=== PATIENT | female | born 1945 | race Caucasian/White ===

== ENCOUNTER 2021-10-23 13:08 | Outpatient (CLI) | payer MEDICARE, BC, SELFPAY ==
--- NOTE | 2021-10-23 13:45 | MR_ITS ---
[address] [address] Phone:?[phone] Fax:?[phone] Referring Physician Information: Sukhdev Tomas [address] [facility] [address] Phone:?[phone] Fax:?[phone] Patient:?Queta Raymond D.O.B:?1945 Sex:?Female Phone:?[phone] [facility] MRN:?[id number] Exam Date:?10/23/2021 ? EXAM: MR LUMBAR SPINE WITHOUT CONTRAST CLINICAL INFORMATION: 76-year-old female with radicular left leg pain. COMPARISON: None. TECHNICAL INFORMATION: Sagittal T2, sagittal T1, sagittal STIR, axial T2, and axial T1-weighted MR images of the lumbar spine on a 1.5 Sera magnet. CONTRAST: None. SEDATION: None. INTERPRETATION: Lordotic alignment of 5 nonrib-bearing lumbar vertebral bodies with a generalized lumbar levocurvature and no spondylolysis, vertebral collapse, acute fracture, or destructive osseous lesion. Normal pre and paravertebral soft tissues. Nonspecific right perinephric stranding, and bilateral renal cysts of varying size and complexity, the largest on the left measuring up to 6.2 cm. Scattered T2 hyperintense right hepatic lesions, one of which is incompletely imaged, the other measuring at least 2.0 cm, and both having a benign appearance in the imaged portions (series 7, image 1). Multiple T2 hypointense gallstones in the gallbladder. Mild right greater than left sacroiliac joint degenerative changes, partially imaged. Conus medullaris positioned at L1-2, with normal configuration of the terminal nerve roots. L5-S1: Mild disc degeneration on the left, ventral annular fissure, left eccentric dorsal to left far lateral annular bulge/endplate ridging, moderate left facet degeneration, mild left subarticular stenosis, and moderate distal left foraminal stenosis with exiting left L5 root impingement. L4-5: Mild disc degeneration, right posterolateral to proximal foraminal annular fissure/2-3 mm AP protrusion, mild bilateral facet degeneration, moderate right/mild left subarticular stenosis with descending right L5 root impingement, and mild right greater than left foraminal stenosis. L3-4: Degenerative disc desiccation with preserved disc height, normal dorsal disc contours, mild bilateral facet degeneration, and no stenosis or impingement. L2-3: Degenerative disc desiccation with preserved disc height, normal dorsal disc contours, normal facets, and no stenosis or impingement. L1-2: Degenerative disc desiccation with preserved disc height, 1 mm retrolisthesis, normal facets, and no stenosis or impingement. T12-L1: Normal disc and facets. CONCLUSION: Multilevel lumbar degenerative changes with levocurvature and specifics as follows: 1. L5-S1 moderate distal left foraminal stenosis with exiting left L5 root impingement. Mild right greater than left foraminal stenosis at L4-5. 2. L4-5 moderate right and mild left subarticular stenosis, noting contribution from a disc protrusion impinging the descending right L5 root. 3. Facet degeneration, moderate on the left at L5-S1. Mild bilaterally at L4-5 and L3-4. 4. No spondylolysis, vertebral collapse, acute fracture, or destructive osseous lesion. 5. Multiple renal cysts with varying degrees of complexity, and nonspecific right perinephric stranding may be correlated with renal function testing and may be further evaluated with retroperitoneal ultrasound if warranted clinically. 6. Cholelithiasis. PDB Electronically signed on 10/24/2021 6:59:00 PM by Kirt Grajeda M.D.
--- OUTSIDE RECORDS SUMMARY | 2021-10-30 01:58 | XMS_ITS | Encounter Summary ---
:1945 Author Organization [facility] Address [address] [place] [address] Care Team Providers Name Role Phone Giovanna Schreiber APRN, C.N.P. Primary Care Provider [phone] Reason for Visit Reason Comments Urinary Tract Infection Encounter Details Date Type Department Care Team Description 09/06/2021 Nurse Triage Department of [facility], Jose Garza inary Tract Medicine, [facility], in [place] [id number] [place], [place] [address] [place] [address] [place] [address] [phone] Social History Tobacco Use Types Packs/Day Years Used Date Smoking Tobacco: Never Smokeless Tobacco: Never Alcohol Use Standard Drinks/Week Comments No 0 (1 standard drink = 0.6 oz pure alcoho l) Alcohol Habits Answer Date Recorded How often do you have a drink containing alcohol? Never 02/07/2019 How many drinks containing alcohol do you have on a typical Not asked day when you are drinking? How often do you have six or more drinks on one occasion? Ne gloria 02/07/2019 Comment: Not asked Social Isolation Answer Date Recorded In a typical week, how many times do you Twice a week 05/27/2020 talk on the phone with family, friends, or neighbors? How often do you get together with friends Twice a week 05/27/2020 or relatives? How often do you attend mandaen or latter day More than 4 time s per year 02/07/2019 services? Do you belong to any clubs or organizations Yes 02/07/2019 such as mandaen groups, unions, fraternal or athletic groups, or school groups? How often do you attend meetings of the More than 4 times pe r year 02/07/2019 clubs or organizations you belong to? Are you now , , , 02/07/2019 , never or living with a partner? Physical Activity Answer Date Recorded On average, how many days per week do you engage in moderate to 2 days 05/27/2020 strenuous exercise (like walking fast, running, jogging, dancing, swimming, biking, or other activities that cause a light or heavy sweat)? On average, how many minutes do you engage in exercise at th is 50 min 05/27/2020 level? Stress Answer Date Recorded Do you feel stress - tense, restless, nervous, or Only a lit tle 02/07/2019 anxious, or unable to sleep at night because your mind is troubled all the time - these days? Financial Resource Strain Answer Date Recorded How hard is it for you to pay for the very basics like Not v norberto hard 02/07/2019 food, housing, medical care, and heating? Intimate Partner Violence Answer Date Recorded Within the last year, have you been afraid of your partner o r No 02/07/2019 ex-partner? Within the last year, have you been humiliated or emotionall y No 02/07/2019 abused in other ways by your partner or ex-partner? Within the last year, have you been kicked, hit, slapped, or No 02/07/2019 otherwise physically hurt by your partner or ex-partner? Within the last year, have you been raped or forced to have any No 02/07/2019 kind of sexual activity by your partner or ex-partner? Food Insecurity Answer Date Recorded Within the past 12 months, you worried that your food would Never true 02/07/2019 run out before you got money to buy more. Within the past 12 months, the food you bought just didn't N ever true 02/07/2019 last and you didn't have money to get more. Transportation Needs Answer Date Recorded In the past 12 months, has lack of transportation kept you f rom No 02/07/2019 medical appointments or from getting medications? In the past 12 months, has lack of transportation kept you f rom No 02/07/2019 meetings, work, or getting things needed for daily living? Education Answer Date Recorded What is the highest level of school you have Some college, n o degree 02/07/2019 completed or the highest degree you have received? 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 - 09/06/2021 1:24 PM CDT Chief Complaint / Reason for Call Patient is a 76 y.o. female calling regarding Urinary Tract Infection. Assessment Concern: Patient feels she has a UTI. She has urinary frequency and pain with urination. She rates the pain 5-6/10. Denies fever, blood in urine, flank or lower back pain. States she took an AZO test which was positive for leukocytes. Present for: Less than 24 hours Home cares tried: AZO pain medication, 100% cranberry juice, increased water intake. Calling to request: appointment The recommended disposition is See a health care provider within 24 hours. Patient was warm transferred to [place] at the clinic for further assistance. Chief Complaint / Reason for Call Reason for Disposition ? ? Age > 50 years Protocols used: URINATION PAIN - [id number] Care Advice Patient/Caregiver understands and will follow care advice?: Yes, able to teach back DRINK EXTRA FLUIDS: * Drink extra fluids. * Drink 8 to 10 cups (1,800 to 2,400 ml) of liquids a day. * Reason: This will water-down your urine and make it less painful to pass. If there is an infection, this will help wash out the germs from your bladder. DRINK EXTRA FLUIDS - EXTRA NOTES AND WARNINGS: * Increased fluid intake may be contraindicated in adults with renal failure or heart failure. * Discuss with your doctor (or HAIR WEAVER/PA). CRANBERRY JUICE: * Some people think that drinking cranberry juice may help in fighting urinary tract infections. While there is some research that shows cranberry juice might help prevent a urine infection, there is not much evidence that it helps treat the infection. However, if you wish to drink cranberry juice, here are some instructions. * Dosage Cranberry Juice Cocktail: 8 oz (240 ml) twice a day. * Dosage 100% Cranberry Juice: 1 oz (30 ml) twice a day. CRANBERRY JUICE - EXTRA NOTES AND WARNINGS: * Do not drink more than 16 oz (480 ml) of cranberry juice cocktail per day. Too much cranberry juice can be irritating to the bladder. * There have been a couple cases reported of interactions between cranberry juice and Coumadin (warfarin). In these cases the INR level increased for a period of days while the person was drinking cranberry juice. The INR is a test that is used to determine if a person is taking the right amount of Coumadin. At higher INR levels there is an increased risk of bleeding. * Remember, antibiotics are needed to treat a urine infection! WARM SALINE SITZ BATHS - TWICE DAILY FOR URINATION PAIN: * Sit in a warm sitz bath for 20 minutes twice a day. This will decrease pain and irritation, keep the area clean, and help with healing. * Afterwards, pat area dry with unscented toilet paper. WARM SALINE SITZ BATH - HOW TO MAKE A SITZ BATH: * Here is how you can make a saline sitz bath. * Fill the tub with warm water until it is 3 to 4 inches (7 to 10 cm) deep. * Add 1/4 cup (80 g) of table salt or baking soda to a tub of warm water. Stir the water until it dissolves. CALL BACK IF: * Fever or back pain occurs * You become worse CARE ADVICE given per Urination Pain - Female (Adult) guideline. documented in this encounter Plan of Treatment Upcoming Encounters Date Type Specialty Care Team Description 11/20/2021 Nurse Only Family Medicine Giovanna Schreiber APRN, C.N.P. [address] [facility] [place] [address] 11/20/2021 Appointment Laboratory Medicine Giovanna Schreiber APRN, C.N.P. [address] [facility] [place] [address] 12/18/2021 Comprehensive Visit Physical Medicine and Isidoro Morales M.D. [address] [address] 12/19/2021 Comprehensive Visit Community Internal Giovanna Schreiber, Medicine ZAINA, C.N.P. [address] [place] [address] documented as of this encounter Visit Diagnoses Not on filedocumented in this encounter Additional Health Concerns Assessment Noted Time PHQ-9 Depression Total Score: 3 11/08/2018 4:46 PM CDT documented as of this encounter Care Teams High School Teacher Relationship Specialty Start Date End Date Giovanna Schreiber V., ZAINA, C.N.P. PCP - General 02/21/19 [address] [place] [address] documented as of this encounter
--- OUTSIDE RECORDS SUMMARY | 2021-10-30 01:58 | XMS_ITS | Encounter Summary ---
:1945 Author Organization [facility] Address [address] [place] [address] Care Team Providers Name Role Phone Giovanna Schreiber APRN, C.N.P. Primary Care Provider [phone] Reason for Referral Outpatient (Routine) - Closed Specialty Diagnoses / Procedures Referred By Contact Refer red To Contact Diagnoses Elevated Thyroid Stimulating Hormone Giovanna Schreiber APRN, [facility] Region Procedures US Thyroid C.N.P. [address] [place] [address] Referral ID Status Reason Start Date Expiration Date Visits Requ ested Visits Authorized [id number] Closed 08/14/2021 08/14/2022 1 1 Reason for Visit Outpatient (Routine) - Closed Specialty Diagnoses / Procedures Referred By Contact Refer red To Contact Diagnoses Elevated Thyroid Stimulating Hormone Giovanna Schreiber APRN, [facility] Region Procedures US Thyroid C.N.P. [address] [place] [address] Referral ID Status Reason Start Date Expiration Date Visits Requ ested Visits Authorized [id number] Closed 08/14/2021 08/14/2022 1 1 Encounter Details Date Type Department Care Team Description 09/05/2021 Hospital Encounter Department of Giovanna Schreiber Thyroid Radiology in [place] Torrez [place], [place] C.N.P. [address] [place] [address] [phone] Social History Tobacco Use Types Packs/Day Years [...] or relatives? How often do you attend jehovah's witness or methodist More than 4 time s per year 02/07/2019 services? 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 CALCIUM CARB/VIT Misc Prescription See 0 02/24/20 12 D3/MINERALS Instructions, Calcium (CALCIUM-VITAMIN D ORAL) & Vit D3 0- takes one ounce daily FAMOTIDINE ORAL Pepcid See 0 06/12/2011 Instructions, 10 mg 1 in am 2 in pm as needed LORATADINE ORAL Take 10 mg by mouth 0 06/12/2011 as needed. lutein 20 mg capsule Take 20 mg by mouth 0 daily. metoprolol succinate TAKE 1 TABLET (50 MG 90 tablet 3 03/26 (TOPROL-XL) 50 mg 24 hr TOTAL) BY MOUTH tabletIndications: DAILY. DO NOT CRUSH Hypertension Essential OR CHEW. Primary vitamins Take 1 capsule by 0 A,C,Z-hoka-ouksbf (ICAPS mouth daily. AREDS) 14,320 Units-226 mg-200 Units per capsule zinc gluconate 50 mg Take 50 mg by mouth 0 tablet daily with breakfast. DOCOSAHEXANOIC ACID/EPA Take by mouth daily. 0 10/03/2021 (FISH OIL ORAL) levothyroxine Take 1 tablet (25 mcg 30 tablet 11 08/14/2021 10/04/2021 (SYNTHROID, LEVOTHROID) total) by mouth 25 mcg tablet daily. documented as of this encounter Plan of Treatment Upcoming Encounters Date Type Specialty Care Team Description 11/20/2021 Nurse Only Family Medicine Giovanna Schreiber APRN, C.N.P. [address] [place] [phone] 11/20/2021 Appointment Laboratory Medicine Giovanna Schreiber APRN, C.N.P. [address] [place] [address] 12/18/2021 Comprehensive Visit Physical Medicine and Isidoro Morales M.D. [address] [phone] 12/19/2021 Comprehensive Visit Community Internal Giovanna Schreiber, Medicine ZAINA, C.N.P. [address] [place] [address] documented as of this encounter Procedures Procedure Name Priority Date/Time Associated Comments Diagnosis US THYROID RAD - Routine 09/05/2021 10:17 Elevated Thyroid Result s for this (most inpatients AM CDT Stimulating Hormone proc edure are in and all the results outpatients) section. documented in this encounter Results US Thyroid (09/05/2021 10:17 AM CDT) Anatomical Region Laterality Modality Head and Neck, Ultrasound RST LOS, Ultrasound ARZ LOS, N/A Ultrasound Ultrasound FLA LOS Specimen (Source) Anatomical Collection Method Collection Time Re ceived Time Location / / Volume Laterality 09/06/2021 1:24 PM CDT Impressions 09/06/2021 1:28 PM CDT 1. 0.6 cm intermediate suspicion nodule in the mid right thyroid laterally. No specific imaging follow-up is recommended. 2. No sonographic abnormality is identif ied in the right level 2 area of pain. Narrative 09/06/2021 1:28 PM CDT EXAM: US THYROID COMPARISON: None. FINDINGS: The right thyroid lobe measures: 1.2 cm x 1.7 cm x 3.9 cm The left thyroid lobe measures: 1.2 cmx1 .5 cmx3.7 cm The isthmus measures: 5 mm in AP diamete r. The thyroid parenchyma appears: normal. A nodule in the mid right thyroid latera lly measures 0.6 x 0.6 x 0.4 cm and has the following features: * ??composition: solid (1) * ??echogenicity: hypoechoic (1) * ??shape: not taller than wide (0) * ??margins: smooth margins (0) * ??echogenic foci: no echogenic foci (0 ). The Butternut ultrasound score is 2. Based on the AskMayoExpert Thyroid Nodule Care Process Model, the nodule has intermediate suspicion for ma lignancy (5-20%). No sonographic abnormality is identified in the right level 2 area of pain. The submandibular gland appears to be within normal limits. Lymph nodes: No pathologically enlarged lymph nodes are seen in the neck, with evaluation of levels II-V. The thyroid nodule descriptions and skyler gories are based on the Thyroid Nodule Care Process Model established by the [facility] [place]. [email or web address]/clinical-[email or web address] The AskMayoExpert Thyroid Nodule CPM sta jairo the following recommendations: ? No suspicion or Extremely low-lona picion nodule: No FNA, no imaging f/u ? Low-suspicion nodule: FNA if grea ter than or equal to 25 mm; US f/u in 2- 5 yrs if greater than or equal to 15 mm ? Intermediate-suspicion nodule: FN A if greater than or equal to 15 mm; US f/u in 1-3 yrs if greater than or equal to 10 mm ? High-suspicion nodule: FNA if gre ater than or equal to 10 mm (or smaller if desired); US f/u in 1 yr if not FNA Procedure Note Pascual Meadows M.D. - 09/06/2021Format ting of this note might be different from the original. EXAM: US THYROID COMPARISON: None. FINDINGS: The right thyroid lobe measures: 1.2 cm x 1.7 cm x 3.9 cm The left thyroid lobe measures: 1.2 cmx1 .5 cmx3.7 cm The isthmus measures: 5 mm in AP diamete r. The thyroid parenchyma appears: normal. A nodule in the mid right thyroid latera lly measures 0.6 x 0.6 x 0.4 cm and has the following features: * composition: solid (1) * echogenicity: hypoechoic (1) * shape: not taller than wide (0) * margins: smooth margins (0) * echogenic foci: no echogenic foci (0). The Butternut ultrasound score is 2. Based on the [employer]May[employer]pert Thyroid Nodule Care Process Model, the nodule has intermediate suspicion for ma lignancy (5-20%). No sonographic abnormality is identified in the right level 2 area of pain. The submandibular gland appears to be within normal limits. Lymph nodes: No pathologically enlarged lymph nodes are seen in the neck, with evaluation of levels II-V. The thyroid nodule descriptions and skyler gories are based on the Thyroid Nodule Care Process Model established by the [facility] [place]. [email or web address]/clinical-answers/[email or web address] [email or web address] The [employer]MayoExpert Thyroid Nodule CPM sta jairo the following recommendations: No suspicion or Extremely low-suspicion nodule: No FNA, no imaging f/u Low-suspicion nodule: FNA if greater th an or equal to 25 mm; US f/u in 2-5 yrs if greater than or equal to 15 mm Intermediate-suspicion nodule: FNA if g reater than or equal to 15 mm; US f/u in 1-3 yrs if greater than or equal to 10 mm High-suspicion nodule: FNA if greater t sr or equal to 10 mm (or smaller if desired); US f/u in 1 yr if not FNA IMPRESSION: 1. 0.6 cm intermediate suspicion nodule in the mid right thyroid laterally. No specific imaging follow-up is recommended. 2. No sonographic abnormality is identif ied in the right level 2 area of pain. Giovanna Schreiber APRN C.N.P. IMG US PROCEDURES documented in this encounter Visit Diagnoses Diagnosis Elevated Thyroid Stimulating Hormone documented in this encounter Additional Health Concerns Assessment Noted Time PHQ-9 Depression Total Score: 3 11/08/2018 4:46 PM CDT documented as of this encounter Care Teams Client Support Administrator Relationship Specialty Start Date End Date Giovanna Schreiber APRN, C.N.P. PCP - General 02/21/[address] [place] [address] [place] [phone] documented as of this encounter
--- OUTSIDE RECORDS SUMMARY | 2021-10-30 01:58 | XMS_ITS | Encounter Summary ---
:1945 Author Organization [facility] Address [address] [place] [address] Care Team Providers Name Role Phone Giovanna Schreiber APRN, C.N.P. Primary Care Provider [phone] Reason for Visit Reason Comments Urinary Tract Infection Noticed pain while urinating on 09/05/21. Has frequency to urinate. Took some equate Ur inary Pain Relief - phenazopyridine hydrochlorid e which did relieve some pain. Has an uncomfortable pressur e type feeling.Took a home test using ASO test strips - luek ocytes were pink. Appointment Request (Routine) - Closed Specialty Diagnoses / Procedures Referred By Contact Refer red To Contact Family Medicine Referral ID Status Reason Start Date Expiration Date Visits Requ ested Visits Authorized [id number] Closed 09/06/2021 09/06/2022 1 1 Encounter Details Date Type Department Care Team Description 09/06/2021 Office Visit Department of Family Everardo Cardoza Sym ptom Urinary (Primary Dx); MedicineRaffaele M.D. Infection Urinary Tract Acute; Clinic, in [address] Hypertension Essential Primary; [place], [place] Hyperlipidemia 300 [facility] [address] [place], [place] [phone] [address] (Work) [phone] Social History Tobacco Use Types Packs/Day Years [...] or relatives? How often do you attend yarsanism or synagogue More than 4 time s per year 02/07/2019 services? 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 - 09/06/2021 2:30 PM CDT Progress Note Patient is 76 years old female with past medical history significant for hypertension, hyperlipidemia, GERD who presented today to the clinic for evaluation of UTI. Urinary Tract Infection This is a new problem. The current episode started yesterday. The problem occurs every urination. The pain is moderate. There has been no fever. Associated symptoms include frequency and urgency. Pertinent negatives include no chills, discharge, flank pain, hematuria, hesitancy, nausea, sweats or vomiting. Associated symptoms comments: Lower abdominal pressure . She has tried increased fluids (azo) for the symptoms. The treatment provided moderate relief. Allergies Allergen Reactions ??? No Known Allergies Other (see comments) Current Outpatient Medications: ??? atorvastatin (LIPITOR) 10 mg tablet, TAKE 1 TABLET (10 MG TOTAL) BY MOUTH DAILY., Disp: 90 tablet, Rfl: 3 ??? CALCIUM CARB/VIT D3/MINERALS (CALCIUM-VITAMIN D ORAL), [facility] Prescription See Instructions, Calcium & Vit D3 0- takes one ounce daily, Disp: , Rfl: ??? FAMOTIDINE ORAL, Pepcid See Instructions, 10 mg 1 in am 2 in pm as needed, Disp: , Rfl: ??? levothyroxine (SYNTHROID, LEVOTHROID) 25 mcg tablet, Take 1 tablet (25 mcg total) by mouth daily., Disp: 30 tablet, Rfl: 11 ??? LORATADINE ORAL, Take 10 mg by mouth as needed. , Disp: , Rfl: ??? lutein 20 mg capsule, Take 20 mg by mouth daily., Disp: , Rfl: ??? metoprolol succinate (TOPROL-XL) 50 mg 24 hr tablet, TAKE 1 TABLET (50 MG TOTAL) BY MOUTH DAILY.DO NOT CRUSH OR CHEW., Disp: 90 tablet, Rfl: 3 ??? vitamins A,C,W-hbzi-jfbvzc (ICAPS AREDS) 14,320 Units-226 mg-200 Units per capsule, Take 1 capsule by mouth daily., Disp: , Rfl: ??? zinc gluconate 50 mg tablet, Take 50 mg by mouth daily with breakfast., Disp: , Rfl: ??? DOCOSAHEXANOIC ACID/EPA (FISH OIL ORAL), Take by mouth daily., Disp: , Rfl: ??? nitrofurantoin monohydrate (MACROBID) 100 mg capsule, Take 1 capsule (100 mg total) by mouth 2 (two) times a day., Disp: 10 capsule, Rfl: 0 Past Medical History: Diagnosis Date ??? Hypertension Essential Primary ??? Hypertensive Chronic Kidney Disease (CKD) Stage 3a Glomerular Filtration Rate (GFR) 45 To 59 08/04/2011 Hypertension ??? Open Reduction And Internal Fixation Leg Status Post 08/11/2018 ??? Osteoporosis 03/31/2017 DEXA scan ??? Primary Osteoarthritis Multiple Sites Social History Tobacco Use ??? Smoking status: Never Smoker ??? Smokeless tobacco: Never Used Vaping Use ??? Vaping Use: never used Substance Use Topics ??? Alcohol use: No ??? Drug use: No Constitutional: - Negative for chills. Gastrointestinal: - Negative for nausea and vomiting. Genitourinary: Positive for frequency and urgency. - Negative for discharge, flank pain, blood in urine and hesitancy. Vitals: 09/06/21 1444 09/06/21 1450 BP: 145/80 141/77 BP Location: Left arm Left arm Patient Position: Sitting Sitting Cuff Size: Large Large Pulse: (!) 54 (!) 52 Resp: 16 Temp: 36.2 ??C TempSrc: Temporal Weight: 98 kg Height: 163.5 cm Constitutional Appearance: She is well-developed. HENT Head: Normocephalic and atraumatic. Right Ear: External ear normal. Left Ear: External ear normal. Nose: Nose normal. Eyes Conjunctiva/sclera: Conjunctivae normal. Pupils: Pupils are equal, round, and reactive to light. Cardiovascular Rate and Rhythm: Normal rate and regular rhythm. Heart sounds: Normal heart sounds. Pulmonary Effort: Pulmonary effort is normal. No respiratory distress. Breath sounds: Normal breath sounds. Abdominal General: Bowel sounds are normal. There is no distension. Palpations: Abdomen is soft. There is no mass. Tenderness: There is no abdominal tenderness. There is no guarding. Musculoskeletal General: Normal range of motion. Cervical back: Normal range of motion and neck supple. Skin General: Skin is warm and dry. Neurological Mental Status: She is alert and oriented to person, place, and time. Deep Tendon Reflexes: Reflexes are normal and symmetric. Psychiatric Behavior: Behavior normal. Queta was seen today for urinary tract infection. Diagnoses and all orders for this visit: Symptom Urinary Infection Urinary Tract Acute - Urinalysis with Microscopic: Urine, Midstream; Future - Bacterial Culture, Aerobic + Susc, Urine; Future Lab Results Component Value Date URINESOURCE Urine, Urine, Midstream 09/06/2021 CLARITYU Clear 09/06/2021 COLORU Yellow 09/06/2021 RBCU None Seen 09/06/2021 RBCU Large (A) 09/06/2021 NITRITEU Positive (A) 09/06/2021 LEUKOCYTESU Small (A) 09/06/2021 PROTEINQUALU Negative 09/06/2021 GLUCOSEU Negative 09/06/2021 KETONESU Negative 09/06/2021 BILIRUBINU Negative 09/06/2021 PHURINE 6.0 09/06/2021 SPECGRAV <=1.005 09/06/2021 UROBILINOGEN 0.2 09/06/2021 Prescription of Macrobid sent to the pharmacy. Urine culture sent. Will call the patient once we getthe results back. Increase fluids and sfcu-eyp-ghvzcpi medication to help with the pain. Hypertension Essential Primary Blood pressure is well controlled. She will continue on Toprol XL 50 mg daily. Hyperlipidemia He will continue on atorvastatin 10 mg daily. Other orders - nitrofurantoin monohydrate (MACROBID) 100 mg capsule; Take 1 capsule (100 mg total) by mouth 2 (two) times a day. documented in this encounter Plan of Treatment Upcoming Encounters Date Type Specialty Care Team Description 11/20/2021 Nurse Only Family Medicine Giovanna Schreiber APRN, C.N.P. [address] [phone] 11/20/2021 Appointment Laboratory Medicine Giovanna Schreiber APRN, C.N.P. [address] [address] 12/18/2021 Comprehensive Visit Physical Medicine and Isidoro Morales M.D. [address] [place] [address], [place] [phone] 12/19/2021 Comprehensive Visit Community Internal Giovanna Schreiber, Medicine ZAINA, C.N.P. [address] [phone] documented as of this encounter Results (ABNORMAL) Bacterial Culture, Aerobic + Susc, Urine (09/06/2021 2:46 PM CDT) [facility] Method Time Signature Urine Culture with mixed 09/08/2021 MKTO microbiota (A) 7:37 AM CDT Urine Culture ESCHERICHIA COLI 09/08/2021 MKTO 10,000-100,000 cfu/mL 7:37 AM CDT (A) Specimen Anatomical Collection Method Collection Time Receive d Time (Source) Location / / Volume Laterality Urine (Urine, 09/06/2021 2:46 PM 09/07/19 7:26 Midstream) CDT PM CDT Comment: Specimen Source Site: Urine Organism Antibiotic Method Susceptibility Escherichia coli Ampicillin SUSCEPTIBILITY, ERICKA <=2 mcg/mL: Susceptible (MCG/ML) Escherichia coli Ampicillin + Sulbactam SUSCEPTIBILITY, ERICKA <=2 mcg/mL: Susceptible (MCG/ML) Escherichia coli Piperacillin + Tazobactam SUSCEPTIBILITY, ERICKA < =4 mcg/mL: Susceptible (MCG/ML) Escherichia coli Cefazolin SUSCEPTIBILITY, ERICKA <=4 mcg/mL: Susceptible (MCG/ML) Comment: The interpretation applies t o uncomplicated urinary tract infections only. It al so applies to these oral cephalosporins: cefuroxime, cephalexin, and cefprozil. Escherichia coli Ceftazidime SUSCEPTIBILITY, ERICKA <=1 mcg/mL: (MCG/ML) Susceptible Escherichia coli Ceftriaxone SUSCEPTIBILITY, ERICKA <=1 mcg/mL: (MCG/ML) Susceptible Escherichia coli Cefepime SUSCEPTIBILITY, ERICKA <=1 mcg/mL: (MCG/ML) Susceptible Escherichia coli Aztreonam SUSCEPTIBILITY, ERICKA <=1 mcg/mL: (MCG/ML) Susceptible Escherichia coli Ertapenem SUSCEPTIBILITY, ERICKA <=0.5 mcg/m L: (MCG/ML) Susceptible Escherichia coli Meropenem SUSCEPTIBILITY, ERICKA <=0.25 mcg/ mL: (MCG/ML) Susceptible Escherichia coli Gentamicin SUSCEPTIBILITY, ERICKA <=1 mcg/mL: (MCG/ML) Susceptible Escherichia coli Tobramycin SUSCEPTIBILITY, ERICKA <=1 mcg/mL: (MCG/ML) Susceptible Escherichia coli Levofloxacin SUSCEPTIBILITY, ERICKA <=0.12 mcg/ mL: (MCG/ML) Susceptible Escherichia coli Nitrofurantoin SUSCEPTIBILITY, ERICKA <=16 mcg/mL : (MCG/ML) Susceptible Escherichia coli Trimethoprim + SUSCEPTIBILITY, ERICKA <=20 mcg/mL : Sulfamethoxazole (MCG/ML) Susceptible Everardo Cardoza M.D. LAB MICROBIOLOGY - GENERAL O RDERABLES Performing Organization Address City/State/ZIP Code Phon e Number [facility]- [address] [place] [address] [place] [address] System in [place] 10[address] [facility] (ABNORMAL) Urinalysis with Microscopic: Urine, Midstream (09/06/2021 2:46 PM CDT) Analysis Performed At [facility] Time Signature Source Urine, Urine, 09/06/2021 FB60 Midstream 2:46 PM CDT Clarity Clear Clear 09/06/2021 FB60 2:55 PM CDT Color Yellow 09/06/2021 FB60 2:55 PM CDT Comment: ----REFERENCE VALUE---- Colorless Yellow [facility] Blood Large (A) Negative 09/06/2021 2:55 PM CDT FB60 Nitrite Positive (A) Negative 09/06/2021 2:55 PM CDT FB60 Leukocyte Esterase Small (A) Negative 09/06/2021 2:55 PM CD T FB60 Protein Negative mg/dL 09/06/2021 2:55 PM CDT FB60 Comment: ----REFERENCE VALUE---- Negative Trace Glucose Negative Negative mg/dL 09/06/2021 2:55 PM CDT FB 60 Ketones, QI(U) Negative Negative mg/dL 09/06/2021 2:55 PM C DT FB60 Bilirubin Negative Negative 09/06/2021 2:55 PM CDT FB60 pH 6.0 5.0 - 8.0 09/06/2021 2:55 PM CDT FB60 Specific Jackson <=1.005 1.001 - 1.035 09/06/2021 2:55 PM CDT FB60 Urobilinogen 0.2 0.2 - 1.0 mg/dL 09/06/2021 2:55 PM CD T FB60 White Blood Cells 4-10 /hpf 09/06/2021 2:58 PM CDT FB60 Comment: ----REFERENCE VALUE---- Males: 0-3 Females: 0-10 Unknown: 0-10 Red Blood Cells None Seen 0 - 2 /hpf 09/06/2021 2:58 PM CDT FB60 Squamous Cells 4-10 /hpf 09/06/2021 2:58 PM CDT FB 60 Specimen Anatomical Collection Method Collection Time Receive d Time (Source) Location / / Volume Laterality Urine (Urine, 09/06/2021 2:46 PM 09/07/19 2:46 Midstream) CDT PM CDT Everardo Cardoza M.D. LAB URINE ORDERABLES Performing Organization Address City/State/ZIP Code Phon e Number [place] [address] [place] [address] [facility] [address] [place] [address] System in [address] documented in this encounter Visit Diagnoses Diagnosis Symptom Urinary - Primary Infection Urinary Tract Acute Hypertension Essential Primary Hyperlipidemia documented in this encounter Additional Health Concerns Assessment Noted Time PHQ-9 Depression Total Score: 3 11/08/2018 4:46 PM CDT documented as of this encounter Care Teams Sanitary Chemist Relationship Specialty Start Date End Date Giovanna Schreiber V., ZAINA, C.N.P. PCP - General 02/21/19 [address] [place] [address] documented as of this encounter
--- OUTSIDE RECORDS SUMMARY | 2021-10-30 01:58 | XMS_ITS | Encounter Summary ---
:1945 Author Organization [facility] Address [address] [place] [address] Care Team Providers Name Role Phone Giovanna Schreiber APRN, C.N.P. Primary Care Provider [phone] Reason for Referral Outpatient (Routine) - Authorized Specialty Diagnoses / Procedures Referred By Contact Refer red To Contact Physical Medicine and Diagnoses Pain Low Back Unspecified Giovanna Schreiber V., [facility] ZIANA, C.N.P. [address] [place] [address] Referral ID Status Reason Start Date Expiration Date Visits V isits Requested Authorized [id number] Authorized 10/04/2021 10/04/2022 1 1 Encounter Details Date Type Department Care Team Description 10/04/2021 Orders Only Department of Giovanna Schreiber V., Pain Low Back Community Internal ZAINA, C.N.P. Unspecified Medicine in [address] [address] [place], [place] [phone] [address] (Work) [phone] Social History Tobacco Use Types Packs/Day Years [...] or relatives? How often do you attend taoism or taoist More than 4 time s per year 02/07/2019 services? 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 [address] [place] [address] 11/20/2021 Appointment Laboratory Medicine Giovanna Schreiber APRN, C.N.P. [address] [place] [address] 12/18/2021 Comprehensive Visit Physical Medicine and Isidoro Morales M.D. [address] [phone] 12/19/2021 Comprehensive Visit Community Internal Giovanna Schreiber, Medicine ZAINA, C.N.P. [address] [place] [address] Scheduled Referrals Name Type Priority Associated Order Schedule Diagnoses Physical Medicine and Outpatient Routine Pain Low Back Expec aleah: Rehabilitation - Referral Unspecified 10/04/2021 General consult (Approximate ), (clinic) Expires: 01/04/2023 documented as of this encounter Visit Diagnoses Diagnosis Pain Low Back Unspecified documented in this encounter Additional Health Concerns Assessment Noted Time PHQ-9 Depression Total Score: 3 11/08/2018 4:46 PM CDT documented as of this encounter Care Teams Embryology Teacher Relationship Specialty Start Date End Date Giovanna Schreiber APRN, C.N.P. PCP - General 02/21/[address] [place] [address] [place] [address] documented as of this encounter
--- OUTSIDE RECORDS SUMMARY | 2021-10-30 01:58 | XMS_ITS | Encounter Summary ---
:1945 Author Organization [facility] Address [address] [place] [address] Care Team Providers Name Role Phone Giovanna Schreiber APRN, C.N.PPavan Primary Care Provider [phone] Reason for Referral Outpatient (Routine) - Closed Specialty Diagnoses / Procedures Referred By Contact Refer red To Contact Diagnoses Lumbar Disc Disorder Giovanna Schreiber APRN, [facility] [place] [facility] Procedures DX Lumbar Spine 2-3 Views C.N.P. 300 [facility] [place] [address] Referral ID Status Reason Start Date Expiration Date Visits Requ ested Visits Authorized [id number] Closed 10/03/2021 10/03/2022 1 1 Reason for Visit Outpatient (Routine) - Closed Specialty Diagnoses / Procedures Referred By Contact Refer red To Contact Diagnoses Lumbar Disc Disorder Giovanna Schreiber APRN, [facility] [place] [facility] Procedures DX Lumbar Spine 2-3 Views C.N.P. [address] [place] [address] Referral ID Status Reason Start Date Expiration Date Visits Requ ested Visits Authorized [id number] Closed 10/03/2021 10/03/2022 1 1 Encounter Details Date Type Department Care Team Description 10/03/2021 Hospital Encounter Department of Giovanna Schreiber Lumbar Disc Disorder Radiology in ZAINA Torrez [place] C.N.P. 300 [facility] 300 [facility] [place] [phone] [phone] Social History Tobacco Use Types Packs/Day Years [...] or relatives? How often do you attend christianity or zoroastrianism More than 4 time s per year 02/07/2019 services? 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 AREDS) 14,320 Units-226 mg-200 Units per capsule zinc gluconate 50 mg Take 50 mg by mouth 0 tablet daily with breakfast. levothyroxine Take 1 tablet (25 mcg 30 tablet 11 08/14/2021 10/04/2021 (SYNTHROID, LEVOTHROID) total) by mouth 25 mcg tablet daily. documented as of this encounter Plan of Treatment Upcoming Encounters Date Type Specialty Care Team Description 11/20/2021 Nurse Only Family Medicine Giovanna Schreiber APRN, C.N.P. 300 [facility] [place] [address] 11/20/2021 Appointment Laboratory Medicine Giovanna Schreiber APRN, C.N.P. 300 [facility] [place] [address] 12/18/2021 Comprehensive Visit Physical Medicine and Isidoro Morales M.D. [address] [place] [address] 12/19/2021 Comprehensive Visit Community Internal Giovanna Schreiber, Medicine ZAINA, C.N.P. 300 [facility] [place] [address] documented as of this encounter Procedures Procedure Name Priority Date/Time Associated Comments Diagnosis DX LUMBAR SPINE RAD - Routine 10/03/2021 4:49 Lumbar Disc Results for this 2-3 VIEWS (most inpatients PM CDT Disorder procedure a re in and all the results outpatients) section. documented in this encounter Results DX Lumbar Spine 2-3 Views (10/03/2021 4:49 PM CDT) Anatomical Region Laterality Modality Lumbar Spine, Musculoskeletal RST LOS, Neuroradiology N/A Digital Radiography ARZ LOS, Muskuloskeletal FLA LOS Specimen (Source) Anatomical Collection Method Collection Time Re ceived Time Location / / Volume Laterality 10/04/2021 1:11 PM CDT Impressions 10/04/2021 1:11 PM CDT No comparison. Severe osteopenia. Lumbar rotoscoliosis convex to the left. Disc space narrowing at the L3-L5 interspaces with hypertrophic changes and advanced lumbosacral facet arthritis. Changes both hips. Narrative 10/04/2021 1:11 PM CDT EXAM: ??DX LUMBAR SPINE 2-3 VIEWS Procedure Note Analisa Rasmussen M.D. - 10/04/2021For matting of this note might be different from the original. EXAM: DX LUMBAR SPINE 2-3 VIEWS IMPRESSION: No comparison. Severe osteopenia. Lumbar rotoscoliosis convex to the left. Disc space narrowing at the L3-L5 interspaces with hypertrophic changes and advanced lumbosacral facet arthritis. Changes both hips. Giovanna Schreiber APRN, C.N.P. [facility] [place] OCEDURES documented in this encounter Visit Diagnoses Diagnosis Lumbar Disc Disorder documented in this encounter Additional Health Concerns Assessment Noted Time PHQ-9 Depression Total Score: 3 11/08/2018 4:46 PM CDT documented as of this encounter Care Teams Wound Care Coordinator Relationship Specialty Start Date End Date Giovanna Schreiber APRN, C.N.P. PCP - General 02/21/[address] [place] [address] [place] [address] documented as of this encounter
--- OUTSIDE RECORDS SUMMARY | 2021-10-30 01:58 | XMS_ITS | Encounter Summary ---
:1945 Author Organization [facility] Address [address] [place] [address] Care Team Providers Name Role Phone Giovanna Schreiber APRN, C.N.P. Primary Care Provider [phone] Encounter Details Date Type Department Care Team Description 10/04/2021 Orders Only Department of Giovanna Schreiber Hypothyroidtalib m (Primary Community Internal V., ZAINA, C.N .P. Dx) Medicine in [address] [place] [address] [place], [place] [phone] [address] (Work) [phone] Social History Tobacco Use Types Packs/Day Years [...] or relatives? How often do you attend denominational or druze More than 4 time s per year 02/07/2019 services? 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 300 [facility] [place] [address] 11/20/2021 Appointment Laboratory Medicine Giovanna Schreiber APRN, C.N.P. 300 [facility] [address] 12/18/2021 Comprehensive Visit Physical Medicine and Isidoro Morales M.D. [address] [phone] 12/19/2021 Comprehensive Visit Community Internal Giovanna Schreiber, Medicine ZAINA, C.N.P. 300 [facility] [place] [address] Scheduled Orders Name Type Priority Associated Diagnoses Order S chedule S-TSH Lab Routine Hypothyroidism Expected: (Thyroid-Stimulating (Approx imate), Expires: Hormone - Sensitive) 023 T3 (Triiodothyronine), Lab Routine Hypothyroidism Exp ected: 11/20/2021 Total (Approximate), Expires: 01/04/2023 T4 (Thyroxine), Free Lab Routine Hypothyroidism Expec aleah: 11/20/2021 (Approximate), Expires: 01/04/2023 documented as of this encounter Visit Diagnoses Diagnosis Hypothyroidism - Primary documented in this encounter Additional Health Concerns Assessment Noted Time PHQ-9 Depression Total Score: 3 11/08/2018 4:46 PM CDT documented as of this encounter Care Teams Extrusion Press Adjuster Relationship Specialty Start Date End Date Giovanna Schreiber APRN, C.N.P. PCP - General 02/21/[address] [place] [address] Annalise Raffaele, [place] [phone] documented as of this encounter
--- OUTSIDE RECORDS SUMMARY | 2021-10-30 01:58 | XMS_ITS | Encounter Summary ---
:1945 Author Organization [facility] Address [address] [place] [address] Care Team Providers Name Role Phone Giovanna Schreiber APRN, C.N.P. Primary Care Provider [phone] Reason for Visit Reason Comments Results Encounter Details Date Type Department Care Team Description 08/15/2021 Clinical Communication Department of Giovanna Schreiber V., Results Community Internal ZAINA, C.N.P. Medicine in [address] [address] [place], [place] [phone] (Work) [phone] Social History Tobacco Use Types Packs/Day Years [...] or relatives? How often do you attend tenriism or caodaism More than 4 time s per year 02/07/2019 services? 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 - 08/23/2021 9:13 AM CDT SUBJECTIVE CHIEF COMPLAINT / REASON FOR CALL Results PLAN The following information was provided: Notified and explained to Queta to take her thyroid medicine and not the supplements Information/Education: patient/caller able to teach back The following references were used: provider Giovanna Schreiber Telephone Encounter - Giovanna Schreiber APRN C.N.PPavan - 08/22/2021 5:52 PM CDT Please contact Queta to let her know I do not advise that she takes thyroid supplements she mention. Please see Blessing's note to help explain to her. Telephone Encounter - Analisa Rodríguez, PharmPavanD. - 08/22/2021 3:55 PM CDT Please see following review for supplements regarding hypothyroidism: Thyrogard contains L-tyrosine, kelp, bladderwrack, turmeric and Bioperine. Cannot find any clinical studies indicating that the supplements will assist with clinically diagnosed hypothyroidism. Actalin contains vitamin D, vitamin D, vitamin E, riboflavin, niacin, idodine, magnesium, zinc, selenium, copper, manganese, L-tyrosine, methylsulfonylmethane and a proprietary herbal blend. Cannot find any clinical studies indicating that the supplements will assist with clinically diagnosed hypothyroidism. Magnesium does not have any clinical evidence reviewing impact on hypothyroidism or thyroid functionin general. Selenium has insufficient evidence to indicate any potential benefit for treating hypothyroidism. Selenium may be affective for autoimmune thyroiditis, however seems to be more effective in patients that have severe thyroiditis disease activity and less effective in patients with moderate disease activity. Ultimately there is no reliable evidence about the effect of selenium on thyroid function in general. Analisa Tapia, Fidel. Clinical Pharmacist 08/22/2021 Telephone Encounter - Selam Mills - 2021 11:01 AM CDT SUBJECTIVE CHIEF COMPLAINT / REASON FOR CALL Results Information Discussed Called to gather more information on supplements patient would like to try. They are Thyrogard and Actalin. She is also asking if these are not something she should be taking if Magnesium or Selenium would thakkar option? Patient is scheduled for the ultrasound on 09/05/21. PLAN Disposition/Recommendation: notified provider and awaiting recommendations Information/Education: not applicable Caller agreeable to plan of care: yes The following references were used: provider Giovanna Schreiber APRN, C.N.P. Telephone Encounter - Giovanna Schreiber APRN, C.N.P. - 08/15/2021 5:01 PM CDT Please contact Queta to find out what natural product she is planning on taking for her thyroid. She should have the thyroid ultrasound done due to the lump in her throat . Telephone Encounter - Hien Crespo L.P.N. - 08/15/2021 10:58 AM CDT SUBJECTIVE CHIEF COMPLAINT / REASON FOR CALL Results Information Discussed Discussed results with patient. She would like to speak to you or have nursing give her a call with your recommendations about the medication. She would like to try supplement or a natural way of taking care of her high TSH before she starts any medication because she would like to avoid being on anymore prescription meds. PLAN Disposition/Recommendation: notified provider and awaiting recommendations Information/Education: patient/caller able to teach back Caller agreeable to plan of care: yes The following references were used: provider Giovanna documented in this encounter Plan of Treatment Upcoming Encounters Date Type Specialty Care Team Description 11/20/2021 Nurse Only Family Medicine Giovanna Schreiber APRN, C.N.P. [address] [place] [phone] 11/20/2021 Appointment Laboratory Medicine Giovanna Schreiber APRN C.N.P. [address] [facility] [place] [phone] 12/18/2021 Comprehensive Visit Physical Medicine and Isidoro Morales M.D. [address] [phone] 12/19/2021 Comprehensive Visit Community Internal Giovanna Schreiber, Medicine ZAINA C.N.P. [address] [facility] [place] [phone] documented as of this encounter Visit Diagnoses Not on filedocumented in this encounter Additional Health Concerns Assessment Noted Time PHQ-9 Depression Total Score: 3 11/08/2018 4:46 PM CDT documented as of this encounter Care Teams Hydropulper Operator Relationship Specialty Start Date End Date Giovanna Schreiber APRN, C.N.P. PCP - General 02/21/19 [address] [place] [phone] documented as of this encounter
--- OUTSIDE RECORDS SUMMARY | 2021-10-30 01:58 | XMS_ITS | Encounter Summary ---
:1945 Author Organization [facility] Address [address] [place] [address] Care Team Providers Name Role Phone Giovanna Schreiber APRN, C.N.P. Primary Care Provider [phone] Reason for Referral Outpatient (Routine) - Closed Specialty Diagnoses / Procedures Referred By Contact Refer red To Contact Diagnoses Lumbar Disc Disorder Giovanna Schreiber APRN, [facility] Region Procedures DX Lumbar Spine 2-3 Views C.N.P. [address] [place] [address] Referral ID Status Reason Start Date Expiration Date Visits Requ ested Visits Authorized [id number] Closed 10/03/2021 10/03/2022 1 1 Reason for Visit Reason Comments Follow-up [facility] ER Appointment Request (Routine) - Closed Specialty Diagnoses / Procedures Referred By Contact Refer red To Contact Community Internal Medicine Referral ID Status Reason Start Date Expiration Date Visits Requ ested Visits Authorized [id number] Closed 10/02/2021 10/02/2022 1 1 Encounter Details Date Type Department Care Team Description 10/03/2021 Office Visit Department of Giovanna Schreiber Lumbar Disc D isorder (Primary Dx); Community Internal ZAINA Torrez, C.N .P. 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 - 10/03/2021 6:01 PM CDT You will be notified of lab and x-ray results when available documented in this encounter Progress Notes Giovanna Schreiber APRN, C.N.Zunilda. - 10/03/2021 3:30 PM CDT SUBJECTIVE CHIEF COMPLAINT / REASON FOR VISIT Queta Raymond is a 76 y.o. female who presents for evaluation of Follow-up ([facility] ER). HISTORY OF PRESENT ILLNESS Queta is here for follow-up from ER visit. She states she had gone swimming and was really kickingher legs. After swimming she spent time in a hot tub with strong jets that she had pointed to her low back. She stated she slept well that night and around 5:00 a.m. the next morning she had excruciating pain in her groin left hip and lumbar spine area. She had no numbness down her legs. She was treated and released from [facility] ER. No x-rays or blood work was done at the time of her visit. The following portions of the patient's history were reviewed and updated as appropriate: allergies,medication, past medical history, past surgical history, social history and family history. OBJECTIVE BP 153/78 (BP Location: Right arm, Patient Position: Sitting, Cuff Size: Large) Pulse 64 Temp 36??C Ht 162 cm Wt 97 kg BMI 36.96 kg/m?? REVIEW OF SYSTEMS REVIEW OF SYSTEMS PHYSICAL EXAM General: She is well groomed and in no acute distress Skin: No lesions noted or reported HEENT: Grossly normal. No JVD lymphadenopathy thyroid megaly or bruits Cardiac: S1-S2 regular rate and rhythm no murmurs gallops or rubs Respiratory: Lungs clear bilaterally with no adventitious breath sounds good respiratory effort Abdomen: Soft nontender positive bowel sounds in 4 quadrants Musculoskeletal: No clubbing or cyanosis noted no tenderness effusion knees and shoulders Negative edema bilateral lower extremities. Neurological: Cranial nerves II-XII grossly intact ASSESSMENT / PLAN #1 Lumbar Disc Disorder Assessment & Plan: She was seen at [facility] emergency department 10/01/2021 for excruciating groin pain that traveled across her left thigh to her lateral leg in into her back. She took Tylenol 0 add ibuprofen used ice and heat. She states nothing helped her. She had no comfortable position and no rest. The pain spontaneously went away and she is doing much better. Groin areais sore when she moves her legs but not to the extent of pain she had before. A CBC BMP lumbar spine x-ray and UA UC will be obtained today. Orders: - DX Lumbar Spine 2-3 Views; Future; Expected date: 10/03/2021 #2 Pain Foot Left - Uric Acid; Future; Expected date: 10/03/2021 #3 Hypertensive Chronic Kidney Disease (CKD) Stage 3a Glomerular Filtration Rate (GFR) 45 To 59 - CBC with Differential, Blood; Future; Expected date: 10/03/2021 - Comprehensive Metabolic Panel; Future; Expected date: 10/03/2021 #4 Dysuria - Bacterial Culture, Aerobic + Susc, Urine #5 Elevated Thyroid Stimulating Hormone - S-TSH (Thyroid-Stimulating Hormone - Sensitive); Future; Expected date: 10/03/2021 She will be notified of her lab and x-ray results when available. documented in this encounter Miscellaneous Notes Assessment & Plan Note - Giovanna Schreiber APRN, C.N.P. - 10/03/2021 5:57 PM CDT Associated Problem(s): Hypothyroidism Her TSH will be drawn today. Assessment & Plan Note - Giovanna Schreiber APRN, C.N.P. - 10/03/2021 5:56 PM CDT Associated Problem(s): Pain Foot Left Uric acid level will be drawn to see if she has gout. Continue taking Tylenol and ibuprofen Assessment & Plan Note - Giovanna Schreiber APRN, C.N.P. - 10/03/2021 5:56 PM CDT Associated Problem(s): Hypertensive Chronic Kidney Disease (CKD) Stage 3a Glomerular Filtration Rate(GFR) 45 To 59 (HCC) Hypertension. She is on metoprolol succinate 50 mg daily Assessment & Plan Note - Giovanna Schreiber APRN, C.N.P. - 10/03/2021 5:53 PM CDT Associated Problem(s): Lumbar Disc Disorder She was seen at [facility] emergency department 10/01/2021 for excruciating groin pain that traveled across her left thigh to her lateral leg in into her back. She took Tylenol 0 add ibuprofen used ice and heat. She states nothing helped her. She had no comfortable position and no rest. The pain spontaneously went away and she is doing much better. Groin areais sore when she moves her legs but not to the extent of pain she had before. A CBC BMP lumbar spine x-ray and UA UC will be obtained today. documented in this encounter Plan of Treatment Upcoming Encounters Date Type Specialty Care Team Description 11/20/2021 Nurse Only Family Medicine Giovanna Schreiber APRN, C.N.P. [facility] [place] [address] 11/20/2021 Appointment Laboratory Medicine Giovanna Schreiber APRN, C.N.P. [address] [facility] [place] [phone] 12/18/2021 Comprehensive Visit Physical Medicine and Isidoro Morales M.D. [address] [phone] 12/19/2021 Comprehensive Visit Community Internal Giovanna Schreiber, Medicine ZAINA, C.N.P. 300 [facility] [place] [phone] documented as of this encounter Procedures Procedure Name Priority Date/Time Associated Diagnosis Comme nts BACTERIAL CULTURE, Routine 10/03/2021 4:22 PM Dysuria Res ults for this AEROBIC + SUSC, CDT procedure ar e in URINE the results section. documented in this encounter Results DX [...] Giovanna Schreiber APRN, C.N.P. IMG DIAGNOSTIC IMAGING TN OCEDURES (ABNORMAL) S-TSH (Thyroid-Stimulating Hormone - Sensitive) (10/03/2021 4:27 PM CDT) P athologist Signature TSH, Sensitive 5.1 (H) 0.3 - 4.2 10/03/2021 [place] mIU/L 6:28 PM CDT Specimen Anatomical Collection Method Collection Time Receive d Time (Source) Location / / Volume Laterality Blood (Blood, 10/03/2021 4:27 PM 10/04/19 6:05 Venous) CDT PM CDT Giovanna Schreiber APRN, C.N.P. LAB BLOOD ADD-ON Performing Organization Address City/State/ZIP Code Phon e Number [facility]- [address] [place] [address] [facility] [place] [address] System in [place] [address] (ABNORMAL) Comprehensive Metabolic Panel (10/03/2021 4:27 PM CDT) P athologist Signature Potassium, P 4.2 3.6 - 5.2 10/03/2021 [place] mmol/L 6:22 PM CDT Sodium, P 141 135 - 145 10/03/2021 [place] mmol/L 6:22 PM CDT Chloride, P 101 98 - 107 10/03/2021 [place] mmol/L 6:22 PM CDT Bicarbonate, P 28 22 - 29 10/03/2021 [place] mmol/L 6:22 PM CDT Anion Gap, P 12 7 - 15 10/03/2021 [place] 6:22 PM CDT BUN (Blood 23 (H) 6 - 21 10/03/2021 [place] Urea mg/dL 6:22 PM CDT Nitrogen), P Creatinine, P 1.54 (H) 0.59 - 10/03/2021 [place] 1.04 mg/dL 6:22 PM CDT eGFR-Black/Afr 37 (L) >=60 10/03/2021 [place] ican Serbian mL/min/BSA 6:22 PM CDT Comment: ----ADDITIONAL INFORMATION---- Estimated GFR calculated using the 2009 CKD_EPI creatinine equation. eGFR Non-Black/ 32 (L) >=60 mL/min/BSA 10/03/2021 6:22 PM CDT [place] Serbian Comment: ----ADDITIONAL INFORMATION---- Estimated GFR calculated using the 2009 CKD_EPI creatinine equation. Calcium, Total, P 10.0 8.8 - 10.2 mg/dL 10/03/2021 6:22 PM CDT [place] Glucose, P 98 70 - 140 mg/dL 10/03/2021 6:22 PM CDT O ANDRES Protein, Total, P 7.4 6.3 - 7.9 g/dL 10/03/2021 6:22 P M CDT [place] Albumin, P 4.5 3.5 - 5.0 g/dL 10/03/2021 6:22 PM CDT O ANDRES Aspartate Aminotransferase 33 8 - 43 U/L 10/03/2021 6 :22 PM CDT [place] (AST), P Alkaline Phosphatase, P 70 35 - 104 U/L 10/03/2021 6: 22 PM CDT [place] Alanine Aminotransferase (ALT), 19 7 - 45 U/L 022 6:22 PM CDT OW[place] P Bilirubin, Total, P 0.3 <=1.2 mg/dL 10/03/2021 6:22 PM CDT OW[place] Specimen Anatomical Collection Method Collection Time Receive d Time (Source) Location / / Volume Laterality Blood (Blood, 10/03/2021 4:27 PM 10/04/19 6:04 Venous) CDT PM CDT Ean Ford APRNNHair LAB BLOOD ADD-ON Performing Organization Address City/State/ZIP Code Phon e Number [facility]- [address] [place] [id number] [facility] [address] System in [place] [address] [place] [address] (ABNORMAL) CBC with Differential, Blood (10/03/2021 4:27 PM CDT) [facility] Method Time Signature Hemoglobin 14.5 11.6 - 10/03/2021 FB60 15.0 g/dL 4:35 PM CDT Hematocrit 44.3 35.5 - 10/03/2021 FB60 44.9 % 4:35 PM CDT Erythrocytes 4.73 3.92 - 10/03/2021 FB60 5.13 4:35 PM CDT x10(12)/L MCV 93.7 78.2 - 10/03/2021 FB60 97.9 fL 4:35 PM CDT RBC Distrib Width 14.2 12.2 - 10/03/2021 FB60 16.1 % 4:35 PM CDT Platelet Count 247 157 - 371 10/03/2021 FB60 x10(9)/L 4:35 PM CDT Leukocytes 10.0 (H) 3.4 - 9.6 10/03/2021 FB60 x10(9)/L 4:35 PM CDT Neutrophils 4.44 1.56 - 10/03/2021 FB60 6.45 4:35 PM CDT x10(9)/L Lymphocytes 4.17 (H) 0.95 - 10/03/2021 FB60 3.07 4:35 PM CDT x10(9)/L Monocytes 1.16 (H) 0.26 - 10/03/2021 FB60 0.81 4:35 PM CDT x10(9)/L Eosinophils 0.20 0.03 - 10/03/2021 FB60 0.48 4:35 PM CDT x10(9)/L Basophils 0.06 0.01 - 10/03/2021 FB60 0.08 4:35 PM CDT x10(9)/L Specimen Anatomical Collection Method Collection Time Receive d Time (Source) Location / / Volume Laterality Blood (Blood, 10/03/2021 4:27 PM 10/04/19 22 4:27 Venous) CDT PM CDT Giovanna Schreiber APRN, C.N.P. LAB BLOOD ADD-ON Performing Organization Address City/State/ZIP Code Phon e Number [address] [place] [address] [facility] [address] [place] [address] System [address] Uric Acid (10/03/2021 4:27 PM CDT) P athologist Signature Uric Acid, P 5.7 2.7 - 6.1 10/03/2021 [facility]UST mg/dL 10:57 PM CDT Specimen Anatomical Collection Method Collection Time Receive d Time (Source) Location / / Volume Laterality Blood (Blood, 10/03/2021 4:27 PM 10/04/19 22 Venous) CDT 10:40 PM CDT Giovanna Schreiber APRN, C.N.P. LAB BLOOD ADD-ON Performing Organization Address City/State/ZIP Code Phon e Number [facility]- [address] [place] [address] [facility] [place] [address] [facility] [address] (ABNORMAL) Bacterial Culture, Aerobic + Susc, Urine (10/03/2021 4:22 PM CDT) [facility] gist Method Time Signature Urine Culture Mixed 10/04/2021 [facility] microbiota (A) 4:15 PM CDT Specimen Anatomical Collection Method Collection Time Receive d Time (Source) Location / / Volume Laterality Urine (Urine, 10/03/2021 4:22 PM 10/04/19 7:19 Midstream) CDT PM CDT Comment: Specimen Source Site: Urine Giovanna Schreiber APRN, C.N.P. LAB MICROBIOLOGY - GENERA L ORDERABLES Performing Organization Address City/State/ZIP Code Phon e Number [facility]- [address] [place] [address] [place] [address] System in [address] documented in this encounter Visit Diagnoses Diagnosis Lumbar Disc Disorder - Primary Pain Foot Left Hypertensive Chronic Kidney Disease (CKD ) Stage 3a Glomerular Filtration Rate (GFR) 45 To 59 (HCC) Dysuria Elevated Thyroid Stimulating Hormone Hypothyroidism Lumbar Disc Disorder documented in this encounter Additional Health Concerns Assessment Noted Time PHQ-9 Depression Total Score: 3 11/08/2018 4:46 PM CDT documented as of this encounter Care Teams Char Filter Operator Helper Relationship Specialty Start Date End Date Giovanna Schreiber APRN, C.N.P. PCP - General 02/21/[address] [place] [address] [place] [phone] documented as of this encounter
--- OUTSIDE RECORDS SUMMARY | 2021-10-30 01:58 | XMS_ITS | Encounter Summary ---
:1945 Author Organization [facility] Address [address] [place] [address] Care Team Providers Name Role Phone Giovanna Schreiber APRN, C.N.P. Primary Care Provider [phone] Encounter Details Date Type Department Care Team Description 09/06/2021 Hospital Encounter Department of Everardo Cardoza Symp tom Urinary Laboratory Medicine in [place], [place] 300 [facility] 300 [place] [phone] Social History Tobacco Use Types Packs/Day Years [...] or relatives? How often do you attend yazidi or buddhism More than 4 time s per year 02/07/2019 services? 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 Hyperlipidemia Mixed CALCIUM CARB/VIT Misc Prescription See 0 02/24/20 12 D3/MINERALS Instructions, Calcium (CALCIUM-VITAMIN D & Vit D3 0- takes one ORAL) ounce daily FAMOTIDINE ORAL Pepcid See 0 [...] Primary vitamins Take 1 capsule by 0 A,C,Q-oahy-rwvkyf mouth daily. (ICAPS AREDS) 14,320 Units-226 mg-200 Units per capsule zinc gluconate 50 mg Take 50 mg by mouth 0 tablet daily with breakfast. DOCOSAHEXANOIC ACID/EPA Take by mouth daily. 0 10/03/2021 (FISH OIL ORAL) levothyroxine Take 1 tablet (25 mcg 30 tablet 11 08/14/2021 10/04/2021 (SYNTHROID, LEVOTHROID) total) by mouth 25 mcg tablet daily. nitrofurantoin Take 1 capsule (100 10 capsule 0 09/06/2021 0 10/03/2021 monohydrate (MACROBID) mg total) by mouth 2 100 mg capsule (two) times a day. documented as of this encounter Miscellaneous Notes Result Encounter Note - Everardo Cardoza M.D. - 09/09/2021 7:45 AM CDT Urine culture is positive for E coli sensitive to Macrobid. Please advise the patient to continue antibiotics. documented in this encounter Plan of Treatment Upcoming Encounters Date Type Specialty Care Team Description 11/20/2021 Nurse Only Family Medicine Giovanna Schreiber APRN, C.N.P. [address] [place] [phone] 11/20/2021 Appointment Laboratory Medicine Giovanna Schreiber APRN, C.N.P. [address] [place] [phone] 12/18/2021 Comprehensive Visit Physical Medicine and Isidoro Morales M.D. 0 [place] [phone] 12/19/2021 Comprehensive Visit Community Internal Giovanna Schreiber, Medicine ZAINA, C.N.P. [address] [place] [phone] documented as of this encounter Procedures Procedure Name Priority Date/Time Associated Comments Diagnosis BACTERIAL CULTURE, Routine 09/06/2021 2:46 PM Symptom Urinary Results for this AEROBIC + SUSC, URINE CDT proced ure are in the results section. URINALYSIS WITH Routine 09/06/2021 2:46 PM Symptom Urinary Res ults for this MICROSCOPIC CDT procedure are i n the results section. documented in this encounter Results (ABNORMAL) Bacterial Culture, Aerobic + Susc, Urine (09/06/2021 2:46 PM CDT) [facility] Method Time Signature Urine Culture with mixed [...] Organization Address City/State/ZIP Code Phon e Number [facility]- [address] [place] [address] [place] [address] System in [address] (ABNORMAL) Urinalysis with Microscopic: Urine, Midstream (09/06/2021 2:46 PM CDT) [facility] Urine, Urine, 09/06/2021 FB60 [...] 8.0 09/06/2021 2:55 PM CDT FB60 Specific [place] <=1.005 1.001 - 1.035 09/06/2021 2:55 PM [...] Organization Address City/State/ZIP Code Phon e Number [facility]- [address] [place] [address] [facility] [place] [address] System in [place] [address] documented in this encounter Visit Diagnoses Diagnosis Symptom Urinary documented in this encounter Additional Health Concerns Assessment Noted Time PHQ-9 Depression Total Score: 3 11/08/2018 4:46 PM CDT documented as of this encounter Care Teams Medical Sales Associate Relationship Specialty Start Date End Date Giovanna Schreiber V., ZAINA, C.N.P. PCP - General 02/21/[address] [place] [address] documented as of this encounter
--- OUTSIDE RECORDS SUMMARY | 2021-10-30 01:58 | XMS_ITS | Encounter Summary ---
:1945 Author Organization [facility] Address [address] [place] [address] Care Team Providers Name Role Phone Giovanna Schreiber APRN C.N.P. Primary Care Provider Encounter Details Date Type Department Care Team Description 10/03/2021 Clinical Communication Department of Giovanna Schreiber V., Community Internal ZAINA C.N.PPavan Medicine in [address] [address] [place], [place] [phone] [address] (Work) [phone] Social History Tobacco Use Types Packs/Day Years [...] or relatives? How often do you attend mu-ism or protestant More than 4 time s per year 02/07/2019 services? 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 - 10/03/2021 5:24 PM CDT Name of person contacted: Patient Relationship to patient: Not applicable Call back number: see emr Cardiovascular Tech: Not applicable Information provided: Patient informed of Giovanna Schreiber's results and recommendations. Patient informed that urine culture most likely will not come back until tomorrow. banquet set up person/patient received and understood education/information provided: Yes banquet set up person/patient agreed to the Plan of Care: Yes Telephone Encounter - Kelsie Vang C.M.A. - 10/03/2021 5:10 PM CDT Left message for patient to return call to clinic. Does the patient need to speak to nursing? yes Action needed: Inform patient of the results as listed below by Giovanna Schreiber. Telephone Encounter - Kelsie Vang C.M.A. - 10/03/2021 5:10 PM CDT ----- Message from Giovanna Schreiber APRN, C.N.PPavan sent at 10/03/2021 5:06 PM CDT ----- Please call the patient regarding her abnormal result. Her white count is elevated which could be a sign od infection. We will wait for the urine result. documented in this encounter Plan of Treatment Upcoming Encounters Date Type Specialty Care Team Description 11/20/2021 Nurse Only Family Medicine Giovanna Schreiber APRN, C.N.P. [address] [phone] 11/20/2021 Appointment Laboratory Medicine Giovanna Schreiber APRN, C.N.P. [address] [phone] 12/18/2021 Comprehensive Visit Physical Medicine and Isidoro Morales M.D. 0 [place] [address] 12/19/2021 Comprehensive Visit Community Internal Giovanna Schreiber, Medicine Lala MAHAJAN.N.P. [address] [phone] documented as of this encounter Visit Diagnoses Not on filedocumented in this encounter Additional Health Concerns Assessment Noted Time PHQ-9 Depression Total Score: 3 11/08/2018 4:46 PM CDT documented as of this encounter Care Teams Tape Cutter Relationship Specialty Start Date End Date Giovanna Schreiber APRN, C.N.P. PCP - General 02/21/19 [address] [phone] documented as of this encounter
--- OUTSIDE RECORDS SUMMARY | 2021-10-30 01:58 | XMS_ITS | Encounter Summary ---
:1945 Author Organization [facility] Address [address] [place] [address] Care Team Providers Name Role Phone Giovanna Schreiber APRN, C.N.P. Primary Care Provider [phone] Reason for Referral Outpatient (Routine) - Authorized Specialty Diagnoses / Procedures Referred By Contact Refer red To Contact Internal Medicine / Diagnoses Hypertensive Chronic Kidney Disease (CKD) Stage 3a Glomerular Filtration Rate (GFR) 45 To 59 ([facility]) Giovanna Schreiber [facility] Internal ZAINA, C.N.P. [address] [address] Referral ID Status Reason Start Date Expiration Date Visits V isits Requested Authorized [id number] Authorized 10/01/2021 10/01/2022 1 1 Outpatient (Routine) - Authorized Specialty Diagnoses / Procedures Referred By Contact Refer red To Contact Giovanna Schreiber AP RN, C.N.P. [address] [address] Referral ID Status Reason Start Date Expiration Date Visits V isits Requested Authorized [id number] Authorized 10/01/2021 10/01/2022 1 1 Scheduling Instructions BP elevated at last office visit. Reasse ssment recommended. Reason for Visit Reason Comments Hypertension Management Encounter Details Date Type Department Care Team Description 09/30/2021 Clinical Communication Department of Giovanna Schreiber ertnaseem [facility] Internal V., PAN OPERATOR, [facility] in C.N.P. Raffaele, 300 [facility] [address] Rodriguez 300 [facility] [address] [address] [place] [phone] [address] (Work) [phone] Social History Tobacco Use Types Packs/Day Years [...] or relatives? How often do you attend anabaptism or yazdanism More than 4 time s per year 02/07/2019 services? 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 - 10/01/2021 7:41 AM CDT : 1945 Orders signed ORDERS and INSTRUCTIONS: There are no discontinued medications. Orders Placed This Encounter ??? Primary Care nurse visit (clinic) - [facility] Region; BP check; BP check only (LEAF TINNER) Standing Status: Future Standing Expiration Date: 12/31/2022 Referral Priority: Routine Referral Type: Outpatient Referral Location: [facility] Number of Visits Requested: 1 ??? Community Internal Medicine - General (clinic) Standing Status: Future Standing Expiration Date: 12/31/2022 Referral Priority: Routine Referral Type: Outpatient Referral Location: [facility] Region Requested Specialty: Internal Medicine Number of Visits Requested: 1 Electronically signed by: Giovanna Schreiber APRN C.N.Lima 10/01/21 7:41 AM CDT Telephone Encounter - Ayaka Blanca R.N. - 09/30/2021 2:53 PM CDT Primary Care Chart Review Completed patient chart review on 09/30/2021, for Queta Raymond, a 76 y.o. female, currently paneled to Giovanna Schreiber APRN, C.NPavanPPavan. Summary of Chart Review Lab Results Component Value Date LDLCALC 79 08/12/2021 BP Readings from Last 2 Encounters: 09/06/21 141/77 08/13/21 (!) 165/83 Social History Tobacco Use Smoking Status Never Smoker Smokeless Tobacco Never Used Upon today's chart review, patient is not meeting the following criteria: Blood pressure Patient does not have a visit scheduled within the next 3 months.. Recent Updates to Hypertension Management Plan The following recommendations regarding patient's hypertension management plan have been made withinthe last 12 months: None Recommended follow-up: RN will: Contact PCP to: approve order for nurse visit and order provider follow up for date recommended (not noted, please complete) Additional Notes: Last PCP appt 08/13/21. documented in this encounter Plan of Treatment Upcoming Encounters Date Type Specialty Care Team Description 11/20/2021 Nurse Only Family Medicine Giovanna Schreiber APRN C.N.P. [address] [place] [address] [place] [address] 11/20/2021 Appointment Laboratory Medicine Giovanna Schreiber APRN, C.N.P. [address] [phone] 12/18/2021 Comprehensive Visit Physical Medicine and Isidoro Morales M.D. [address] [phone] 12/19/2021 Comprehensive Visit Community Internal Giovanna Schreiber, Medicine ZAINA, C.N.P. 300 [facility] [address] [place] [phone] Scheduled Referrals Name Type Priority Associated Diagnoses Order S brenda Primary Care nurse Outpatient Referral Routine Ex pected: visit (clinic) - 10[facility]01/20[facility] Region; (Approxim ate), BP check; BP check Expires: only (LEAF TINNER) 12/31/2022 Community Internal Outpatient Referral Routine Hypertensive Ch ronic Expected: Medicine - General Kidney Disease (CKD) 0 10/01/2021 (clinic) Stage 3a Glomerular (Approxi mate), Filtration Rate (GFR) s: 45 To 59 (HCC) 12/31/2022 documented as of this encounter Visit Diagnoses Diagnosis Hypertensive Chronic Kidney Disease (CKD ) Stage 3a Glomerular Filtration Rate (GFR) 45 To 59 (HCC) - Primary documented in this encounter Additional Health Concerns Assessment Noted Time PHQ-9 Depression Total Score: 3 11/08/2018 4:46 PM CDT documented as of this encounter Care Teams Drain Layer Relationship Specialty Start Date End Date Giovanna Schreiber APRN, C.N.P. PCP - General 02/21/19 [address] [phone] documented as of this encounter
--- OUTSIDE RECORDS SUMMARY | 2021-10-30 01:58 | XMS_ITS | Encounter Summary ---
:1945 Author Organization [facility] Address [address] [place] [address] Care Team Providers Name Role Phone Giovanna Schreiber APRN, C.N.P. Primary Care Provider [phone] Reason for Visit Reason Comments Leg Pain Hip Pain Encounter Details Date Type Department Care Team Description 10/01/2021 Nurse Triage Department of [facility] Katie Irby, Leg Pain; Hip Pain Internal Medicine in [place], [place] [address] [place] [phone] Social History Tobacco Use Types Packs/Day Years [...] or relatives? How often do you attend samaritan or buddhist More than 4 time s per year 02/07/2019 services? 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 - 10/01/2021 2:29 PM CDT Chief Complaint / Reason for Call Patient is a 76 y.o. female calling regarding Leg Pain and Hip Pain. Assessment Concern: The patient was seen in the ED at an outside facility this morning. Reports constant left hip/lower back/leg pain. The pain started in her groin this morning and then moved to deep inside the top of the leg and lower back area. It feels like a pinched nerve. Rates pain close to 10/10. It hurts when sitting, standing, walking, or laying down. The patient is able to bear weight. The patient is starting to feel a little shaky from the pain. Afebrile. Denies dizziness, recent injury, rash, redness, swelling, visible deformities. Of note, the patient reports a severe broken left leg in 2000. Present since: 5 am Home cares tried: Tylenol, ibuprofen, lidocaine patch, ice - no relief Calling to request: Advice - return to ED? The recommended disposition is See a health care provider within 4 hours. The call was warm transferred high priority from scheduling. At that time, the rehabilitation aide/scheduler stated there were no available appointments in [place] today. Discussed with the patient the options of being seen in [place] or returning to the ED in [place]. The patient verbalized understanding and plans to return to the ED in [place]. Reason for Disposition ??? [1] SEVERE pain (e.g., excruciating, unable to do any normal activities) AND [2] not improved after 2 hours of pain medicine Protocols used: HIP [id number] Care Advice Patient/Caregiver understands and will follow care advice?: Yes, able to teach back SEE HCP (OR PCP TRIAGE) WITHIN 4 HOURS. CARE ADVICE given per Hip Pain (Adult) guideline. CALL BACK IF: * You become worse documented in this encounter Plan of Treatment Upcoming Encounters Date Type Specialty Care Team Description 11/20/2021 [facility] [address] [phone] 11/20/2021 Appointment Laboratory Medicine Giovanna Schreiber APRN, C.N.P. [address] [phone] 12/18/2021 Comprehensive Visit Physical Medicine and Isidoro Morales M.D. [address] [address] 12/19/2021 Comprehensive Visit Community Internal Giovanna Schreiber, Medicine ZAINA, C.N.P. [address] [phone] documented as of this encounter Visit Diagnoses Not on filedocumented in this encounter Additional Health Concerns Assessment Noted Time PHQ-9 Depression Total Score: 3 11/08/2018 4:46 PM CDT documented as of this encounter Care Teams Transformer Shop Supervisor Relationship Specialty Start Date End Date Giovanna Schreiber APRN, C.N.P. PCP - General 02/21/19 [address] [phone] documented as of this encounter
--- OUTSIDE RECORDS SUMMARY | 2021-10-30 01:58 | XMS_ITS | Encounter Summary ---
:1945 Author Organization [facility] Address [address] [place] [address] Care Team Providers Name Role Phone Giovanna Schreiber APRN C.N.P. Primary Care Provider [phone] Encounter Details Date Type Department Care Team Description 10/03/2021 Hospital Encounter Department of Giovanna Schreiber Fo ot Left; Laboratory Medicine ZAINA Torrez Hyperten sive Chronic Kidney Disease (CKD) Stage 3a Glomerular Filtration Rate (GFR) 45 To 59 (HCC); in [place]le, C.N.P. Elevated Thyroid Stimulating Hormone [place] [address] [facility] [address] [facility] [phone] Social History Tobacco Use Types Packs/Day Years [...] or relatives? How often do you attend hindu or gnosticist More than 4 time s per year 02/07/2019 services? 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 AREDS) 14,320 Units-226 mg-200 [...] Giovanna Schreiber APRN, C.N.P. [address] [phone] 12/18/2021 Comprehensive Visit Physical Medicine and Isidoro Morales M.D. [address] [address] 12/19/2021 Comprehensive Visit [facility] Internal Abdoul, Giovanna Browne, Medicine ROAD DESIGN ENGINEER, C.N.P. [address] [phone] documented as of this encounter Procedures Procedure Name Priority Date/Time Associated Diagnosis Comme nts CBC WITH DIFFERENTIAL, Routine 10/03/2021 4:27 Hypertensive Ch ronic Results for this B PM CDT Kidney Disease (CKD) procedu re are in Stage 3a Glomerular the resu lts Filtration Rate section. (GFR) 45 To 59 (HCC) URIC ACID, S/P Routine 10/03/2021 4:27 Pain Foot Left Results for this PM CDT procedure are i n the results section. THYROID-STIMULATING Routine 10/03/2021 4:27 Elevated Thyroid R esults for this HORMONE-SENSITIVE PM CDT Stimulating Hormone pro cedure are in (S-TSH) the results section. COMPREHENSIVE Routine 10/03/2021 4:27 Hypertensive Chronic Res ults for this METABOLIC PANEL, S/P PM CDT Kidney Disease (CKD) procedure are in Stage 3a Glomerular the resu lts Filtration Rate section. (GFR) 45 To 59 (HCC) documented in this encounter Results (ABNORMAL) S-TSH (Thyroid-Stimulating Hormone - Sensitive) (10/03/2021 [...] Organization Address City/State/ZIP Code Phon e Number [facility]- [address] [place] [address] [facility] [facility] [place] [address] System in [place] [address] (ABNORMAL) Comprehensive Metabolic Panel (10/03/2021 4:27 PM [...] eGFR-Black/Afr 37 (L) >=60 10/03/2021 [place] Citizen mL/min/BSA 6:22 PM CDT Comment: ----ADDITIONAL INFORMATION---- Estimated GFR calculated using the 2009 CKD_EPI creatinine equation. eGFR Non-Black/ 32 (L) >=60 mL/min/BSA 10/03/2021 6:22 PM CDT [facility] [place] Comment: ----ADDITIONAL INFORMATION---- Estimated GFR calculated using [...] PM 10/04/19 6:04 Venous) CDT PM CDT Giovanna Schreiber APRN, C.N.P. LAB BLOOD ADD-ON Performing Organization Address City/State/ZIP Code Phon e Number [facility]- [address] [place] [address] [facility] [place] [address] System in [place] [address] [facility] (ABNORMAL) CBC with Differential, Blood (10/03/2021 4:27 PM CDT) [facility] Method Time Signature Hemoglobin 14.5 11.6 [...] Laterality Blood (Blood, 10/03/2021 4:27 PM 10/04/19 4:27 Venous) CDT PM CDT Giovanna Schreiber APRN, C.N.P. LAB BLOOD ADD-ON Performing Organization Address City/State/ZIP Code Phon e Number [address] [place] [address] [facility] [address] [place] [address] [address] Uric Acid (10/03/2021 4:27 PM CDT) athologist Signature Uric Acid, P 5.7 2.7 - 6.1 10/03/2021 [facility] mg/dL 10:57 PM CDT Specimen Anatomical Collection Method Collection Time Receive d Time (Source) Location / / Volume Laterality Blood (Blood, 10/03/2021 4:27 PM 10/04/19 Venous) CDT 10:40 PM CDT Giovanna Schreiber APRN, C.N.P. LAB BLOOD ADD-ON Performing Organization Address City/State/ZIP Code Phon e Number [facility]- [address] [place] [address] [facility] [place], [place] [address] [place] [address] documented in this encounter Visit Diagnoses Diagnosis Pain Foot Left Hypertensive Chronic Kidney Disease (CKD ) Stage 3a Glomerular Filtration Rate (GFR) 45 To 59 (HCC) Elevated Thyroid Stimulating Hormone documented in this encounter Additional Health Concerns Assessment Noted Time PHQ-9 Depression Total Score: 3 11/08/2018 4:46 PM CDT documented as of this encounter Care Teams Child Development Specialist Relationship Specialty Start Date End Date Giovanna Schreiber V., ZAINA, C.N.P. PCP - General 02/21/[address] [place] [address] [address] [place] [phone] documented as of this encounter
--- OUTSIDE RECORDS SUMMARY | 2021-10-30 01:59 | XMS_ITS | Encounter Summary ---
:1945 Author Organization [facility] Address [address] [place] [address] Care Team Providers Name Role Phone Giovanna Schreiber APRN, C.N.P. Primary Care Provider [phone] Reason for Visit Reason Comments Med Refill Encounter Details Date Type Department Care Team Description 06/10/2021 Refill Department of Family Medicine, Hilda Presley APRN, Med Refill [facility], [place] [address] [address] [place] [address] [phone] Social History Tobacco Use Types Packs/Day Years [...] or relatives? How often do you attend moravian or confucianist More than 4 time s per year 02/07/2019 services? 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 [address] [facility] [place] [phone] 11/20/2021 Appointment Laboratory Medicine Giovanna Schreiber APRN C.N.P. [address] [facility] [place] [phone] 12/18/2021 Comprehensive Visit Physical Medicine and Isidoro Morales M.D. [address] [address] 12/19/2021 Comprehensive Visit Community Internal Giovanna Schreiber, Medicine ZAINA C.N.P. 300 [facility] [place] [phone] documented as of this encounter Visit Diagnoses Diagnosis Hyperlipidemia Mixed documented in this encounter Additional Health Concerns Assessment Noted Time PHQ-9 Depression Total Score: 3 11/08/2018 4:46 PM CDT documented as of this encounter Care Teams Grease Buffer Relationship Specialty Start Date End Date Giovanna Schreiber APRN, C.N.P. PCP - General 02/21/19 [address] [facility] [address] [place] [phone] documented as of this encounter
--- OUTSIDE RECORDS SUMMARY | 2021-10-30 01:59 | XMS_ITS | Encounter Summary ---
:1945 Author Organization [facility] Address [address] [place] [address] Care Team Providers Name Role Phone AbdoulMadison snyderEan Isaac APRNNPavanPPavan Primary Care Provider [phone] Encounter Details Date Type Department Care Team Description 05/07/2020 Orders Only [facility] PCP [facility] Sa marin Stokes M.D. [address] [place], [place] [phone] (Wo rk) Social History Tobacco Use Types Packs/Day Years [...] or relatives? How often do you attend muslim or sabianism More than 4 time s per year 02/07/2019 services? 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 [address] [address] 11/20/2021 Appointment Laboratory Medicine Giovanna Schreiber APRN, C.N.P. [address] [place] [phone] 12/18/2021 Comprehensive Visit Physical Medicine and Isidoro Morales M.D. [address] [address] 12/19/2021 Comprehensive Visit Community Internal Giovanna Schreiber, Medicine ZAINA, C.N.P. [address] [place] [phone] documented as of this encounter Visit Diagnoses Not on filedocumented in this encounter Additional Health Concerns Assessment Noted Time PHQ-9 Depression Total Score: 3 11/08/2018 4:46 PM CDT documented as of this encounter Care Teams Research Physicist Relationship Specialty Start Date End Date Giovanna Schreiber APRN, C.N.P. PCP - General 02/21/19 [address] [place] [phone] documented as of this encounter
--- OUTSIDE RECORDS SUMMARY | 2021-10-30 01:59 | XMS_ITS | Encounter Summary ---
:1945 Author Organization [facility] Address [address] [place] [address] Care Team Providers Name Role Phone Masha Rosenberg M.D. Primary Care Provider Encounter Details Date Type Department Care Team Description 02/11/2019 Hospital Encounter Department of Masha Rosenberg Primary Osteoarthritis Multiple Sites; Radiology in [place] Pain Knee Right; [place], [address] Osteoporosis [place], [place] [address] [address] [place], [place] [phone] [address] (Work) [phone] Social History Tobacco Use Types Packs/Day Years [...] or relatives? How often do you attend confucianist or latter-day More than 4 time s per year 02/07/2019 services? 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 lutein 20 mg capsule Take 20 mg by mouth 0 daily. ASPIRIN ORAL Take 1 tablet by 0 03/24/20142020 mouth daily. DOCOSAHEXANOIC ACID/EPA Take by mouth daily. 0 10/03/2021 (FISH OIL ORAL) metoprolol succinate Take 1 tablet (50 mg 90 tablet 3 11/1601/25/2020 (TOPROL-XL) 50 mg 24 hr total) by mouth tabletIndications: daily. Do not crush Hypertension Essential or chew. Primary documented as of this encounter Plan of Treatment Upcoming Encounters Date Type Specialty Care Team Description 11/20/2021 Nurse Only Family Medicine Giovanna Schreiber APRN, C.N.P. [address] [place] [address] 11/20/2021 Appointment Laboratory Medicine Giovanna Schreiber APRN, C.N.P. [address] [place] [address] 12/18/2021 Comprehensive Visit Physical Medicine and Isidoro Morales M.D. [address] [place] [address] 12/19/2021 Comprehensive Visit Community Internal Giovanna Schreiber, Medicine ZAINA, C.N.P. [address] [place] [address] documented as of this encounter Procedures Procedure Name Priority Date/Time Associated Diagnosis Comme nts DX KNEE RIGHT 4+ RAD - Routine 02/11/2019 3:26 Primary Results for VIEWS (most inpatients PM TELEPHONE STATION REPAIRER Osteoarthritis this proc edure and all Multiple Sites are in the outpatients) Pain Knee Right results Osteoporosis section. documented in this encounter Results DX Knee Right 4+ Views (02/11/2019 3:26 PM TELEPHONE STATION REPAIRER) Anatomical Region Laterality Modality Lower Extremity, Knee, Musculoskeletal RST LOS, Right Digital Radiography Musculoskeletal ARZ LOS, Muskuloskeletal FLA LOS Specimen (Source) Anatomical Collection Method Collection Time Re ceived Time Location / / Volume Laterality 02/11/2019 3:28 PM TELEPHONE STATION REPAIRER Impressions 02/11/2019 3:29 PM TELEPHONE STATION REPAIRER Tiny right knee joint effusion. No appreciable acute osseous injury of t he right knee. Mild/moderately prominent scattered dege nerative changes of the right knee. Postop changes proximal left tibia. Mode rate/severe scattered degenerative changes of the left knee. IMPRESSION: No appreciable acute osseous injury of the right knee. Tiny right knee joint effusion. Narrative 02/11/2019 3:29 PM TELEPHONE STATION REPAIRER EXAM: DX KNEE RIGHT 4+ VIEWS COMPARISON: September 07, 2014 Procedure Note Hai Knott M.D. - 02/11/2019Forma tting of this note might be different from the original. EXAM: DX KNEE RIGHT 4+ VIEWS COMPARISON: September 07, 2014 IMPRESSION: Tiny right knee joint effusion. No appreciable acute osseous injury of t he right knee. Mild/moderately prominent scattered dege nerative changes of the right knee. Postop changes proximal left tibia. Mode rate/severe scattered degenerative changes of the left knee. IMPRESSION: No appreciable acute osseous injury of the right knee. Tiny right knee joint effusion. Masha Rosenberg M.D. IMG DIAGNOSTIC IMAGING PROCE SHABANA documented in this encounter Visit Diagnoses Diagnosis Primary Osteoarthritis Multiple Sites Pain Knee Right Osteoporosis documented in this encounter Additional Health Concerns Assessment Noted Time PHQ-9 Depression Total Score: 3 11/08/2018 4:46 PM CDT documented as of this encounter Care Teams Diver'S Tender Relationship Specialty Start Date End Date Masha Rosenberg M.D. PCP - General 09/04/16 02/20/19 documented as of this encounter
--- OUTSIDE RECORDS SUMMARY | 2021-10-30 01:59 | XMS_ITS | Encounter Summary ---
:1945 Author Organization [facility] Address [address] [place] [address] Care Team Providers Name Role Phone Giovanna Schreiber APRN, C.N.P. Primary Care Provider [phone] Encounter Details Date Type Department Care Team Description 02/16/2019 Orders Only Department of Family Masha Rosenberg Pai n Knee [facility], [facility] (Primary Dx) [facility], in [address] [phone] [address] (Work) [phone] Social History Tobacco Use Types Packs/Day Years [...] or relatives? How often do you attend congregational or mormonism More than 4 time s per year 02/07/2019 services? 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 [address] [place] [address] 11/20/2021 Appointment Laboratory Medicine Giovanna Schreiber APRN, C.N.P. [address] [place] [address] 12/18/2021 Comprehensive Visit Physical Medicine and Isidoro Morales M.D. [address] [phone] 12/19/2021 Comprehensive Visit Community Internal Giovanna Schreiber, Medicine ZAINA, C.N.P. [address] [place] [address] documented as of this encounter Visit Diagnoses Diagnosis Pain Knee Right - Primary documented in this encounter Additional Health Concerns Assessment Noted Time PHQ-9 Depression Total Score: 3 11/08/2018 4:46 PM CDT documented as of this encounter Care Teams Fund Accounting Manager Relationship Specialty Start Date End Date Giovanna Schreiber APRN, C.N.P. PCP - General 02/21/19 [address] [facility] [place] [address] documented as of this encounter
--- OUTSIDE RECORDS SUMMARY | 2021-10-30 01:59 | XMS_ITS | Encounter Summary ---
:1945 Author Organization [facility] Address [address] [place] [address] Care Team Providers Name Role Phone Giovanna Schreiber APRN C.N.P. Primary Care Provider [phone] Reason for Visit Reason Comments Med Refill Encounter Details Date Type Department Care Team Description 01/25/2020 Refill Department of [facility] Giovanna Schreiber APRN, Med Refill Internal Medicine [place] 300 [facility] 300 [place] [address] [place] [address] [phone] Social History Tobacco Use Types Packs/Day Years [...] or relatives? How often do you attend baptist or religion More than 4 time s per year 02/07/2019 services? 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 300 [facility] [place] [address] 11/20/2021 Appointment Laboratory Medicine Giovanna Schreiber APRN, C.N.P. 300 [facility] [place] [address] 12/18/2021 Comprehensive Visit Physical Medicine and Isidoro Morales M.D. [address] [phone] 12/19/2021 Comprehensive Visit Community Internal Giovanna Schreiber, Medicine ZAINA, C.N.P. 300 [facility] [place] [address] documented as of this encounter Visit Diagnoses Diagnosis Hypertension Essential Primary documented in this encounter Additional Health Concerns Assessment Noted Time PHQ-9 Depression Total Score: 3 11/08/2018 4:46 PM CDT documented as of this encounter Care Teams Wood Carver Relationship Specialty Start Date End Date Giovanna Schreiber APRN, C.N.P. PCP - General 02/21/19 300 [facility] [place] [address] documented as of this encounter
--- OUTSIDE RECORDS SUMMARY | 2021-10-30 01:59 | XMS_ITS | Encounter Summary ---
:1945 Author Organization [facility] Address [address] [place] [address] Care Team Providers Name Role Phone Giovanna Schreiber APRN, C.N.P. Primary Care Provider Reason for Visit Reason Comments Mass Lump on the right side of th e upper neck near jaw, seems to come and go Outpatient (Routine) - Closed Specialty Diagnoses / Procedures Referred By Contact Refer red To Contact Internal Medicine / Diagnoses Hypertension Essential Primary Giovanna Schreiber V. [facility] Internal ZAINA, C.N.P. Medicine [address] [place] [address] Referral ID Status Reason Start Date Expiration Date Visits Requ ested Visits Authorized [id number] Closed 08/07/2021 08/07/2022 1 1 Encounter Details Date Type Department Care Team Description 08/13/2021 Comprehensive Visit Department of Giovanna Schreiber ension Essential Primary (Primary Dx); [facility] Internal ZAINA Torrez, Hypertens jessica Chronic Kidney Disease (CKD) Stage 3a Glomerular Filtration Rate (GFR) 45 To 59; Medicine in C.N.P. Elevated Thyroid Stimulating Hormone; [place], [facility] [address] Dysphagia; [place], [place] Hyperlipidemia Mixed; [address] [facility] [phone] Beat Premature Ventricular; [place], [place] [phone] Incontinence U rinary Stress Female [address] (Work) [phone] Social History Tobacco Use Types Packs/Day Years [...] or relatives? How often do you attend rastafari or scientology More than 4 time s per year 02/07/2019 services? 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 - 08/13/2021 11:58 AM CDT Make a lab appointment for TSH . Do not take any vitamin supplement like the Areds or Lutein 24 hours before the test documented in this encounter Progress Notes Giovanna Schreiber V., ZAINA, EanNPavanP. - 08/13/2021 11:30 AM CDT SUBJECTIVE CHIEF COMPLAINT / REASON FOR VISIT Queta Raymond is a 75 y.o. female who presents for evaluation of Mass (Lump on the right side ofthe upper neck near jaw, seems to come and go). HISTORY OF PRESENT ILLNESS Queta is here for an annual exam. We spoke about her medications went over her labs. She also has a small lump under her jaw on the right side of her neck. She states that comes and goes. It only hurts when she pushes on it at times. The following portions of the patient's history were reviewed and updated as appropriate: allergies,medication, past medical history, past surgical history, social history and family history. OBJECTIVE BP (!) 165/83 (BP Location: Left arm, Patient Position: Sitting, Cuff Size: Regular) Pulse (!) 49 Temp 36.1 ??C (Temporal) Resp 16 Ht 162 cm Wt 97.6 kg BMI 37.19 kg/m?? REVIEW OF SYSTEMS Genitourinary: Positive for incontinence. All other systems reviewed and are negative. She is refusing any further mammograms. She did a Cologuard last year which was negative. She has yearly eye exams with Dr. King. She is in need of a dental appointment. She wears her seatbelt. PHYSICAL EXAM General: She is well groomed and in no acute distress Skin: No lesions noted or reported HEENT: Grossly normal. No JVD lymphadenopathy thyroid megaly or bruits. No lump noted under drawn Cardiac: S1-S2 regular rate and rhythm no murmurs gallops or rubs Respiratory: Lungs clear bilaterally with no adventitious breath sounds good respiratory effort Abdomen: Soft nontender positive bowel sounds in 4 quadrants Musculoskeletal: No clubbing or cyanosis noted no tenderness effusion knees and shoulders negativeedema bilateral lower extremities. Neurological: Cranial nerves II-XII grossly intact ASSESSMENT / PLAN #1 Hypertension Essential Primary - Community Internal Medicine - General (clinic) #2 Hypertensive Chronic Kidney Disease (CKD) Stage 3a Glomerular Filtration Rate (GFR) 45 To 59 Assessment & Plan: She is normotensive and hemodynamically stable on her current medication of metoprolol succinate 50 mg daily. #3 Elevated Thyroid Stimulating Hormone Assessment & Plan: She is movable small lump deep in her jawline on the right side. She states that time she is having a little difficulty swallowing. Denies any history of thyroid problems. A TSH will be drawn. The planwill be she will return when she is off of her vitamins and supplements for 24 hours for the blood draw Orders: - Thyroid Function Milmay; Future; Expected date: 08/13/2021 #4 Dysphagia #5 Hyperlipidemia Mixed Assessment & Plan: She has a normal lipid panel on atorvastatin 10 mg daily. She is tolerating the medication well no change in plan #6 Beat Premature Ventricular Assessment & Plan: She is currently stable with a normal heart rate on metoprolol #7 Incontinence Urinary Stress Female Assessment & Plan: She does drink cranberry juice to prevent any urinary tract infections. She denies any dysuria or hematuria. She does not want any further workup She will be contacted with results of the TSH when they are ready. documented in this encounter Miscellaneous Notes Assessment & Plan Note - Giovanna Schreiber APRN, C.N.P. - 08/13/2021 2:24 PM CDT Associated Problem(s): Incontinence Urinary Stress Female She does drink cranberry juice to prevent any urinary tract infections. She denies any dysuria or hematuria. She does not want any further workup Assessment & Plan Note - Giovanna Schreiber APRN, C.N.P. - 08/13/2021 2:24 PM CDT Associated Problem(s): Beat Premature Ventricular She is currently stable with a normal heart rate on metoprolol Assessment & Plan Note - Giovanna Schreiber APRN, C.N.P. - 08/13/2021 2:22 PM CDT Associated Problem(s): Elevated Thyroid Stimulating Hormone She is movable small lump deep in her jawline on the right side. She states that time she is having a little difficulty swallowing. Denies any history of thyroid problems. A TSH will be drawn. The planwill be she will return when she is off of her vitamins and supplements for 24 hours for the blood draw Assessment & Plan Note - Giovanna Schreiber APRN, C.N.P. - 08/13/2021 2:22 PM CDT Associated Problem(s): Hyperlipidemia Mixed She has a normal lipid panel on atorvastatin 10 mg daily. She is tolerating the medication well no change in plan Assessment & Plan Note - Giovanna Schreiber APRN, C.N.P. - 08/13/2021 2:21 PM CDT Associated Problem(s): Hypertensive Chronic Kidney Disease (CKD) Stage 3a Glomerular Filtration Rate(GFR) 45 To 59 (HCC) She is normotensive and hemodynamically stable on her current medication of metoprolol succinate 50 mg daily. Her blood pressure is elevated today in the office. She was given a blood pressure book to write down her daily blood pressures taken at alternating times for week. She states at home she has normal blood pressures. She does admit to not taking her blood pressure that often. She will be vigilant in taking blood pressures to monitor where she is at with hypertension. No medication adjustmentswill be made on blood pressures done in the office today. documented in this encounter Plan of Treatment Upcoming Encounters Date Type Specialty Care Team Description 11/20/2021 Nurse Only Family Medicine Giovanna Schreiber APRN, C.N.P. [address] [facility] [place] [phone] 11/20/2021 Appointment Laboratory Medicine Giovanna Schreiber APRN, C.N.P. 300 [facility] [place] [phone] 12/18/2021 Comprehensive Visit Physical Medicine and Isidoro Morales M.D. [address] [place] [phone] 12/19/2021 Comprehensive Visit Community Internal Giovanna Schreiber, Medicine ZAINA C.N.P. 300 [facility] [place] [phone] documented as of this encounter Results (ABNORMAL) Thyroid Function Milmay (08/14/2021 10:09 AM CDT) P athologist Signature TSH, Sensitive 6.4 (H) 0.3 - 4.2 08/14/2021 OWAT mIU/L 2:28 PM CDT Specimen Anatomical Collection Method Collection Time Receive d Time (Source) Location / / Volume Laterality Blood (Blood, 08/14/2021 10:09 08/14/2021 1:22 Venous) AM CDT PM CDT Giovanna Schreiber APRN [facility] BLOOD ADD-ON Performing Organization Address City/State/ZIP Code Phon e Number [facility]- [address] [place] [address] [facility] [facility] [address] System in [place] [address] documented in this encounter Visit Diagnoses Diagnosis Hypertension Essential Primary - Primary Hypertensive Chronic Kidney Disease (CKD ) Stage 3a Glomerular Filtration Rate (GFR) 45 To 59 (HCC) Elevated Thyroid Stimulating Hormone Dysphagia Hyperlipidemia Mixed Beat Premature Ventricular Incontinence Urinary Stress Female documented in this encounter Additional Health Concerns Assessment Noted Time PHQ-9 Depression Total Score: 3 11/08/2018 4:46 PM CDT documented as of this encounter Care Teams Rn Ante Partum Relationship Specialty Start Date End Date Giovanna Schreiber V., ZAINA, C.N.P. PCP - General 02/21/[address] [place] [address] [place] [address] documented as of this encounter
--- OUTSIDE RECORDS SUMMARY | 2021-10-30 01:59 | XMS_ITS | Encounter Summary ---
:1945 Author Organization [facility] Address [address] [place] [address] Care Team Providers Name Role Phone Giovanna Schreiber APRN, C.N.P. Primary Care Provider [phone] Reason for Visit Reason Onset Date Comments Medical Information 02/15/2019 Encounter Details Date Type Department Care Team Description 02/15/2019 Clinical Communication Department of [facility] Family MedicineYunior M.D. [facility], 200 [facility] in [facility] [address] 300 [facility] [phone] [place], [place] (Work) [phone] Social History Tobacco Use Types Packs/Day [...] or relatives? How often do you attend gnosticism or orthodoxy More than 4 time s per year 02/07/2019 services? 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 - 02/16/2019 12:00 PM ROCK STAR SUBJECTIVE CHIEF COMPLAINT / REASON FOR CALL Medical Information Information Discussed Patient notified that order was placed again, and that she should get a call to schedule an appointment. PLAN Disposition/Recommendation: patient will wait for call to schedule Information/Education: patient/caller able to teach back Caller agreeable to plan of care: yes The following references were used: provider Dr. Rosenberg STAR Telephone Encounter - Masha Rosenberg M.D. - 02/16/2019 7:35 AM CST Will resend consult order. STAR Telephone Encounter - Vinh Ramírez - 02/15/2019 3:10 PM CST Reason for Communication: patient called because she was told at her appt with tierra that someone from [facility] would be calling her to set up an appt. She has not gotten a call for this , and there are no orders, please advise. Current Can Nursing/Provider leave a detailed message: yes Did the patient refuse triage through Nurse line? (for symptom based concerns): Action Needed: Name of Medication (if relevant): STAR documented in this encounter Plan of Treatment Upcoming Encounters Date Type Specialty Care Team Description 11/20/2021 Nurse Only Family Medicine Giovanna Schreiber V., DRILL PRESS SET UP OPERATOR, C.N.P. [address] [facility] [place] [phone] 11/20/2021 Appointment Laboratory Medicine Giovanna Schreiber APRN, C.N.P. [address] [place] [phone] 12/18/2021 Comprehensive Visit Physical Medicine and Isidoro Morales M.D. [address], [place] [address] 12/19/2021 Comprehensive Visit Community Internal Giovanna Schreiber, Medicine ZAINA, C.N.P. [address] [place] [phone] documented as of this encounter Visit Diagnoses Not on filedocumented in this encounter Additional Health Concerns Assessment Noted Time PHQ-9 Depression Total Score: 3 11/08/2018 4:46 PM CDT documented as of this encounter Care Teams Bar Welder Relationship Specialty Start Date End Date Giovanna Schreiber APRN, C.N.P. PCP - General 02/21/19 [address] [place] [place] [phone] documented as of this encounter
--- OUTSIDE RECORDS SUMMARY | 2021-10-30 01:59 | XMS_ITS | Encounter Summary ---
:1945 Author Organization [facility] Address [address] [place] [address] Care Team Providers Name Role Phone Masha Rosenberg M.D. Primary Care Provider Encounter Details Date Type Department Care Team Description 11/16/2018 Orders Only Department of Family Masha Rosenberg, Hyp ertension Essential Medicine, [facility], in [address] [phone] [address] (Work) [phone] Social History Tobacco Use Types Packs/Day Years [...] or relatives? How often do you attend alevism or restoration More than 4 time s per year 02/07/2019 services? Do you belong to any clubs or organizations Yes 02/07/2019 such as alevism groups, unions, fraternal or athletic groups, or [...] or getting things needed for daily living? 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 300 [facility] [place] [address] 11/20/2021 Appointment Laboratory Medicine Giovanna Schreiber APRN C.N.P. 300 [facility] [place] [address] 12/18/2021 Comprehensive Visit Physical Medicine and Isidoro Morales M.D. [address] [phone] 12/19/2021 Comprehensive Visit Community Internal Giovanna Schreiber, Medicine ZAINA, C.N.P. 300 [facility] [place] [address] documented as of this encounter Visit Diagnoses Diagnosis Hypertension Essential Primary documented in this encounter Additional Health Concerns Assessment Noted Time PHQ-9 Depression Total Score: 3 11/08/2018 4:46 PM CDT documented as of this encounter Care Teams Grades 1 Thru 6 Home Teacher Relationship Specialty Start Date End Date Masha Rosenberg M.D. PCP - General 09/04/16 02/20/19 documented as of this encounter
--- OUTSIDE RECORDS SUMMARY | 2021-10-30 01:59 | XMS_ITS | Encounter Summary ---
:1945 [address] Organization [facility] Address [address] [place] [address] Care Team Providers Name Role Phone Giovanna Schreiber APRN, C.N.P. Primary Care Provider [phone] Reason for Visit Reason Comments Med Refill Encounter Details Date Type Department Care Team Description 03/23/2021 Refill Department of Family Medicine, Hilda Presley APRN, Med Refill [facility], [place], [place] [address] [address] [place], [place] [address] [phone] Social History Tobacco Use Types Packs/Day Years [...] or relatives? How often do you attend adventism or scientologist More than 4 time s per year 02/07/2019 services? 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 300 [facility] [place] [address] 11/20/2021 Appointment Laboratory Medicine Giovanna Schreiber APRN, C.N.P. 300 [facility] [place] [address] 12/18/2021 Comprehensive Visit Physical Medicine and Isidoro Morales M.D. [address] [phone] 12/19/2021 Comprehensive Visit Community Internal Giovanna Schreiber, Medicine ZAINA, C.N.P. 300 [facility] [place] [address] documented as of this encounter Visit Diagnoses Diagnosis Hypertension Essential Primary documented in this encounter Additional Health Concerns Assessment Noted Time PHQ-9 Depression Total Score: 3 11/08/2018 4:46 PM CDT documented as of this encounter Care Teams Mine Manager Relationship Specialty Start Date End Date Giovanna Schreiber APRN, C.N.P. PCP - General 02/21/19 300 [facility] [place] [address] documented as of this encounter
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
--- OUTSIDE RECORDS SUMMARY | 2021-10-30 01:59 | XMS_ITS | Encounter Summary ---
:1945 Author Organization [facility] Address [address] [place] [address] Care Team Providers Name Role Phone Giovanna Schreiber APRN, C.N.P. Primary Care Provider [phone] Reason for Referral Outpatient (Routine) - Closed Specialty Diagnoses / Procedures Referred By Contact Refer red To Contact Diagnoses Elevated Thyroid Stimulating Hormone Giovanna Schreiber APRN, [facility] Procedures Thyroid C.N.P. [address] [place] [address] Referral ID Status Reason Start Date Expiration Date Visits Requ ested Visits Authorized [id number] Closed 08/14/2021 08/14/2022 1 1 Encounter Details Date Type Department Care Team Description 08/14/2021 Orders Only Department of Giovanna Schreiber V. Elevated Thyroid Community Internal ZAINA, C.N.P. Stimulating Hormone Medicine in [place] [address] [address] [facility] (Primary Dx) [place], [place] [address] [address] [place], [place] [phone] [address] (Work) [phone] Social History Tobacco Use Types Packs/Day Years [...] or relatives? How often do you attend mosque or buddhist More than 4 time s per year 02/07/2019 services? 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 300 [place] [address] 11/20/2021 Appointment Laboratory Medicine Giovanna Schreiber APRN, C.N.P. 300 [facility] [address] 12/18/2021 Comprehensive Visit Physical Medicine and Isidoro Morales M.D. [address] [phone] 12/19/2021 Comprehensive Visit Community Internal Giovanna Schreiber, Medicine ZAINA, C.N.P. 300 [facility] [address] documented as of this encounter Results US Thyroid (09/05/2021 10:17 [...] foci: no echogenic foci (0 ). The Kirkwood ultrasound score is 2. Based on the [...] Nodule Care Process Model established by the [facility] [place]. https://askmayoexpert.[facility].org/topic/clinical-answers/cnt-47428662/sec-203 37989 The AskMayoExpert Thyroid Nodule CPM sta jairo [...] echogenic foci: no echogenic foci (0). The Kirkwood ultrasound score is 2. Based on the [...] Nodule Care Process Model established by the [facility] [place]. https://askmayoexpert.[facility].org/topic/clinical-answers/cnt-72752164/sec-203 92871 The AskMayoExpert Thyroid Nodule CPM sta jairo [...] the right level 2 area of pain. Ean Ford APRNN.P. IMG US PROCEDURES documented in this encounter Visit Diagnoses Diagnosis Elevated Thyroid Stimulating Hormone - P rimary Elevated Thyroid Stimulating Hormone documented in this encounter Additional Health Concerns Assessment Noted Time PHQ-9 Depression Total Score: 3 11/08/2018 4:46 PM CDT documented as of this encounter Care Teams Grinder Set Up Operator Jig Relationship Specialty Start Date End Date Giovanna Schreiber APRN, C.N.P. PCP - General 02/21/[address] [place] [address] [place] [address] documented as of this encounter
--- OUTSIDE RECORDS SUMMARY | 2021-10-30 01:59 | XMS_ITS | Encounter Summary ---
:1945 Author Organization [facility] Address [address] [place] [address] Care Team Providers Name Role Phone Giovanna Schreiber APRN, C.N.P. Primary Care Provider [phone] Encounter Details Date Type Department Care Team Description 08/13/2021 Hospital Encounter Department of Laboratory Cachorro Schreiber V., Polyphagia Medicine in [place], APRN, C.N .P. 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 AREDS) 14,320 Units-226 mg-200 Units per capsule zinc gluconate 50 mg Take 50 mg by mouth 0 tablet daily with breakfast. DOCOSAHEXANOIC ACID/EPA Take by mouth daily. 0 10/03/2021 (FISH OIL ORAL) documented as of this encounter Plan of Treatment Upcoming Encounters Date Type Specialty Care Team Description 11/20/2021 Nurse Only Family Medicine Giovanna Schreiber APRN, C.N.P. 300 [place] [address] 11/20/2021 Appointment Laboratory Medicine Giovanna Schreiber APRN, C.N.P. 300 [facility] [address] 12/18/2021 Comprehensive Visit Physical Medicine and Isidoro Morales M.D. [address], [place] [address] 12/19/2021 Comprehensive Visit Community Internal Giovanna Schreiber, Medicine ZAINA, C.N.P. 300 [facility] [place] [phone] documented as of this encounter Visit Diagnoses Diagnosis Polyphagia documented in this encounter Additional Health Concerns Assessment Noted Time PHQ-9 Depression Total Score: 3 11/08/2018 4:46 PM CDT documented as of this encounter Care Teams Igniter Assembler Relationship Specialty Start Date End Date Giovanna Schreiber V., ZAINA, C.N.P. PCP - General 02/21/19 300 [place] Khan [phone] documented as of this encounter
--- OUTSIDE RECORDS SUMMARY | 2021-10-30 01:59 | XMS_ITS | Encounter Summary ---
:1945 Author Organization [facility] Address [address] [place] [address] Care Team Providers Name Role Phone Giovanna Schreiber APRN, C.N.P. Primary Care Provider [phone] Encounter Details Date Type Department Care Team Description 08/14/2021 Hospital Encounter Department of Giovanna Schreiber Thyroid Laboratory Medicine ZAINA Torrez, Stimulat ing Hormone in [place], C.N.P. [place] 300 [facility] 300 [place] [phone] Social History Tobacco Use Types Packs/Day Years [...] or relatives? How often do you attend zoroastrian or sabianism More than 4 time s per year 02/07/2019 services? 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 AREDS) 14,320 Units-226 mg-200 Units per capsule zinc gluconate 50 mg Take 50 mg by mouth 0 tablet daily with breakfast. DOCOSAHEXANOIC ACID/EPA Take by mouth daily. 0 10/03/2021 (FISH OIL ORAL) levothyroxine Take 1 tablet (25 mcg 30 tablet 11 08/14/2021 10/04/2021 (SYNTHROID, LEVOTHROID) total) by mouth 25 mcg tablet daily. documented as of this encounter Miscellaneous Notes Result Encounter Note - Giovanna Schreiber V., ZAINA, C.N.P. - 08/14/2021 3:23 PM CDT Please notify the patient that the T 4 is normal. The TSH is elevated.She will need to start levothyroxine 25 mcg daily. She will need to take the medicine first thing in the morning 30 mins before eating. Repeat TSH in 6 weeks 09/25/21. I will also order aa ultrasound of the thyroid. Please assist with making appointments. I sent the script to [facility] documented in this encounter Plan of Treatment Upcoming Encounters Date Type Specialty Care Team Description 11/20/2021 Nurse Only Family Medicine Giovanna Schreiber APRN, C.N.P. 300 [facility] [place] [address] 11/20/2021 Appointment Laboratory Medicine Giovanna Schreiber APRN, C.N.P. 300 [facility] [place] [address] 12/18/2021 Comprehensive Visit Physical Medicine and Isidoro Morales M.D. [address], [place] [phone] 12/19/2021 Comprehensive Visit Community Internal Giovanna Schreiber, Medicine ZAINA, C.N.P. 300 [facility] [place] [address] documented as of this encounter Procedures Procedure Name Priority Date/Time Associated Diagnosis Comme nts UT MICROSOMAL AB Routine 08/14/2021 2:28 PM Resul ts for this EA/TPO CDT procedure are i n the results section. UT T4 FREE Routine 08/14/2021 10:09 Results for this AM CDT procedure are i n the results section. THYROID FUNCTION Routine 08/14/2021 10:09 Elevated Thyroid Res ults for this CASCADE, S AM CDT Stimulating Hormone procedur e are in the results section. documented in this encounter Results Thyroperoxidase (TPO) Antibodies, Serum (08/14/2021 2:28 PM CDT) [facility] Method Time Signature Thyroperoxidase Ab, 0.3 <9.0 08/15/2021 DTL S IU/mL 8:44 AM CDT Specimen Anatomical Collection Method Collection Time Receive d Time (Source) Location / / Volume Laterality Blood 08/14/2021 2:28 PM 8:02 CDT AM CDT Giovanna Schreiber APRN, C.N.P. LAB BLOOD NON ADD-ON Performing Organization Address City/State/ZIP Code Phon e Number [facility] - [address] [place], [place] [address] [facility] [address] Laboratories-[facility] [address] [facility] T4 (Thyroxine), Free, Serum (08/14/2021 10:09 AM CDT) athologist Signature T4 (Thyroxine), 1.1 0.9 - 1.7 08/14/2021 [place] Free, S ng/dL 2:50 PM CDT Comment: Biotin has been identified by the deborah strauss as a potential interfering substance. Higher concentrations of biotin may be found in multivitamins, orellana ir/nail supplements, and workout supplements. If the result d oes not match clinical observations, repeat testing af ter patient refrains from the use of supplements for at least 12 hours. Specimen Anatomical Collection Method Collection Time Receive d Time (Source) Location / / Volume Laterality Blood 08/14/2021 10:09 08/14/2021 1:22 AM CDT PM CDT Giovanna Schreiber APRN, C.N.P. LAB BLOOD ADD-ON Performing Organization Address City/State/ZIP Code Phon e Number [facility]- [address] [place] [address] [place] [address] System in [place] [address] (ABNORMAL) Thyroid Function Andrew (08/14/2021 10:09 AM CDT) athologist Signature TSH, Sensitive 6.4 (H) 0.3 - 4.2 08/14/2021 [place] mIU/L 2:28 PM CDT Specimen Anatomical Collection Method Collection Time Receive d Time (Source) Location / / Volume Laterality Blood (Blood, 08/14/2021 10:09 08/14/2021 1:22 Venous) AM CDT PM CDT Giovanna V. Abdoul EXERCISE SPECIALIST, C.N.P. LAB BLOOD ADD-ON Performing Organization Address City/State/ZIP Code Phon e Number [facility] [address] [place] [address] [facility] [place] [address] System in [place] [address] documented in this encounter Visit Diagnoses Diagnosis Elevated Thyroid Stimulating Hormone documented in this encounter Additional Health Concerns Assessment Noted Time PHQ-9 Depression Total Score: 3 11/08/2018 4:46 PM CDT documented as of this encounter Care Teams Payroll Technician Relationship Specialty Start Date End Date Giovanna Schreiber APRN, C.N.P. PCP - General 02/21/[address] [place] [address] [place] [phone] documented as of this encounter
--- OUTSIDE RECORDS SUMMARY | 2021-10-30 01:59 | XMS_ITS | Encounter Summary ---
:1945 Author Organization [facility] Address [address] [place] [address] Care Team Providers Name Role Phone Giovanna Schreiber APRN, C.N.P. Primary Care Provider [phone] Encounter Details Date Type Department Care Team Description 07/31/2020 Orders Only Department of Family Catina Presley APR N, Medicine, [facility], C.N. P. in [facility] [address] [place] [address] [place] [address] [phone] Social History Tobacco Use Types Packs/Day Years [...] or relatives? How often do you attend scientologist or tenriism More than 4 time s per year 02/07/2019 services? 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 300 [facility] [place] [address] 11/20/2021 Appointment Laboratory Medicine Giovanna Schreiber APRN, C.N.P. 300 [facility] [place] [address] 12/18/2021 Comprehensive Visit Physical Medicine and Isidoro Morales M.D. [address] [phone] 12/19/2021 Comprehensive Visit Community Internal Giovanna Schreiber, Medicine ZAINA, C.N.P. 300 [facility] [place] [address] documented as of this encounter Visit Diagnoses Not on filedocumented in this encounter Additional Health Concerns Assessment Noted Time PHQ-9 Depression Total Score: 3 11/08/2018 4:46 PM CDT documented as of this encounter Care Teams Human Services Program Specialist Relationship Specialty Start Date End Date Giovanna Schreiber APRN, C.N.P. PCP - General 02/21/19 300 [facility] [place] [address] documented as of this encounter
--- OUTSIDE RECORDS SUMMARY | 2021-10-30 01:59 | XMS_ITS | Encounter Summary ---
:1945 Author Organization [facility] Address [address] [place] [address] Care Team Providers Name Role Phone Giovanna Schreiber APRN, C.NPavanPPavan Primary Care Provider [phone] Reason for Referral Specialty Diagnoses / Procedures Referred By Contact Refer red To Contact [facility] [address] [address] Referral ID Status Reason Start Date Expiration Date Visits Requ ested Visits Authorized Reason for Visit Appointment Request (Routine) - Closed Specialty Diagnoses / Procedures Referred By Contact Refer red To Contact Family Medicine Referral ID Status Reason Start Date Expiration Date Visits Requ ested Visits Authorized [id number] Closed 07/04/2020 07/04/2021 1 1 Encounter Details Date Type Department Care Team Description 07/05/2020 Immunization Department of [facility] er For COVID-19 Medicine, [facility] Vaccine Immunization [facility], (Prim cherelle Dx) [address] [address] [facility] [phone] Social History Tobacco Use Types Packs/Day Years [...] or relatives? How often do you attend advent or sabianist More than 4 time s per year 02/07/2019 services? Do you belong to any clubs or organizations Yes 02/07/2019 such as advent groups, unions, fraternal or athletic groups, or [...] minutes do you engage in exercise at is 50 min 05/27/2020 level? 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 300 [place] [phone] 11/20/2021 Appointment Laboratory Medicine Giovanna Schreiber APRN, C.N.P. 300 [place] [address] 12/18/2021 Comprehensive Visit Physical Medicine and Isidoro Morales M.D. [address] [place] [phone] 12/19/2021 Comprehensive Visit Community Internal Giovanna Schreiber, Medicine ZAINA, C.N.P. 300 [place] [phone] Scheduled Referrals Name Type Priority Associated Diagnoses Order S chedule Covid immunization Outpatient Referral Routine Encounter For E xpected: office visit COVID-19 Vaccine 07/26/2020, Subsequent; 21 days Immunization Expires: 07/06/2023 documented as of this encounter Visit Diagnoses Diagnosis Encounter For COVID-19 Vaccine Immunizat ion - Primary documented in this encounter Additional Health Concerns Assessment Noted Time PHQ-9 Depression Total Score: 3 11/08/2018 4:46 PM CDT documented as of this encounter Care Teams Data Integration Architect Relationship Specialty Start Date End Date Giovanna Schreiber V., ZAINA, C.N.P. PCP - General 02/21/[address] [place] [address] [place] [address] documented as of this encounter
--- OUTSIDE RECORDS SUMMARY | 2021-10-30 01:59 | XMS_ITS | Encounter Summary ---
:1945 Author Organization [facility] Address [address] [place] [address] Care Team Providers Name Role Phone Giovanna Schreiber APRN, C.N.P. Primary Care Provider [phone] Encounter Details Date Type Department Care Team Description 07/26/2019 Orders Only RST PCP HLTH MNT Giovanna Schreiber V., Screen ing Mammogram ZAINA C.N.P. Breast Cancer 300 [facility] [place] [address] (Wo rk) Social History Tobacco Use Types [...] or relatives? How often do you attend pentecostalism or restoration More than 4 time s per year 02/07/2019 services? 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 300 [facility] [place] [phone] 11/20/2021 Appointment Laboratory Medicine Giovanna Schreiber APRN, C.N.P. 300 [facility] [place] [phone] 12/18/2021 Comprehensive Visit Physical Medicine and Isidoro Morales M.D. [address] [phone] 12/19/2021 Comprehensive Visit Community Internal Giovanna Schreiber, Medicine ZAINA, C.N.P. 300 [facility] [place] [phone] documented as of this encounter Visit Diagnoses Diagnosis Screening Mammogram Breast Cancer documented in this encounter Additional Health Concerns Assessment Noted Time PHQ-9 Depression Total Score: 3 11/08/2018 4:46 PM CDT documented as of this encounter Care Teams Archery Equipment Repairer Relationship Specialty Start Date End Date Giovanna Schreiber APRN, C.N.P. PCP - General 02/21/19 300 [facility] [place] [phone] documented as of this encounter
--- OUTSIDE RECORDS SUMMARY | 2021-10-30 01:59 | XMS_ITS | Encounter Summary ---
:1945 Author Organization [facility] Address [address] [place] [address] Care Team Providers Name Role Phone Giovanna Schreiber APRN, C.N.P. Primary Care Provider [phone] Reason for Referral Specialty Diagnoses / Procedures Referred By Contact Refer red To Contact Giovanna Schreiber AP RN, C.N.P. [facility] Region [address] [place] [address] Referral ID Status Reason Start Date Expiration Date Visits Requ ested Visits Authorized R HAND Encounter Details Date Type Department Care Team Description 02/13/2021 Orders Only [facility] SEMN PCP [facility] MNT Giovanna Schreiber APRN, C.N.P. 300 [place], [place] [phone] (Wo rk) Social History Tobacco Use Types [...] or relatives? How often do you attend pentecostal or bahai More than 4 time s per year 02/07/2019 services? 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 300 [place] [phone] 11/20/2021 Appointment Laboratory Medicine Giovanna Schreiber APRN, C.N.P. 300 [place] [phone] 12/18/2021 Comprehensive Visit Physical Medicine and Isidoro Morales M.D. [address] [phone] 12/19/2021 Comprehensive Visit Community Internal Giovanna Schreiber, Medicine ZAINA, C.N.P. 300 [place] [phone] Scheduled Referrals Name Type Priority Associated Order Schedule Diagnoses Covid immunization Outpatient Referral Routine Ex pected: office visit Booster 021 (Approximate), Expires: 02/13/2022 documented as of this encounter Visit Diagnoses Not on filedocumented in this encounter Additional Health Concerns Assessment Noted Time PHQ-9 Depression Total Score: 3 11/08/2018 4:46 PM CDT documented as of this encounter Care Teams Patient Care Provider Relationship Specialty Start Date End Date Giovanna Schreiber APRN CPavanN.P. PCP - General 02/21/[address] [place] [address] [place] [address] documented as of this encounter
--- OUTSIDE RECORDS SUMMARY | 2021-10-30 01:59 | XMS_ITS | Encounter Summary ---
:1945 Author Organization [facility] Address [address] [place] [address] Care Team Providers Name Role Phone Giovanna Schreiber APRN, C.N.P. Primary Care Provider [phone] Encounter Details Date Type Department Care Team Description 08/12/2021 Hospital Encounter Department of Giovanna Schreiber nsion Essential Primary; Laboratory Medicine ZAINA Torrez, Hyperlip idemia Mixed in Jennifer, C.N.P. [place] [address] [facility] [place], [place] [phone] Social History Tobacco Use Types Packs/Day Years [...] or relatives? How often do you attend episcopalian or mosque More than 4 time s per year 02/07/2019 services? 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 Primary DOCOSAHEXANOIC ACID/EPA Take by mouth daily. 0 10/03/2021 (FISH OIL ORAL) documented as of this encounter Plan of Treatment Upcoming Encounters Date Type Specialty Care Team Description 11/20/2021 Nurse Only Family Medicine Giovanna Schreiber APRN, C.N.P. 300 [place] [address] 11/20/2021 Appointment Laboratory Medicine Giovanna Schreiber APRN, C.N.P. 300 [facility] [place] [address] 12/18/2021 Comprehensive Visit Physical Medicine and Isidoro Morales M.D. [address] [place] [phone] 12/19/2021 Comprehensive Visit Community Internal Giovanna Schreiber, Medicine ENGINEERING TECHNOLOGY INSTRUCTOR, C.N.P. 300 [facility] [place] [phone] documented as of this encounter Procedures Procedure Name Priority Date/Time Associated Diagnosis Comme nts LIPID PANEL, S Routine 08/12/2021 9:54 AM Hyperlipidemia Mixed Results for this CDT procedure are i n the results section. CBC WITH Routine 08/12/2021 9:54 AM Hypertension Essential Results for this DIFFERENTIAL, B CDT Primary procedure ar e in the results section. BASIC METABOLIC Routine 08/12/2021 9:54 AM Hypertension Essent ial Results for this PANEL, S/P CDT Primary procedure are i n the results section. documented in this encounter Results Lipid Panel (08/12/2021 9:54 AM CDT) athologist Signature Cholesterol, 172 mg/dL 08/12/2021 OWAT Total 1:06 PM CDT Comment: ----REFERENCE VALUE---- Desirable: < 200 Borderline high: 200 - 239 High: > or = 240 Triglycerides 115 mg/dL 08/12/2021 1:06 PM CDT OWA T Comment: ----REFERENCE VALUE---- Normal: <150 Borderline high: 150-199 High: 200-499 Very high: > or =500 Cholesterol, HDL 70 >=50 mg/dL 08/12/2021 1:06 PM CDT OWAT Calculated LDL 79 mg/dL 08/12/2021 1:06 PM CDT OW AT Comment: ----REFERENCE VALUE---- Desirable: <100 mg/dL Above Desirable: 100-129 mg/dL Borderline High: 130-159 mg/dL High: 160-189 mg/dL Very High: >=190 mg/dL Cholesterol, Non-HDL, Calculated 102 mg/dL 022 1:06 PM CDT OWAT Comment: ----REFERENCE VALUE---- Desirable: <130 Above Desirable: 130-159 Borderline high: 160-189 High: 190-219 Very high: > or =220 Specimen Anatomical Collection Method Collection Time Receive d Time (Source) Location / / Volume Laterality Blood (Blood, 08/12/2021 9:54 AM 08/13/19 22 Venous) CDT 11:03 AM CDT Giovanna Schreiber APRN, C.N.P. LAB BLOOD ADD-ON Performing Organization Address City/State/ZIP Code Phon e Number [facility]- [address] [place] [address] [facility] [place] [address] System in [place] [address] CBC with Differential, Blood (08/12/2021 9:54 AM CDT) P athologist Signature Hemoglobin 13.9 11.6 - 08/12/2021 FB60 15.0 g/dL 10:06 AM CDT Hematocrit 42.7 35.5 - 08/12/2021 FB60 44.9 % 10:06 AM CDT Erythrocytes 4.52 3.92 - 08/12/2021 FB60 5.13 10:06 AM CDT x10(12)/L MCV 94.5 78.2 - 08/12/2021 FB60 97.9 fL 10:06 AM CDT RBC Distrib Width 13.9 12.2 - 08/12/2021 FB60 16.1 % 10:06 AM CDT Platelet Count 219 157 - 371 08/12/2021 FB60 x10(9)/L 10:06 AM CDT Leukocytes 7.1 3.4 - 9.6 08/12/2021 FB60 x10(9)/L 10:06 AM CDT Neutrophils 3.56 1.56 - 08/12/2021 FB60 6.45 10:06 AM CDT x10(9)/L Lymphocytes 2.52 0.95 - 08/12/2021 FB60 3.07 10:06 AM CDT x10(9)/L Monocytes 0.77 0.26 - 08/12/2021 FB60 0.81 10:06 AM CDT x10(9)/L Eosinophils 0.18 0.03 - 08/12/2021 FB60 0.48 10:06 AM CDT x10(9)/L Basophils 0.05 0.01 - 08/12/2021 FB60 0.08 10:06 AM CDT x10(9)/L Specimen Anatomical Collection Method Collection Time Receive d Time (Source) Location / / Volume Laterality Blood (Blood, 08/12/2021 9:54 AM 08/13/19 9:54 Venous) CDT AM CDT Giovanna Schreiber APRN, C.N.P. LAB BLOOD ADD-ON Performing Organization Address City/State/ZIP Code Phon e Number [facility]- [address] [place] [address] [facility] [place] [address] System in [place] [address] (ABNORMAL) Basic Metabolic Panel (08/12/2021 9:54 AM CDT) P athologist Signature Potassium, P 4.6 3.6 - 5.2 08/12/2021 OWAT mmol/L 1:06 PM CDT Sodium, P 143 135 - 145 08/12/2021 OWAT mmol/L 1:06 PM CDT Chloride, P 105 98 - 107 08/12/2021 OW[place] mmol/L 1:06 PM CDT Bicarbonate, P 24 22 - 29 08/12/2021 OW[place] mmol/L 1:06 PM CDT Anion Gap, P 14 7 - 15 08/12/2021 OWAT 1:06 PM CDT BUN (Blood Urea 12 6 - 21 08/12/2021 OWAT Nitrogen), P mg/dL 1:06 PM CDT Creatinine, P 0.99 0.59 - 1.04 08/12/2021 OW[place] mg/dL 1:06 PM CDT eGFR-Black/Afri 64 >=60 08/12/2021 OWAT can [place] mL/min/BSA 1:06 PM CDT Comment: ----ADDITIONAL INFORMATION---- Estimated GFR calculated using the 2009 CKD_EPI creatinine equation. eGFR Non-Black/ 55 (L) >=60 mL/min/BSA 08/12/2021 1:06 PM CDT OWAT [place] Comment: ----ADDITIONAL INFORMATION---- Estimated GFR calculated using the 2009 CKD_EPI creatinine equation. Calcium, Total, P 9.2 8.8 - 10.2 mg/dL 08/12/2021 1:06 PM CDT OWAT Glucose, P 106 70 - 140 mg/dL 08/12/2021 1:06 PM CDT O ANDRES Specimen Anatomical Collection Method Collection Time Receive d Time (Source) Location / / Volume Laterality Blood (Blood, 08/12/2021 9:54 AM 08/13/19 22 Venous) CDT 11:03 AM CDT Ean Ford APRNNPavanPPavan LAB BLOOD ADD-ON Performing Organization Address City/State/ZIP Code Phon e Number [facility]- [address] [place] [address] [facility] [place] [address] System in [place] [address] documented in this encounter Visit Diagnoses Diagnosis Hypertension Essential Primary Hyperlipidemia Mixed documented in this encounter Additional Health Concerns Assessment Noted Time PHQ-9 Depression Total Score: 3 11/08/2018 4:46 PM CDT documented as of this encounter Care Teams School Occupational Therapist Relationship Specialty Start Date End Date Giovanna Schreiber APRN C.N.P. PCP - General 02/21/[address] [place] [address] [place] [phone] documented as of this encounter
--- OUTSIDE RECORDS SUMMARY | 2021-10-30 01:59 | XMS_ITS | Encounter Summary ---
:1945 Author Organization [facility] Address [address] [place] [address] Care Team Providers Name Role Phone Masha Rosenberg M.D. Primary Care Provider Encounter Details Date Type Department Care Team Description 11/15/2018 Orders Only Department of Family Meena Rosenberg M.D. Medicine, [facility], [address] [place] [address] [address] [place] [address] [phone] Social History Tobacco Use Types Packs/Day Years [...] or relatives? How often do you attend hoahaoism or gnosticist More than 4 time s per year 02/07/2019 services? 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 300 [facility] [place] [address] 11/20/2021 Appointment Laboratory Medicine Giovanna Schreiber APRN C.N.P. 300 [facility] [place] [address] 12/18/2021 Comprehensive Visit Physical Medicine and Isidoro Morales M.D. [address] [place] [address] 12/19/2021 Comprehensive Visit Community Internal Giovanna Schreiber, Medicine ZAINA C.N.P. 300 [facility] [place] [address] documented as of this encounter Visit Diagnoses Not on filedocumented in this encounter Additional Health Concerns Assessment Noted Time PHQ-9 Depression Total Score: 3 11/08/2018 4:46 PM CDT documented as of this encounter Care Teams Microsoft Crm Developer Relationship Specialty Start Date End Date Masha Rosenberg M.D. PCP - General 09/04/16 02/20/19 documented as of this encounter
--- OUTSIDE RECORDS SUMMARY | 2021-10-30 01:59 | XMS_ITS | Encounter Summary ---
:1945 Author Organization [facility] Address [address] [place] [address] Care Team Providers Name Role Phone Giovanna Schreiber APRN, C.N.P. Primary Care Provider [phone] Reason for Referral Outpatient (Routine) - Closed Specialty Diagnoses / Procedures Referred By Contact Refer red To Contact Internal Medicine / Diagnoses Hypertension Essential Primary Giovanna Schreiber [facility] Internal ZAINA, C.N.P. Medicine [address] [place] [phone] Referral ID Status Reason Start Date Expiration Date Visits Requ ested Visits Authorized [id number] Closed 08/07/2021 08/07/2022 1 1 Reason for Visit Reason Comments Hypertension Encounter Details Date Type Department Care Team Description 08/07/2021 Clinical Communication Department of Giovanna Schreiber [facility] Internal ZAINA Torrez, C.N .P. Medicine in [address] [address] [place], [place] [phone] [address] (Work) [phone] Social History Tobacco Use Types Packs/Day Years [...] or relatives? How often do you attend sabianism or synagogue More than 4 time s per year 02/07/2019 services? 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 - 08/07/2021 1:49 PM CDT Primary Care Chart Review Completed patient chart review on 08/07/2021, for Queta Raymond, a 75 y.o. female, currently paneled to Giovanna Schreiber APRN, C.N.P. Summary of Chart Review Recent Labs 07/31/20 0923 LDLCALC 90 BP Readings from Last 2 Encounters: 05/31/20 139/72 02/11/19 144/83 Social History Tobacco Use Smoking Status Never Smoker Smokeless Tobacco Never Used Upon today's chart review, patient is not meeting the following criteria: >1 year since last appointment. Patient does not have a visit scheduled in Primary Care within the next 3 months. Recent Updates to Care Management Plan The following recommendations regarding patient's care management plan have been made within the last 12 months: No changes to patient's care management plan have been recommended within the last 12 months. Recommended follow-up RN will: Contact PCP to: approve orders for lab and appt. . Additional Notes Additional notes: Last seen by Catina Presley 05/31/20. Previous [facility] patient. Never seen by Lima Schreiber. documented in this encounter Plan of Treatment Upcoming Encounters Date Type Specialty Care Team Description 11/20/2021 Nurse Only Family Medicine Giovanna Schreiber APRN, C.N.P. 300 [facility] [place] [phone] 11/20/2021 Appointment Laboratory Medicine Giovanna Schreiber APRN, C.N.P. [address] [place] [phone] 12/18/2021 Comprehensive Visit Physical Medicine and Isidoro Morales M.D. [address] [place] [address] 12/19/2021 Comprehensive Visit [facility] Internal Giovanna Schreiber, Medicine ZAINA, C.N.P. [address] [place] [phone] Scheduled Referrals Name Type Priority Associated Diagnoses Order S [facility] Internal Outpatient Referral Routine Hypertension Ex pected: Medicine - General Essential Primary 07/21 (clinic) (Approximate), Expires: 11/07/2022 documented as of this encounter Results Lipid Panel (08/12/2021 9:54 [...] Address City/State/ZIP Code Phon e Number [facility]- [address] [place] [address] [place] [address] System in [place] 2[address] [facility] CBC with Differential, Blood (08/12/2021 9:54 AM [...] AM 08/13/19 9:54 Venous) CDT AM CDT Ean Ford APRNNPavanPPavan LAB BLOOD ADD-ON Performing Organization Address City/State/ZIP Code Phon e Number [facility]- [address] [place] [address] [facility] [address] [place] [address] (ABNORMAL) Basic Metabolic Panel (08/12/2021 9:54 AM [...] CDT eGFR-Black/Afri 64 >=60 08/12/2021 OWAT can [place] mL/min/BSA 1:06 PM CDT Comment: ----ADDITIONAL INFORMATION---- Estimated GFR calculated using the 2009 CKD_EPI creatinine equation. eGFR Non-Black/ 55 (L) >=60 mL/min/BSA 08/12/2021 1:06 PM CDT OWAT [place] Comment: ----ADDITIONAL INFORMATION---- Estimated GFR calculated using [...] Address City/State/ZIP Code Phon e Number [facility]- [address] [place] [address] [place] [address] System in [place] [address] [facility] documented in this encounter Visit Diagnoses Diagnosis Hypertensive Chronic Kidney Disease (CKD ) Stage 3a Glomerular Filtration Rate (GFR) 45 To 59 (HCC) - Primary Hyperlipidemia Mixed Hypertension Essential Primary documented in this encounter Additional Health Concerns Assessment Noted Time PHQ-9 Depression Total Score: 3 11/08/2018 4:46 PM CDT documented as of this encounter Care Teams Food Service Cashier Relationship Specialty Start Date End Date Giovanna Schreiber APRN, C.N.P. PCP - General 02/21/[address] [place] [address] [place] [phone] documented as of this encounter
--- OUTSIDE RECORDS SUMMARY | 2021-10-30 01:59 | XMS_ITS | Encounter Summary ---
:1945 Author Organization [facility] Address [address] [place] [address] Care Team Providers Name Role Phone Giovanna Schreiber APRN, C.N.P. Primary Care Provider [phone] Encounter Details Date Type Department Care Team Description 07/31/2020 Immunization Department of [facility] For COVID-19 Medicine, Fortunato Thompson M.D. Vaccine Immunization Building, in [address] [address] [place], [place] [phone] [address] (Work) [phone] Social History Tobacco Use Types Packs/Day Years [...] or relatives? How often do you attend evangelical or cheondoism More than 4 time s per year 02/07/2019 services? 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 [address] [facility] [place] [phone] 11/20/2021 Appointment Laboratory Medicine Giovanna Schreiber APRN, C.N.P. [address] [facility] [place] [phone] 12/18/2021 Comprehensive Visit Physical Medicine and Isidoro Morales M.D. [address] [phone] 12/19/2021 Comprehensive Visit Community Internal Giovanna Schreiber, Medicine ZAINA, C.N.P. [address] [facility] [place] [phone] documented as of this encounter Visit Diagnoses Diagnosis Encounter For COVID-19 Vaccine Immunizat ion documented in this encounter Additional Health Concerns Assessment Noted Time PHQ-9 Depression Total Score: 3 11/08/2018 4:46 PM CDT documented as of this encounter Care Teams Quill Fixer Relationship Specialty Start Date End Date Giovanna Schreiber APRN, C.N.P. PCP - General 02/21/19 [address] [facility] [place] [phone] documented as of this encounter
--- OUTSIDE RECORDS SUMMARY | 2021-10-30 01:59 | XMS_ITS | Encounter Summary ---
:1945 Author Organization [facility] Address [address] [place] [address] Care Team Providers Name Role Phone Giovanna Schreiber APRN C.N.P. Primary Care Provider [phone] Encounter Details Date Type Department Care Team Description 07/31/2020 Hospital Encounter Department of Catina Presley Hyperli pidemia Mixed; Laboratory Medicine ZAINA Mojica, C.N .P. Hypertension Essential Primary in [facility] [address] [place], [place] [address] [address] [place], [place] [phone] [address] (Work) [phone] Social History Tobacco Use Types Packs/Day Years [...] or relatives? How often do you attend taoist or baptist More than 4 time s per year 02/07/2019 services? 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 atorvastatin (LIPITOR) Take 1 tablet (10 mg 90 tablet 3 01/202106/11/2021 10 mg tabletIndications: total) by mouth Hyperlipidemia Mixed daily. DOCOSAHEXANOIC ACID/EPA Take by mouth daily. 0 10/03/2021 (FISH OIL ORAL) metoprolol succinate Take 1 tablet (50 mg 90 tablet 3 05/3103/25/2021 (TOPROL-XL) 50 mg 24 hr total) by mouth tabletIndications: daily. Do not crush Hypertension Essential or chew. Primary documented as of this encounter Miscellaneous Notes Result Encounter Note - Catina Presley APRN, C.N.P. - 07/31/2020 2:32 PM CDT Labs are stable. We will discuss results at your upcoming appointment. documented in this encounter Plan of Treatment Upcoming Encounters Date Type Specialty Care Team Description 11/20/2021 Nurse Only Family Medicine Giovanna Schreiber APRN, C.N.P. [address] [place] [phone] 11/20/2021 Appointment Laboratory Medicine Giovanna Schreiber APRN, C.N.P. [address] [place] [phone] 12/18/2021 Comprehensive Visit Physical Medicine and Isidoro Morales M.D. [address] [place] [phone] 12/19/2021 Comprehensive Visit Community [facility] Giovanna Schreiber, Medicine UNDERGROUND FOREMAN, C.N.P. [address] [place] [phone] documented as of this encounter Procedures Procedure Name Priority Date/Time Associated Diagnosis Comme nts LIPID PANEL, S Routine 07/31/2020 9:23 Hyperlipidemia Mixed Re sults for this AM CDT procedure are i n the results section. CBC WITH DIFFERENTIAL, Routine 07/31/2020 9:23 Hypertension Re sults for this B AM CDT Essential Primary procedure are in the results section. ASPARTATE Routine 07/31/2020 9:23 Hyperlipidemia Mixed Resu lts for this AMINOTRANSFERASE (AST), AM CDT proc edure are in S/P the results section. GLUCOSE, FASTING, S/P Routine 07/31/2020 9:23 Hypertension Res ults for this AM CDT Essential Primary procedure are in the results section. BASIC METABOLIC PANEL, Routine 07/31/2020 9:23 Hypertension Re sults for this S/P AM CDT Essential Primary procedure are in the results section. documented in this encounter Results CBC with Differential, Blood (07/31/2020 9:23 AM CDT) athologist Signature Hemoglobin 13.6 11.6 - 07/31/2020 FB60 15.0 g/dL 10:01 AM CDT Hematocrit 41.7 35.5 - 07/31/2020 FB60 44.9 % 10:01 AM CDT Erythrocytes 4.48 3.92 - 07/31/2020 FB60 5.13 10:01 AM CDT x10(12)/L MCV 93.1 78.2 - 07/31/2020 FB60 97.9 fL 10:01 AM CDT RBC Distrib Width 14.0 12.2 - 07/31/2020 FB60 16.1 % 10:01 AM CDT Platelet Count 223 157 - 371 07/31/2020 FB60 x10(9)/L 10:01 AM CDT Leukocytes 7.0 3.4 - 9.6 07/31/2020 FB60 x10(9)/L 10:01 AM CDT Neutrophils 3.59 1.56 - 07/31/2020 FB60 6.45 10:01 AM CDT x10(9)/L Lymphocytes 2.41 0.95 - 07/31/2020 FB60 3.07 10:01 AM CDT x10(9)/L Monocytes 0.78 0.26 - 07/31/2020 FB60 0.81 10:01 AM CDT x10(9)/L Eosinophils 0.18 0.03 - 07/31/2020 FB60 0.48 10:01 AM CDT x10(9)/L Basophils 0.04 0.01 - 07/31/2020 FB60 0.08 10:01 AM CDT x10(9)/L Specimen Anatomical Collection Method Collection Time Receive d Time (Source) Location / / Volume Laterality Blood (Blood, 07/31/2020 9:23 AM 08/01/19 9:25 Venous) CDT AM CDT Catina Presley APRN, C.N.P. LAB BLOOD ADD-ON Performing Organization Address City/State/ZIP Code Phon e Number [address] [place], [place] [id number] [place] [address] LAB FB60 [place] [address] System in [address] Glucose, Fasting (07/31/2020 9:23 AM CDT) P athologist Signature Glucose, P 98 70 - 100 07/31/2020 [facility] mg/dL 11:08 AM CDT Last Intake 15 hr 07/31/2020 [facility] 10:24 AM CDT Specimen Anatomical Collection Method Collection Time Receive d Time (Source) Location / / Volume Laterality Blood (Blood, 07/31/2020 9:23 AM 08/01/19 21 Venous) CDT 10:24 AM CDT Catina Presley APRN, C.N.P. LAB BLOOD NON ADD-ON Performing Organization Address City/State/ZIP Code Phon e Number [facility] [address] [place] [address] [place] [facility] [facility] [address] System in [place] [address] (ABNORMAL) Basic Metabolic Panel (07/31/2020 9:23 AM CDT) P athologist Signature Potassium, P 4.7 3.6 - 5.2 07/31/2020 [facility] mmol/L 10:56 AM CDT Sodium, P 142 135 - 145 07/31/2020 [facility] mmol/L 10:56 AM CDT Chloride, P 105 98 - 107 07/31/2020 [facility] mmol/L 10:56 AM CDT Bicarbonate, P 30 (H) 22 - 29 07/31/2020 [facility] mmol/L 10:56 AM CDT Anion Gap, P 7 7 - 15 07/31/2020 [facility] 10:56 AM CDT BUN (Blood Urea 17 6 - 21 07/31/2020 [facility] Nitrogen), P mg/dL 10:56 AM CDT Creatinine, P 1.04 0.59 - 07/31/2020 [facility] 1.04 mg/dL 10:56 AM CDT eGFR-Black/Afri 60 >=60 07/31/2020 [facility] can Citizen Of [place] mL/min/BSA 10:56 AM CDT Comment: ----ADDITIONAL INFORMATION---- Estimated GFR calculated using the 2009 CKD_EPI creatinine equation. eGFR Non-Black/ 52 (L) >=60 mL/min/BSA 07/31/2020 10:56 AM CDT [facility] Citizen [place] Comment: ----ADDITIONAL INFORMATION---- Estimated GFR calculated using the 2009 CKD_EPI creatinine equation. Calcium, Total, P 9.1 8.8 - 10.2 mg/dL 07/31/2020 10:5 6 AM CDT [facility] Glucose, P CANCELED mg/dL 07/31/2020 10:26 AM CDT [facility] Comment: Test not performed. See Fasting Glucose result. Result canceled by the ancillary. Specimen Anatomical Collection Method Collection Time Receive d Time (Source) Location / / Volume Laterality Blood (Blood, 07/31/2020 9:23 AM 08/01/19 21 Venous) CDT 10:26 AM CDT Catina Presley APRN, C.N.P. LAB BLOOD ADD-ON Performing Organization Address City/State/ZIP Code Phon e Number [facility]- [address] [place] [address] [place] [address] System in [place] [address] [facility] Lipid Panel (07/31/2020 9:23 AM CDT) P athologist Signature Cholesterol, 174 mg/dL 07/31/2020 [facility] Total 10:56 AM CDT Comment: ----REFERENCE VALUE---- Desirable: < 200 Borderline high: 200 - 239 High: > or = 240 Triglycerides 94 mg/dL 07/31/2020 10:56 AM CDT [facility] Comment: ----REFERENCE VALUE---- Normal: <150 Borderline high: 150-199 High: 200-499 Very high: > or =500 Cholesterol, HDL 65 >=50 mg/dL 07/31/2020 10:56 AM CD T [facility] Calculated LDL 90 mg/dL 07/31/2020 10:56 AM CDT O ANDRES Comment: ----REFERENCE VALUE---- Desirable: <100 Above Desirable: 100-129 Borderline high: 130-159 High: 160-189 Very high: > or =190 Cholesterol, Non-HDL, Calculated 109 mg/dL 021 10:56 AM CDT [facility] Comment: ----REFERENCE VALUE---- Desirable: <130 Above Desirable: 130-159 Borderline high: 160-189 High: 190-219 Very high: > or =220 Specimen Anatomical Collection Method Collection Time Receive d Time (Source) Location / / Volume Laterality Blood (Blood, 07/31/2020 9:23 AM 08/01/19 Venous) CDT 10:26 AM CDT Ean Deleon APRNNPavanP. LAB BLOOD ADD-ON Performing Organization Address City/State/ZIP Code Phon e Number [facility]- [address] [facility] [place] [address] [place] [address] System in [place] [address] [facility] AST (Aspartate Aminotransferase) (07/31/2020 9:23 AM CDT) [facility] gist Method Time Signature Aspartate 29 8 - 43 07/31/2020 [facility] Aminotransferase U/L 10:56 AM CDT (AST), P Specimen Anatomical Collection Method Collection Time Receive d Time (Source) Location / / Volume Laterality Blood (Blood, 07/31/2020 9:23 AM 08/01/19 21 Venous) CDT 10:26 AM CDT Catina Presley APRN, C.N.P. LAB BLOOD ADD-ON Performing Organization Address City/State/ZIP Code Phon e Number [facility] [address] [place] [address] [place] [address] System in [place] [address] [facility] documented in this encounter Visit Diagnoses Diagnosis Hyperlipidemia Mixed Hypertension Essential Primary documented in this encounter Additional Health Concerns Assessment Noted Time PHQ-9 Depression Total Score: 3 11/08/2018 4:46 PM CDT documented as of this encounter Care Teams Clinical Transformation Specialist Relationship Specialty Start Date End Date Giovanna Schreiber APRN, C.N.P. PCP - General 02/21/[address] [place] [address] [place] [address] documented as of this encounter
--- OUTSIDE RECORDS SUMMARY | 2021-10-30 01:59 | XMS_ITS | Encounter Summary ---
:1945 Author Organization [facility] Address [address] [place] [address] Care Team Providers Name Role Phone Giovanna Schreiber APRN C.N.P. Primary Care Provider [phone] Reason for Visit Reason Comments Hypertension Refill medication Appointment Request (Routine) - Closed Specialty Diagnoses / Procedures Referred By Contact Refer red To Contact Family Medicine Referral ID Status Reason Start Date Expiration Date Visits Requ ested Visits Authorized [id number] Closed 04/17/2020 04/17/2021 1 1 Encounter Details Date Type Department Care Team Description 05/31/2020 Comprehensive Visit Department of Catina Presley Body M ass Index 37.0 To 37.9 Adult (Primary Dx); Family MedicineYunior APRN, Hypertensio n Essential Primary; [facility], C.N.P. Hyperlipidemia Mixed; in [place], [address]; [address] Screening Cancer Colon; [address] [place], [place] Need Vaccine Immunization [place] [phone] Social History Tobacco Use Types Packs/Day [...] How often do you attend gnosticism or christianity More than 4 time s per year [...] at Date Recorded Female 03/01/2017 8:10 PM DESIGN COORDINATOR documented as of this encounter Last Filed Vital Signs Vital Sign Reading Time Taken Comments Blood Pressure 139/72 05/31/2020 1:51 PM DESIGN COORDINATOR Pulse 65 05/31/2020 1:24 PM DESIGN COORDINATOR Temperature 36.6 ??C (97.9 ??F) 05/31/2020 1:24 PM DESIGN COORDINATOR Respiratory Rate 20 05/31/2020 1:24 PM DESIGN COORDINATOR Oxygen Saturation 97% 05/31/2020 1:24 PM DESIGN COORDINATOR Inhaled Oxygen Concentration - - Weight 96.6 kg (212 lb 15.4 oz) 05/31/2020 1:24 PM DESIGN COORDINATOR Height 161 cm (5' 3.39) 05/31/2020 1:24 PM DESIGN COORDINATOR Body Mass Index 37.27 05/31/2020 1:24 PM DESIGN COORDINATOR documented in this encounter Patient Instructions Patient InstructionsCatina Presley, ZAINA, C.N.P. - 05/31/2020 1:30 PM DESIGN COORDINATOR Images from the original note were not included. Patient Education Lowering High Cholesterol Through Diet Why Should You Control Your Cholesterol? Having a high amount of cholesterol in your blood could cause your heart arteries to harden. Hardened arteries is called atherosclerosis. Atherosclerosis could lead to coronary (heart) artery disease (CAD). Hardened arteries may also allow a coating, called plaque, to build up and partially block your arteries. Blocked arteries can lead to low blood flow in the heart and chest pain. When plaque completely blocks blood flow, you could have a heart attack. Why read this material? This material tells you about some simple food choices you can make to help you lower your cholesterol. When your cholesterol level is in a healthy range, you may be able to avoid some of the health risks related to a high cholesterol level. What Is Cholesterol? Cholesterol is a fat-like substance naturally found in your blood. Your liver makes cholesterol. Cholesterol can also come from foods you eat that are animal-based. Examples include meat, egg yolksand dairy. The type and amount of fat you eat can determine how much cholesterol your body makes. Cholesterol is measured in milligrams (mg). Dietary fat, dietary cholesterol and your body???s natural cholesterol together equal the cholesterol level in your blood. What Can You Do? A few lifestyle changes could lower your blood cholesterol levels. ?? Eat a plant-based diet. Eat more high-fiber foods from plants. Choose 100% whole grains, whole fruits and vegetables. ?? Lower your total fat intake. All oils and fats are high in calories. ?? Lower your saturated fat intake. Saturated fat can raise blood cholesterol. ?? Limit or avoid trans fats. Trans fats can raise blood cholesterol. ?? Limit your use of unsaturated fats. Unsaturated fats can lower your blood cholesterol levels. Monounsaturated fats are preferred. Polyunsaturated fats are okay. ?? Lower your intake of high-cholesterol foods, such as egg yolks, organ meats, animal fat, and high-fat dairy. ?? Get to and stay at a healthy body weight. ?? Get regular exercise. Make Good Choices Avoid Better choices Grains and starches1 6 to 11 servings daily High-fat snack crackers, chips, biscuits, croissants, pastries, scones, commercial quick bread or baked goods mixes. Whole grain breads, [place] muffins, bagels or bread sticks; whole grain cereals; whole wheat noodles, macaroni and pasta.2 Potatoes with peeling, corn or peas. Low-fat snack grains (crackers, baked snack chips, pretzels or plain popcorn).3 Vegetables1 5 servings daily Vegetables with butter or cream, sauces and dips that have fat in them . Plain fresh, frozen or canned vegetables. Fruits1 5 servings daily [place]ut, fruits with cream, sauces and dips that have fat. Fresh, frozen or whole fruit; minimal intake of fruit juices. Milk 2 to 3 cups daily 8 oz. = 1 cup Whole milk or reduced-fat (2%) milk; low-fat or full-fat yogurt. Fat-free, nonfat, skim or low-fat (1%) milk; fat-free yogurt. Meat and meat substitutes1 No more than 6 oz. of meat or meat substitute per day Fatty and heavily marbled meats; sausage, espinoza, spare ribs; poultry with skin on; fish canned in oil; organ meats (liver and others); regular or high-fat cold cuts, lunch meats or hot dogs; regular high-fat solid cheese or 4% cottage cheese. Lean meats, fish, poultry without skin; fresh, frozen or water packed salmon or tuna; shellfish. Egg whites or egg substitutes; limit egg yolks to 3 or less per week. Low-fat cold cuts or hot dogs;4 low-fat (1% fat or less) or nonfat cottage or solid cheeses.4 Dried beans, legumes, lentils; soy protein products. 1 See What Is a Serving? for general definitions of serving sizes. 2 Look for grains and starches with 3 grams or more of fiber per serving. 3 Look for grains and starches with no more than 1 to 2 grams of fat per serving. 4 Most often, choose items that have 3 grams of fat or less per ounce or serving. Avoid Better choices Fats and oils1 3 to 6 servings per day Oils are very high in calories; limit your intake. Saturated fats and oils including: Any animal fat, dairy fat, lard, espinoza fat, gravy, cream sauces, cream, aglb-sbf-unjl, sour cream, cream cheese or creamy salad dressings. Foods with hydrogenated oils, partially hydrogenated oils, shortening, cocoa butter, coconut oil, palm oil, palm kernel oil, most nondairy creamers, stick margarines, trans fats.Monounsaturated oils are preferred: [place], canola or peanut oils. Polyunsaturated oils are acceptable: Safflower, corn, sunflower, soybean, sesame or cottonseed oils.Mayonnaise and salad dressing made with the oils listed above are okay. Also okay are tub margarinesthat have as the first ingredient one of the oils listed above. Desserts and sweets Eat these foods sparingly, if at all. Even if they are low-fat or fat-free, they may be high in calories. Any sweet or dessert item containing the saturated fats (see above) on the product label. Choose fresh or frozen whole fruit. Once in a while, you may choose sweet items such as canned fruit, gumdrops, jelly beans, hard candies, sherbet, fruit ice, sorbet, Popsicles???, gelatin, nonfat frozen yogurt, nonfat ice cream, or puddings made with skim or 1% milk. What Is a Serving? Grains and starches A serving is 1 slice of bread, 1?2 cup cooked starch (such as cooked cereal, rice, pasta or whole grain), 3?4 cup dry plain cereal, or 1 ounce of nonfat or low-fat crackers, pretzels or chips (???snackpack?? size). Vegetables A serving is 1?2 cup if cooked or 1 cup if raw. Fruits A serving is 1 medium piece of fresh fruit, 1 cup chopped fresh whole fruit or berries, 1?2 cup unsweetened canned fruit, or 4 ounces unsweetened fruit juice. Meat A serving is 3 ounces (the size of a deck of playing cards) of meat, fish, poultry, or wild game. Meat substitutes Each of these items equals about 1 ounce of a ???meat?? product. (See above.) ?? 1?2 cup cooked dried beans, peas, lentils or legumes ?? 2 to 3 egg whites ?? 1?4 cup low-cholesterol egg substitutes ?? 1?4 cup low-fat or nonfat cottage cheese ?? 1 ounce low-fat or nonfat solid cheese ?? 1?2 cup low-fat tofu Fat & oil A serving is 1 teaspoon of oil or 1 tablespoon of regular salad dressing. Food Safety Bacteria in food can make you sick. Bacteria spreads when food is not handled, prepared or stored correctly. To help keep food safe, please follow these general guidelines. ?? Wash your hands. Wash your hands or use alcohol-based hand floating labor gang supervisor before you make or eat food. ?? Keep your kitchen clean. Use paper towels instead of dishcloths or sponges. Wash cutting boards well with soap and water after every use. ?? Store food correctly. Put cold or frozen food into the refrigerator or freezer right after you buy them or finish using them. If you have leftovers, put hot food into a container and into the refrigerator right after you finish using it. ?? Eat leftovers within two or three days. Before you eat leftover food, reheat it until it steams. ?? Check expiration dates. Do not eat food that is past its ???Use by?? date. When you open condiments like mayonnaise, ketchup and relish, write the date that you opened it on the jar. ?? Use pasteurized milk and dairy products. Drink and eat only milk and cheese that have been pasteurized to destroy bacteria, molds and yeasts. ?? Handle raw food carefully. Keep raw eggs, meat, poultry, seafood, and their juices separate from each other and from other food. Do not use the same cutting boards and utensils for raw food as you use for cooked food. ?? Avoid eating raw or undercooked food. Examples include meat; fish and shellfish, including sushi and raw oysters; sprouts; and eggs, including runny yolks and raw eggs in unbaked cookie dough. Also avoid unpasteurized juice and cider. ?? Wash fresh fruits and vegetables well. Use a soft brush under cold running water to wash foods with rinds or thick skins. Always wash the food before you peel it or cut into it. Wash items that are labeled ???pre-washed.?? For more information If you have questions after you read this information, please talk to your health care provider or to a registered dietitian. This material is for your education and information only. This content does not replace medical advice, diagnosis or treatment. New medical research may change this information. If you have questions about a medical condition, always talk with your health care provider. ? 2013 [facility] ([facility]). All rights reserved. [id number] GN COORDINATOR documented in this encounter H&P Notes Catina Presley, ZAINA, EanNMalcolm. - 05/31/2020 1:30 PM CST CHIEF COMPLAINT: Chief Complaint Patient presents with ??? Hypertension Refill medication HISTORY OF PRESENT ILLNESS: Queta is here for review of medical concerns, to review and refill medications and to update Preventive Services. BMI is elevated at 37.3. She has hypertension, stable on metoprolol XL 50 mg daily. Lipids have been elevated on several checks, we discussed having her start a low-dose statin therapy. She takes calcium with vitamin-D for osteoporosis. She will do Cologuard for colon cancer screening. She would like Pneumovax 23 immunization today. She declines influenza immunization. REVIEW OF SYSTEMS: A 10 system review of constitutional, cardiovascular, respiratory, musculoskeletal, endocrine, skin,HEENT, genitourinary, psychiatric and neurologic systems was obtained and is unremarkable except as noted above. HISTORY: The following portions of the patient's history were reviewed and updated as appropriate: allergies,current medications, family history, medical history, social history, surgical history and problem list. VITALS: Temperature: [36.6 ??C] 36.6 ??C Resp Rate: [20] 20 Blood Pressure: (139-149)/(67-72) 139/72 SpO2: [97 %] 97 % Pulse Rate: [65] 65 PHYSICAL EXAM: General: In general, the patient is pleasant and appears stated age. Skin: Without lesion. Eyes: PERRLA. EOMI intact. Fundi sharp discs. Conjunctiva and lids normal. ENT: Tympanic membranes clear bilaterally. Nasal mucosa without erythema or congestion. Mouth without erythema or exudate. Lymph Nodes: Neck supple without adenopathy, no thyromegaly. Carotid pulses are equal bilaterally. Peripheral Vessels: Femoral, dorsal, pedal and posterior tibial pulses are equal. Heart: Regular rate and rhythm without murmur. Lungs: Clear to auscultation, good inspiratory effort. Abdomen: Soft, nontender, no palpable mass, no hepatosplenomegaly. Extremities: Warm, dry, no cyanosis or peripheral edema. Mental Status: Alert and oriented times three. Neurologic: Deep tendon reflexes are +2 and symmetrical. ASSESSMENT/PLAN: #1 Body Mass Index 37.0 To 37.9 Adult Work on getting 30 minutes of exercise 5 days per week. Eat a balanced diet rich in fresh fruits, vegetables, lean protein, healthy fats (olive oil, avocado), and whole grains. Avoid processed and fried food as well as food low in nutritional content such as soda, candy, bakery goods. #2 Hypertension Essential Primary Overview: Stable, refill provided. She will return in 2 months for BMP. Hypertension Orders: - metoprolol succinate (TOPROL-XL) 50 mg 24 hr tablet; Take 1 tablet (50 mg total) by mouth daily. Do not crush or chew., [facility] 05/31/2020, Normal - Basic Metabolic Panel; Future; Expected date: 07/31/2020 - Glucose, Fasting; Future; Expected date: 07/31/2020 - CBC with Differential, Blood; Future; Expected date: 07/31/2020 #3 Hyperlipidemia Mixed She will start atorvastatin 10 mg daily. She was given a patient Education handout on lowering cholesterol through the diet. She will work on exercise with weight loss. Recheck fasting lipids and AST in 2 months. - atorvastatin (LIPITOR) 10 mg tablet; Take 1 tablet (10 mg total) by mouth daily., [facility] 05/31/2020, Normal - AST (Aspartate Aminotransferase); Future; Expected date: 07/30/2020 - Lipid Panel; Future; Expected date: 07/31/2020 #4 Osteoporosis Overview: Continue calcium with vitamin-D daily. #5 Screening Cancer Colon - Cologuard-Sent Out Lab #6 Need Vaccine Immunization Pneumococcal Pneumovax 23 immunization given today. BILLIN minutes spent in a combination of the following activities: visit with the patient; reviewing records; interpreting test results; discussing plans with the patient and/or family; discussingand coordinating care with other team members. Learning needs assessment was performed. No learning barriers were identified. Explained diagnosis and treatment plan. Patient expressed understanding and was able to teach back. HEALTH MAINTENANCE: Influenza immunization declined today. GN COORDINATOR documented in this encounter Miscellaneous Notes Result Encounter Note - Catina Presley APRN, C.N.P. - 06/20/2020 3:44 PM CDT Colon cancer screening is negative. Recheck in 3 years. documented in this encounter Plan of Treatment Upcoming Encounters Date Type Specialty Care Team Description 11/20/2021 Nurse Only Family Medicine Giovanna Schreiber APRN, C.N.P. [address] [facility] [place] [phone] 11/20/2021 Appointment Laboratory Medicine Giovanna Schreiber APRN C.N.P. [address] [facility] [place] [address] 12/18/2021 Comprehensive Visit Physical Medicine and Isidoro Morales M.D. [address] [place] [address] 12/19/2021 Comprehensive Visit Community Internal Giovanna Schrebier, Medicine ZAINA, C.N.P. [address] [facility] [place] [address] documented as of this encounter Procedures Procedure Name Priority Date/Time Associated Diagnosis Comme [facility] COLOGUARD Routine 06/18/2020 8:05 AM Screening Cancer Resul ts for this CDT Colon procedure are i n the results section . documented in this encounter Results CBC with [...] Organization Address City/State/ZIP Code Phon e Number [facility] [address] [place] [address] [facility] [address] [place] [address] System in [place] [address] Glucose, Fasting (07/31/2020 9:23 AM CDT) P athologist Signature Glucose, P 98 70 - 100 07/31/2020 [facility] mg/dL 11:08 AM CDT Last Intake 15 hr 07/31/2020 [facility] 10:24 AM CDT Specimen Anatomical Collection Method Collection Time Receive d Time (Source) Location / / Volume Laterality Blood (Blood, 07/31/2020 9:23 AM 05/11/20 21 Venous) CDT 10:24 AM CDT Catina Presley APRN, C.N.P. LAB BLOOD NON ADD-ON Performing Organization Address City/State/ZIP Code Phon e Number [facility] [address] [place] [address] [facility] [place] [address] System in [place] [address] (ABNORMAL) Basic Metabolic Panel (07/31/2020 [...] CDT eGFR-Black/Afri 60 >=60 07/31/2020 [facility] can [place] mL/min/BSA 10:56 AM CDT Comment: ----ADDITIONAL INFORMATION---- Estimated GFR calculated using the 2009 CKD_EPI creatinine equation. eGFR Non-Black/ 52 (L) >=60 mL/min/BSA 07/31/2020 10:56 AM CDT [facility] [place] Comment: ----ADDITIONAL INFORMATION---- Estimated GFR calculated using [...] Venous) CDT 10:26 AM CDT Ean Deleon APRNNHair LAB BLOOD ADD-ON Performing Organization Address City/State/ZIP Code Phon e Number [facility] [address] [place] [address] [place] [address] System in [place] [address] Lipid Panel (07/31/2020 9:23 AM CDT) P [...] AM 08/01/19 Venous) CDT 10:26 AM CDT Lala Deleon APRN.N.P. LAB BLOOD ADD-ON Performing Organization Address City/State/ZIP Code Phon e Number [facility] [address] [place] [address] [facility] [place] [address] System in [place] [address] [facility] AST (Aspartate Aminotransferase) (07/31/2020 9:23 AM CDT) Patholo gist Method Time Signature Aspartate 29 8 - 43 07/31/2020 [facility] Aminotransferase U/L 10:56 AM CDT (AST), P Specimen Anatomical Collection Method Collection Time Receive d Time (Source) Location / / Volume Laterality Blood (Blood, 07/31/2020 9:23 AM 08/01/19 21 Venous) CDT 10:26 AM CDT Ean Deleon APRNNPavanP. LAB BLOOD ADD-ON Performing Organization Address City/State/ZIP Code Phon e Number [facility] [address] [place] [address] [facility] [place] [address] System in [place] [address] [facility] Cologuard-Sent Out Lab (06/18/2020 8:05 AM CDT) Analysis Performed At Patho logist Time Signature Result Negative Not Applicable 06/20/2020 [facility] 2:29 PM CDT Comment: A negative result indicates a low likeli lawson that a colorectal cancer (CRC) or an advanced a denoma (adenomatous polyps with more advanced pre-malignant features) is present. The chance that a person with a negative Cologuard test has a colorectal cancer is less ac n 1 in 1500 (negative predictive value >99.9%) or orellana s an advanced adenoma is less than 5.3% (negative pred ictive value 94.7%). These data are based on a prospe wyive cross-sectional screening study of 10,00 0 individuals at average risk for colorectal cancer who w ere screened with both Cologuard and colonoscopy. (Emily Esquivel al, N Engl J Med 2014;370(14):9184-4802) The normal value (reference range) for this assay is negative. COLOG UARD RE-SCREENING RECOMMENDATION: Periodic routine colorec regino cancer screening is an important part of preven tive healthcare for asymptomatic persons at average risk for colorectal cancer. Following a negative Cologuard result, veda he [place] [employer] Society and U.S. Multi-Society Task Forc e screening guidelines recommend a Cologuard re-scre ening interval of 3 years. References: [place] [employer] Socie ty (ACS). Colorectal cancer prevention and early d etection. [place], [place]: [place] [employer]; [updated Jul 14]. https://www.cancer.org/cancer/colon-rect al-cancer/detection- diagnosis-staging/acs-recommendations.ht ml. Accessed November 20, 2017; Maxim NASH, Pricila CABRERA, Gena MojicaK , Colorectal Cancer Screening: Recommendations for Physician s and Patients from the U.S. Multi-Society Task Force on Col orectal Cancer Screening, Am J Gastroenterology 2017; 1 12:9232-9901. TEST TYPE: Composite algorithmic analysi s of stool DNA-biomarkers with hemoglobin immunoass ay. ??Quantitative values of individual biomarkers are not reportable and are not associated with individual biomarker result reference ranges. PRECAUTIONS AND LIMITATIONS: Cologuard i s intended for colorectal cancer screening of adults of either sex, 45 years or older, who are at average-risk for colorectal cancer (CRC). Cologuard has been approve d for use by the U.S. FDA. Cologuard may produce a false negative or false positive result. A negative Cologuard te st result does not guarantee the absence of CRC or advanced adenoma (pre-cancer). Patients with a negative C ologuard test result should be advised to continue par ticipating in a colorectal cancer screening program. The screening interval for Cologuard is currently recommended a t an interval of every 3 years by the [place] [employer] Soc iety and U.S. Multi-Society Task Force. A false positi ve result occurs when Cologuard produces a positive resul t, even though a colonoscopy may not find colorectal canc er or precancerous polyps. The performance of Cologuard has been established in a cross sectional study (i.e., single point in time) of average-risk adults aged 50-84. Cologuar d performance in patients ages 45 to 49 years was estimat ed by sub-group analysis of near-age groups. Cologuard p erformance data in a 10,000 patient pivotal study using col onoscopy as the reference method can be accessed at the following location: www.exactlabs.com/results. Additional de scription of the Cologuard test process, warnings and pre cautions can be found at www.cologuardtest.com. Rx only. Specimen Anatomical Collection Method Collection Time Receive d Time (Source) Location / / Volume Laterality Stool (Stool) 06/18/2020 8:05 AM 06/20/19 9:42 CDT AM CDT Catina Presley APRN C.N.P. LAB BODY FLUIDS AND STOOLS ORDERABLES Performing Organization Address City/State/ZIP Code Phon e Number [id number] [address] [place] [address] [address] [place] [address] [place] [address], [address] documented in this encounter Visit Diagnoses Diagnosis Body Mass Index 37.0 To 37.9 Adult - Diane chato Hypertension Essential Primary Hyperlipidemia Mixed Osteoporosis Screening Cancer Colon Need Vaccine Immunization Pneumococcal documented in this encounter Additional Health Concerns Assessment Noted Time PHQ-9 Depression Total Score: 3 11/08/2018 4:46 PM CDT documented as of this encounter Care Teams Music Ministries Director Relationship Specialty Start Date End Date Giovanna Schreiber APRN, C.N.P. PCP - General 02/21/[address] [place] [address] JEFFREY [place] [address] documented as of this encounter
--- OUTSIDE RECORDS SUMMARY | 2021-10-30 02:00 | XMS_ITS | Encounter Summary ---
:1945 Author Organization [facility] Address [address] [place] [address] Care Team Providers Name Role Phone Masha Rosenberg M.D. Primary Care Provider Reason for Visit Reason Comments Med Refill Encounter Details Date Type Department Care Team Description 06/24/2018 Refill Department of Family Medicine, Masha garcia M.D. Med Refill [facility], in [facility] [place] [address] [place] [address] [place] [address] [phone] Social History Tobacco Use Types Packs/Day Years Used Date Smoking Tobacco: Never Smokeless Tobacco: Never Alcohol Habits Answer Date Recorded How often [...] or relatives? How often do you attend spiritism or cheondoism More than 4 time s per year 02/07/2019 services? Do you belong to any clubs or organizations Yes 02/07/2019 such as spiritism groups, unions, fraternal or athletic groups, or [...] at Date Recorded Female 03/01/2017 8:10 PM COLORMAN documented as of this encounter Miscellaneous Notes Telephone Encounter - Tonja Smith C.MJuan - 06/24/2018 10:23 AM CDT Medication pended. Telephone Encounter - Ayaka Dhaliwal - 06/24/2018 9:55 AM CDT Images from the original note were not included. Nurse Review: Pharmacy Communication Provider: Masha Rosenberg M.D. Medication: Metoprolol Succinate ER Strength: 50 mg Frequency: N/A Pharmacy: [facility] Comment: documented in this encounter Plan of Treatment Upcoming Encounters Date Type Specialty Care Team Description 11/20/2021 Nurse Only Family Medicine Giovanna Schreiber APRN, C.N.P. 300 [facility] [place] [address] 11/20/2021 Appointment Laboratory Medicine Giovanna Schreiber APRN, C.N.P. 300 [facility] [place] [address] 12/18/2021 Comprehensive Visit Physical Medicine and Isidoro Morales M.D. [address] [address] 12/19/2021 Comprehensive Visit Community Internal Giovanna Schreiber, Medicine ZAINA, C.N.P. 300 [facility] [place] [address] documented as of this encounter Visit Diagnoses Not on filedocumented in this encounter Additional Health Concerns Assessment Noted Time PHQ-9 Depression Total Score: 3 03/02/2017 5:19 PM COLORMAN documented as of this encounter Care Teams Brand Strategy Manager Relationship Specialty Start Date End Date Masha Rosenberg M.D. PCP - General 09/04/16 02/20/19 documented as of this encounter
--- OUTSIDE RECORDS SUMMARY | 2021-10-30 02:00 | XMS_ITS | Encounter Summary ---
:1945 Author Organization [facility] Address [address] [place] [address] Care Team Providers Name Role Phone Masha Rosenberg M.D. Primary Care Provider Encounter Details Date Type Department Care Team Description 03/13/2017 Orders Only Department of Family Meena Rosenberg M.D. Medicine, [facility], [address] [place] [address] 300 [place] [address] [phone] Social History Tobacco Use Types Packs/Day Years [...] or relatives? How often do you attend synagogue or islam More than 4 time s per year 02/07/2019 services? 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 300 [facility] [place] [address] 11/20/2021 Appointment Laboratory Medicine AbdoulGiovanna APRN, C.N.P. 300 [facility] [place] [phone] 12/18/2021 Comprehensive Visit Physical Medicine and Isidoro Morales M.D. [address] [phone] 12/19/2021 Comprehensive Visit Community Internal Giovanna Schreiber, Medicine ZAINA, C.N.P. 300 [facility] [place] [address] documented as of this encounter Visit Diagnoses Not on filedocumented in this encounter Additional Health Concerns Assessment Noted Time PHQ-9 Depression Total Score: 3 03/02/2017 5:19 PM RESEARCH/PROGRAM DIRECTOR documented as of this encounter Care Teams Client Support Administrator Relationship Specialty Start Date End Date Masha Rosenberg M.D. PCP - General 09/04/16 02/20/19 documented as of this encounter
--- OUTSIDE RECORDS SUMMARY | 2021-10-30 02:00 | XMS_ITS | Encounter Summary ---
:1945 Author Organization [facility] Address [address] [place] [address] Care Team Providers Name Role Phone Masha Rosenberg M.D. Primary Care Provider Encounter Details Date Type Department Care Team Description 08/11/2018 Hospital Encounter Department of Masha Rosenberg Primary Osteoarthritis Multiple Sites; Radiology in [place] Pain Knee Left; [facility], [address] Open Reduction And Internal Fixation Leg Status Post [place], [place] [address] [address] [place], [place] [phone] [address] (Work) [phone] Social History Tobacco Use Types Packs/Day Years [...] or relatives? How often do you attend presybeterian or anglican More than 4 time s per year 02/07/2019 services? Do you belong to any clubs or organizations Yes 02/07/2019 such as presybeterian groups, unions, fraternal or athletic groups, or [...] at Date Recorded Female 03/01/2017 8:10 PM KIER PLEATER documented as of this encounter Medications at [...] mg by mouth 0 06/12/2011 as needed. ASPIRIN ORAL Take 1 tablet by 0 03/24/20142020 mouth daily. DOCOSAHEXANOIC ACID/EPA Take by mouth daily. 0 10/03/2021 (FISH OIL ORAL) GARLIC ORAL Take by mouth. 0 9 metoprolol succinate Take 1 tablet (50 mg 90 tablet 3 07/2011/16/2018 (TOPROL-XL) 50 mg 24 hr total) by mouth tabletIndications: daily. Do not crush Hypertension Essential or chew. Primary SELENIUM ORAL Take 1 tablet by 0 02/24/201202/11 mouth daily. documented as of this encounter Plan of Treatment Upcoming Encounters Date Type Specialty Care Team Description 11/20/2021 Nurse Only Family Medicine Giovanna Schreiber APRN, C.N.P. 300 [facility] [place] [address] 11/20/2021 Appointment Laboratory Medicine Giovanna Schreiber APRN, C.N.P. 300 [facility] [place] [address] 12/18/2021 Comprehensive Visit Physical Medicine and Isidoro Morales M.D. [address] [place] [address] 12/19/2021 Comprehensive Visit Community Internal Giovanna Schreiber, Medicine ZAINA, C.N.P. 300 [facility] [place] [address] documented as of this encounter Procedures Procedure Name Priority Date/Time Associated Diagnosis Comme nts DX KNEE LEFT 4+ RAD - Routine 08/11/2018 3:38 Primary Results for VIEWS (most inpatients PM CDT Osteoarthritis this proc edure and all Multiple Sites are in the outpatients) Pain Knee Left results Open Reduction And section. Internal Fixation Leg Status Post documented in this encounter Results DX Knee Left 4+ Views (08/11/2018 3:38 PM CDT) Anatomical Region Laterality Modality Lower Extremity, Knee, Musculoskeletal RST LOS, Left Digital Radiography Musculoskeletal ARZ LOS, Muskuloskeletal FLA LOS Specimen (Source) Anatomical Collection Method Collection Time Re ceived Time Location / / Volume Laterality 08/11/2018 3:40 PM CDT Impressions 08/11/2018 3:45 PM CDT IMPRESSION: Old healed fracture deformity proximal left tibia . Moderately prominent secondary degenerative changes of the left knee. Narrative 08/11/2018 3:45 PM CDT EXAM: DX KNEE LEFT 4+ VIEWS COMPARISON: None FINDINGS: Old postoperative changes medi al plate and screw fixation across a healed fracture of the proximal left tib ial metadiaphysis. Old healed proximal left tibial fracture deformity. Old heal ed proximal left fibular fracture deformity. Moderately prominent degenerative change s of the left knee. Tiny left knee joint effusion. Procedure Note Hai Knott M.D. - 08/11/2018Forma tting of this note might be different from the original. EXAM: DX KNEE LEFT 4+ VIEWS COMPARISON: None FINDINGS: Old postoperative changes medi al plate and screw fixation across a healed fracture of the proximal left tib ial metadiaphysis. Old healed proximal left tibial fracture deformity. Old heal ed proximal left fibular fracture deformity. Moderately prominent degenerative change s of the left knee. Tiny left knee joint effusion. IMPRESSION: Old healed fracture deformit y proximal left tibia . Moderately prominent secondary degenerative changes of the left knee. Masha [facility] JOAQUIM DONALD documented in this encounter Visit Diagnoses Diagnosis Primary Osteoarthritis Multiple Sites Pain Knee Left Open Reduction And Internal Fixation Leg Status Post documented in this encounter Additional Health Concerns Assessment Noted Time PHQ-9 Depression Total Score: 3 03/02/2017 5:19 PM KIER PLEATER documented as of this encounter Care Teams House Mover Relationship Specialty Start Date End Date Masha Rosenberg M.D. PCP - General 09/04/16 02/20/19 documented as of this encounter
--- OUTSIDE RECORDS SUMMARY | 2021-10-30 02:00 | XMS_ITS | Encounter Summary ---
:1945 Author Organization [facility] Address [address] [place] [address] Care Team Providers Name Role Phone Masha Rosenberg M.D. 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 300 [facility] [place] [address] 11/20/2021 Appointment Laboratory Medicine AbdoulGiovanna APRN, C.N.P. 300 [facility] [place] [address] 12/18/2021 Comprehensive Visit Physical Medicine and Isidoro Morales M.D. [address] [address] 12/19/2021 Comprehensive Visit Community Internal AbdoulGiovanna, Medicine ZAINA, C.N.P. 300 [facility] [place] [address] documented as of this encounter Visit Diagnoses Diagnosis Hypertension Essential Primary - Primary Hyperlipidemia Screening Mammogram Average Risk Patient documented in this encounter Additional Health Concerns Assessment Noted Time PHQ-9 Depression Total Score: 3 03/02/2017 5:19 PM PRODUCTION DIRECTOR documented as of this encounter Care Teams Clinical Account Executive Relationship Specialty Start Date End Date Masha Rosenberg M.D. PCP - General 09/04/16 02/20/19 documented as of this encounter
--- OUTSIDE RECORDS SUMMARY | 2021-10-30 02:00 | XMS_ITS | Encounter Summary ---
:1945 Author Organization [facility] Address [address] [place] [address] Care Team Providers Name Role Phone Masha Rosenberg M.D. Primary Care Provider Reason for Visit Reason Comments Leg Injury States was to have a physica l, but if not able to check her leg out and do the physical, she would rath er be here for her left leg injury. Encounter Details Date Type Department Care Team Description 08/11/2018 Comprehensive Visit Department of Masha Rosenberg Primar y Osteoarthritis Multiple Sites (Primary Dx); Family MedicineYunior M.D. 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 - 08/11/2018 2:30 PM CDT CHIEF COMPLAINT/REASON FOR VISIT Knee pain HISTORY OF PRESENT ILLNESS This 72-year old female presents to clinic secondary to left knee pain. She was gardening 08/05/2018sitting on her gardening stool as she is unable to get onto her knees. She was a little stiff after the activity which is her norm. She then went swimming and proceeded to do a large amount of kicking.By the time she got home her pain had significantly increased. She elevated her leg placed some ice and the symptoms were slowly improving and then her spouse became acutely ill and was transferred to [facility] for cardiac issues. With the [facility] she hashad increased pain with walking and has required a wheelchair to facilitate movement between the units. Pain is sharp and burning inside her knee. If feels very similar to the osteoarthritis symptoms which led to an x-ray of her right knee a few years ago. This is the same Leg she fractured related toa fall off a step stool in 2000 which led to a complicated ORIF of a proximal tib-fib fracture. Her significant other will be having cardiac surgery tomorrow. Patient was to have a annual Medicare examtoday but she would like to defer it secondary to the above issues. She is not short of breath. She is having no palpitations. Her knee has not been overly red but it does appear to be somewhat swollen. She is taking all of her medications as prescribed. EMR reviewed. CURRENT MEDICATIONS Current Outpatient Prescriptions: ??? CALCIUM CARB/VIT D3/MINERALS (CALCIUM-VITAMIN D ORAL), [facility] [place] See Instructions, Calcium & Vit D3 0- takes one ounce daily, Disp: , Rfl: ??? DOCOSAHEXANOIC ACID/EPA (FISH OIL ORAL), Take by mouth daily., Disp: , Rfl: ??? FAMOTIDINE ORAL, Pepcid See Instructions, 10 mg 1 in am 2 in pm as needed, Disp: , Rfl: ??? LORATADINE ORAL, Take 10 mg by mouth as needed. , Disp: , Rfl: ??? metoprolol succinate (TOPROL-XL) 50 mg 24 hr tablet, Take 1 tablet (50 mg total) by mouth daily.Do not crush or chew., Disp: 90 tablet, Rfl: 3 ??? SELENIUM ORAL, Take 1 tablet by mouth daily., Disp: , Rfl: ??? ASPIRIN ORAL, Take 1 tablet by mouth daily., Disp: , Rfl: ??? GARLIC ORAL, Take by mouth., Disp: , Rfl: Allergies Allergen Reactions ??? [...] 12/08/2000 Dr. Reaves- fell off step ladder PREVENTIVE SERVICES Mammogram: 09/13/2009, advised, patient declines. ?? Pap smear: Nonapplicable secondary to stated age. Chlamydia: ??Nonapplicable secondary to stated age. Colon screen: ??01/01/2015, recheck planned for 5 years secondary to family history of polyps with Dr. Workman at [facility]. Depression: ??No. PHQ-9 score 3 Asthma: ??No. Lipids: 03/12/2017, elevated. Adacel: ??10/22/2015. Prevnar: ??10/22/2015. Pneumovax: Declined. ?? Influenza: ??Declined with a season. Bone density study 03/31/2017?? SOCIAL HISTORY ALCOHOL:?? None OTHER SOCIAL DRUGS:?? None CAFFEINE USE:?? A cup of regular or decaf coffee with 2 sodas per week, occasional tea Family History Problem Relation Age of Onset ??? Colon cancer Mother ??? Asthma Mother ??? Diabetes Father ??? Breast cancer Sister In her 50s ??? Coronary artery disease Maternal Grandmother ??? No Known Problems Maternal Grandfather ??? DM - Diabetes mellitus Paternal Grandmother ??? No Known Problems Paternal Grandfather ??? Hypertension Sister ??? Macular degeneration Sister Vitals: 08/11/18 1412 08/11/18 1415 BP: 136/80 132/84 BP Location: Left arm Left arm Patient Position: Sitting Sitting Cuff Size: Large Large Pulse: 68 68 Resp: 16 Temp: 36.9 ??C TempSrc: Temporal Weight: 98 kg Height: 164.2 cm PHYSICAL EXAM General: Neatly dressed well groomed. HEENT: Neck: Range of motion consistent with patient's stated age body habitus. Trachea midline. Lymph nodes: No cervical adenopathy. Thyroid: No thyroid masses, tenderness or enlargement. Heart: Regular rate and rhythm. No clicks, rubs or murmurs. Lungs: Clear to auscultation. No palpable chest wall masses. Musculoskeletal: Obvious degenerative changes of major and minor joints with well-healed incision site on the left lower leg. Range of motion is approximately 76% of the bilateral hips and 80% of the bilateral knees but symmetric. Range of motion the ankles and feet are approximately 90% of that expected for patient's stated age body habitus. Peripheral pulses: Positive femoral, dorsal pedal and posterior tibial pulses. Good capillary refill.. Neuro: Reflexes 2+ knees and ankles. Able to stand on toes and heels. Squat to about 60% of that expected for patient's stated age body habitus. LABS AND PROCEDURES EXAM: DX KNEE LEFT 4+ VIEWS ?? COMPARISON: None ?? FINDINGS: Old postoperative changes medial plate and screw fixation across a healed fracture of the proximal left tibial metadiaphysis. Old healed proximal left tibial fracture deformity. Old healed proximal left fibular fracture deformity. ?? Moderately prominent degenerative changes of the left knee. ?? Tiny left knee joint effusion. ? IMPRESSION: Old healed fracture deformity proximal left tibia . Moderately prominent secondary degenerative changes of the left knee ASSESSMENT/PLAN 1. Left knee pain superimposed on primary osteoarthritis multiple sites and an old ORIF of a proximal tib-fib fracture with evaluation and treatment in process 2. Obesity-progressive aggravating 1. Supportive measures discussed in detail. Noé wrap is placed which is significantly helpful. Patient will be following up with Rola Jamil at Dr. Wyatt's orthopedic office for knee injection 08/13/2018 at 1:30 p.m.. She will hand carry her CD of her x-ray to this appointment. While physical therapy would be helpful she does not have time for this recommendation, given the above acute life-threatening illness of her significant other. She will continue on her current medication regimen Risks and benefits of medications discussed. All questions answered. Signs and symptoms to lead to emergentevaluation are reviewed. See the medication reconciliation and preventive services. She and her daughter comfortable with plan. Spent 15 of the 25 minute visit in discussion. documented in this encounter Plan of Treatment Upcoming Encounters Date Type Specialty Care Team Description 11/20/2021 Nurse Only Family Medicine Giovanna Schreiber APRN, C.N.P. 300 [facility] [place] [address] 11/20/2021 Appointment Laboratory Medicine Giovanna Schreiber APRN, C.N.P. 300 [facility] [place] [address] 12/18/2021 Comprehensive Visit Physical Medicine and Isidoro Morales M.D. [address] [phone] 12/19/2021 Comprehensive Visit Community Internal Giovanna Schreiber, Medicine TUBER HELPER, C.N.P. 300 [facility] [place] [phone] documented as of this encounter Visit Diagnoses Diagnosis Primary Osteoarthritis Multiple Sites - Primary Obesity Body Mass Index 30-39.9 Adult Pain Knee Left Open Reduction And Internal Fixation Leg Status Post documented in this encounter Additional Health Concerns Assessment Noted Time PHQ-9 Depression Total Score: 3 03/02/2017 5:19 PM WINDOWS INFRASTRUCTURE ENGINEER documented as of this encounter Care Teams Regional Ehs Manager Relationship Specialty Start Date End Date Masha Rosenberg M.D. PCP - General 09/04/16 02/20/19 documented as of this encounter
--- OUTSIDE RECORDS SUMMARY | 2021-10-30 02:00 | XMS_ITS | Encounter Summary ---
:1945 Author Organization [facility] Address [address] [place] [address] Care Team Providers Name Role Phone Masha Rosenberg M.D. Primary Care Provider Encounter Details Date Type Department Care Team Description 06/29/2017 Orders Only Department of Family Masha Rosenberg, Hyp ertension Essential Primary (Primary Dx); MedicineRaffaele M.D. 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 300 [facility] [place] [phone] 11/20/2021 Appointment Laboratory Medicine AbdoulGiovanna APRN, C.N.P. 300 [facility] [place] [phone] 12/18/2021 Comprehensive Visit Physical Medicine and Isidoro Morales M.D. [address] [place] [address] 12/19/2021 Comprehensive Visit Community Internal Giovanna Schreiber, Medicine ZAINA, C.N.P. 300 [facility] [place] [phone] documented as of this encounter Visit Diagnoses Diagnosis Hypertension Essential Primary - Primary Screening Mammogram Average Risk Patient documented in this encounter Additional Health Concerns Assessment Noted Time PHQ-9 Depression Total Score: 3 03/02/2017 5:19 PM SHIRT TURNER documented as of this encounter Care Teams Salesperson Neckties Relationship Specialty Start Date End Date Masha Rosenberg M.D. PCP - General 09/04/16 02/20/19 documented as of this encounter
--- OUTSIDE RECORDS SUMMARY | 2021-10-30 02:00 | XMS_ITS | Encounter Summary ---
:1945 Author Organization [facility] Address [address] [place] [id number] Care Team Providers Name Role Phone Masha Rosenberg M.D. Primary Care Provider Reason for Visit Reason Comments Other medication refill Appointment Request (Routine) - Closed Specialty Diagnoses / Procedures Referred By Contact Refer red To Contact Family Medicine Referral ID Status Reason Start Date Expiration Date Visits Requ ested Visits Authorized [id number] Closed 07/19/2018 07/19/2019 1 Encounter Details Date Type Department Care Team Description 07/20/2018 Office Visit Department of Family Aurelio Gilbert rt[facility] Essential [facility], [place] ([facility], in [place] [address] [place], [place] [facility] [place] [phone] Social History Tobacco Use Types Packs/Day Years [...] How often do you attend christian or latter-day More than 4 time s [...] at Date Recorded 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 - 07/20/2018 2:15 PM CDT SUBJECTIVE CHIEF COMPLAINT / REASON FOR VISIT Queta Raymond is a 72 y.o. female who presents for evaluation of Other (medication refill). HISTORY OF PRESENT ILLNESS 72-year-old pleasant female with no new complaints today. Patient would like a refill of her blood pressure medications. She denies any chest pain or shortness of breath or dizziness. She is taking metoprolol 50 mg daily. The following portions of the patient's history were reviewed and updated as appropriate: allergies,current medications, family history, medical history, social history, surgical history and problem list. REVIEW OF SYSTEMS Pertinent items are noted in HPI. OBJECTIVE BP 140/84 (BP Location: Right arm, Patient Position: Sitting, Cuff Size: Large) Pulse 64 Temp 36.4 ??C Resp 16 Wt 99.6 kg BMI 37.01 kg/m?? PHYSICAL EXAM General Appearance: healthy, alert, no distress, cooperative. Skin: skin color, texture, turgor normal, no suspicious rashes or lesions. Head: normocephalic, no masses, lesions, tenderness or abnormalities. Eyes: Anicteric sclera. Pupils are equally round and reactive to light. Extraocular movements are intact. . Neck: Supple, no adenopathy; thyroid symmetric, normal size, no bruits. Lungs: clear to auscultation, no wheezing or rhonchi. Heart: RRR without murmur, gallop, or rubs. ASSESSMENT / PLAN #1 Hypertension Essential Primary Metoprolol has been refilled. Patient has been counseled to return for a physical. She plans on doing this with her primary. documented in this encounter Plan of Treatment Upcoming Encounters Date Type Specialty Care Team Description 11/20/2021 Nurse Only Family Medicine Giovanna Schreiber APRN, C.N.P. [address] [place] [phone] 11/20/2021 Appointment Laboratory Medicine Giovanna Schreiber APRN, C.N.P. [address] [place] [phone] 12/18/2021 Comprehensive Visit Physical Medicine and Isidoro Morales M.D. [address] [phone] 12/19/2021 Comprehensive Visit Community Internal Giovanna Schreiber, Medicine ZAINA, C.N.P. [address] [place] [phone] documented as of this encounter Visit Diagnoses Diagnosis Hypertension Essential Primary - Primary documented in this encounter Additional Health Concerns Assessment Noted Time PHQ-9 Depression Total Score: 3 03/02/2017 5:19 PM G[employer]ERNOR [employer] documented as of this encounter Care Teams Production Supervisor Off Shift Relationship Specialty Start Date End Date Masha Rosenberg M.D. PCP - General 09/04/16 02/20/19 documented as of this encounter
--- OUTSIDE RECORDS SUMMARY | 2021-10-30 02:00 | XMS_ITS | Encounter Summary ---
:1945 Author Organization [facility] Address [address] [place] [id number] Care Team Providers Name Role Phone Masha Rosenberg M.D. Primary Care Provider Encounter Details Date Type Department Care Team Description 06/24/2018 Orders Only [facility] PCP [facility] MNT Masha Rosenberg, S creening Mammogram M.D. Breast Cancer [address] [place] [address] Social History Tobacco Use Types Packs/Day Years [...] or relatives? How often do you attend faith or religion More than 4 time s per year 02/07/2019 services? 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 [address] [place] [phone] 11/20/2021 Appointment Laboratory Medicine Giovanna Schreiber V., ZAINA, C.N.P. [address] [phone] 12/18/2021 Comprehensive Visit Physical Medicine and Isidoro Morales M.D. [address] [phone] 12/19/2021 Comprehensive Visit Community Internal Giovanna Schreiber, Medicine ZAINA, C.N.P. 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 PCP - General 09/04/16 02/20/19 documented as of this encounter
--- OUTSIDE RECORDS SUMMARY | 2021-10-30 02:00 | XMS_ITS | Encounter Summary ---
:1945 Author Organization [facility] Address [address] [place] [address] Care Team Providers Name Role Phone Masha Rosenberg M.D. Primary Care Provider Reason for Visit Reason Comments Annual Exam need refills Encounter Details Date Type Department Care Team Description 03/02/2017 Comprehensive Visit Department of Masha Rosenberg Annual Medicare Examination Return (Primary Dx); Family MedicineYunior M.D. 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 documented as of this encounter Last Filed Vital Signs Vital Sign Reading Time Taken Comments Blood Pressure 154/100 03/02/2017 2:18 PM PUBLIC RELATIONS ACCOUNT EXECUTIVE Pulse 64 03/02/2017 2:15 PM PUBLIC RELATIONS ACCOUNT EXECUTIVE Temperature 37 ??C (98.6 ??F) 03/02/2017 2:15 PM PUBLIC RELATIONS ACCOUNT EXECUTIVE Respiratory Rate 12 03/02/2017 2:15 PM PUBLIC RELATIONS ACCOUNT EXECUTIVE Oxygen Saturation - - Inhaled Oxygen Concentration - - Weight 96.9 kg (213 lb 8.3 oz) 03/02/2017 2:15 PM PUBLIC RELATIONS ACCOUNT EXECUTIVE Height 164 cm (5' 4.57) 03/02/2017 2:15 PM PUBLIC RELATIONS ACCOUNT EXECUTIVE Body Mass Index 36.01 03/02/2017 2:15 PM PUBLIC RELATIONS ACCOUNT EXECUTIVE documented in this encounter H&P Notes Masha Rosenberg M.D. - 03/02/2017 2:15 PM CST CHIEF COMPLAINT/REASON FOR VISIT Medicare exam and other issues HISTORY OF PRESENT ILLNESS This 71-year-old female presents to the clinic for annual evaluation. ??She is not fasting today butshe be happy to come in sometime in the future. She is in need of refills of her medications. She ishaving pain in her right knee. She had pain in 2014 and did have an injection with an orthopedist [facility] at a [facility] and it did well for a period of time. She has had no trauma or tenderness. She is not interested in much of any healthcare maintenance due to the non coverage of her insurance. She might consider a bone density study. She has not thought about advanced directives. EMR ??reviewed. MEDICATIONS RECONCILIATION Current Outpatient Prescriptions on File Prior to Visit Medication Sig Dispense Refill ??? ASPIRIN ORAL Take 1 tablet by mouth daily. ??? CALCIUM CARB/VIT D3/MINERALS (CALCIUM-VITAMIN D ORAL) [facility] Prescription See Instructions, Calcium & Vit D3 0- takes one ounce daily ??? DOCOSAHEXANOIC ACID/EPA (FISH OIL ORAL) Take by mouth daily. ??? FAMOTIDINE ORAL Pepcid See Instructions, 10 mg 1 in am 2 in pm as needed ??? LORATADINE ORAL Take 10 mg by mouth daily. ??? metoprolol succinate (for_TOPROL-XL) 50 mg 24 hr tablet Take 1 tablet by mouth daily. ??? SELENIUM ORAL Take 1 tablet by mouth daily. No current facility-administered medications on file prior to visit. ? ALLERGIES Allergies Allergen Reactions ??? No Known Allergies Other (see comments) SYSTEMS REVIEW CONSTITUTIONAL: Slow weight gain over the years.?? No fevers, chills or night sweats.?? No change inher energy.?? EYES:?? No blurred or double vision and no eye pain.??Last exam December 2016, wears glasses?? ENT: No hearing loss, no tinnitus, no ear pain, no dizziness, no nasal congestion, no sore throat and no hoarseness.?Last dental exam when she broke a tooth in August of 2016 CARDIOVASCULAR:?? No palpitations, no ankle edema, no true claudication and no chest pain.??See the HPI and past medical surgical history.?? RESPIRATORY: No cough, no wheezing, no hemoptysis and no shortness of breath.?? GASTROINTESTINAL: No abdominal pain and no heartburn.?? No problems with dysphagia, hematemesis orchange in daily bowel regimen.?? No hematochezia and no problems with hemorrhoids.?? GENITOURINARY: No pain with urination.?? No urinary frequency.?? No vaginal bleeding or spotting.?? No vaginal discharge.?? No history of abnormal Pap smears.?? No concerns regarding sexually transmitted diseases.?? MUSCULOSKELETAL: No back, neck or joint pain apart from that noted in the HPI.?? No swelling or stiffness.?? No myalgias or weakness.?? INTEGUMENTARY: No changes in skin lesions, hair or nails.?? Does occasional self-breast exams. Wears sunscreen. NEUROLOGIC: No history of syncopal events or seizures.??PSYCHIATRIC: No history of anxiety or depression.?? No problems with sleep.?? ENDOCRINE: No history of diabetes or thyroid problems.?? HEMATOLOGIC/LYMPHATIC: No history of anemia or bleeding.?? ALLERGIC/IMMUNOLOGIC: Please see above. PAST MEDICAL/SURGICAL HISTORY Past Surgical History: Procedure Laterality Date ??? EXTRACTION OF CATARACT 2011 ??? OPEN REDUCTION OF FRACTURE WITH INTERNAL FIXATION Right 2000 Leg hardware remains Past Medical History: Diagnosis Date ??? Hypertension Essential Primary ??? Primary Osteoarthritis Multiple Sites PREVENTIVE SERVICES:?? Mammogram: 09/13/2009, advised, patient declines. Pap smear: Nonapplicable secondary to stated age. Chlamydia: Nonapplicable secondary to stated age. Colon screen: 01/01/2015, recheck planned for 5 years secondary to family history of polyps with at [facility]. Depression: No. PHQ-9 score 3 Asthma: No. Lipids: 10/23/2015. planned for the near future. Adacel: 10/22/2015. Prevnar: 10/22/2015. Pneumovax: Declined. Influenza: Declined. SOCIAL HISTORY ALCOHOL:?? None OTHER SOCIAL DRUGS:?? None CAFFEINE USE:?? Couple regular or decaf coffee with 2 sodas per week, occasional tea SEATBELT USE:?? Utilized DIET:?? Tries to follow a healthy diet LAST BREAST EXAM:?? 2016 CALCIUM INTAKE:?? Lower limits of normal EXERCISE: Water aerobics twice per week FAMILY HISTORY Family History Problem Relation Age of Onset ??? Colon cancer Mother ??? Asthma Mother ??? Diabetes Father ??? Breast cancer Sister In her 50s ??? Coronary artery disease Maternal Grandmother ??? No Known Problems Maternal Grandfather ??? DM - Diabetes mellitus Paternal Grandmother ??? No Known Problems Paternal Grandfather ??? Hypertension Sister ??? Macular degeneration Sister VITAL SIGNS Vitals: 03/02/17 1415 03/02/17 1418 BP: (!) 150/98 (!) 154/100 Patient Position: Sitting Sitting Pulse: 64 Temp: 37 ??C Resp: 12 Height: 164 cm Weight: 96.9 kg TempSrc: Temporal PHYSICAL EXAMINATION GENERAL:?? Neatly dressed and well groomed and in no apparent distress. SKIN: Free from lesions.?? No palpable masses. HEAD:?? No trauma, tenderness or masses.? EYES: Conjunctiva clear.?? PERRL.?? Full EOM.?? Funduscopic exam grossly normal. ENT: External ears and nose without gross abnormalities.?? Tympanic membranes are ngo.?? Subjectively slightly decreased hearing.?? Nasal mucosa membranes pink and moist.?? Septum is midline.?? Oral: No exudates.?? Teeth in fair condition.?? Some evidence of periodontal disease.?? No pharyngeal erythema or exudates.?? Neck consistent with patient's stated age body habitus.?? Trachea midline.?? LYMPH NODES: Negative evaluation of neck, axilla and groin. THYROID:?? No thyroid masses, tenderness or enlargement.?? BREASTS: No masses or tenderness.?? No galactorrhea.?? Negative evaluation of the axilla. PERIPHERAL VESSELS: Positive radial, ulnar, femoral, posterior tibial and dorsalis pedis pulses. HEART: Regular rate and rhythm.?? No clicks, rubs or murmurs.?? Carotid arteries reveal no bruits.??Abdominal aorta is not prominent, but exam is limited secondary to body habitus.? No ankle edema.??Some varicosities.?? LUNGS:?? Clear to auscultation.?? No palpable chest wall masses. ABDOMEN: Soft and nontender.?? Bowel sounds present.?? No organomegaly, but exam is limited secondary to body habitus.?? PELVIS: No bony abnormalities. RECTUM: Deferred. GENITALIA: Deferred. SPINE:?? Range of motion consistent with stated age.?? Degenerative changes consistent with patient's stated age body habitus. JOINTS: Range of motion consistent with stated age.?? Marked bony abnormalities. EXTREMITIES:?? Nails and digits reflect degenerative changes.?? Range of motion of head, neck, ribs,right and left upper extremity, right and left lower extremity consistent with the patient???s stated age. GAIT:?? Smooth easy.?? MENTAL:?? Oriented x 3.?? NEURO: Reflexes 2+ in triceps, biceps, knees and ankles. IMPRESSION/REPORT/PLAN 1.Annual exam 2. Hypertension-unstable 3. Osteoporosis 4. Obesity-progressive 5. Mixed hyperlipidemia 6. Allergic rhinitis 7. Family history of colon cancer PLAN: Supportive measures discussed in detail.?? Will check labs with CBC, basic metabolic profile, AST, following up accordingly. Range for lipid profile sometime in the near future. Patient may consider a bone density study and/or other health care maintenance issues. She is not interested immunization update at this time. She may consider advance directives. Preventive services care plan mini cog and clock drawing exams are completed. Recording book to collect her blood pressure was given. Did discuss increasing medication but she is not interested in this option at this time. She will take her medication in the a.m. to facilitate better control of her blood pressure. Spent 20 minutes discussing her acute care needs. Reviewed exercise, cholesterol, diet/weight loss, calcium intake, alcohol use, immunizations, tobacco use, caffeine use, self-breast exams, mammography, colonic studies includingcolonoscopy or FIT testing, hormone replacement therapy as appropriate, seatbelt use, back care, depression, eye exams and other issues.?? Follow up if any change occurs or as noted. IC RELATIONS ACCOUNT EXECUTIVE documented in this encounter Plan of Treatment Upcoming Encounters Date Type Specialty Care Team Description 11/20/2021 Nurse Only Family Medicine Giovanna Schreiber APRN, C.N.P. [address] [place] [phone] 11/20/2021 Appointment Laboratory Medicine Giovanna Schreiber APRN, C.N.P. [address] [place] [address] 12/18/2021 Comprehensive Visit Physical Medicine and Isidoro Morales M.D. [address] [phone] 12/19/2021 Comprehensive Visit Community Internal Giovanna Schreiber, Medicine ZAINA, C.N.P. [address] [place] [address] documented as of this encounter Procedures Procedure Name Priority Date/Time Associated Comments Diagnosis CBC WITH DIFFERENTIAL, B Routine 03/02/2017 3:18 Hypertension Results for this PM PUBLIC RELATIONS ACCOUNT EXECUTIVE Essential Primar y procedure are in Osteoporosis the results Obesity Body Mass section. Index 30-39.9 Ad ult Rhinitis Allergic ASPARTATE Routine 03/02/2017 3:18 Hypertension Results for this AMINOTRANSFERASE (AST), PM PUBLIC RELATIONS ACCOUNT EXECUTIVE [facility] procedure are in S/P Hyperlipidemia the results Mixed section. BASIC METABOLIC PANEL, Routine 03/02/2017 3:18 Hypertension Re sults for this S/P PM PUBLIC RELATIONS ACCOUNT EXECUTIVE Essential Primar y procedure are in Osteoporosis the results Obesity Body Mass section. Index 30-39.9 Adult documented in this encounter Results BMD Bone Density Spine Hips (03/31/2017 10:20 AM PUBLIC RELATIONS ACCOUNT EXECUTIVE) Anatomical Region Laterality Modality Hip, Lumbar Spine N/A Radiographic Imaging Specimen (Source) Anatomical Collection Method Collection Time Re ceived Time Location / / Volume Laterality 03/31/2017 10:35 AM PUBLIC RELATIONS ACCOUNT EXECUTIVE Impressions 03/31/2017 10:36 AM PUBLIC RELATIONS ACCOUNT EXECUTIVE Impression: Osteoporosis. Narrative 03/31/2017 10:36 AM PUBLIC RELATIONS ACCOUNT EXECUTIVE EXAM: BMD BONE DENSITY SPINE HIPS COMPARISON: 12/15/2011 Editorial Project Manager/Model: GE FINDINGS: ?? LUMBAR SPINE L1-L4 included unless otherwise indicate d. Lumbar BMD: 0.904 gm/cm2 T-score: -2.3 HIP(S) Lowest femoral BMD: 0.602 gm/cm 2 Lowest T-score: -3.2 FRAX 10 year probability of major osteop orotic fracture is 21.4 % FRAX 10 year probability of hip fracture ??is 8.4 % FRAX scores: Not clinically validated fo r patients with history of therapy with bisphosphonates in the past two years, c alcitonin in the last year, PTH in the last year, Denosumab in the last year. ? ?Calcium and vitamin D do NOT constitute treatment' in this context. ??All treat ment decisions require clinical judgement and consideration of individual patient factors which may not be captured in the FRAX model and the risk of fracture may be over- or under-estimated by FRAX. Treatment recommended for: Patients with hip or vertebral fracture (clinical or morphometric). Patients with osteoporosis at the spine and/or hip as defined by T-score <= -2.5. Postmenopausal women or men age 50 and o lder with low bone mass (T-score -1 to -2.5, osteopenia) at the femoral neck, t otal hip, or spine and 10 year hip fracture probability >3% or a 10 year al l major osteoporosis related fracture probability of >20% based on the [place] apted WHO absolute risk model. Exclude secondary causes of low bone den sity in the appropriate clinical setting. Follow-up exams should be performed at n o sooner than two-year intervals. Direct comparison can only be performed on exams performed at the same facility. World Health Organization T-score criter ia: 0 to -1.0 ?? Normal range < -1.0 to > -2.5 ?? Low bone density (os teopenia) -2.5 or less ?? Osteoporosis Procedure Note Hai Knott M.D. - 03/31/2017Forma tting of this note might be different from the original. EXAM: BMD BONE DENSITY SPINE HIPS COMPARISON: 12/15/2011 Editorial Project Manager/Model: [employer] FINDINGS: LUMBAR SPINE L1-L4 included unless otherwise indicate d. Lumbar BMD: 0.904 gm/cm2 T-score: -2.3 HIP(S) Lowest femoral BMD: 0.602 gm/cm 2 Lowest T-score: -3.2 FRAX 10 year probability of major osteop orotic fracture is 21.4 % FRAX 10 year probability of hip fracture is 8.4 % FRAX scores: Not clinically validated fo r patients with history of therapy with bisphosphonates in the past two years, c alcitonin in the last year, PTH in the last year, Denosumab in the last year. C alcium and vitamin D do NOT constitute treatment' in this context. All treatme nt decisions require clinical judgement and consideration of individual patient factors which may not be captured in the FRAX model and the risk of fracture may be over- or under-estimated by FRAX. Treatment recommended for: Patients with hip or vertebral fracture (clinical or morphometric). Patients with osteoporosis at the spine and/or hip as defined by T-score <= -2.5. Postmenopausal women or men age 50 and o lder with low bone mass (T-score -1 to -2.5, osteopenia) at the femoral neck, t otal hip, or spine and 10 year hip fracture probability >3% or a 10 year al l major osteoporosis related fracture probability of >20% based on the [place] ad apted WHO absolute risk model. Exclude secondary causes of low bone den sity in the appropriate clinical setting. Follow-up exams should be performed at n o sooner than two-year intervals. Direct comparison can only be performed on exams performed at the same facility. World Health Organization T-score criter ia: 0 to -1.0 Normal range < -1.0 to > -2.5 Low bone density (osteo penia) -2.5 or less Osteoporosis Impression: Osteoporosis. Masha Rosenberg M.D. IMG DXA PROCEDURES (ABNORMAL) Lipid Panel (03/12/2017 10:00 AM PUBLIC RELATIONS ACCOUNT EXECUTIVE) P athologist Signature Cholesterol, 275 (H) mg/dL 03/12/2017 [facility] Total 3:07 PM [facility] [place] [facility] Comment: ----REFERENCE VALUE---- Desirable: < 200 Borderline high: 200 - 239 High: > or = 240 Triglycerides 188 (H) mg/dL 03/12/2017 3:07 PM [facility] [place] Comment: ----REFERENCE VALUE---- Normal: <150 Borderline high: 150-199 High: 200-499 Very high: > or =500 Cholesterol, HDL, S 75 >=50 mg/dL 03/12/2017 3:07 PM [facility] [place] [facility] Calculated LDL 162 (H) mg/dL 03/12/2017 3:07 PM [facility] [place] [facility] Comment: ----REFERENCE VALUE---- Desirable: <100 Above Desirable: 100-129 Borderline high: 130-159 High: 160-189 Very high: > or =190 Cholesterol, Non-HDL, 200 (H) mg/dL 03/12/2017 3:07 PM [facility] [place] [facility] Comment: ----REFERENCE VALUE---- Desirable: <130 Above Desirable: 130-159 Borderline high: 160-189 High: 190-219 Very high: > or =220 Specimen Anatomical Collection Method Collection Time Receive d Time (Source) Location / / Volume Laterality Blood (Blood, 03/12/2017 10:00 03/12/2017 1:16 Venous) AM PUBLIC RELATIONS ACCOUNT EXECUTIVE PM PUBLIC RELATIONS ACCOUNT EXECUTIVE Masha Rosenberg M.D. LAB BLOOD ADD-ON Performing Organization Address City/State/ZIP Code Phon e Number [facility] [employer] [employer] [facility] [address] [place] [address] LAB AST (Aspartate Aminotransferase) (03/02/2017 3:18 PM PUBLIC RELATIONS ACCOUNT EXECUTIVE) Patholo gist Method Time Signature Aspartate 26 8 - 43 03/02/2017 [facility] Aminotransferase U/L 7:04 PM [facility] [place] [place] (AST), S SYSTEM- [facility] [employer] [facility] LAB Specimen Anatomical Collection Method Collection Time Receive d Time (Source) Location / / Volume Laterality Blood (Blood, 03/02/2017 3:18 PM 03/02/20 17 6:27 Venous) PUBLIC RELATIONS ACCOUNT EXECUTIVE PM PUBLIC RELATIONS ACCOUNT EXECUTIVE Masha Rosenberg M.D. LAB BLOOD ADD-ON Performing Organization Address City/State/ZIP Code Phon e Number [facility] [address] [place] [address] LAB (ABNORMAL) BMP (Basic Metabolic Panel) (03/02/2017 3:18 PM PUBLIC RELATIONS ACCOUNT EXECUTIVE) P athologist Signature Potassium, S 4.6 3.6 - 5.2 03/02/2017 [facility] mmol/L 7:04 PM [facility] Sodium, S 144 135 - 145 03/02/2017 [facility] mmol/L 7:04 PM [facility] Chloride, S 101 98 - 107 03/02/2017 [facility] mmol/L 7:04 PM [facility] Bicarbonate, S 31 (H) 22 - 29 03/02/2017 [facility] mmol/L 7:04 PM [facility] Anion Gap 12 7 - 15 03/02/2017 [facility] 7:04 PM [facility] BUN (Blood 17 6 - 21 03/02/2017 [facility] Urea mg/dL 7:04 PM [facility]- Nitrogen), S [facility] Creatinine, S 1.00 0.59 - 03/02/2017 [facility] 1.04 mg/dL 7:04 PM [facility] eGFR 56 (L) >=60 03/02/2017 [facility] Non-Black/Afri mL/min/BSA 7:04 PM [facility] [employer] [place] SYSTE M- can [place] [facility] Comment: ----ADDITIONAL INFORMATION---- Estimated GFR calculated using the 2009 CKD_EPI creatinine equation. eGFR Black/ 65 >=60 mL/min/BSA 03/02/2017 7:04 PM [facility] Serbian [facility] SYSTEM- [facility] Comment: ----ADDITIONAL INFORMATION---- Estimated GFR calculated using the 2009 CKD_EPI creatinine equation. Calcium, Total, S 9.7 8.9 - 10.1 mg/dL 03/02/2017 7 :04 PM [facility] Glucose, S 83 70 - 140 mg/dL 03/02/2017 7:04 PM PUBLIC RELATIONS ACCOUNT EXECUTIVE [facility] [place] [facility] Specimen Anatomical Collection Method Collection Time Receive d Time (Source) Location / / Volume Laterality Blood (Blood, 03/02/2017 3:18 PM 03/02/20 17 6:27 Venous) PUBLIC RELATIONS ACCOUNT EXECUTIVE PM PUBLIC RELATIONS ACCOUNT EXECUTIVE Masha Rosenberg M.D. LAB BLOOD ADD-ON Performing Organization Address City/State/ZIP Code Phon e Number [facility] [address] [place] [address] LAB (ABNORMAL) CBC with Differential (03/02/2017 3:18 PM PUBLIC RELATIONS ACCOUNT EXECUTIVE) [facility] Method Time Signature Hemoglobin 14.0 11.6 - 03/02/2017 [facility] 15.0 g/dL 3:26 PM [facility] Hematocrit 42.9 35.5 - 03/02/2017 [facility] 44.9 % 3:26 PM [facility] Erythrocytes 4.61 3.92 - 03/02/2017 [facility] 5.13 3:26 PM [facility] [employer] [place] x10(12)/L [facility] [employer] [facility] MCV 93.1 78.2 - 03/02/2017 [facility] 97.9 fL 3:[address] [facility] [employer] [facility] RBC Distrib Width 14.2 12.2 - 03/02/2017 [facility] 16.1 % 3:26 PM [facility] Platelet Count 236 157 - 371 03/02/2017 [facility] x10(9)/L 3:26 PM [facility] Leukocytes 8.6 3.4 - 9.6 03/02/2017 [facility] x10(9)/L 3:[address] [facility] [employer] [facility] Neutrophils 3.40 1.56 - 03/02/2017 [facility] 6.45 3:26 PM [facility] [employer] [place] x10(9)/L [facility] [employer] [facility] Lymphocytes 4.06 (H) 0.95 - 03/02/2017 [facility] 3.07 3:26 PM PUBLIC RELATIONS ACCOUNT EXECUTIVE HEALTH x10(9)/L SYSTEM- [place] [facility] Monocytes 0.85 (H) 0.26 - 03/02/2017 [facility] 0.81 3:26 PM PUBLIC RELATIONS ACCOUNT EXECUTIVE HEALTH x10(9)/L SYSTEM- [place] [facility] Eosinophils 0.22 0.03 - 03/02/2017 [facility] 0.48 3:26 PM PUBLIC RELATIONS ACCOUNT EXECUTIVE HEALTH x10(9)/L SYSTEM- [place] [facility] Basophils 0.06 0.01 - 03/02/2017 [facility] 0.08 3:26 PM PUBLIC RELATIONS ACCOUNT EXECUTIVE HEALTH x10(9)/L SYSTEM- [place] [facility] Specimen Anatomical Collection Method Collection Time Receive d Time (Source) Location / / Volume Laterality Blood (Blood, 03/02/2017 3:18 PM 03/02/20 17 3:20 Venous) PUBLIC RELATIONS ACCOUNT EXECUTIVE PM PUBLIC RELATIONS ACCOUNT EXECUTIVE Masha Rosenberg M.D. LAB BLOOD ADD-ON Performing Organization Address City/State/ZIP Code Phon e Number [facility] [address] [place] [address] [place] [facility] [address] [place] [address] [place] [facility] documented in this encounter Visit Diagnoses Diagnosis Annual Medicare Examination Return - [facility] Hypertension Essential Primary Osteoporosis Obesity Body Mass Index 30-39.9 Adult Hyperlipidemia Mixed Rhinitis Allergic Cancer Colon Family History Osteoporosis documented in this encounter Additional Health Concerns Assessment Noted Time PHQ-9 Depression Total Score: 3 03/02/2017 5:19 PM PUBLIC RELATIONS ACCOUNT EXECUTIVE documented as of this encounter Care Teams Digital Editor Relationship Specialty Start Date End Date Masha Rosenberg M.D. PCP - General 09/04/16 02/20/19 documented as of this encounter
--- OUTSIDE RECORDS SUMMARY | 2021-10-30 02:00 | XMS_ITS | Encounter Summary ---
:1945 Author Organization [facility] Address [address] [place] [address] Care Team Providers Name Role Phone Masha Rosenberg M.D. Primary Care Provider Encounter Details Date Type Department Care Team Description 03/12/2017 Hospital Encounter Department of Masha Rosenberg Hyperli pidemia Mixed Laboratory Medicine Ester Mojica in [address] [address] [place], [place] [phone] [address] (Work) [phone] Social History Tobacco Use Types Packs/Day Years [...] or relatives? How often do you attend religion or episcopal More than 4 time s per year 02/07/2019 services? 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 SELENIUM ORAL Take 1 tablet by 0 02/24/201202/11 mouth daily. documented as of this encounter Plan of Treatment Upcoming Encounters Date Type Specialty Care Team Description 11/20/2021 Nurse Only Family Medicine Giovanna Schreiber APRN, C.N.P. 300 [facility] [place] [address] 11/20/2021 Appointment Laboratory Medicine Giovanna Schreiber APRN, C.N.P. 300 [facility] [place] [address] 12/18/2021 Comprehensive Visit Physical Medicine and Isidoro Morales M.D. [address] [address] 12/19/2021 Comprehensive Visit Community Internal Giovanna Schreiber, Medicine ZAINA, C.N.P. 300 [facility] [place] [address] documented as of this encounter Procedures Procedure Name Priority Date/Time Associated Diagnosis Comme nts LIPID PANEL, S Routine 03/12/2017 10:00 AM Hyperlipidemia Mixe d Results for this OIL RECOVERY OPERATOR procedure are i n the results section . documented in this encounter Results (ABNORMAL) Lipid Panel (03/12/2017 10:00 AM OIL RECOVERY OPERATOR) P athologist Signature Cholesterol, 275 (H) mg/dL 03/12/2017 [facility] Total 3:07 PM [facility] [place] [facility] Comment: ----REFERENCE VALUE---- Desirable: < 200 Borderline high: 200 - 239 High: > or = 240 Triglycerides 188 (H) mg/dL 03/12/2017 3:07 PM OIL RECOVERY OPERATOR [facility] [place] [facility] Comment: ----REFERENCE VALUE---- Normal: <150 Borderline high: 150-199 High: 200-499 Very high: > or =500 Cholesterol, HDL, S 75 >=50 mg/dL 03/12/2017 3:[address] [facility] [place] [facility] Calculated LDL 162 (H) mg/dL 03/12/2017 3:07 PM OIL RECOVERY OPERATOR [facility] [place] [facility] Comment: ----REFERENCE VALUE---- Desirable: <100 Above Desirable: 100-129 Borderline high: 130-159 High: 160-189 Very high: > or =190 Cholesterol, Non-HDL, 200 (H) mg/dL 03/12/2017 3:07 PM OIL RECOVERY OPERATOR [facility] [place] [facility] Comment: ----REFERENCE VALUE---- Desirable: <130 Above Desirable: 130-159 Borderline high: 160-189 High: 190-219 Very high: > or =220 Specimen Anatomical Collection Method Collection Time Receive d Time (Source) Location / / Volume Laterality Blood (Blood, 03/12/2017 10:00 03/12/2017 1:16 Venous) AM OIL RECOVERY OPERATOR PM OIL RECOVERY OPERATOR Masha Rosenberg M.D. LAB BLOOD ADD-ON Performing Organization Address City/State/ZIP Code Phon e Number [facility] mGeneratorAT[facility] [address] [place] [address] LAB documented in this encounter Visit Diagnoses Diagnosis Hyperlipidemia Mixed documented in this encounter Additional Health Concerns Assessment Noted Time PHQ-9 Depression Total Score: 3 03/02/2017 5:19 PM OIL RECOVERY OPERATOR documented as of this encounter Care Teams Chucking Machine Set Up Operator Tool Relationship Specialty Start Date End Date Masha Rosenberg M.D. PCP - General 09/04/16 02/20/19 documented as of this encounter
--- OUTSIDE RECORDS SUMMARY | 2021-10-30 02:00 | XMS_ITS | Encounter Summary ---
:1945 Author Organization [facility] Address [address] [place] [address] Care Team Providers Name Role Phone Masha Rosenberg M.D. Primary Care Provider Encounter Details Date Type Department Care Team Description 10/14/2017 Clinical Communication Department of Bob Patton [facility] [place] Chito Silva [facility], in [place], [place] [address] [place] [address] Social History Tobacco Use Types Packs/Day [...] or relatives? How often do you attend orthodoxy or hinduism More than 4 time s per year 02/07/2019 services? 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 300 [facility] [place] [address] 11/20/2021 Appointment Laboratory Medicine Giovanna Schreiber V., ZAINA, C.N.P. 300 [facility] [place] [address] 12/18/2021 Comprehensive Visit Physical Medicine and Isidoro Morales M.D. [address] [place] [address] 12/19/2021 Comprehensive Visit Community Internal Giovanna Schreiber, Medicine ZAINA C.N.P. 300 [facility] [place] [address] documented as of this encounter Visit Diagnoses Diagnosis Annual Medicare Examination Return - [facility] documented in this encounter Additional Health Concerns Assessment Noted Time PHQ-9 Depression Total Score: 3 03/02/2017 5:19 PM TOUR PRODUCTION SUPERVISOR documented as of this encounter Care Teams Bellows Tester Relationship Specialty Start Date End Date Masha Rosenberg M.D. PCP - General 09/04/16 02/20/19 documented as of this encounter
--- OUTSIDE RECORDS SUMMARY | 2021-10-30 02:00 | XMS_ITS | Encounter Summary ---
:1945 Author Organization [facility] Address [address] [place] [address] Care Team Providers Name Role Phone Masha Rosenberg M.D. Primary Care Provider Reason for Visit Reason Comments Communication Encounter Details Date Type Department Care Team Description 06/01/2017 Clinical Communication Department of Nolvia Longoria, Communication MedicineRaffaele M.D. 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 - 06/01/2017 8:36 AM CDT Letter sent. Letter - Masha Rosenberg M.D. - 06/01/2017 12:00 AM CDT June 02, 2017 QUETA ANTOINE [address] [facility] [place] [id number] RE: QUETA ANTOINE #: [id number] : 1945 Dear Ms. Antoine: This letter is in regard to your recent blood pressure collection. Your blood pressure continues to be quite variable. I would therefore recommend following up in the clinic to discuss your various treatment options. We look forward to seeing you in the near future. Sincerely, Masha Rosenberg M.D. Job ID: [id number]/livia documented in this encounter Plan of Treatment Upcoming Encounters Date Type Specialty Care Team Description 11/20/2021 Nurse Only Family Medicine Giovanna Schreiber APRN, C.N.P. 300 [facility] [place] [address] 11/20/2021 Appointment Laboratory Medicine Giovanna Schreiber APRN, C.N.P. 300 [facility] [place] [phone] 12/18/2021 Comprehensive Visit Physical Medicine and Isidoro Morales M.D. 2199 [place] [phone] 12/19/2021 Comprehensive Visit Community Internal Giovanna Schreiber, Medicine ZAINA, C.N.P. 300 [facility] [place] [phone] documented as of this encounter Visit Diagnoses Not on filedocumented in this encounter Additional Health Concerns Assessment Noted Time PHQ-9 Depression Total Score: 3 03/02/2017 5:19 PM BICYCLE TECHNICIAN documented as of this encounter Care Teams Analyst Business Analysis Relationship Specialty Start Date End Date Masha Rosenberg M.D. PCP - General 09/04/16 02/20/19 documented as of this encounter
--- OUTSIDE RECORDS SUMMARY | 2021-10-30 02:00 | XMS_ITS | Encounter Summary ---
:1945 Author Organization [facility] Address [address] [place] [address] Care Team Providers Name Role Phone Masha Rosenberg M.D. Primary Care Provider Encounter Details Date Type Department Care Team Description 02/25/2017 Abstract Department of Family Medicine, Provider, Historical [facility], in [place], [place] [address] [place] [address] [facility] [phone] Social History Tobacco Use Types Packs/Day Years Used Date Smoking Tobacco: Never Alcohol Habits Answer Date Recorded [...] or relatives? How often do you attend cheondoism or holiness More than 4 time s per year 02/07/2019 services? 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 300 [facility] [place] [address] 11/20/2021 Appointment Laboratory Medicine Giovanna Schreiber V., ZAINA, C.N.P. 300 [facility] [place] [place] [address] 12/18/2021 Comprehensive Visit Physical Medicine and Isidoro Morales M.D. [address], [place] [address] 12/19/2021 Comprehensive Visit Community Internal Giovanna Schreiber, Medicine ZAINA, C.N.P. 300 [facility] [place] [place] [address] documented as of this encounter Visit Diagnoses Not on filedocumented in this encounter Care Teams Nipping Machine Operator Relationship Specialty Start Date End Date Masha Rosenberg M.D. PCP - General 09/04/16 02/20/19 documented as of this encounter
--- OUTSIDE RECORDS SUMMARY | 2021-10-30 02:00 | XMS_ITS | Encounter Summary ---
:1945 Author Organization [facility] Address [address] [place] [address] Care Team Providers Name Role Phone Masha Rosenberg M.D. Primary Care Provider Reason for Visit Reason Comments Med Refill Encounter Details Date Type Department Care Team Description 07/19/2018 Refill Department of Family Medicine, Masha garcia M.D. Med Refill [facility], in [facility] [place] [address] [place] [address] [place] [address] [phone] Social History Tobacco Use Types Packs/Day Years [...] or relatives? How often do you attend rastafarian or mormon More than 4 time s per year 02/07/2019 services? 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 300 [facility] [place] [address] 11/20/2021 Appointment Laboratory Medicine AbdoulGoivanna APRN, C.N.P. 300 [facility] [place] [address] 12/18/2021 Comprehensive Visit Physical Medicine and Isidoro Morales M.D. [address] [address] 12/19/2021 Comprehensive Visit Community Internal Giovanna Schreiber, Medicine ZAINA, C.N.P. 300 [facility] [place] [phone] documented as of this encounter Visit Diagnoses Not on filedocumented in this encounter Additional Health Concerns Assessment Noted Time PHQ-9 Depression Total Score: 3 03/02/2017 5:19 PM DRILLING MANAGER documented as of this encounter Care Teams Siebel Crm Developer Relationship Specialty Start Date End Date Masha Rosenberg M.D. PCP - General 09/04/16 02/20/19 documented as of this encounter
--- OUTSIDE RECORDS SUMMARY | 2021-10-30 02:00 | XMS_ITS | Encounter Summary ---
:1945 Author Organization [facility] Address [address] [place] [address] Care Team Providers Name Role Phone Masha Rosenberg M.D. Primary Care Provider Reason for Visit Reason Onset Date Comments Medicare Annual Wellness Visit with RN 09/20/2018 Encounter Details Date Type Department Care Team Description 09/20/2018 Clinical Communication Department of Ayaka Blanca Annual Community Internal L, R.N. Wellness Visit with Medicine in [address] [place] [address] [place], [place] [phone] [address] (Work) [phone] Social History Tobacco Use Types Packs/Day Years [...] or relatives? How often do you attend protestant or yarsani More than 4 time s per year 02/07/2019 services? 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 - 09/20/2018 3:53 PM CDT Called patient to discuss scheduling a Medicare Annual Wellness Visit. Patient interested, will call back to schedule. Order placed. documented in this encounter Plan of Treatment Upcoming Encounters Date Type Specialty Care Team Description 11/20/2021 Nurse Only Family Medicine Giovanna Schreiber V., ZAINA, C.N.P. 300 [place] [address] 11/20/2021 Appointment Laboratory Medicine Giovanna Schreiber APRN, C.N.P. 300 [facility] [place] [address] 12/18/2021 Comprehensive Visit Physical Medicine and Isidoro Morales M.D. [address] [address] 12/19/2021 Comprehensive Visit Community Internal Giovanna Schreiber, Medicine ZAINA, C.N.P. 300 [facility] [place] [address] documented as of this encounter Visit Diagnoses Diagnosis Annual Medicare Examination Return - Diane chato documented in this encounter Additional Health Concerns Assessment Noted Time PHQ-9 Depression Total Score: 3 03/02/2017 5:19 PM REVERBERATORY FURNACE OPERATOR documented as of this encounter Care Teams Identifier Horse Relationship Specialty Start Date End Date Masha Rosenberg M.D. PCP - General 09/04/16 02/20/19 documented as of this encounter
--- OUTSIDE RECORDS SUMMARY | 2021-10-30 02:00 | XMS_ITS | Encounter Summary ---
:1945 Author Organization [facility] Address [address] [place] [address] Care Team Providers Name Role Phone Masha Rosenberg M.D. Primary Care Provider Encounter Details Date Type Department Care Team Description 08/03/2018 Orders Only [facility] PCP [facility] Isidoro Abdul M.D. Hyperlipidemia 200 [place], [place] [address] (Wo rk) Social History Tobacco Use Types [...] or relatives? How often do you attend voodoo or bahai More than 4 time s per year 02/07/2019 services? 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 300 [facility] [place] [phone] 11/20/2021 Appointment Laboratory Medicine Giovanna Schreiber V., ZAINA, C.N.P. 300 [place] [phone] 12/18/2021 Comprehensive Visit Physical Medicine and Isidoro Morales M.D. 2200 [place] [address] 12/19/2021 Comprehensive Visit Community Internal Giovanna Schreiber, Medicine ZAINA, C.N.P. [address] [place] [phone] documented as of this encounter Visit Diagnoses Diagnosis Hyperlipidemia documented in this encounter Additional Health Concerns Assessment Noted Time PHQ-9 Depression Total Score: 3 03/02/2017 5:19 PM CREDIT ADMINISTRATION SPECIALIST documented as of this encounter Care Teams Outdoor Adventure Instructor Relationship Specialty Start Date End Date Masha Rosenberg M.D. PCP - General 09/04/16 02/20/19 documented as of this encounter
--- OUTSIDE RECORDS SUMMARY | 2021-10-30 02:00 | XMS_ITS | Encounter Summary ---
:1945 Author Organization [facility] Address [address] [place] [address] Care Team Providers Name Role Phone Masha Rosenberg M.D. Primary Care Provider Reason for Visit Reason Comments Med Refill Encounter Details Date Type Department Care Team Description 05/28/2017 Refill Department of Family Medicine, Masha garcia M.D. Med Refill [facility], in [facility] [place] [address] [place] [address] [place] [address] [phone] Social History Tobacco Use Types Packs/Day Years [...] or relatives? How often do you attend mormon or tenriism More than 4 time s per year 02/07/2019 services? 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 300 [facility] [place] [address] 11/20/2021 Appointment Laboratory Medicine AbdoulGiovanna APRN, C.N.P. 300 [facility] [place] [address] 12/18/2021 Comprehensive Visit Physical Medicine and Isidoro Morales M.D. [address] [address] 12/19/2021 Comprehensive Visit Community Internal Giovanna Schreiber, Medicine ZAINA, C.N.P. 300 [facility] [place] [address] documented as of this encounter Visit Diagnoses Not on filedocumented in this encounter Additional Health Concerns Assessment Noted Time PHQ-9 Depression Total Score: 3 03/02/2017 5:19 PM PROFESSOR OF PHILOSOPHY documented as of this encounter Care Teams Compressor Operator Portable Relationship Specialty Start Date End Date Masha Rosenberg M.D. PCP - General 09/04/16 02/20/19 documented as of this encounter
--- OUTSIDE RECORDS SUMMARY | 2021-10-30 02:00 | XMS_ITS | Encounter Summary ---
:1945 Author Organization [facility] Address [address] [place] [address] Care Team Providers Name Role Phone Masha Rosenberg M.D. Primary Care Provider Encounter Details Date Type Department Care Team Description 10/27/2018 Clinical Communication Department of Nolvia Longoria, MedicineOsman M.D. [facility], in [address] [address] [place], [place] [phone] [address] (Work) [phone] Social History Tobacco Use Types Packs/Day Years [...] or relatives? How often do you attend yazidism or restorationism More than 4 time s per year 02/07/2019 services? 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 CPavanMPavanAPavan - 10/27/2018 3:57 PM CDT SUBJECTIVE CHIEF COMPLAINT / REASON FOR CALL No chief complaint on file. INFORMATION DISCUSSED Contacted the patient and discussed their recent concerns regarding recent visit. I notified them that the July visit with Dr. Rosenberg was not worded as a physical and falls under a different type of visit. Compared this to her normal annual visits, they are not worded the same and should not cause any issues. PLAN Disposition/Recommendation: N/A Information: patient/caller able to repeat back in their own words Caller agreeable to plan of care: yes The following references were used: none Telephone Encounter - Jennyfer Benites - 10/27/2018 2:00 PM CDT Reason for Communication: Pt had a physical on 08/11/18 but she said that they didn't end up doinga physical they talked about an injury so she scheduled a physical for 11/08 and was wondering if that will be ok for insurance Current Can Nursing/Provider leave a detailed message: na Did the patient refuse triage through Nurse line? (for symptom based concerns): na Action Needed: Please call pt and advise Name of Medication (if relevant): na documented in this encounter Plan of Treatment Upcoming Encounters Date Type Specialty Care Team Description 11/20/2021 Nurse Only Family Medicine Giovanna Schreiber APRN, C.N.P. [address] [place] [phone] 11/20/2021 Appointment Laboratory Medicine Giovanna Schreiber APRN, C.N.P. [address] [place] [phone] 12/18/2021 Comprehensive Visit Physical Medicine and Isidoro Morales M.D. [address] [place] [address] 12/19/2021 Comprehensive Visit [facility] FLASH OVEN OPERATOR, C.N.P. 300 [facility] [place] [address] documented as of this encounter Visit Diagnoses Not on filedocumented in this encounter Additional Health Concerns Assessment Noted Time PHQ-9 Depression Total Score: 3 03/02/2017 5:19 PM ORDER PICKER/ASSEMBLER documented as of this encounter Care Teams Track Mechanic Relationship Specialty Start Date End Date Masha Rosenberg M.D. PCP - General 09/04/16 02/20/19 documented as of this encounter
--- OUTSIDE RECORDS SUMMARY | 2021-10-30 02:00 | XMS_ITS | Encounter Summary ---
:1945 Author Organization [facility] Address [address] [place] [address] Care Team Providers Name Role Phone Masha Rosenberg M.D. Primary Care Provider Encounter Details Date Type Department Care Team Description 03/03/2017 Orders Only Department of Family Meena Rosenberg M.D. Medicine, [facility], [address] [place] [address] 300 [facility] [place] [address] [phone] Social History Tobacco Use Types Packs/Day Years [...] or relatives? How often do you attend quaker or faith More than 4 time s per year 02/07/2019 services? 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 300 [facility] [place] [address] 11/20/2021 Appointment Laboratory Medicine AbdoulGiovanna APRN, C.N.P. 300 [facility] [place] [phone] 12/18/2021 Comprehensive Visit Physical Medicine and Isidoro Morales M.D. [address], [place] [phone] 12/19/2021 Comprehensive Visit Community Internal Giovanna Schreiber, Medicine ZAINA, C.N.P. 300 [facility] [place] [address] documented as of this encounter Visit Diagnoses Not on filedocumented in this encounter Additional Health Concerns Assessment Noted Time PHQ-9 Depression Total Score: 3 03/02/2017 5:19 PM HANDCREW FOREMAN documented as of this encounter Care Teams Line Ordering Clinician Relationship Specialty Start Date End Date Masha Rosenberg M.D. PCP - General 09/04/16 02/20/19 documented as of this encounter
--- OUTSIDE RECORDS SUMMARY | 2021-10-30 02:00 | XMS_ITS | Encounter Summary ---
:1945 Author Organization [facility] Address [address] [place] [address] Care Team Providers Name Role Phone Unavailable Primary Care Provider Unavailable Encounter Details Date Type Department Care Team Description 12/26/2015 Hospital Encounter HX [facility] Lisa Rosenberg M.D. [address] [place], [place] [address] (Wo rk) Social History Tobacco Use Types Packs/Day Years Used Date Smoking Tobacco: Never Assessed Alcohol Habits Answer Date Recorded How often [...] or relatives? How often do you attend bahai or temple More than 4 time s per year 02/07/2019 services? 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 0 10/03/2021 (FISH OIL ORAL) SELENIUM ORAL Take 1 tablet by 0 02/24/201202/11 mouth daily. documented as of this encounter Progress Notes Masha Rosenberg M.D. - 12/26/2015 9:08 AM CDT [id number] CHIEF COMPLAINT/REASON FOR VISIT Several issues. HISTORY OF PRESENT ILLNESS A 70-year-old female presents to clinic to discuss her abnormal labs. Her lipid profile has been increasing with time. She is not following her diet quite as closely as she could. They do eat out frequently. She has been gaining weight over the years which was has been difficult. Her thyroid study wasa bit abnormal. She had been taking additional vitamin D as well. She is taking her other medicines as before. EMR reviewed. MEDICATIONS 1. Metoprolol succinate 50 mg daily. 2. [place]-3 each day. 3. Aspirin 81 mg each day. 4. Eye supplement each day. 5. Calcium with vitamin D each day. 6. Selenium each day. 7. Loratadine 10 mg daily as needed. 8. Pepcid 10 mg 1 or 2 times per day. ALLERGIES No known drug allergies. SYSTEMS REVIEW Negative review of major organ systems apart from that noted in the HPI and the Past Medical/Surgical History. PAST MEDICAL/SURGICAL HISTORY PAST SURGICAL HISTORY: 1. Cataract extractions 2011. 2. ORIF of the right leg fracture 2000. Hardware remains. OTHER HEALTH ISSUES: 1. Hypertension, which has not been treated. 2. Overweight. 3. Degenerative joint disease. PREVENTIVE SERVICES Mammogram: 09/13/2009, advised, patient declines. Pap smear: Nonapplicable secondary to stated age. Chlamydia: Nonapplicable secondary to stated age. Colon screen: 01/01/2015, recheck planned for 5 years secondary to family history of polyps with at [facility]. Depression: No. Asthma: No. Lipids: 10/23/2015. Adacel: 10/22/2015. Prevnar: 10/22/2015. Influenza: Declined. SOCIAL HISTORY No alcohol. Caffeine: Decaf each day. A soda a couple times per week. FAMILY HISTORY MOTHER: Colon cancer. FATHER: Diabetes mellitus. MATERNAL GRANDMOTHER: of coronary artery disease in her 60s. MATERNAL GRANDFATHER: in his 80s, unknown health history. PATERNAL GRANDMOTHER: of complications of diabetes in her 80s. PATERNAL GRANDFATHER: in his 80s, unknown health history. BROTHERS AND SISTERS: No brothers. Two sisters, 1 who had breast cancer in her 50s and hypertension;the other has hypertension and macular degeneration. VITAL SIGNS Weight 96 kg. Temperature 36.8, respiratory rate 16, pulse 66, systolic 122, diastolic 78. PHYSICAL EXAMINATION Obviously overweight. IMPRESSION/REPORT/PLAN 1. Hypertension. 2. Hyperlipidemia. 3. Hyperglycemia. 4. Abnormal thyroid study. PLAN: Will check TPO antibodies following up accordingly. If they are high will recommend medication. Continue other supportive measures. Healthy diet is discussed in detail. Handouts given. Patient isnot interested in medication at this time but may reconsider. Therefore will recheck her lipids in about 3 months. If she does indeed have thyroid disease will begin the medication and recheck her TSH at that same time. Signs and symptoms to lead to emergent evaluation are reviewed. Risks and benefitsof medications discussed. All questions answered. Please see the medication reconciliation and preventive services. She will consider her options. Spent the entire 20-minute visit in discussion. Masha Rosenberg M.D./jordan Electronically Signed By: MASHA ROSENBERG MD On: 01/01/2016 08:21 AM Modified by and Electronically Signed by: MASHA ROSENBERG MD On: 01/01/2016 08:21 AM Source: [facility] MHSDOLBEYNONRADSYS Document Id: [id number] documented in this encounter Nursing Notes Jennyfer Vick L.P.N. - 01/01/2016 7:51 AM CDT Lab 12-26-15 Result card sent. Electronically Signed By: JENNYFER VICK LPN On: 01/01/2016 07:51 AM Source: [facility] InfoAssure Document Id: [id number] Masha Rosenberg M.D. - 12/26/2015 1:56 PM CDT Ambulatory Patient Education The following Patient Education Materials have been given to the patient: Patient Education Materials: Source: [facility] InfoAssure Document Id: [id number] documented in this encounter Miscellaneous Notes Miscellaneous - Amber Veras - 07/22/2016 8:23 AM CDT A message from your Primary Care Provider and your Care Team From: AMBER VERAS LPN To: QUETA ANTOINE Sent: 07/22/2016 08:23:46 CDT Subject: A message from your Primary Care Provider and your Care Team Queta Antoine [facility] Number: [phone] [place] [address] : 1945 Mrs. Antoine, We have developed a six-month overview of preventive and recommended services that apply to your unique health care needs. Some may be past due or may be coming due in the next three months. If youhave already scheduled any or all of these services, thank you. We recognize that this may or may not include all of your individualized health care needs; however, we are happy to help you with any and all primary care concerns you may have. Past Due Mammogram for Breast Cancer Screening Planning for the future (three to six months from now) Fasting Lipid Panel (on or soon after Oct 23, 2016) Blood Pressure Check (on or soon after Dec 26, 2016) It may be possible to bundle some of the above services together to make your visit with us more convenient. Please call [phone] to schedule services that are past due or that may shortly become due (thank you if you have already done so). We will follow up in three to six months should you have more services to schedule at that time. If you have already received any of the listed past due or upcoming services outside of [facility], please call [phone] to add them to your medical record. You may want to consider contacting your health insurance company to make sure these services are covered and find out if there will be any lzo-ll-ponxxc expense. If you have any questions about the services listed above, or if you are no longer receiving care from [facility], please contact us at [phone]. Thank you for partnering to provide you with the best care possible. Thank you for choosing us, Masha Rosenberg M.D. and the [place] [facility], for your health care needs! Source: [facility] POWERCHART Document Id: [id number] GENCY MEDICAL TECHNICIAN Miscellaneous - Masha Rosenberg M.D. - 12/26/2015 1:57 PM CDT Ambulatory Patient Summary [place] [id number] [facility] [place] [id number] Visit Information Name: QUETA ANTOINE [facility] Number: [phone] Current Date: 12/26/2015 13:57:00 Physicians Attending Provider: MASHA ROSENBERG MD Primary Care Provider: MASHA ROSENBERG MD QUETA ANTOINE has been given the following list of follow-up instructions, medication list, andpatient education materials: Follow-up Instructions Your Medications Here is a list of your medications. It is important to take your medications as directed. Use a pillbox or chart to help remind you to take your medications. Please let your doctor or nurse know if you have problems taking your medications. Medication/Strength How to Take Indications/Special Instructions/Comments/Notes for Patient Medication Changes/Routing aspirin (aspirin 81 mg oral tablet) 1 Tablet(s), Oral, once a day famotidine (Pepcid) See Instructions 10 mg 1 in am 2 in pm as needed loratadine (Claritin) 10 mg, Oral, once a day metoprolol (metoprolol succinate 50 mg oral tablet, extended release) 1 Tablet(s), Oral, once a day Misc Prescription (Misc Prescription) See Instructions I caps - takes one daily Misc Prescription (Misc Prescription) See Instructions Eye Health Supplement - takes one daily Misc Prescription (Misc Prescription) See Instructions Calcium & Vit D3 0- takes one ounce daily omega-3 polyunsaturated fatty acids (Fish Oil) Oral, once a day selenium (selenium 200 mcg oral tablet) 1 Tablet(s), Oral, once a day Stop Taking the Following Medications: Medication list as of 12-26-15 13:57 Attention: If you have any medications at home that are not on this list, DO NOT take them until youcontact your provider for clarification. Give a copy of your medication list to your primary care provider. Update your medication list any time medications or doses are changed and carry your medication list at all times in case of emergency. 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 Consider Using Patient Online Services Patient Online Services is a secure online and Mobile application that lets you: ?? View lab and test results ?? View portions of your medical record including clinical notes, immunizations and discharge summaries ?? Request an appointment or medication refill ?? Review your appointment schedule ?? Send secure messages to your care team Its easy to create an account if you dont have one. Go to [email or web address] and click on Create Your Account. Then, follow the directions to complete the online form. Youll be asked for your [facility] number which you can find at the top of this document. Your Goals/Additional instructions: Source: [facility] POWERCHART Document Id: [id number] Miscellaneous - Masha Rosenberg M.D. - 12/26/2015 1:57 PM CDT Ambulatory Discharge Medication List [address] [id number] Visit Information Name: QUETA ANTOINE [facility] Number: [phone] Current Date: 12/26/2015 13:56:59 Attending Provider: MASHA ROSENBERG MD Primary Care Provider: MASHA ROSENBERG MD QUETA ANTOINE has been given the following list of medications: Your Medications It is important to take your medications as directed. Use a pill box or chart to help remind you to take your medications. Please let your doctor or nurse know if you have problems taking your medications. Medication/Strength How to Take Indications/Special Instructions/Comments/Notes for Patient Medication Changes/Routing aspirin (aspirin 81 mg oral tablet) 1 Tablet(s), Oral, once a day famotidine (Pepcid) See Instructions 10 mg 1 in am 2 in pm as needed loratadine (Claritin) 10 mg, Oral, once a day metoprolol (metoprolol succinate 50 mg oral tablet, extended release) 1 Tablet(s), Oral, once a day Misc Prescription (Misc Prescription) See Instructions I caps - takes one daily Misc Prescription (Misc Prescription) See Instructions Eye Health Supplement - takes one daily Misc Prescription (Misc Prescription) See Instructions Calcium & Vit D3 0- takes one ounce daily omega-3 polyunsaturated fatty acids (Fish Oil) Oral, once a day selenium (selenium 200 mcg oral tablet) 1 Tablet(s), Oral, once a day Stop Taking the Following Medications: Medication list as of 12-26-15 13:57 Attention: If you have any medications at home that are not on this list, DO NOT take them until youcontact your provider for clarification. Give a copy of your medication list to your primary care provider. Update your medication list any time medications or doses are changed and carry your medication list at all times in case of emergency. Electronically Signed By: MASHA ROSENBERG MD Signed On:26-DEC-2015 13:56:20 Additional Information: Source: [facility] POWERCHART Document Id: [id number] Miscellaneous - Justin Chakraborty, C.M.A. - 12/26/2015 9:17 AM CDT Adult Sheet Sorter Intake/History Adult Sheet Sorter Intake/History Entered On: 12/26/2015 9:20 CDT Performed On: 12/26/2015 9:17 CDT by JUSTIN GILES [facility] Intake Chief Complaint : Test results- per letter Temperature Core : 36.8 DegC(Converted to: 98.2 DegF) Peripheral Pulse Rate : 66 /min Respiratory Rate : 16 /min Heart Rhythm : Regular Systolic Blood Pressure : 122 mmHg Diastolic Blood Pressure : 78 mmHg NIBP Mean : 93 mmHg BP Location : Left upper extremity Blood Pressure Cuff Size : Regular Actual Weight : 96 kg(Converted to: 211 lb 10 oz) Weight Source : Standing scale Dosing Weight Clinic : 96 kg JUSTIN GILES [facility] - 12/26/2015 9:17 CDT General Info Information Given By : Patient Preferred Communication Mode : Verbal Languages : Faroese Is Patient Female and 13-50 no hysterectomy : No JUSTIN GILES CMA - 12/26/2015 9:17 CDT Subjective Pain Symptoms : JUSTIN Desai CMA - 12/26/2015 9:17 CDT Dependent Habits Exposure to Tobacco Smoke : Other: NEVER SMOKER Smoking Status : Never smoker Tobacco 2A : No Tobacco Use/Currently Using : No Tobacco Use/Last 30 Days : No Tobacco Use/Last 12 months : No CHANONDINA KUMARMariel Thompson [facility] - 12/26/2015 9:17 CDT Caffeine Use Grid Caffeine Use : Current Type : Chocolate, Soft drinks Frequency : Occasionally CHAN, JUSTIN M [facility] - 12/26/2015 9:17 CDT Source: [facility] Document Id: [id number]!34 documented in this encounter Plan of Treatment Upcoming Encounters Date Type Specialty Care Team Description 11/20/2021 Nurse Only Family Medicine Giovanna Schreiber APRN, C.N.P. [address] [place] [phone] 11/20/2021 Appointment Laboratory Medicine Giovanna Schreiber APRN, C.N.P. [address] [place] [address] 12/18/2021 Comprehensive Visit Physical Medicine and Isidoro Morales M.D. [address] [place] [phone] 12/19/2021 Comprehensive Visit Community Internal AbdoulGiovanna, Medicine ZAINA, C.N.P. [address] [place] [phone] documented as of this encounter Procedures Procedure Name Priority Date/Time Associated Comments Diagnosis THYROPEROXIDASE (TPO) Routine 12/26/2015 10:40 Re sults for this ABS, S AM CDT procedure are i n the results section. documented in this encounter Results Thyroperoxidase (TPO) Antibodies (12/26/2015 10:40 AM CDT) Patholo gist Method Time Signature Thyroperoxidase Ab, 0.4 <9.0 POWERCHART S INTUML Comment: Test Performed by: [place] [address] Photolith Operator: Deondre Millan II, M.D., Ph.D. Specimen (Source) Anatomical Collection Method Collection Time Re ceived Time Location / / Volume Laterality Blood 12/26/2015 10:40 AM CDT Masha Rosenberg M.D. LAB BLOOD ADD-ON Performing Organization Address City/State/ZIP Code Phon e Number POWERCHART documented in this encounter Visit Diagnoses Not on filedocumented in this encounter
--- OUTSIDE RECORDS SUMMARY | 2021-10-30 02:00 | XMS_ITS | Encounter Summary ---
:1945 Author Organization [facility] Address [address] [place] [address] Care Team Providers Name Role Phone Masha Rosenberg M.D. Primary Care Provider Reason for Visit Reason Comments Med Refill Encounter Details Date Type Department Care Team Description 07/16/2018 Refill Department of Family Medicine, Masha garcia M.D. 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 Gilbert Telephone Encounter - Tonja Smith C.M.A. - 07/19/2018 9:59 AM CDT Left message for patient to call back. Appointment is required prior to any more refills on metoprolol, a 30 day supply is given until appointment is made. Telephone Encounter - Tonja Smith C.M.A. - 07/19/2018 9:56 AM CDT Images from the original note were not included. Catina Presley APRN, C.N.P. ??[facility] Fam Fbfb Nurse 2 hours ago (7:36 AM) Needs an appointment before next refill. (Routing comment) Telephone Encounter - Brooke Cisneros - 07/19/2018 6:31 AM CDT PCP is out. At last refill it was noted that the patient needed an appointment and this has yet to happen so please refill/refuse as you feel appropriate. documented in this encounter Plan of Treatment Upcoming Encounters Date Type Specialty Care Team Description 11/20/2021 Nurse Only Family Medicine Giovanna Schreiber APRN, C.N.P. [address] [phone] 11/20/2021 Appointment Laboratory Medicine Giovanna Schreiber APRN, C.N.P. [address] [phone] 12/18/2021 Comprehensive Visit Physical Medicine and Isidoro Morales M.D. [address] [phone] 12/19/2021 Comprehensive Visit Community Internal Giovanna Schreiber, Medicine AIRPLANE TESTER, C.N.P. 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 PCP - General 09/04/16 02/20/19 documented as of this encounter
--- OUTSIDE RECORDS SUMMARY | 2021-10-30 02:00 | XMS_ITS | Encounter Summary ---
:1945 Author Organization [facility] Address [address] [place] [id number] Care Team Providers Name Role Phone Unavailable Primary Care Provider Unavailable Encounter Details Date Type Department Care Team Description 10/23/2015 Hospital Encounter HX [facility] Lisa Rosenberg M.D. [address] [place], [place] [address] (Wo rk) Social History [...] or relatives? How often do you attend worship or scientology More than 4 time s per year 02/07/2019 services? 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 documented as of this encounter Nursing Notes Carol Vick L.P.N. - 10/26/2015 3:31 PM CDT Lab 8-2-16 Result card sent. Electronically Signed By: CAROL VICK LPN On: 10/26/2015 03:31 PM Source: [facility] Document Id: [id number] documented in this encounter Plan of Treatment Upcoming Encounters Date Type Specialty Care Team Description 11/20/2021 Nurse Only Family Medicine Giovanna Schreiber APRN, C.N.P. [address] [facility] [place] [phone] 11/20/2021 Appointment Laboratory Medicine Giovanna Schreiber APRN, C.N.P. [address] [facility] [place] [address] 12/18/2021 Comprehensive Visit Physical Medicine and Isidoro Morales M.D. [address] [place] [phone] 12/19/2021 Comprehensive Visit Community Internal Giovanna Schreiber, Medicine ZAINA, C.N.P. [address] [facility] [place] [phone] documented as of this encounter Procedures Procedure Name Priority Date/Time Associated Comments Diagnosis LIPID PANEL, S Routine 10/23/2015 9:53 Results fo r this AM CDT procedure are i n the results section. AUTOMATED DIFFERENTIAL, Routine 10/23/2015 9:53 R esults for this B AM CDT procedure are i n the results section. 1,25-DIHYDROXYVITAMIN D, Routine 10/23/2015 9:53 Results for this S AM CDT procedure are i n the results section. CBC WITH DIFFERENTIAL, B Routine 10/23/2015 9:53 Results for this AM CDT procedure are i n the results section. ASPARTATE Routine 10/23/2015 9:53 Results for this AMINOTRANSFERASE (AST), AM CDT proc edure are in S/P the results section. THYROID-STIMULATING Routine 10/23/2015 9:53 Resul ts for this HORMONE-SENSITIVE AM CDT procedure are in (S-TSH) the results section. BASIC METABOLIC PANEL, Routine 10/23/2015 9:53 Re sults for this S/P AM CDT procedure are i n the results section. documented in this encounter Results (ABNORMAL) Automated Differential (10/23/2015 9:53 AM CDT) Patholo gist Method Time Signature Absolute 4.76 1.70 - POWERCHART Neutrophils 7.00 109L Lymphocytes 2.41 0.90 - POWERCHART 2.90 X109L Monocytes 0.95 (H) 0.30 - POWERCHART 0.90 X109L Eosinophils 0.15 0.05 - POWERCHART 0.50 X109L Absolute 0.06 0.00 - POWERCHART Basophil 0.30 X109L Specimen Anatomical Collection Method Collection Time Receive d Time (Source) Location / / Volume Laterality Blood 10/23/2015 9:53 AM 6 9:53 CDT AM CDT Masha Rosenberg M.D. LAB BLOOD ADD-ON Performing Organization Address City/State/ZIP Code Phon e Number POWERCHART CBC with Differential (10/23/2015 9:53 AM CDT) athologist Signature Leukocytes 8.3 3.4 - 10.5 POWERCHART X109L Erythrocytes 4.75 3.90 - 5.03 POWERCHART [id number] Hemoglobin 14.8 12.0 - 15.5 POWERCHART GDL Hematocrit 43.8 34.9 - 44.5 POWERCHART MCV 92.2 82.0 - 98.0 POWERCHART FL Platelet Count 247 150 - 450 POWERCHART X109L HX RDW 13.9 11.9 - 15.5 POWERCHART Specimen (Source) Anatomical Collection Method Collection Time Re ceived Time Location / / Volume Laterality Blood 10/23/2015 9:53 AM CDT Masha Rosenberg M.D. LAB BLOOD ADD-ON Performing Organization Address City/State/ZIP Code Phon e Number POWERCHART (ABNORMAL) 1,25-Dihydroxyvitamin D (10/23/2015 9:53 AM CDT) Patholo gist Method Time Signature 1, 25 82 (H) 18 - 78 POWERCHART DIHYDROXYVITAMIN D, PGML S Comment: Test Performed by: [place] [address] Building Construction Supervisor: Deondre Millan II, M.D., Ph.D. Specimen (Source) Anatomical Collection Method Collection Time Re ceived Time Location / / Volume Laterality Blood 10/23/2015 9:53 AM CDT Masha Rosenberg M.D. LAB BLOOD ADD-ON Performing Organization Address City/State/ZIP Code Phon e Number POWERCHART (ABNORMAL) Lipid Panel (10/23/2015 9:53 AM CDT) P athologist Signature Calculated LDL 171 (H) <=129 MGDL POWERCHART Comment: 2014 National Lipid Association recommen dations for LDL-C in adults ages 18 and up: Desirable <100 mg/dL Above desirable 100-129 mg/dL Borderline high 130-159 mg/dL High 160-189 mg/dL Very High 190 mg/dL 2014 National Lipid Association recommen dations for LDL-C in children ages 2 to 17. Acceptable <110 mg/dL Borderline High 110-129mg/dL High 130 mg/dL LDL-C >190mg/dL: The markedly elevated LDL level is suggestive of a genetic condition such as familial hypercholesterolemia(FH) or familial defective apolipoprotein B-100 (FDB). Molecular genetic t esting for FH and FDB is available throu [facility]: FH/ADH Genetic Reflex Castro [place] (test ADHP). Acquired (non-genetic) causes of markedly increased LDL cholesterol include cholestatic liver disease due to the presence of LpX. If a genetic form of hypercholesterolemia is suspected, family studies including biochemical testing fo r lipids (total cholesterol,triglycerides, LDL cholesterol and HDL cholesterol) are recommended. ??Please contact the laboratory at or the on-line test catalog at [facility] for information about how to order these jairo ts or to speak with a genetic counselor. Further interpretation would require clinical information. Total Cholesterol/HDL Ratio 3.86 PO WERCHART Cholesterol, Total 274 (H) <=199 MGDL POWERCHART Comment: 2014 National Lipid Association recommen dations for Total Cholesterol in adults ages 18 and up: Desirable <200 mg/dL Borderline high 200-239 mg/dL High 240 mg/dL 2014 National Lipid Association recommen dations for Total Cholesterol in children ages 2 to 17. Acceptable <170 mg/dL Borderline High 170-199 mg/dL High 200 mg/dL HX HDL 71 >=50 MGDL POWERCHART Comment: 2014 National Lipid Association recommen dations for HDL-C in adults ages 18 and up: Low <40 mg/dL (Men) Low <50 mg/dL (Women) 2014 National Lipid Association recommen dations for HDL-C in children ages 2 to 17. Low <40 mg/dL Borderline Low 40-45 mg/dL Acceptable >45 mg/dL Triglycerides 162 (H) <=149 MGDL POWERCHART Comment: 2014 National Lipid Association recommen dations for Triglycerides in adults ages 18 and up: Normal <150 mg/dL Borderline High 150-199 mg/dL High 200-499 mg/dL Very High 500 mg/dL 2014 National Lipid Association recommen dations for Triglycerides in children ages 2 to 9. Acceptable <75 mg/dL Borderline High 75-99 mg/dL High 100 mg/dL 2014 National Lipid Association recommen dations for Triglycerides in children ages 10 to 17. Acceptable <90 mg/dL Borderline High 90-129 mg/dL High 130 mg/dL Trigs >400mg/dL: Triglycerides >400 mg/ dL. Calculated LDL cholesterol is not valid. Non-HDL cholesterol may be used for risk assessment when triglycerides are >400mg/dL. HXLDL/HDL 2 POWERCHART Specimen (Source) Anatomical Collection Method Collection Time Re ceived Time Location / / Volume Laterality Blood 10/23/2015 9:53 AM CDT Masha J Hurtt M.D. LAB BLOOD ADD-ON Performing Organization Address City/State/ZIP Code Phon e Number POWERCHART AST (Aspartate Aminotransferase) (10/23/2015 9:53 AM CDT) Patholo gist Method Time Signature Aspartate 24 8 - 43 POWERCHART Aminotransferase UNITL (AST), S Specimen (Source) Anatomical Collection Method Collection Time Re ceived Time Location / / Volume Laterality Blood 10/23/2015 9:53 AM CDT Masha Rosenberg M.D. LAB BLOOD ADD-ON Performing Organization Address City/State/ZIP Code Phon e Number POWERCHART (ABNORMAL) Thyroid-Stimulating Hormone-Sensitive (s-TSH) (10/23/2015 9:53 AM CDT) athologist Signature TSH 6.47 (H) 0.27 - POWERCHART (Thyrotropin) 4.20 MIUL Specimen (Source) Anatomical Collection Method Collection Time Re ceived Time Location / / Volume Laterality Blood 10/23/2015 9:53 AM CDT Masha Rosenberg M.D. LAB BLOOD ADD-ON Performing Organization Address City/[facility] Code Phon e Number POWERCHART (ABNORMAL) BMP (Basic Metabolic Panel) (10/23/2015 9:53 AM CDT) P athologist Signature Sodium, S 139 135 - 145 POWERCHART MMOLL Potassium, S 4.7 3.6 - 5.2 POWERCHART MMOLL Chloride, S 100 98 - 107 POWERCHART MMOLL CO2 Total 26 22 - 29 POWERCHART MMOLL BUN (Blood Urea 17 6 - 21 POWERCHART Nitrogen), S MGDL Creatinine, S 0.97 0.60 - POWERCHART 1.10 MGDL Calcium, Total, 9.3 8.8 - 10.3 POWERCHART S MGDL Anion Gap 13 7 - 15 POWERCHART MMOLL HXeGFR (MDRD) 56 (L) >=60 POWERCHART [id number] eGFR >60 >=60 POWERCHART Black/ [id number] Citizen Of [place] Glucose 106 70 - 139 POWERCHART MGDL Specimen (Source) Anatomical Collection Method Collection Time Re ceived Time Location / / Volume Laterality Blood 10/23/2015 9:53 AM CDT Masha J Hurtt M.D. LAB BLOOD ADD-ON Performing Organization Address City/State/ZIP Code Phon e Number POWERCHART documented in this encounter Visit Diagnoses Not on filedocumented in this encounter
--- OUTSIDE RECORDS SUMMARY | 2021-10-30 02:00 | XMS_ITS | Encounter Summary ---
:[address] [facility] Address [address] [place] [address] Care Team Providers Name Role Phone Masha Rosenberg M.D. Primary Care Provider Reason for Visit Reason Comments Annual Exam Appointment Request (Routine) - Closed Specialty Diagnoses / Procedures Referred By Contact Refer red To Contact Family Medicine Referral ID Status Reason Start Date Expiration Date Visits Requ ested Visits Authorized [id number] Closed 10/27/2018 10/27/2019 1 1 Encounter Details Date Type Department Care Team Description 11/08/2018 Comprehensive Visit Department of Masha Rosenberg Beat P remature Ventricular (Primary Dx); Family MedicineYunior M.D. 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 - 11/08/2018 1:30 PM CDT CHIEF COMPLAINT/REASON FOR VISIT Annual Medicare exam and other issues HISTORY OF PRESENT ILLNESS This 73-year-old female presents to the clinic for annual Medicare evaluation and other issues. She is not fasting. She has had abnormal lipid profiles in the past but she is not interested in beginning any medication. She discontinued her aspirin as she was under the impression it might be harmful for her macular degeneration, but she did not review this decision with her privacy director. She has been seeing her privacy director every 3 months. She has an appointment coming up next month. She does wear glasses. She has advanced directives but has not sent a copy to the clinic or her local hospital.She episodically has pain in her knees and this is aggravated if she does any type of activity on uneven surfaces such as yd work. She did have a spell several months ago with pain in her left knee andwith supportive measures it resolved. Her left ear periodically feels plugged and she takes an allergy medication which is helpful. She has a daily bowel regimen. She is having no true shortness of breath. She is having no palpitations at the present time but she does have a history of PVCs. Her last d ental exam was 2016 and she has had some ???breakage?? of her teeth. Has heard metoprolol leads to weight gain and wonders if she should change medication. She has some episodic stress urge incontinence and occasionally wears a pad. EMR ??reviewed. CURRENT MEDICATIONS Current Outpatient Medications: ??? CALCIUM CARB/VIT D3/MINERALS (CALCIUM-VITAMIN D ORAL), [facility] [place] See Instructions, Calcium & Vit D3 [...] by mouth daily., Disp: , Rfl: ??? SELENIUM ORAL, Take 1 tablet by mouth daily., Disp: , Rfl: Allergies Allergen Reactions ??? No Known Allergies Other (see comments) REVIEW OF SYSTEMS Constitutional: Slow weight gain over the years.?? No fevers, chills or night sweats.?? No change inher energy.?? Eyes:?? No blurred or double vision and no eye pain apart from that noted in the HPI.? ENT: No hearing loss, no tinnitus, no ear pain, no dizziness, no nasal congestion, no sore throat and no hoarseness apart from that noted in the HPI.? Cardiovascular:?? No palpitations, no ankle edema, no true claudication and no chest pain apart thatnoted in the HPI and past medical surgical history.? Respiratory: No cough, no wheezing, no hemoptysis and no shortness of breath.?? Gastrointestinal: No abdominal pain and no heartburn.?? No problems with dysphagia, hematemesis or bowel regimen.?? No hematochezia and no problems with hemorrhoids.?? See the past medical surgical history for additional details. Genitourinary: No pain with urination.?? No urinary frequency.?? No vaginal bleeding or spotting.?? No vaginal discharge.?? No history of abnormal Pap smears.?? No concerns regarding sexually transmitted diseases.?? Musculoskeletal: No back, neck or joint pain.?? No swelling or stiffness.?? No myalgias or weakness.?? Integumentary: No changes in hair or nails.?? Occasionally does self-breast exams. Occasionally wears sunscreen. Has a couple lesions on her back which she would like to have checked. Neurologic: No history of syncopal events or seizures.?? Psychiatric: No history of anxiety or depression.?? No problems with sleep.?? Endocrine: No history of diabetes or thyroid problems.?? See the past medical surgical history. Hematologic/Lymphatic: No history of anemia or bleeding.?? Allergic/Immunologic: Please see above. Past Medical History: Diagnosis Date ??? Hypertension Essential Primary ??? Osteoporosis 03/31/2017 DEXA scan ??? Primary Osteoarthritis Multiple Sites Past Surgical History: Procedure Laterality Date ??? EXTRACTION OF CATARACT 2011 ? ? ORIF TIBIA & FIBULA FRACTURES Left 12/08/2000 Dr. Reaves- fell off step ladder with a proximal tib-fib fracture with plates and screws PREVENTIVE SERVICES:?? Mammogram: 09/13/2009, advised, patient declines. ?? Pap smear: Nonapplicable secondary to stated age. Chlamydia: ??Nonapplicable secondary to stated age. Colon screen: ??01/01/2015, recheck planned for 5 years secondary to family history of polyps with Dr. Workman at [facility]. Depression: ??No.?PHQ-9 score 3 Asthma: ??No. Lipids: 03/12/2017, elevated. Adacel: ??10/22/2015. Prevnar: ??10/22/2015. Pneumovax: ??Under consideration. ?? Influenza: ??Declined with a . Bone density study 03/31/2017, osteoporosis?? SOCIAL HISTORY ALCOHOL:?? None OTHER SOCIAL DRUGS:?? None CAFFEINE USE:?? 2 cups of decaf coffee with soda twice per week and iced tea twice per week SEATBELT USE:?? Utilized DIET:?? Tries to follow a healthy diet LAST BREAST EXAM:?? 2018 CALCIUM INTAKE:?? Adequate EXERCISE: Swims twice per week Family History Problem Relation Age of Onset ??? Colon cancer Mother ??? Asthma Mother ??? Diabetes Father ??? Breast cancer Sister In her 50s ??? Coronary artery disease Maternal Grandmother ??? No Known Problems Maternal Grandfather ??? DM - Diabetes mellitus Paternal Grandmother ??? No Known Problems Paternal Grandfather ??? Hypertension Sister ??? Macular degeneration Sister Vitals: 11/08/18 1321 BP: 136/82 BP Location: Left arm Patient Position: Sitting Cuff Size: Regular Pulse: 72 Resp: 16 Temp: 36.1 ??C TempSrc: Temporal Weight: 96 kg Height: 163 cm PHYSICAL EXAMINATION General:?? Neatly dressed and well groomed and in no apparent distress. Skin: Sun damaged skin with seborrheic keratoses on the on the back consistent with her skin lesionsof concern.?? No palpable masses. Head:?? No trauma, tenderness or masses.? Eyes: Conjunctiva clear.?? PERRL.?? Full EOM.?? Funduscopic exam grossly normal. ENT: External ears and nose without gross abnormalities.?? Tympanic membranes are ngo.?? Subjectively slightly decreased hearing.?? Nasal mucosa membranes pink and moist.?? Septum is midline.?? Oral: No exudates.?? Teeth in good condition.?? Some evidence of periodontal disease.?? No pharyngeal erythema or exudates.?? Neck Range of motion consistent with patient's stated age body habitus.?? Trachea midline.?? Lymph Nodes: Negative evaluation of neck, axilla and groin. Thyroid:?? No thyroid masses, tenderness or enlargement.?? Breasts: No masses or tenderness.?? No galactorrhea.?? Negative evaluation of the axilla. Peripheral Vessels: Positive radial, ulnar, femoral, posterior tibial and dorsalis pedis pulses. Heart: Regular rate and rhythm.?? No clicks, rubs or murmurs.?? Carotid arteries reveal no bruits.??Abdominal aorta is not prominent.? No ankle edema.?? No varicosities.?? Lungs:?? Clear to auscultation.?? No palpable chest wall masses. Abdomen: Soft and nontender.?? Bowel sounds present.?? No organomegaly although exam is limited secondary to body habitus.?? Pelvis: No bony abnormalities. Rectum: Deferred.?? Genitalia: Deferred.?? SPINE:?? Range of motion consistent with stated age.?? Some bony abnormalities. Joints: Range of motion consistent with stated age.?? Some bony abnormalities. Extremities:?? Nails and digits reflect degenerative changes.?? Range of motion of head, neck, ribs,right and left upper extremity, right and left lower extremity consistent with the patient???s stated age. Gait:?? Smooth easy.?? Mental:?? Oriented x 3.?? Neuro: Reflexes 2+ in triceps, biceps, knees and ankles. ASSESSMENT PLAN 1. Annual Medicare exam 2. Mixed hyperlipidemia with evaluation currently declined as patient is not interested in treatment 3. Essential primary hypertension with evaluation in process 4. Urinary stress incontinence at baseline 5. Obesity-progressive with lifestyle changes in process 6. Primary osteoarthritis multiple sites superimposed on osteoporosis-progressive 7. PVCs currently clinically stable 8. Macular degeneration followed by Ophthalmology 9. Seborrheic keratoses-clinically stable 10. History of abnormal TSH with subclinical hypothyroidism with evaluation in process PLAN:?? Supportive measures discussed in detail. Will recommend checking labs today with a CBC, basic metabolic profile, AST and TSH following up accordingly. Will give refills as appropriate. Will update immunizations with Prevnar today. Recommend she discuss aspirin use with her privacy director. Preventive services care plan completed and copy given to patient. Mini Cog and Clock Drawing Test are completed and normal. Patient has advanced directives and will send copy to the clinic in her local hospital. Spent 15 minutes discussing her acute care needs. Risks and benefits of medications discussed. All questions answered. Signs and symptoms to lead to emergent evaluation are reviewed. See the medi [facility] reconciliation and preventive services. Reviewed exercise, cholesterol, diet/weight loss, calcium intake, alcohol use, immunizations, tobacco use, caffeine use, self-breast exams, mammography, colonic studies including colonoscopy or FIT testing, hormone replacement therapy as appropriate, seatbelt use, back care, depression, eye exams and other issues.?? Follow up if any change occurs or as noted. documented in this encounter Plan of Treatment Upcoming Encounters Date Type Specialty Care Team Description 11/20/2021 Nurse Only Family Medicine Giovanna Schreiber APRN, C.N.P. [address] [facility] [place] [address] 11/20/2021 Appointment Laboratory Medicine Giovanna Schreiber APRN, C.N.P. [address] [facility] [place] [address] 12/18/2021 Comprehensive Visit Physical Medicine and Isidoro Morales M.D. [address] [address] 12/19/2021 Comprehensive Visit Community Internal Giovanna Schreiber, Medicine ZAINA, C.N.P. [address] [facility] [place] [address] Pending Results Name Type Priority Associated Diagnoses Date/Ti me S-TSH (Thyroid-Stimulating Lab Routine 0 11/08/2018 1:58 PM CDT Hormone - Sensitive) documented as of this encounter Procedures Procedure Name Priority Date/Time Associated Diagnosis Comme nts CBC WITH DIFFERENTIAL, Routine 11/08/2018 1:58 Hypertension Re sults for this B PM CDT Essential Primar y procedure are in Primary the results Osteoarthritis section. Multiple Sites Osteoporosis ASPARTATE Routine 11/08/2018 1:58 Hyperlipidemia M ixed Results for this AMINOTRANSFERASE (AST), PM CDT Hypertension proc edure are in S/P Essential Primar y the results Obesity Body Mass section. Index 30-39.9 Ad ult Primary Osteoarthritis Multiple Sites Osteoporosis BASIC METABOLIC PANEL, Routine 11/08/2018 1:58 Beat Premature Results for this S/P PM CDT Ventricular procedure are in Hypertension the results Essential Primar y section. Obesity Body Mass Index 30-39.9 Ad ult Primary Osteoarthritis Multiple Sites Osteoporosis documented in this encounter Results (ABNORMAL) CBC with Differential, Blood (11/08/2018 1:58 PM CDT) [facility] gist Method Time Signature Hemoglobin 14.3 11.6 - 11/08/2018 15.0 g/dL 2:34 PM CDT Hematocrit 44.2 35.5 - 11/08/2018 44.9 % 2:34 PM CDT Erythrocytes 4.72 3.92 - 11/08/2018 5.13 2:34 PM CDT x10(12)/L MCV 93.6 78.2 - 11/08/2018 97.9 fL 2:34 PM CDT RBC Distrib Width 14.0 12.2 - 11/08/2018 16.1 % 2:34 PM CDT Platelet Count 234 157 - 371 11/08/2018 x10(9)/L 2:34 PM CDT Leukocytes 7.9 3.4 - 9.6 11/08/2018 x10(9)/L 2:34 PM CDT Neutrophils 3.53 1.56 - 11/08/2018 6.45 2:34 PM CDT x10(9)/L Lymphocytes 3.40 (H) 0.95 - 11/08/2018 3.07 2:34 PM CDT x10(9)/L Monocytes 0.79 0.26 - 11/08/2018 0.81 2:34 PM CDT x10(9)/L Eosinophils 0.15 0.03 - 11/08/2018 0.48 2:34 PM CDT x10(9)/L Basophils 0.05 0.01 - 11/08/2018 0.08 2:34 PM CDT x10(9)/L Specimen Anatomical Collection Method Collection Time Receive d Time (Source) Location / / Volume Laterality Blood (Blood, 11/08/2018 1:58 PM 11/09/19 2:01 Venous) CDT PM CDT Masha Rosenberg M.D. LAB BLOOD ADD-ON Performing Organization Address City/State/ZIP Code Phon e Number [facility] [address] [facility] [place] [address] LAB AST (Aspartate Aminotransferase) (11/08/2018 1:58 PM CDT) Patholo gist Method Time Signature Aspartate 21 8 - 43 11/08/2018 Aminotransferase U/L 3:57 PM CDT (AST), S Specimen Anatomical Collection Method Collection Time Receive d Time (Source) Location / / Volume Laterality Blood (Blood, 11/08/2018 1:58 PM 11/09/19 3:29 Venous) CDT PM CDT Masha Rosenberg M.D. LAB BLOOD ADD-ON Performing Organization Address City/State/ZIP Code Phon e Number [facility] [address] [place] [address] LAB (ABNORMAL) BMP (Basic Metabolic Panel) (11/08/2018 1:58 PM CDT) P athologist Signature Potassium, S 4.3 3.6 - 5.2 11/08/2018 mmol/L 3:57 PM CDT Sodium, S 139 135 - 145 11/08/2018 mmol/L 3:57 PM CDT Chloride, S 98 98 - 107 11/08/2018 mmol/L 3:57 PM CDT Bicarbonate, S 30 (H) 22 - 29 11/08/2018 mmol/L 3:57 PM CDT Anion Gap 11 7 - 15 11/08/2018 3:57 PM CDT BUN (Blood Urea 18 6 - 21 11/08/2018 Nitrogen), S mg/dL 3:57 PM CDT Creatinine, S 1.03 0.59 - 11/08/2018 1.04 mg/dL 3:57 PM CDT eGFR-Non 53 (L) >=60 11/08/2018 Black/ mL/min/BSA 3:57 PM CDT Iranian Comment: ----ADDITIONAL INFORMATION---- Estimated GFR calculated using the 2009 CKD_EPI creatinine equation. eGFR-Black/ 61 >=60 mL/min/BSA 2018 3:57 PM CDT Comment: ----ADDITIONAL INFORMATION---- Estimated GFR calculated using the 2009 CKD_EPI creatinine equation. Calcium, Total, S 9.8 8.8 - 10.2 mg/dL 11/08/2018 3:57 PM CDT Glucose, S 117 70 - 140 mg/dL 11/08/2018 3:57 PM CDT Specimen Anatomical Collection Method Collection Time Receive d Time (Source) Location / / Volume Laterality Blood (Blood, 11/08/2018 1:58 PM 11/09/19 19 3:29 Venous) CDT PM CDT Masha Rosenberg M.D. LAB BLOOD ADD-ON Performing Organization Address City/State/ZIP Code Phon e Number [facility] [address] [place] [address] LAB documented in this encounter Visit Diagnoses Diagnosis Beat Premature Ventricular - Primary Hyperlipidemia Mixed Hypertension Essential Primary Incontinence Urinary Stress Female Obesity Body Mass Index 30-39.9 Adult Primary Osteoarthritis Multiple Sites Osteoporosis Degeneration Macular Keratosis Seborrheic Hypothyroidism Annual Medicare Examination Return documented in this encounter Additional Health Concerns Assessment Noted Time PHQ-9 Depression Total Score: 3 11/08/2018 4:46 PM CDT documented as of this encounter Care Teams Regional Director Relationship Specialty Start Date End Date Masha Rosenberg M.D. PCP - General 09/04/16 02/20/19 documented as of this encounter
--- OUTSIDE RECORDS SUMMARY | 2021-10-30 02:00 | XMS_ITS | Encounter Summary ---
:1945 Author Organization [facility] Address [address] [place] [address] Care Team Providers Name Role Phone Masha Rosenberg M.D. 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 [address] [facility] [place] [address] 11/20/2021 Appointment Laboratory Medicine Giovanna Schreiber APRN, C.N.P. [address] [facility] [place] [address] 12/18/2021 Comprehensive Visit Physical Medicine and Isidoro Morales M.D. [address] [phone] 12/19/2021 Comprehensive Visit Community Internal Giovanna Schreiber, Medicine ZAINA, C.N.P. [address] [facility] [place] [address] documented as of this encounter Procedures Procedure Name Priority Date/Time Associated Diagnosis Comme nts LIPID PANEL, S Routine 03/12/2017 10:00 AM Hyperlipidemia Mixe d Results for this AMMONIA BOX OPERATOR procedure are i n the results section . documented in this encounter Results (ABNORMAL) Lipid Panel (03/12/2017 10:00 AM AMMONIA BOX OPERATOR) P athologist Signature Cholesterol, 275 (H) mg/dL 03/12/2017 [facility] Total 3:07 PM [facility] LAB Comment: ----REFERENCE VALUE---- Desirable: < 200 Borderline high: 200 - 239 High: > or = 240 Triglycerides 188 (H) mg/dL 03/12/2017 3:07 PM AMMONIA BOX OPERATOR [facility] Comment: ----REFERENCE VALUE---- Normal: <150 Borderline high: 150-199 High: 200-499 Very high: > or =500 Cholesterol, HDL, S 75 >=50 mg/dL 03/12/2017 3:07 PM AMMONIA BOX OPERATOR [facility] Calculated LDL 162 (H) mg/dL 03/12/2017 3:07 PM AMMONIA BOX OPERATOR [facility] Comment: ----REFERENCE VALUE---- Desirable: <100 Above Desirable: 100-129 Borderline high: 130-159 High: 160-189 Very high: > or =190 Cholesterol, Non-HDL, 200 (H) mg/dL 03/12/2017 3:07 PM AMMONIA BOX OPERATOR [facility] [place] Comment: ----REFERENCE VALUE---- Desirable: <130 Above Desirable: 130-159 Borderline high: 160-189 High: 190-219 Very high: > or =220 Specimen Anatomical Collection Method Collection Time Receive d Time (Source) Location / / Volume Laterality Blood (Blood, 03/12/2017 10:00 03/12/2017 1:16 Venous) AM AMMONIA BOX OPERATOR PM AMMONIA BOX OPERATOR Masha Rosenberg M.D. LAB BLOOD ADD-ON Performing Organization Address City/State/ZIP Code Phon e Number [facility] [address] [place] [address] LAB documented in this encounter Visit Diagnoses Not on filedocumented in this encounter Additional Health Concerns Assessment Noted Time PHQ-9 Depression Total Score: 3 03/02/2017 5:19 PM AMMONIA BOX OPERATOR documented as of this encounter Care Teams Rn Physician Office Relationship Specialty Start Date End Date Masha Rosenberg M.D. PCP - General 09/04/16 02/20/19 documented as of this encounter
--- OUTSIDE RECORDS SUMMARY | 2021-10-30 02:00 | XMS_ITS | Encounter Summary ---
:1945 Author Organization [facility] Address [address] [place] [address] Care Team Providers Name Role Phone Masha Rosenberg M.D. Primary Care Provider Encounter Details Date Type Department Care Team Description 03/31/2017 Hospital Encounter Department of Radiology Meena Rosenberg, [place]osis [place] 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 [address] [place] [address] 11/20/2021 Appointment Laboratory Medicine Giovanna Schreiber APRN, C.N.P. [address] [place] [address] 12/18/2021 Comprehensive Visit Physical Medicine and Isidoro Morales M.D. [address] [address] 12/19/2021 Comprehensive Visit Community Internal Giovanna Schrieber, Medicine ZAINA, C.N.P. [address] [place] [address] documented as of this encounter Procedures Procedure Name Priority Date/Time Associated Comments Diagnosis BMD BONE DENSITY RAD - Routine 03/31/2017 10:20 Osteoporosis Result s for this SPINE HIPS (most inpatients AM GALLEY STRIPPER procedure a re in and all the results outpatients) section. documented in this encounter Results BMD Bone Density Spine Hips (03/31/2017 10:20 AM GALLEY STRIPPER) Anatomical Region Laterality Modality Hip, Lumbar Spine N/A Radiographic Imaging Specimen (Source) Anatomical Collection Method Collection Time Re ceived Time Location / / Volume Laterality 03/31/2017 10:35 AM GALLEY STRIPPER Impressions 03/31/2017 10:36 AM GALLEY STRIPPER Impression: Osteoporosis. Narrative 03/31/2017 10:36 AM GALLEY STRIPPER EXAM: BMD BONE DENSITY SPINE HIPS COMPARISON: 12/15/2011 Compensation Intern/Model: [email or web address] FINDINGS: ?? LUMBAR SPINE L1-L4 included unless [...] BMD BONE DENSITY SPINE HIPS COMPARISON: 12/15/2011 Compensation Intern/Model: GE FINDINGS: LUMBAR SPINE L1-L4 included unless otherwise [...] Osteoporosis. Masha Rosenberg M.D. IMG DXA PROCEDURES documented in this encounter Visit Diagnoses Diagnosis Osteoporosis documented in this encounter Additional Health Concerns Assessment Noted Time PHQ-9 Depression Total Score: 3 03/02/2017 5:19 PM GALLEY STRIPPER documented as of this encounter Care Teams Disease Control Inspector Relationship Specialty Start Date End Date Masha Rosenberg M.D. PCP - General 09/04/16 02/20/19 documented as of this encounter
--- OUTSIDE RECORDS SUMMARY | 2021-10-30 02:01 | XMS_ITS | Encounter Summary ---
:1945 Author Organization [facility] Address [address] [place] [id number] Care Team Providers Name Role Phone Unavailable Primary Care Provider Unavailable Encounter Details Date Type Department Care Team Description 03/30/2014 Hospital Encounter HX [facility] FBHB Meena Aranda M.D. [address] [place], [place] [address] (Wo rk) Social History [...] or relatives? How often do you attend sikhism or advent More than 4 time s per year 02/07/2019 services? 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 ASPIRIN ORAL Take 1 tablet by mouth 0 03/24/2014 05/31/2020 daily. SELENIUM ORAL Take 1 tablet by mouth 0 02/24/2012 02/11/2019 daily. documented as of this encounter Miscellaneous Notes Miscellaneous - Masha Rosenberg M.D. - 03/31/2014 12:00 AM CST [id number] March 31, 2014 MAURA Florentino ELISALUIS FERNANDO [address] [facility] [place] [id number] : 1945 Dear Ms. Raymond: This letter is in regards to your echocardiogram (heart evaluation). Your echocardiogram is stable. However, you are having frequent extra heart beats. Therefore, I would recommend following up with a sales and production manager to discuss this in a bit more detail. I would like to arrange an appointment for you to see one of the cardiologists. We have several who come from [facility] in [place] to the [facility] in [place]. We look forward to hearing from you. Sincerely, Masha Rosenberg M.D. Department of Family Medicine ap Electronically Signed By: MASHA ROSENBERG MD On: 03/31/2014 04:44 PM Modified by and Electronically Signed by: MASHA ROSENBERG MD On: 03/31/2014 04:44 PM Source: [facility] MHSDOLBEYNONRADSYS Document Id: [id number] VITY LEADER documented in this encounter Plan of Treatment Upcoming Encounters Date Type Specialty Care Team Description 11/20/2021 Nurse Only Family Medicine Giovanna Schreiber APRN, C.N.P. [address] [facility] [place] [phone] 11/20/2021 Appointment Laboratory Medicine Giovanna Schreiber APRN, C.N.P. [address] [facility] [place] [phone] 12/18/2021 Comprehensive Visit Physical Medicine and Isidoro Morales M.D. [address] [place] [address] 12/19/2021 Comprehensive Visit [facility] Internal Giovanna Schreiber, Medicine VISUAL PRESENTATION MANAGER, C.N.P. [address] [facility] [place] [phone] documented as of this encounter Visit Diagnoses Not on filedocumented in this encounter
--- OUTSIDE RECORDS SUMMARY | 2021-10-30 02:01 | XMS_ITS | Encounter Summary ---
:1945 Author Organization [facility] Address [address] [place] [address] Care Team Providers Name Role Phone Unavailable Primary Care Provider Unavailable Encounter Details Date Type Department Care Team Description 05/11/2014 Hospital Encounter HX [facility] CARDIOLOG Lina Vidal M.D. 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 documented as of this encounter Consult Notes Nikki Vidal M.D. - 05/11/2014 12:30 PM CST CARDCONOS Consultation is requested by Dr. Rosenberg for evaluation of ventricular ectopy. Mrs. Raymond is a 68-year-old female. She has a history of ventricular ectopy and it was noted that in July of 2011 she was having cataract surgery and was quite anxious and had high blood pressure She noted pounding in her chest and racing of her heart with eye dilatation. When she was seen following that, she had electrocardiogram which showed ventricular ectopy and went on to have ,echocardiogram which they suggested had mild mitral regurgitation and a mitral prolapse and a Holter monitor at that time, frequent VPCs singly and in bigeminy and rare SVPCs. She had some symptoms of heart pounding at that time, which was noted during single VPCs. During a recent evaluation she had had left arm pain at rest and her heart rate was irregular when she was seen and it was noted her blood pressure was elevated 154/84. A repeat echocardiogram was done in March of this year, where again showed mild mitral valve regurgitation with a posteriorly directed jet. EF was 67%. Labs have all been normal including a TSH. In general, Mrs. Raymond says that she feels well. She was going to [employer] in the past, swims a couple of times a week, climbs the stairs to do laundry, and some mild walking at times. She states she is quite active. With this, she has had no shortness of breath. No chest discomfort. She has had no syncope or presyncope. Occasionally notes some slight palpitations. There is a question of a history of hypertension though. She has had lipids in 2012, which were high, which revealed a cholesterol of 252, triglycerides 165, HDL 84, and LDL was 135. She has had no diabetes. No early family history of coronary disease and has been a nonsmoker. SOCIAL HISTORY She is . Has 3 children who are grown. No alcohol and no tobacco use. MEDICATIONS Metoprolol succinate 50 mg a day. Aspirin 81 mg a day. PHYSICAL EXAMINATION GENERAL: She is a very pleasant woman who is moderately overweight. VITAL SIGNS: Initial blood pressure was 149/72, then later was 143/63. Later in my exam, blood pressure was 156/80 after she had relaxed. Her pulse was 64 and regular. LUNGS: Clear. CARDIAC: Normal jugular venous pressure. Carotid upstroke is normal. There are no bruits. No parasternal lift. Her PMI is normal. S1, S2 with a 1 to 2/6 mid systolic apical murmur, which radiates laterally. ABDOMEN: Obese, nontender. No masses. EXTREMITIES: Normal femoral and posterior tibial pulses, and no edema. IMPRESSION/REPORT/PLAN Mrs. Raymond has had on her evaluations fairly frequent ventricular premature contractions, which were seen on her Holter a couple of years ago. For the most part, though, these have been asymptomatic. Her overall left ventricular function is normal by echocardiogram. She is hypertensive on my examination, although she feels that her blood pressure at home has been really quite good with her cuff, which she says has been checked and she feels it is accurate. She is going to keep track of her blood pressure at home. I did review her electrocardiogram, which had been done in March and again shows ventricular premature contractions, frequent, but otherwise is normal. She seems to be tolerating the beta sophia quite well and I did not detect any ectopy when I was examining her. The ventricular ectopy appears to be benign and I just reassured her. She occasionally has some slight palpitations, but do not seem worrisome. She could continue the beta sophia and her blood pressure is mildly elevated.I have told her to keep a list of her blood pressures. Her cholesterol in the past had been elevated. I would recommend that this be repeated some time this year. I have recommended that for her blood pressure losing some weight, increasing her exercise would be important and would also help her lipidprofile. I would be happy to review her followup labs and it may be that she would be best treated with a statin, but would give a trial of conservative treatment first. Lina Vidal M.D./jordan Electronically Signed By: Nikki VIDAL MD On: 05/11/2014 04:59 PM Modified by and Electronically Signed by: Nikki VIDAL MD On: 05/11/2014 04:59 PM Source: [facility] MHSDOLBEYNONRADSYS Document Id: [id number] RIAL MIXER documented in this encounter Miscellaneous Notes Miscellaneous - Suzi Pham L.P.N. - 05/11/2014 12:51 PM CST Ambulatory Vitals Height Weight Ambulatory Vitals Height Weight Entered On: 05/11/2014 12:52 MATERIAL MIXER Performed On: 05/11/2014 12:51 MATERIAL MIXER by SUZI PHAM Vitalvenkat/Ht/Wt Peripheral Pulse Rate : 62 /min Systolic Blood Pressure : 143 mmHg (HI) Diastolic Blood Pressure : 63 mmHg NIBP Mean : 90 mmHg BP Location : Left upper extremity Blood Pressure Cuff Size : Regular SUZI PHAM - 05/11/2014 12:51 MATERIAL MIXER Source: [facility] POWERCHART Document Id: [id number] MATERIAL MIXER!8 RIAL MIXER Miscellaneous - Suzi Pham L.P.N. - 05/11/2014 12:44 PM CST Adult Washer Meat Intake/History Adult Washer Meat Intake/History Entered On: 05/11/2014 12:49 MATERIAL MIXER Performed On: 05/11/2014 12:44 MATERIAL MIXER by SUZI PHAM Intake Chief Complaint : Frequent PVC's Peripheral Pulse Rate : 64 /min Respiratory Rate : 20 /min Systolic Blood Pressure : 149 mmHg (HI) Diastolic Blood Pressure : 72 mmHg NIBP Mean : 98 mmHg BP Location : Left upper extremity Blood Pressure Cuff Size : Regular SpO2 : 95 % Oxygen Therapy : Room air Actual Weight : 88.4 kg(Converted to: 194 lb 14 oz) Weight Source : Standing scale Dosing Weight Clinic : 88.4 kg SUZI PHAM - 05/11/2014 12:44 MATERIAL MIXER General Info Information Given By : Patient Preferred Communication Mode : Verbal Languages : Malawian Is Patient Female and 13-50 no hysterectomy : No SUZI PHAM 05/11/2014 12:44 MATERIAL MIXER Subjective Pain Symptoms : No Cardiovascular Symptoms : None SUZI PHAM 05/11/2014 12:44 MATERIAL MIXER Dependent Habits Tobacco Use/Currently Using : No Tobacco Use/Last 12 months : No Exposure to Tobacco Smoke : Other: NEVER SMOKER Smoking Status : Never smoker SUZI PHAM 05/11/2014 12:44 MATERIAL MIXER Caffeine Use Grid Caffeine Use : Current Type : Chocolate, Soft drinks Frequency : Occasionally SUZI PHAM 05/11/2014 12:44 MATERIAL MIXER ID Screen Drug Resistant Organism : No Travel Within Last 21 Days : No SUZI PHAM 05/11/2014 12:44 MATERIAL MIXER Source: [facility] POWERCHART Document Id: [id number] MATERIAL MIXER!36 RIAL MIXER documented in this encounter Plan of Treatment Upcoming Encounters Date Type Specialty Care Team Description 11/20/2021 Nurse Only Family Medicine Giovanna Schreiber APRN, C.N.P. [address] [place] [phone] 11/20/2021 Appointment Laboratory Medicine Giovanna Schreiber APRN, C.N.P. [address] [place] [phone] 12/18/2021 Comprehensive Visit Physical Medicine and Isidoro Morales M.D. [address] [facility] [place] [address] 12/19/2021 Comprehensive Visit [facility] Giovanna Schreiber, Medicine DIRECTOR TRADING, C.N.P. [address] [facility] [place] [phone] documented as of this encounter Visit Diagnoses Not on filedocumented in this encounter
--- OUTSIDE RECORDS SUMMARY | 2021-10-30 02:01 | XMS_ITS | Encounter Summary ---
:1945 Author Organization [facility] Address [address] [place] [address] Care Team Providers Name Role Phone Unavailable Primary Care Provider Unavailable Encounter Details Date Type Department Care Team Description 05/20/2012 Hospital Encounter HX [facility] LAB Mitzy Oreilly M .D. Social History Tobacco Use Types Packs/Day Years [...] or relatives? How often do you attend islam or samaritan More than 4 time s per year 02/07/2019 services? 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 SELENIUM ORAL Take 1 tablet by mouth 0 02/24/2012 02/11/2019 daily. documented as of this encounter Miscellaneous Notes Miscellaneous - Mitzy Oreilly M.D. - 05/21/2012 10:00 AM CST Results Notification From: MITZY OREILLY MD To: MITZY OREILLY MD Sent: 05/21/2012 10:00:05 HAND PACKER ! Show up: 05/21/2012 16:00:05 [facility] Subject: Results Notification Actions: Notify patient of results Source: [facility] POWERCHART Document Id: [id number] documented in this encounter Plan of Treatment Upcoming Encounters Date Type Specialty Care Team Description 11/20/2021 Nurse Only Family Medicine AbdoulGiovanna APRN, C.N.P. [address] [place] [phone] 11/20/2021 Appointment Laboratory Medicine Giovanna Schreiber APRN, C.N.P. [address] [place] [address] 12/18/2021 Comprehensive Visit Physical Medicine and Isidoro Morales M.D. [address], [place] [address] 12/19/2021 Comprehensive Visit [facility] AbdoulGiovanna, Medicine ZAINA, C.N.P. [address] [facility] [place] [phone] documented as of this encounter Procedures Procedure Name Priority Date/Time Associated Diagnosis Comme nts THYROID-STIMULATING Routine 05/20/2012 10:52 AM R esults for this HORMONE-SENSITIVE HAND PACKER procedure are in (S-TSH) the results section. T4 (THYROXINE), Routine 05/20/2012 10:52 AM Resul ts for this FREE, S HAND PACKER procedure are i n the results section. documented in this encounter Results T4 (Thyroxine), Free (05/20/2012 10:52 AM HAND PACKER) P athologist Signature T4 (Thyroxine), 1.1 NGDL POWERCHART Free, S Comment: -- REFERENCE VALUE -- 0.8-1.8 Elevated values are seen in patients on thyroxine therapy. Test Performed by: [place] [address] Manager Heart: Yosef ortiz III, M.D. Specimen (Source) Anatomical Collection Method Collection Time Re ceived Time Location / / Volume Laterality Blood 05/20/2012 10:52 AM HAND PACKER Mitzy Oreilly M.D. LAB BLOOD ADD-ON Performing Organization Address City/[facility] Phon e Number POWERCHART (ABNORMAL) Thyroid-Stimulating Hormone-Sensitive (s-TSH) (05/20/2012 10:52 AM HAND PACKER) athologist Signature TSH, Sensitive 5.9 (H) 0.3 - 5.0 POWERCHART MIUL Comment: Test Performed by: [place] [address] Manager Heart: Yosef ortiz III, M.D. Specimen (Source) Anatomical Collection Method Collection Time Re ceived Time Location / / Volume Laterality Blood 05/20/2012 10:52 AM HAND PACKER Mitzy Oreilly M.D. LAB BLOOD ADD-ON Performing Organization Address City/[facility] Phon e Number POWERCHART documented in this encounter Visit Diagnoses Not on filedocumented in this encounter
--- OUTSIDE RECORDS SUMMARY | 2021-10-30 02:01 | XMS_ITS | Encounter Summary ---
:1945 Author Organization [facility] Address [address] [place] [address] Care Team Providers Name Role Phone Unavailable Primary Care Provider Unavailable Encounter Details Date Type Department Care Team Description 09/25/2014 Hospital Encounter HX [facility] Lisa Rosenberg M.D. [address] [place], [place] [address] (Wo rk) Social History [...] or relatives? How often do you attend druze or scientology More than 4 time s per year 02/07/2019 services? 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 documented as of this encounter H&P Notes Masha Rosenberg M.D. - 09/25/2014 9:32 AM CDT [id number] CHIEF COMPLAINT/REASON FOR VISIT Annual exam. HISTORY OF PRESENT ILLNESS A 69-year-old female presents to clinic for annual evaluation. Her leg issues have improved. She didsee her orthopedist and had an injection in her knee, 09/08/2014, is feeling much better. She is fasting today. She is taking all of her medications as before and does believe she needs some refills. EMR reviewed. MEDICATIONS 1. Metoprolol succinate 50 mg daily to begin 03/24/2014. 2. Aspirin 81 mg daily to begin 03/24/2014. 3. Calcium with vitamin D3, once per day. 4. Eye supplements each day. 5. Eye caps each day. 6. Selenium each day. 7. Separate vitamin D 3 each day. 8. Claritin 10 mg daily as needed. 9. Zxlc-xne-bfnmbbd Pepcid as needed. ALLERGIES No known drug allergies. SYSTEMS REVIEW CONSTITUTIONAL: Slow weight gain over the years. No fevers, chills or night sweats. No change in herenergy. EYES: Last ophthalmic exam, May 2014. Wears glasses. No blurred or double vision and no eye pain. ENT: Last dental exam, fall, when she had some dental work done. No hearing loss, no tinnitus, no ear pain, no dizziness, no nasal congestion, no sore throat and no hoarseness. CARDIOVASCULAR: Had some palpitations following her cataract surgery but not since that time. No ankle edema, no true claudication and no chest pain. RESPIRATORY: No cough, no wheezing, no hemoptysis and no shortness of breath. GASTROINTESTINAL: Daily bowel regimen. Has episodic heartburn which is fairly well controlled with the Pepcid. No abdominal pain. No problems with dysphagia, hematemesis or bowel regimen. No hematochezia and no problems with hemorrhoids. GENITOURINARY: No pain with urination. No urinary frequency. No vaginal bleeding or spotting. No vaginal discharge. No history of abnormal Pap smears. No concerns regarding sexually transmitted diseases. MUSCULOSKELETAL: No back, neck or joint pain apart from that described in the HPI and the Past Medical/Surgical History. Has episodic swelling and stiffness. No myalgias or weakness. INTEGUMENTARY: Wears sunscreen in her face makeup. Does self-breast exams every few months. No changes in skin lesions, hair or nails. NEUROLOGIC: No history of syncopal events or seizures. PSYCHIATRIC: No history of anxiety or depression. No problems with sleep. ENDOCRINE: No history of diabetes or thyroid problems. HEMATOLOGIC/LYMPHATIC: No history of anemia or bleeding. ALLERGIC/IMMUNOLOGIC: Please see above. PAST MEDICAL/SURGICAL HISTORY PAST SURGICAL HISTORY: 1. Cataract extractions 2011. 2. ORIF of the right leg fracture 2000. Hardware remains. OTHER HEALTH ISSUES: 1. Hypertension, which has not been treated. 2. Overweight. 3. Degenerative joint disease. PREVENTIVE SERVICES Mammogram: 09/13/2009, advised, patient declines. Pap smear: Nonapplicable secondary to stated age. Chlamydia: Nonapplicable secondary to stated age. Colon screen: 12/05/2004 at [facility]. Depression: No. Asthma: No. Lipids: 09/25/2014. Tetanus: Advised, patient declines. Pneumovax: Advised Prevnar, patient declines. Influenza: Declined. SOCIAL HISTORY ALCOHOL: No. OTHER SOCIAL DRUGS: No. CAFFEINE USE: A cup of decaf coffee each day. One or 2 sodas per week. A couple cups of tea each month. SEATBELT USE: Wears a seatbelt. DIET: Tries to follow a healthy diet. LAST BREAST EXAM: In the past. CALCIUM INTAKE: Lower than normal. EXERCISE: With swimming 2 times per week and Curves on occasion. FAMILY HISTORY MOTHER: Colon cancer. FATHER: Diabetes [...] has hypertension and macular degeneration. VITAL SIGNS Height 169 cm, weight 87 kg. Temperature 36.8, respiratory rate 16, pulse 68, systolic 150, diastolic 80. PHYSICAL EXAMINATION GENERAL: Neatly dressed and well-groomed and in no apparent distress. SKIN: Free from lesions. No palpable masses. HEAD: No trauma, tenderness or masses. EYES: Conjunctiva clear. PERRL. Full EOM. Funduscopic exam grossly normal. ENT: External ears and nose without gross abnormalities. Tympanic membranes are ngo. Subjectively intact hearing. Nasal mucosa membranes pink and moist. Septum is midline. Oral: No exudates. Teeth in good repair. No evidence of periodontal disease. No pharyngeal erythema or exudates. Neck supple. Trachea midline. LYMPH NODES: Negative evaluation of neck, axilla and groin. THYROID: No thyroid masses, tenderness or enlargement. BREASTS: Fibrocystic changes but not tender. No galactorrhea. Negative evaluation of the axilla. PERIPHERAL VESSELS: Positive radial, ulnar, femoral, posterior tibial and dorsalis pedis pulses. HEART: Regular rate and rhythm. No clicks, rubs or murmurs. Carotid arteries reveal no bruits. Abdominal aorta is not prominent, but exam is limited secondary to body habitus. No ankle edema. No varicosities. LUNGS: Clear to auscultation. No palpable chest wall masses. ABDOMEN: Soft and nontender. Bowel sounds present. No organomegaly, although exam is somewhat limited secondary to body habitus. PELVIS: No bony abnormalities. RECTUM: Patent anus. Good sphincter tone. Small hemorrhoids but no evidence of thrombosis. Hemoccultnegative stool in the vault. GENITALIA: External genitalia appropriate for stated age. Urethral meatus free from lesions. Atrophic vaginal vault. Atrophic, multiparous-appearing cervix. Uterus freely mobile, no nodularity. Adnexalregion free from nodules and nontender. No tenderness with either speculum or bimanual exam. SPINE: Range of motion consistent with stated age. Degenerative changes consistent with patient's stated age, body habitus. JOINTS: Range of motion consistent with stated age. Degenerative changes consistent with patient's stated age, body habitus. EXTREMITIES: Nails and digits reflect degenerative changes. Range of motion of head, neck, ribs, right and left upper extremity, right and left lower extremity consistent with the patients stated age. GAIT: Smooth easy. MENTAL: Oriented x3. NEUROLOGIC: Reflexes 2+ in triceps, biceps, knees and ankles. IMPRESSION/REPORT/PLAN 1. Annual exam. 2. History of vitamin D deficiency. 3. Premature ventricular contractions. 4. Hypothyroidism in the past. 5. Hypertension, currently unstable. 6. Hyperlipidemia. 7. Obesity. PLAN: Patient's blood pressure has been stable but today it is elevated. Suspect this is because shedid not take any of her medications today. Will review all of her problems with a CBC, basic metabolic profile, AST, lipid profile, TSH, a urinalysis, following up accordingly. Continue other supportive measures. Give refills as appropriate. Would be happy to arrange for healthcare maintenance issues should patient change her mind. At this time she is not interested, although she will consider a colonoscopy and will make arrangements for this evaluation through Dr. Workman's office in November when she is due. She will consider all of her options. Reviewed exercise, cholesterol, diet/weight loss, calcium intake, alcohol use, immunizations, tobacco use, caffeine use, self-breast exams, mammography, colonic studies including colonoscopy or FIT testing, hormone replacement therapy as appropriate, seatbelt use, back care, depression, eye exams and other issues. Follow up if any change occurs or as noted. Masha Rosenberg M.D./jordan Electronically Signed By: MASHA ROSENBERG MD On: 10/01/2014 12:35 PM Modified by and Electronically Signed by: MASHA ROSENBERG MD On: 10/01/2014 12:35 PM Source: [facility] MHSDOLBEYNONRADSYS Document Id: [id number] documented in this encounter Nursing Notes Amber Coombs - 11/02/2014 9:17 AM CDT panel management Pt had elevated BP on last visit with Dr. Rosenberg. Pt contacted and offered no- cost nurse visit BP check. Pt declines, indicating checks BPs at home. Electronically Signed By: AMBER COOMBS LPN On: 11/02/2014 09:19 AM Source: [facility] [employer] Document Id: [id number] Jennyfer Mares L.P.NPavan - 09/27/2014 4:21 PM CDT Labs 09-25-14 Result card sent. Electronically Signed By: JENNYFER MARES LPN On: 09/27/2014 04:21 PM [facility] Document Id: [id number] documented in this encounter Miscellaneous Notes Miscellaneous - Masha Rosenberg M.D. - 11/02/2014 11:28 AM CDT From: MASHA ROSENBERG MD To: Surgery Nurse; Sent: 11/02/2014 11:28:42 CDT Please arrange screening colonoscopy for Ms. Escalante. Source: [facility] [employer] Document Id: [id number] Miscellaneous - Masha Rosenberg M.D. - 09/26/2014 7:50 AM CDT Ambulatory [address] [place] [id number] Visit Information Name: QUETA RAYMOND [facility] Number: [id number] Current Date: 09/26/2014 07:50:43 Physicians Attending Provider: MASHA ROSENBERG MD Primary Care Provider: MASHA ROSENBERG MD ELINA QUETA Segura has been given the following list of [...] tablet) 1 Tablet(s), Oral, once a day cholecalciferol (Vitamin D3) Oral, once a day famotidine (Pepcid) loratadine (Claritin) 10 mg, Oral, once a day metoprolol (metoprolol succinate 50 mg oral tablet, extended release) 1 Tablet(s), Oral, once a day needs follow up Misc Prescription (Misc Prescription) See Instructions I caps - takes one daily *Misc Prescription (Misc Prescription) See Instructions Eye Health Supplement - takes one daily Misc Prescription (Misc Prescription) See Instructions Calcium & Vit D3 0- takes one ounce daily omega-3 polyunsaturated fatty acids (Fish Oil) Oral, once a day selenium (selenium 200 mcg oral tablet) 1 Tablet(s), Oral, once a day * You have let us know that you are not taking this medication as listed. Please talk with your primary care provider or the health care provider who prescribed the medication as soon as possible. Stop Taking the Following Medications: Medication list as of 09-26-14 07:50 Attention: If you have any medications at [...] Electronically Signed By: MASHA ROSENBERG MD Signed On:26-SEP-2014 07:50:32 Your Allergies & Intolerances Substance Reaction Symptoms Category Comments No Known Allergies Drug Your Problem List Problem Status Onset Comments Hypertension Active Hypercholesterolemia* Active Ventricular premature systoles Active 08/04/2011 Hypothyroidism, NOS, unspecified Active 08/14/2011 Vitamin D deficiency, unspecified Active 08/14/2011 Obesity Body Mass Index (BMI) 30-40 Adult Active Your Upcoming Appointments Date Time Location Provider [...] if you dont have one. Go to [email or web address] and click on Create Your Account. Then, follow the directions to complete the online form. Youll be asked for your [facility] number which you can find at the top of this document. Your Goals/Additional instructions: Source: [facility] POWERCHART Document Id: [id number] Miscellaneous - Masha Rosenberg M.D. - 09/26/2014 7:50 AM CDT Ambulatory Discharge Medication List [address] [id number] Visit Information Name: QUETA RAYMOND [facility] Number: [id number] Visit Date: 09/26/2014 07:50:42 Attending Provider: MASHA ROSENBERG MD Primary Care Provider: MASHA ROSENBERG MD QUETA RAYMOND has been given the following list of [...] tablet) 1 Tablet(s), Oral, once a day cholecalciferol (Vitamin D3) Oral, once a day famotidine (Pepcid) loratadine (Claritin) 10 mg, Oral, once a day metoprolol (metoprolol succinate 50 mg oral tablet, extended release) 1 Tablet(s), Oral, once a day needs follow up Misc Prescription (Misc Prescription) See Instructions I caps - takes one daily *Misc Prescription (Misc Prescription) See Instructions Eye Health Supplement - takes one daily Misc Prescription (Misc Prescription) See Instructions Calcium & Vit D3 0- takes one ounce daily omega-3 polyunsaturated fatty acids (Fish Oil) Oral, once a day selenium (selenium 200 mcg oral tablet) 1 Tablet(s), Oral, once a day * You have let us know that you are not taking this medication as listed. Please talk with your primary care provider or the health care provider who prescribed the medication as soon as possible. Stop Taking the Following Medications: Medication list as of 09-26-14 07:50 Attention: If you have any medications at [...] Electronically Signed By: MASHA ROSENBERG MD Signed On:26-SEP-2014 07:50:32 Additional Information: Source: [facility] POWERCHART Document Id: [id number] Telephone Encounter - Masha Rosenberg M.D. - 09/26/2014 12:00 AM CDT [id number] Patient's total cholesterol is 297, LDL 193. Other labs were stable. Would recommend a low-cholesterol diet. A cholesterol-lowering medication could be considered. Follow up in the clinic if she is interested in medication is advised. Laboratory evaluation minimally advised to be recheck in 12 months.Card is sent to patient in regard to this issue. Masha Rosenberg M.D./jordan Electronically Signed By: MASHA ROSENBERG MD On: 09/27/2014 07:28 PM Modified by and Electronically Signed by: MASHA ROSENBERG MD On: 09/27/2014 07:28 PM Source: [facility] MHSDOLBEYNONRADSYS Document Id: [id number] Miscellaneous - Masha Rosenberg M.D. - 09/25/2014 11:28 AM CDT Addendum by NHUNG KENDALL LPN on 19 October 2014 13:45:23 CDT [facility] [place] [address] Patient Communication for follow up treatment for:__Colonoscopy 1st____ Attempt made to contact patient on: 10/19/14 . A. Patient is scheduled to be seen on: B. Patient is refusing recommended treatment at this time. C.___x___ Message left for patient at: [phone] to return call to Dr. Workman Nurse at [phone]. D. Talked with patient. Individual that has talked to the patient: . After the following situation: >___Patient scheduled >___Patient refusal >___No return phone call after third attempt. Will send patient a reminder letter through the mail. Follow up communication will occur to the referring provider as follows. Referring provider: ____Dr. Rosenberg Contacted on: Contacted as follows: Voice message Fax Message center via the EMR Individual that has contacted the recommended provider: From: MAHSA ROSENBERG MD To: Surgery Nurse; Sent: 09/25/2014 11:28:37 CDT Please arrange a screening colonoscopy for Ms. Queta Sandoval. She is due in 11/2014. Thank you. Source: [facility] Document Id: [id number] Electronically signed by [employer] Mobile Marketing Specialist [id number] at 08/17/2016 5:53 PM CDT Miscellaneous - Jennyfer Mares L.P.N. - 09/25/2014 9:52 AM CDT Ambulatory Vitals Height Weight Ambulatory Vitals Height Weight Entered On: 09/25/2014 9:52 CDT Performed On: 09/25/2014 9:52 CDT by JENNYFER MARES LPN Vitals/Ht/Wt Systolic Blood Pressure : 150 mmHg (HI) Diastolic Blood Pressure : 80 mmHg NIBP Mean : 103 mmHg BP Location : Left upper extremity Blood Pressure Cuff Size : Regular Height : 169 cm(Converted to: 5 ft 7 inch(es), 67 inch(es)) JENNYFER MARES LPN - 09/25/2014 9:52 CDT [facility] Document Id: [id number] CDT!8 Miscellaneous - Jennyfer Mares L.P.N. 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/History Entered On: 09/25/2014 9:52 CDT Performed On: 09/25/2014 9:51 CDT by JENNYFER MARES LPN Intake Chief Complaint : physical Temperature Core : 36.8 DegC(Converted to: 98.2 DegF) Peripheral Pulse Rate : 68 /min Respiratory Rate : 16 /min Systolic Blood Pressure : 166 mmHg (>HHI) Diastolic Blood Pressure : 92 mmHg (>HHI) NIBP Mean : 117 mmHg BP Location : Left upper extremity Blood Pressure Cuff Size : Regular Height : 169 cm(Converted to: 5 ft 7 inch(es), 67 inch(es)) (Comment: on 09-07-14 [JENNYFER MARES LPN - 09/25/2014 9:51 CDT] ) Actual Weight : 87 kg(Converted to: 191 lb 13 oz) Dosing Weight Clinic : 87 kg Clinic BSA : 2.02 Body Mass Index : 30.46 kg/m2 JENNYFER MARES LPN - 09/25/2014 9:51 CDT General Info Languages : Mexican Is Patient Female and 13-50 no hysterectomy : No JENNYFER MARES LPN - 09/25/2014 9:51 CDT Subjective Pain Symptoms : No JENNYFER MARES LPN - 09/25/2014 9:51 CDT Dependent Habits Tobacco Use/Currently Using : No Tobacco Use/Last 12 months : No Exposure to Tobacco Smoke : Other: NEVER SMOKER Smoking Status : Never smoker JENNYFER MARES LPN - 09/25/2014 9:51 CDT Caffeine Use Grid Caffeine Use : Current Type : Chocolate, Soft drinks Frequency : Occasionally JENNYFER MARES LPN - 09/25/2014 9:51 CDT Source: [employer] Document Id: [id number] CDT!31 documented in this encounter Plan of Treatment Upcoming Encounters Date Type Specialty Care Team Description 11/20/2021 Nurse Only Family Medicine Giovanna Schreiber V., AUTOMATION MACHINE BUILDER, C.N.P. [address], [place] [phone] 11/20/2021 Appointment Laboratory Medicine Giovanna Schreiber APRN, C.N.P. [address], [place] [phone] 12/18/2021 Comprehensive Visit Physical Medicine and Isidoro Morales M.D. [address] [place] [address] 12/19/2021 Comprehensive Visit Community Internal Giovanna Schreiber, Medicine ZAINA, C.N.P. [address], [place] [phone] documented as of this encounter Procedures Procedure Name Priority Date/Time Associated Comments Diagnosis DIPSTICK, U Routine 09/25/2014 10:55 Results for this AM CDT procedure are i n the results section. LIPID PANEL, S Routine 09/25/2014 10:38 Results f or this AM CDT procedure are i n the results section. AUTOMATED DIFFERENTIAL, Routine 09/25/2014 10:38 Results for this B AM CDT procedure are i n the results section. CBC WITH DIFFERENTIAL, B Routine 09/25/2014 10:38 Results for this AM CDT procedure are i n the results section. ASPARTATE Routine 09/25/2014 10:38 Results for this AMINOTRANSFERASE (AST), AM CDT proc edure are in S/P the results section. THYROID-STIMULATING Routine 09/25/2014 10:38 Resu lts for this HORMONE-SENSITIVE AM CDT procedure are in (S-TSH) the results section. BASIC METABOLIC PANEL, Routine 09/25/2014 10:38 R esults for this S/P AM CDT procedure are i n the results section. documented in this encounter Results (ABNORMAL) Dipstick, Urine (09/25/2014 10:55 AM CDT) [facility] gist Method Time Signature HXUr Color Yellow Colorless POWERCHART Clarity Clear Clear POWERCHART Glucose Negative Negative POWERCHART MGDL HXBILIRUBIN Negative Negative POWERCHART Ketones, QL(U) Negative Negative POWERCHART MGDL Specific 1.025 POWERCHART [place], POCT, U HXBLOOD Trace (A) Negative POWERCHART pH, POCT, Urine 6.0 <5.0 POWERCHART Protein, Ur, Negative Negative POWERCHART Dip MGDL Urobilinogen 0.2 0.2 MGDL POWERCHART HXNITRITE Negative Negative POWERCHART Leukocyte Moderate Negative POWERCHART Esterase (A) Specimen (Source) Anatomical Collection Method Collection Time Re ceived Time Location / / Volume Laterality Urine, First 09/25/2014 10:55 Voided AM CDT Masha Rosenberg M.D. LAB URINE ORDERABLES Performing Organization Address City/State/ZIP Code Phon e Number POWERCHART Automated Differential (09/25/2014 10:38 AM CDT) P athologist Signature Absolute 4.91 1.70 - POWERCHART Neutrophils 7.00 109L Lymphocytes 2.30 0.90 - POWERCHART 2.90 X109L Monocytes 0.86 0.30 - POWERCHART 0.90 X109L Eosinophils 0.12 0.05 - POWERCHART 0.50 X109L Absolute 0.08 0.00 - POWERCHART Basophil 0.30 X109L Specimen Anatomical Collection Method Collection Time Receive d Time (Source) Location / / Volume Laterality Blood 09/25/2014 10:38 09/25/2014 AM CDT 10:38 AM CDT Masha Rosenberg M.D. LAB BLOOD ADD-ON Performing Organization Address City/State/ZIP Code Phon e Number POWERCHART (ABNORMAL) CBC with Differential (09/25/2014 10:38 AM CDT) Analysis Performed At Patho logist Time Signature Leukocytes 8.3 3.4 - 10.5 POWERCHART X109L Erythrocytes 5.00 3.90 - POWERCHART 5.03 [id number] Hemoglobin 15.0 12.0 - POWERCHART 15.5 GDL Hematocrit 45.6 (H) 34.9 - POWERCHART 44.5 MCV 91.2 82.0 - POWERCHART 98.0 FL HX RDW 13.8 11.9 - POWERCHART 15.5 Platelet Count 244 150 - 450 POWERCHART X109L Specimen (Source) Anatomical Collection Method Collection Time Re ceived Time Location / / Volume Laterality Blood 09/25/2014 10:38 AM CDT Masha Rosenberg M.D. LAB BLOOD ADD-ON Performing Organization Address City/State/ZIP Code Phon e Number POWERCHART Thyroid-Stimulating Hormone-Sensitive (s-TSH) (09/25/2014 10:38 AM CDT) P athologist Signature TSH 4.08 0.27 - 4.20 POWERCHART (Thyrotropin) MIUL Specimen (Source) Anatomical Collection Method Collection Time Re ceived Time Location / / Volume Laterality Blood 09/25/2014 10:38 AM CDT Masha Rosenberg M.D. LAB BLOOD ADD-ON Performing Organization Address City/State/ZIP Code Phon e Number POWERCHART (ABNORMAL) Lipid Panel (09/25/2014 10:38 AM CDT) P athologist Signature Calculated LDL 193 (H) <=129 MGDL POWERCHART Comment: 2014 National [...] for FH and FDB is available throu [facility]: FH/ADH Genetic Reflex Castro el (test ADHP). Acquired (non-genetic) causes of markedly increased LDL cholesterol include cholestatic liver disease due to the presence of LpX. If a genetic form of hypercholesterolemia is suspected, family studies including biochemical testing fo r lipids (total cholesterol,triglycerides, LDL cholesterol and HDL cholesterol) are recommended. ??Please contact the laboratory at or the on-line test catalog at [employer] for information about how to order these jairo ts or to speak with a genetic counselor. Further interpretation would require clinical information. Total Cholesterol/HDL Ratio 3.96 PO WERCHART Cholesterol, Total 297 (H) <=199 MGDL POWERCHART Comment: 2013 National Lipid Association recommen dations for Total Cholesterol in adults ages 18 and up: Desirable <200 mg/dL Borderline high 200-239 mg/dL High 240 mg/dL 2014 National Lipid Association recommen dations for Total Cholesterol in children ages 2 to 17. Acceptable <170 mg/dL Borderline High 170-199 mg/dL High 200 mg/dL HX HDL 75 >=50 MGDL POWERCHART Comment: 2014 National Lipid Association recommen dations for HDL-C in adults ages 18 and up: Low <40 mg/dL (Men) Low <50 mg/dL (Women) 2014 National Lipid Association recommen dations for HDL-C in children ages 2 to 17. Low <40 mg/dL Borderline Low 40-45 mg/dL Acceptable >45 mg/dL Triglycerides 145 <=149 MGDL POWERCHART Comment: 2014 National Lipid [...] risk assessment when triglycerides are >400mg/dL. HXLDL/HDL 3 POWERCHART Specimen (Source) Anatomical Collection Method Collection Time Re ceived Time Location / / Volume Laterality Blood 09/25/2014 10:38 AM CDT Masha Rosenberg M.D. LAB BLOOD ADD-ON Performing Organization Address City/State/ZIP Code Phon e Number POWERCHART AST (Aspartate Aminotransferase) (09/25/2014 10:38 AM CDT) [facility] gist Method Time Signature Aspartate 19 8 - 43 POWERCHART Aminotransferase UNITL (AST), S Specimen (Source) Anatomical Collection Method Collection Time Re ceived Time Location / / Volume Laterality Blood 09/25/2014 10:38 AM CDT Masha Rosenberg M.D. LAB BLOOD ADD-ON Performing Organization Address City/State/ZIP Code Phon e Number POWERCHART (ABNORMAL) BMP (Basic Metabolic Panel) (09/25/2014 10:38 AM CDT) P athologist Signature BUN (Blood Urea 18 6 - 21 POWERCHART Nitrogen), S MGDL Chloride, S 102 98 - 107 POWERCHART MMOLL CO2 Total 30 (H) 22 - 29 POWERCHART MMOLL Creatinine, S 0.9 0.6 - 1.1 POWERCHART MGDL Glucose 100 70 - 139 POWERCHART MGDL Calcium, Total, 9.7 8.8 - 10.3 POWERCHART S MGDL Sodium, S 142 135 - 145 POWERCHART MMOLL Potassium, S 4.3 3.6 - 5.2 POWERCHART MMOLL HXeGFR (MDRD) 59 (L) >=60 POWERCHART [id number] eGFR >60 >=60 POWERCHART Black/ [id number] [place] Specimen (Source) Anatomical Collection Method Collection Time Re ceived Time Location / / Volume Laterality Blood 09/25/2014 10:38 AM CDT Masha Rosenberg M.D. LAB BLOOD ADD-ON Performing Organization Address City/State/ZIP Code Phon e Number POWERCHART documented in this encounter Visit Diagnoses Not on filedocumented in this encounter
--- OUTSIDE RECORDS SUMMARY | 2021-10-30 02:01 | XMS_ITS | Encounter Summary ---
:[address] [facility] Address [address] [place] [address] Care Team Providers Name Role Phone Unavailable Primary Care Provider Unavailable Encounter Details Date Type Department Care Team Description 08/06/2011 Hospital Encounter HX [facility] FB NURSE Fadumo Candelaria M.D. Social History Tobacco Use Types Packs/Day Years [...] or relatives? How often do you attend yarsani or yarsani More than 4 time s per year 02/07/2019 services? Do you belong to any clubs or organizations Yes 02/07/2019 such as yarsani groups, unions, fraternal or athletic groups, or [...] at Date Recorded Female 03/01/2017 8:10 PM [employer] documented as of this encounter Medications at Time of Discharge Medication Sig Dispensed Refills Start Date End Date FAMOTIDINE ORAL Pepcid See Instructions, 10 mg 0 06/12/2011 1 in am 2 in pm as needed LORATADINE ORAL Take 10 mg by mouth as needed. 0 06/12/2011 documented as of this encounter Procedure Notes Conversion, Historical Provider Ser - 08/06/2011 9:40 AM CDT Clinic Procedure Documentation Clinic Procedure Documentation Entered On: 08/06/2011 9:41 CDT Performed On: 08/06/2011 9:40 CDT by MIKE WEAVER Ambulatory Procedure : Holter Monitor removal ASAD WEAVERTrista Weston - 08/06/2011 9:40 CDT Amb/Home Prep Complete Surgical/Procedure Consent Signed : Samaria DELGADOYOANNA MIKE Weston - 08/06/2011 9:40 CDT Allergy Allergies (Active) NKA Estimated Onset Date: Unspecified ; Created By: BRUCE MORALES; Reaction Status: Active ; Category: Drug ; Substance: NKA ; Type: Allergy ; Updated By: BRUCE MORALES; Reviewed Date: 08/04/201114:49 CDT Cardiology Procedure Monitor Type : Holter 24 Hr - [place] Return to Clinic : 08/06/2011 Monitor Comment : Holter Monitor removal. MIKE WEAVER - 08/06/2011 9:40 CDT Source: [facility] [employer] Document Id: [id number] documented in this encounter Plan of Treatment Upcoming Encounters Date Type Specialty Care Team Description 11/20/2021 Nurse Only Family Medicine Giovanna Schreiber APRN, C.N.P. [address] [place] [address] 11/20/2021 Appointment Laboratory Medicine Giovanna Schreiber V., ZAINA, C.N.P. [address] [facility] [place] [address] 12/18/2021 Comprehensive Visit Physical Medicine and Isidoro Morales M.D. [address] [place] [phone] 12/19/2021 Comprehensive Visit Community Internal Giovanna Schreiber, Medicine ZAINA, C.N.P. [address] [facility] [address] documented as of this encounter Visit Diagnoses Not on filedocumented in this encounter
--- OUTSIDE RECORDS SUMMARY | 2021-10-30 02:01 | XMS_ITS | Encounter Summary ---
:1945 Author Organization [facility] Address [address] [place] [address] Care Team Providers Name Role Phone Unavailable Primary Care Provider Unavailable Encounter Details Date Type Department Care Team Description 01/01/2015 Hospital Encounter HX NO MAPPING Deric Workman M. D. Social History Tobacco Use Types Packs/Day Years [...] How often do you attend hindu or lutheran More than 4 time s per year [...] at Date Recorded Female 03/01/2017 8:10 PM [employer] documented as of this encounter Medications [...] Laboratory Medicine Giovanna Schreiber APRN C.N.P. [address] [phone] 12/18/2021 Comprehensive Visit Physical Medicine and Isidoro Morales M.D. [address] [address] 12/19/2021 Comprehensive Visit Community Internal Giovanna Schreiber, Medicine ZAINA, C.N.P. [address] [facility] [place] [phone] documented as of this encounter Visit Diagnoses Not on filedocumented in this encounter
--- OUTSIDE RECORDS SUMMARY | 2021-10-30 02:01 | XMS_ITS | Encounter Summary ---
:1945 Author Organization [facility] Address [address] [place] [address] Care Team Providers Name Role Phone Unavailable Primary Care Provider Unavailable Encounter Details Date Type Department Care Team Description 08/04/2011 Hospital Encounter HX [facility] Fadumo Oreilly M.D. Social History Tobacco Use Types Packs/Day [...] or relatives? How often do you attend catholic or christianity More than 4 time s per year 02/07/2019 services? 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 as of this encounter Last Filed Vital Signs Vital Sign Reading Time Taken Comments Blood Pressure 152/82 08/04/2011 2:55 PM CDT Pulse 66 08/04/2011 2:50 PM CDT Temperature - - Respiratory Rate 16 08/04/2011 2:50 PM CDT Oxygen Saturation - - Inhaled Oxygen Concentration - - Weight 84 kg (185 lb 3 oz) 08/04/2011 2:50 PM CDT Height - - Body Mass Index 30.85 07/23/2011 10:04 AM CDT documented in this encounter Medications at Time of Discharge Medication Sig Dispensed Refills Start Date End Date FAMOTIDINE ORAL Pepcid See Instructions, 10 mg 0 06/12/2011 1 in am 2 in pm as needed LORATADINE ORAL Take 10 mg by mouth as needed. 0 06/12/2011 documented as of this encounter Progress Notes Mitzy Oreilly M.D. - 08/04/2011 12:00 AM CDT [id number] CHIEF COMPLAINT/ REASON FOR VISIT Pounding of the heart, had cataract surgery. HISTORY OF PRESENT ILLNESS This 65-year-old female patient states that she went for cataract surgery and she was very anxious her blood pressure was systolic 180 and came down to 170. She seemed stable and cataract surgery was done. Since then she is concerned because she thinks she can see the lens in her left eye and she will be talking to Dr. Yang about that in 2 days. Apparently at the time of surgery she had a pounding in her chest and racing of her heart. She read on line that the drops that dilate the eyes can do that which she did not have the exact name she was just looking up general questions. She should discuss that also with Dr. Yang. She occasionally feels her heart skip beat or flutter since the procedure but also had some symptoms like that in the past but less frequent. Maybe that she is just more aware of the situation now and consciously keep watching for any symptoms. She has not had any problems in the past. In general she has been healthy. She had an EKG today showing PVCs some ST-segment changes and will get a Holter monitor and echocardiogram, thyroid function studies. She will eliminate caffeine from her diet. She drinks two cups of coffee a day and she is a salt user and she will cut back to no added salt no cooking with salt no salty foods also will have hypertension evaluation. Her blood pressure today was 152/88 3 weeks ago had been 126/78. EMR record reviewed and updated. SYSTEMS REVIEW RESPIRATORY: No cough or shortness of breath. CARDIOVASCULAR: Chest symptoms as above. GI: No nausea, vomiting, diarrhea, constipation or recent change in weight. : No dysuria, no hematuria. All other systems reviewed and negative, except as mentioned above. PHYSICAL EXAM AREA EXAM TEXT SKIN Clear EYES Pupils equal, round, react to light and accommodation; EOMs full; fundi no papilledema, hemorrhage or exudate; lids normal. ENT Ears: TMs clear; external auditory canals clear. Throat clear. Tongue normal. Teeth normal. LYMPH NODES Neck: no lymphadenopathy. THYROID Normal size, symmetric. HEART Occasional skipped beat. LUNGS Clear to percussion and auscultation, normal to inspection, no retractions, no dyspnea. ABDOMEN No masses, no organomegaly, nontender; normal to inspection, percussion and palpation; no distention. EXTREMITIES Legs: no edema. 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 Plan echocardiogram chest x-ray Holter monitor and CK, troponin I TSH complete metabolic panel BNAP CBC uric acid and hold upcoming surgery at this time. Recheck 1 week return sooner p.r.n. She will rest at home no medication yet at this time. SFO/clf Signed Mitzy Oreilly M.D. Family Medicine Electronically Signed By: MITZY OREILLY MD On: 08/07/2011 08:10 AM Source: [facility] [place] [email or web address] Document Id: [id number] documented in this encounter Miscellaneous Notes Miscellaneous - Mitzy Oreilly M.D. - 08/07/2011 1:39 PM CDT Results Notification From: MITZY OREILLY MD To: MITZY OREILLY MD Sent: 08/07/2011 13:39:18 CDT ! Show up: 08/07/2011 18:39:18 [facility] Subject: Results Notification Actions: Notify patient of results Source: [facility] POWERCHART Document Id: [id number] Electronically signed by Makenzie [facility] Quality Assurance Practice Manager [id number] at 08/23/2016 11:49 PM CDT Miscellkalina - Mitzy Oreilly M.D. - 08/06/2011 9:01 AM CDT Results Notification From: MITZY OREILLY MD To: MITZY OREILLY MD Sent: 08/06/2011 09:01:59 CDT ! Show up: 08/06/2011 14:01:59 [facility] Subject: Results Notification Actions: Notify patient of results Source: [facility] Tapad Document Id: [id number] Electronically signed by Makenzie [facility] Quality Assurance Practice Manager [id number] at 08/23/2016 11:49 PM CDT Miscellaneous - Mitzy Oreilly M.D. - 08/04/2011 4:39 PM CDT Ambulatory Depart Summary [address] [address] Visit Information Name: QUETA ANTOINE Visit Date: 08/04/2011 16:39:59 Attending Provider: MITZY OREILLY MD Primary Care Provider: MITZY OREILLY MD QUETA ANTOINE has been given the following list of medications: Your Medications It is important to take your medications as directed. Use a pill box or chart to help remind you to take your medications. Please let your doctor or nurse know if you have problems taking your medications. Medication/Strength Dose Route Frequency Indications/Special Instructions/Comments loratadine (Claritin) 10 mg Oral once a day famotidine (Pepcid) Attention: If you have any medications at home that are not on this list, DO NOT take them until youcontact your provider for clarification. Additional Information: Source: [facility] Tapad Document Id: [id number] Miscellaneous - Mitzy Oreilly M.D. - 08/04/2011 4:39 PM CDT Ambulatory Patient Summary [id number] [place] [address] Visit Information Name: QUETA ANTOINE Current Date: 08/04/2011 16:39:59 [facility] Attending Provider: MITZY OREILLY MD Primary Care Provider: MITZY OREILLY MD Your Medications Here is a list of your medications. It is important to take your medications as directed. Use a pillbox or chart to help remind you to take your medications. Please let your doctor or nurse know if you have problems taking your medications. Medication/Strength Dose Route Frequency Indications/Special Instructions/Comments loratadine (Claritin) 10 mg Oral once a day famotidine (Pepcid) Attention: If you have any medications at home that are not on this list, DO NOT take them until youcontact your provider for clarification. Your Allergies & Intolerances Substance Reaction Symptoms Category Comments No Known Allergies Drug Your Problem List Problem Status Onset Comments Cataract, senile, unspecified Active 07/23/2011 07/23/11 left > right Hypertension Active Hypercholesterolemia* Active Ventricular premature systoles Active 08/04/2011 Your Upcoming Appointments Date Time Location Reason Provider No Appointments found Your Goals/Additional instructions: Source: [facility] [place] POWERCHART Document Id: [id number] Miscellaneous - Conversion, Historical Provider Ser - 08/04/2011 2:55 PM CDT Ambulatory Vitals Height Weight Ambulatory Vitals Height Weight Entered On: 08/04/2011 14:56 CDT Performed On: 08/04/2011 14:55 CDT by LACY CABRERA Vitals/Ht/Wt Systolic Blood Pressure : 152mmHg (HI) Diastolic Blood Pressure : 82mmHg NIBP Mean : 105mmHg BP Location : Right upper extremity Blood Pressure Cuff Size : Large LACY CABRERA - 08/04/2011 14:55 CDT Source: [place] Document Id: [id number]!7 Miscellaneous - Conversion, Historical Provider Ser - 08/04/2011 2:50 PM CDT 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 Entered On: 08/04/2011 14:55 CDT Performed On: 08/04/2011 14:50 CDT by LACY CABRERA Intake Chief Complaint : Consult regarding surgery Temperature Core : 37.5C(Converted to: 99.5DegF) Peripheral Pulse Rate : 66/min Respiratory Rate : 16/min Heart Rhythm : Irregular Systolic Blood Pressure : 160mmHg (HI) Diastolic Blood Pressure : 90mmHg (HI) NIBP Mean : 113mmHg BP Location : Right upper extremity Blood Pressure Cuff Size : Large Actual Weight : 84kg(Converted to: 185lb 3oz) Dosing Weight Clinic : 84.00kg LACY CABRERA - 08/04/2011 14:50 CDT Subjective Pain Symptoms : No LACY CABRERA - 08/04/2011 14:50 CDT Dependent Habits Tobacco Use/Currently Using : No Smoking Status : Never smoker Alcohol Use : No LACY CABRERA - 08/04/2011 14:50 CDT Caffeine Use Grid Caffeine Use : Current Type : Chocolate, Coffee, Soft drinks, Tea Frequency : Daily LACY CABRERA - 08/04/2011 14:50 CDT Allergy Allergies (Active) NKA Estimated Onset Date: Unspecified ; Created By: BRUCE MORALES; Reaction Status: Active ; Category: Drug ; Substance: NKA ; Type: Allergy ; Updated By: BRUCE MORALES; Reviewed Date: 08/04/201114:49 CDT Source: [place] Document Id: [id number] CDT!25 documented in this encounter Plan of Treatment Upcoming Encounters Date Type Specialty Care Team Description 11/20/2021 Nurse Only Family Medicine Giovanna Schreiber V., ZAINA, C.N.P. [address], [place] [phone] 11/20/2021 Appointment Laboratory Medicine Giovanna Schreiber V., ZAINA, C.N.P. [address], [place] [phone] 12/18/2021 Comprehensive Visit Physical Medicine and Isidoro Morales M.D. [address] [facility], [place] [phone] 12/19/2021 Comprehensive Visit Community Internal Giovanna Schreiber, Medicine ZAINA C.N.P. [address] [place] [address] [phone] documented as of this encounter Procedures Procedure Name Priority Date/Time Associated Comments Diagnosis NT-PRO B-TYPE Routine 08/04/2011 4:39 Results for this NATRIURETIC PEPTIDE PM CDT procedur e are in (BNP), S the results section. TROPONIN I, S Routine 08/04/2011 4:39 Results for this PM CDT procedure are i n the results section. CREATINE KINASE (CK), S Routine 08/04/2011 4:39 R esults for this PM CDT procedure are i n the results section. DIPSTICK, U Routine 08/04/2011 3:40 Results for this PM CDT procedure are i n the results section. LIPID PANEL, S Routine 08/04/2011 3:30 Results fo r this PM CDT procedure are i n the results section. AUTOMATED DIFFERENTIAL, Routine 08/04/2011 3:30 R esults for this B PM CDT procedure are i n the results section. THYROPEROXIDASE (TPO) Routine 08/04/2011 3:30 Res ults for this ABS, S PM CDT procedure are i n the results section. CBC WITH DIFFERENTIAL, B Routine 08/04/2011 3:30 Results for this PM CDT procedure are i n the results section. URIC ACID, S/P Routine 08/04/2011 3:30 Results fo r this PM CDT procedure are i n the results section. T3 (TRIIODOTHYRONINE), Routine 08/04/2011 3:30 Re sults for this TOT, S PM CDT procedure are i n the results section. THYROID-STIMULATING Routine 08/04/2011 3:30 Resul ts for this HORMONE-SENSITIVE PM CDT procedure are in (S-TSH) the results section. T4 (THYROXINE), FREE, S Routine 08/04/2011 3:30 R esults for this PM CDT procedure are i n the results section. COMPREHENSIVE METABOLIC Routine 08/04/2011 3:30 R esults for this PANEL, S/P PM CDT procedure are i n the results section. DX CHEST 1 VIEW Routine 08/04/2011 3:20 Results f or this PM CDT procedure are i n the results section. documented in this encounter Results NT-Pro B-Type Natriuretic Peptide (BNP) (08/04/2011 4:39 PM CDT) athologist Signature B-Type 64 0 - 100 POWERCHART Natriuretic PGML Peptide (BNP) Specimen (Source) Anatomical Collection Method Collection Time Re ceived Time Location / / Volume Laterality Blood 08/04/2011 4:39 PM CDT Mitzy Oreilly M.D. LAB BLOOD ADD-ON Performing Organization Address City/State/ZIP Code Phon e Number POWERCHART Troponin I (08/04/2011 4:39 PM CDT) [facility] gist Method Time Signature Troponin I, S Separate POWERCHART Report Specimen (Source) Anatomical Collection Method Collection Time Re ceived Time Location / / Volume Laterality Blood 08/04/2011 4:39 PM CDT Mitzy Oreilly M.D. LAB BLOOD NON ADD-ON Performing Organization Address City/State/ZIP Code Phon e Number POWERCHART CK (Creatine Kinase) (08/04/2011 4:39 PM CDT) athologist Signature Creatine Kinase 108 38 - 176 POWERCHART (CK), S UNITL Specimen (Source) Anatomical Collection Method Collection Time Re ceived Time Location / / Volume Laterality Blood 08/04/2011 4:39 PM CDT Mitzy Oreilly M.D. LAB BLOOD ADD-ON Performing Organization Address City/State/ZIP Code Phon e Number POWERCHART (ABNORMAL) Dipstick, Urine (08/04/2011 3:40 PM CDT) [facility] gist Method Time Signature Source Clean Void POWERCHART Urine HXUr Color Yellow POWERCHART Appearance Slightly POWERCHART Cloudy (A) Glucose Negative Negative POWERCHART HXBILIRUBIN Negative Negative POWERCHART Ketones, QL(U) Negative Negative POWERCHART Specific 1.020 1.020 POWERCHART [place], POCT, U HXBLOOD Negative Negative POWERCHART pH, POCT, Urine 7.0 5.0 - 8.0 POWERCHART Protein, Ur, Dip Negative Negative POWERCHART Urobilinogen 0.2 0.2 - 1.0 POWERCHART HXNITRITE Negative Negative POWERCHART Leukocyte Moderate (A) Negative POWERCHART Esterase Specimen (Source) Anatomical Collection Method Collection Time Re ceived Time Location / / Volume Laterality Urine 08/04/2011 3:40 PM CDT Mitzy Oreilly M.D. LAB URINE ORDERABLES Performing Organization Address [facility] Phon e Number POWERCHART Automated Differential (08/04/2011 3:30 PM CDT) athologist Signature Neutro % 44.0 34.0 - 71.1 POWERCHART Lymphocytes % 43.9 19.3 - 51.7 POWERCHART HX [place] % 9.5 4.7 - 12.5 POWERCHART HX Eos % 1.6 0.7 - 5.8 POWERCHART HX Baso % 1.0 0.1 - 1.2 POWERCHART Specimen Anatomical Collection Method Collection Time Receive d Time (Source) Location / / Volume Laterality Blood 08/04/2011 3:30 PM 2 3:30 CDT PM CDT Mitzy Oreilly M.D. LAB BLOOD ADD-ON Performing Organization Address [facility] Phon e Number POWERCHART CBC with Differential (08/04/2011 3:30 PM CDT) athologist Signature Leukocytes 8.7 3.4 - 10.5 POWERCHART X109L Erythrocytes 4.57 3.90 - POWERCHART 5.03 [id number] Hemoglobin 13.7 12.0 - POWERCHART 15.5 GDL Hematocrit 41.2 34.9 - POWERCHART 44.5 MCV 90.2 82.0 - POWERCHART 98.0 FL Platelet Count 242 150 - 450 POWERCHART X109L HX RDW 13.7 11.9 - POWERCHART 15.5 HXDifferential? Auto POWERCHART Specimen (Source) Anatomical Collection Method Collection Time Re ceived Time Location / / Volume Laterality Blood 08/04/2011 3:30 PM CDT Mitzy Oreilly M.D. LAB BLOOD ADD-ON Performing Organization Address City/[facility] Code Phon e Number POWERCHART Thyroperoxidase (TPO) Antibodies (08/04/2011 3:30 PM CDT) Patholo gist Method Time Signature Thyroperoxidase Ab, <0.3 <9.0 POWERCHART S INTUML Comment: Test Performed by: [facility] Dpt of Lab Med and Pathology [address] [place] [address] Erp Technical Lead: Yosef ortiz III, M.D. Specimen (Source) Anatomical Collection Method Collection Time Re ceived Time Location / / Volume Laterality Blood 08/04/2011 3:30 PM CDT Mitzy Oreilly M.D. LAB BLOOD ADD-ON Performing Organization Address [facility] Phon e Number POWERCHART T3 (Triiodothyronine), Total (08/04/2011 3:30 PM CDT) athologist Signature T3 128 80 - 190 POWERCHART (Triiodothyroni NGDL ne), Total, S Comment: Test Performed by: [facility] Dpt of Lab Med and Pathology [address] [place] [address] Erp Technical Lead: Yosef ortiz III, M.D. Specimen (Source) Anatomical Collection Method Collection Time Re ceived Time Location / / Volume Laterality Blood 08/04/2011 3:30 PM CDT Mitzy Oreilly M.D. LAB BLOOD ADD-ON Performing Organization Address City/[facility] Phon e Number POWERCHART T4 (Thyroxine), Free (08/04/2011 3:30 PM CDT) P athologist Signature T4 (Thyroxine), 1.0 NGDL POWERCHART Free, S Comment: -- REFERENCE VALUE -- 0.8-1.8 Elevated values are seen in patients on thyroxine therapy. Test Performed by: [facility] Dpt of Lab Med and Pathology [address] [place], [place] [address] Erp Technical Lead: Yosef ortiz III, M.D. Specimen (Source) Anatomical Collection Method Collection Time Re ceived Time Location / / Volume Laterality Blood 08/04/2011 3:30 PM CDT Mitzy Oreilly M.D. LAB BLOOD ADD-ON Performing Organization Address City/[facility] Code Phon e Number POWERCHART Uric Acid (08/04/2011 3:30 PM CDT) P athologist Signature Uric Acid, S 5.0 2.3 - 6.0 POWERCHART MGDL Specimen (Source) Anatomical Collection Method Collection Time Re ceived Time Location / / Volume Laterality Blood 08/04/2011 3:30 PM CDT Mitzy Oreilly M.D. LAB BLOOD ADD-ON Performing Organization Address [facility] Phon e Number POWERCHART (ABNORMAL) Thyroid-Stimulating Hormone-Sensitive (s-TSH) (08/04/2011 3:30 PM CDT) P athologist Signature TSH, Sensitive 10.2 (H) 0.3 - 5.0 POWERCHART MIUL Comment: Test Performed by: [facility] Dpt of Lab Med and Pathology [address] [place] [address] Erp Technical Lead: Yosef ortiz III, M.D. Specimen (Source) Anatomical Collection Method Collection Time Re ceived Time Location / / Volume Laterality Blood 08/04/2011 3:30 PM CDT Mitzy Oreilly M.D. LAB BLOOD ADD-ON Performing Organization Address [facility] Phon e Number POWERCHART (ABNORMAL) Lipid Panel (08/04/2011 3:30 PM CDT) Patholo gist Method Time Signature Cholesterol, 252 (H) 0 - 200 POWERCHART Total MGDL HX HDL 84.0 (H) 40.0 - POWERCHART 60.0 MGDL Triglycerides 165 (H) 0 - 150 POWERCHART MGDL Calculated LDL 135 (H) 0 - 100 POWERCHART MGDL Specimen (Source) Anatomical Collection Method Collection Time Re ceived Time Location / / Volume Laterality Blood 08/04/2011 3:30 PM CDT Mitzy Oreilly M.D. LAB BLOOD ADD-ON Performing Organization Address City/State/ZIP Code Phon e Number POWERCHART CMP (Comprehensive Metabolic Panel) (08/04/2011 3:30 PM CDT) [facility] gist Method Time Signature BUN (Blood Urea 17 6 - 20 POWERCHART Nitrogen), S MGDL Creatinine, S 1.0 0.7 - 1.2 POWERCHART MGDL Potassium, S 4.6 3.5 - 4.8 POWERCHART MMOLL Sodium, S 143 135 - 145 POWERCHART MMOLL Chloride, S 106 100 - 108 POWERCHART MMOLL CO2 Total 28 22 - 29 POWERCHART MMOLL Calcium, Total, S 9.9 8.5 - POWERCHART 10.5 MGDL Albumin, S 4.4 3.5 - 5.0 POWERCHART GMDL Alkaline 102 50 - 130 POWERCHART Phosphatase, S UNITL Aspartate 24 8 - 43 POWERCHART Aminotransferase UNITL (AST), S Alanine 27 9 - 52 POWERCHART Amniotransferase, LD UNITL Bilirubin, Total, S 0.4 0.1 - 1.0 POWERCHART MGDL Total Protein, S 7.6 6.3 - 8.2 POWERCHART MGDL BUN/Creatinine Ratio 17 POWERCHAR T Glucose, Fasting, S 90 70 - 99 POWERCHART MGDL HXeGFR (MDRD) 55 MLMIN POWERCHART eGFR Black/ >60 MLMIN POWERCHART [place] Specimen (Source) Anatomical Collection Method Collection Time Re ceived Time Location / / Volume Laterality Blood 08/04/2011 3:30 PM CDT Mitzy Oreilly M.D. LAB BLOOD ADD-ON Performing Organization Address City/State/ZIP Code Phon e Number POWERCHART DX Chest 1 View (08/04/2011 3:20 PM CDT) Anatomical Region Laterality Modality Chest N/A Radiographic Imaging Specimen (Source) Anatomical Collection Method Collection Time Re ceived Time Location / / Volume Laterality 08/04/2011 3:20 PM CDT Addenda Addendum by Jak Saxena M.D. o n 08/04/2011 3:20 PM CDT RAD^^^OW XR Chest 1 view 08/04/2011 15:20:00 Addendum by Jak Saxena M.D. o n 08/04/2011 3:20 PM CDT RAD^^^MA XR Chest 1 view 08/04/2011 15:20:00 Narrative 08/04/2011 4:11 PM CDT Exam: ?? XR Chest 1 view Clinical history: hypertension Comparison: None Findings: The heart and mediastinum are within nor mal limits. ??The bilateral costophrenic angles and hemidiaphragms a re sharp. There is no acute interstitial or airspace opacity identif ied. The pulmonary vasculature is within normal limits. The re is right basilar atelectasis. Impression: No acute disease. Procedure Note Gregg Obrien M.D. / Provider, Rajesh barrientos M.D. - 08/12/2016 Exam: XR Chest 1 view Clinical history: hypertension Comparison: None Findings: The heart and mediastinum are within nor mal limits. The bilateral costophrenic angles and hemidiaphragms a re sharp. There is no acute interstitial or airspace opacity identif ied. The pulmonary vasculature is within normal limits. The re is right basilar atelectasis. Impression: No acute disease. Shaye Benoit R.T.(R), R.T.(R)(M) IMG DIAGNOSTIC IM AGING PROCEDURES documented in this encounter Visit Diagnoses Not on filedocumented in this encounter
--- OUTSIDE RECORDS SUMMARY | 2021-10-30 02:01 | XMS_ITS | Encounter Summary ---
:1945 Author Organization [facility] Address [address] [place] [address] Care Team Providers Name Role Phone Unavailable Primary Care Provider Unavailable Encounter Details Date Type Department Care Team Description 10/22/2015 Hospital Encounter HX [facility] Lisa Rosenberg M.D. [address] [place], [place] [address] (Wo rk) Social History [...] or relatives? How often do you attend roman catholic or protestant More than 4 time s per year 02/07/2019 services? 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 - 10/22/2015 8:17 AM CDT [id number] CHIEF COMPLAINT/REASON FOR VISIT Annual exam. HISTORY OF PRESENT ILLNESS A 70-year-old female presents to clinic for annual evaluation. Is not fasting but would be happy to come in tomorrow. Stopped exercising at [employer] but is going swimming twice per week. Continues to gain weight. Tries to follow a healthy diet. Episodically her left ear will feel plugged but is not painful. Is taking her prescription medications as prescribed. No true shortness of breath. Episodically will have a bit of a dot of bleeding from hemorrhoid about every 6 months. Has had stable colonoscopies. Is followed closely secondary to family history. Continues to have stress incontinence. Wears apad. Has some pain in her left leg related to a history of a fracture. Episodically it will lead to pain in the other leg. Had anemia when she was younger. EMR reviewed. MEDICATIONS 1. Metoprolol succinate 50 mg daily. 2. [place]-3 each day. 3. Aspirin 81 mg each day. 4. Eye supplement each day. 5. Calcium with vitamin D each day. 6. Selenium each day. 7. Loratadine 10 mg daily as needed. 8. Pepcid 10 mg 1 or 2 times per day. ALLERGIES No known drug allergies. SYSTEMS REVIEW Last ophthalmic exam May of 2015. Wears glasses. ENT: Last dental repair 2011. CARDIOVASCULAR: Seethe HPI and the Past Medical/Surgical History. GASTROINTESTINAL: See the HPI and the Past Medical/Surgical History. No change in daily bowel regimen. GENITOURINARY: See the HPI and the Past Medical/Surgical History. INTEGUMENTARY: Does self-breast exams a few times per year. Is not interested in mammograms. Does not always wear sunscreen. HEMATOLOGIC/LYMPHATIC: See the HPI and the Past Medical/Surgical History. [...] to family history of polyps with at [facility]. Depression: No. Asthma: No. Lipids: 09/25/2014, planned for 10/23/2015. Adacel: 10/22/2015. Prevnar: 10/22/2015. Influenza: Declined. SOCIAL HISTORY Alcohol: None. No other social drugs. Caffeine: A decaf coffee each day. A soda a couple times per week. Wears a seatbelt. Tries to follow a healthy diet. Last breast exam 2014. Calcium intake: Adequate. Exercises with swimming twice per week. No [employer] since March 2014. FAMILY HISTORY MOTHER: Colon cancer. FATHER: Diabetes [...] hypertension and macular degeneration. VITAL SIGNS Height 163 cm, weight 95.4 kg. Temperature 36.3, respiratory rate 16, pulse 76, systolic 136, diastolic 84. PHYSICAL EXAMINATION GENERAL: Neatly dressed and well groomed and in no apparent distress. SKIN: Solar changes in a sun wear distribution. HEAD: No trauma, tenderness or masses. EYES: [...] reveal no bruits. Abdominal aorta is not prominent. No ankle edema. No varicosities. LUNGS: Clear to auscultation. No palpable chest wall masses. ABDOMEN: Soft and nontender. Bowel sounds present. No organomegaly. PELVIS: No bony abnormalities. RECTUM: Deferred. GENITALIA: Deferred. SPINE: Range of motion consistent with stated [...] and ankles. IMPRESSION/REPORT/PLAN 1. Annual exam. 2. Vitamin D deficiency. 3. History of premature ventricular contractions. 4. Obesity. 5. Hypothyroidism. 6. Hypertension. 7. Hyperlipidemia. 8. Degenerative joint disease. 9. Immunization update. 10. Stress incontinence. PLAN: Update immunizations accordingly. Continue supportive measures. Discussed healthcare maintenance. She will consider. Will check a CBC, basic metabolic profile, vitamin D level, lipid level, TSH, AST tomorrow, following up accordingly. Would be happy to give refills as appropriate if labs are stable. Will consider all of her options, otherwise as noted. Reviewed exercise, cholesterol, diet/weight loss, calcium intake, alcohol use, immunizations, tobacco use, caffeine use, self-breast exams, mammography, colonic studies including colonoscopy or FIT testing, hormone replacement therapy as appropr iate, seatbelt use, back care, depression, eye exams and other issues. Follow up if any change occurs or as noted. Masha Rosenberg M.D./jordan Electronically Signed By: MASHA ROSENBERG MD On: 10/25/2015 08:20 AM Modified by and Electronically Signed by: MASHA ROSENBERG MD On: 10/25/2015 08:20 AM Source: [facility] MHSDOLBEYNONRADSYS Document Id: [id number] documented in this encounter Miscellaneous Notes Miscellaneous - Conversion, Historical Provider Ser - 12/15/2016 9:21 AM CDT Med Management From: ADRIANO DALAL ( [employer]) To: MASHA ROSENBERG MD; Sent: 12/15/2016 09:21:43 CDT Subject: Med Management On hold pending signature Order:metoprolol (metoprolol succinate 50 mg oral tablet, extended release) 1 tab(s) PO Daily Qty: 90 tab(s) Refills: 3 Substitutions Allowed Route To Pharmacy - [facility] Mail Delivery Source: [facility] POWERCHART Document Id: [id number] Telephone Encounter - Masha Rosenberg M.D. - 10/26/2015 12:00 AM CDT [id number] TSH is 6.47. Total cholesterol 274, triglycerides 162, LDL 171. Fasting glucose 106. Would recommendfollowing up in the clinic to discuss her various treatment and evaluation options. Refills were sent to her pharmacy. Card is sent to patient in regard to these issues. Masha Rosenberg M.D./jordan Electronically Signed By: MASHA ROSENBERG MD On: 10/26/2015 11:03 AM Modified by and Electronically Signed by: MASHA ROSENBERG MD On: 10/26/2015 11:03 AM Source: [facility] MHSDOLBEYNONRADSYS Document Id: [id number] Miscellaneous - Masha Rosenberg M.D. - 10/22/2015 12:29 PM CDT Ambulatory Discharge Medication List [address] [id number] Visit Information Name: MAURA ANTOINE [facility] Number: [id number] Visit Date: 10/22/2015 12:29:12 Attending Provider: MASHA ROSENBERG MD Primary Care Provider: MASHA ROSENBERG MD MAURA ANTOINE has been given the following list [...] release) 1 Tablet(s), Oral, once a day appointment scheduled 10-22-15 [facility] Prescription (Misc Prescription) See Instructions I caps [...] the Following Medications: Medication list as of 10-22-15 12:29 Attention: If you have any medications at [...] Electronically Signed By: MASHA ROSENBERG MD Signed On:22-OCT-2015 12:29:05 Additional Information: Source: [facility] POWERCHART Document Id: [id number] Miscellaneous - Masha Rosenberg M.D. - 10/22/2015 12:29 PM CDT Ambulatory Patient Summary [address] [id number] Visit Information Name: MAURA ANTOINE [facility] Number: [id number] Current Date: 10/22/2015 12:29:13 Physicians Attending Provider: MASHA ROSENBERG MD Primary Care Provider: MASHA ROSENBERG MD MAURA ANTOINE has been given the following list [...] release) 1 Tablet(s), Oral, once a day appointment scheduled 10-22-15 Misc Prescription (Misc Prescription) See Instructions I [...] the Following Medications: Medication list as of 10-22-15 12:29 Attention: If you have any medications at [...] Electronically Signed By: MASHA ROSENBERG MD Signed On:22-OCT-2015 12:29:05 Your Allergies & Intolerances Substance Reaction Symptoms Category Comments No Known Allergies Drug Your Problem List Problem Status Onset Comments Hypertension Active Hypercholesterolemia* Active Ventricular premature systoles Active 08/04/2011 Hypothyroidism, NOS, unspecified Active 08/14/2011 Vitamin D deficiency, unspecified Active 08/14/2011 Obesity Body Mass Index (BMI) 30-40 Adult Active Incontinence Urinary Stress (WAYNE) Female Active Your Upcoming Appointments Date Time Location Provider 10/23/2015 09:45 [facility] Attention: Contact your local Clinic if further [...] if you dont have one. Go to [email or web address] and click on Create Your Account. Then, follow the directions to complete the online form. Youll be asked for your [facility] number which you can find at the top of this document. Your Goals/Additional instructions: Source: [facility] Document Id: [id number] Miscellaneous - Carol Vick L.P.N. - 10/22/2015 8:32 AM CDT Adult Health And Wellness Instructor Intake/History Adult Health And Wellness Instructor Intake/History Entered On: 10/22/2015 8:34 CDT Performed On: 10/22/2015 8:32 CDT by CAROL VICK LPN Intake Chief Complaint : physical Temperature Core : 36.3 DegC(Converted to: 97.3 DegF) (LOW) Peripheral Pulse Rate : 76 /min Respiratory Rate : 16 /min Systolic Blood Pressure : 136 mmHg Diastolic Blood Pressure : 84 mmHg NIBP Mean : 101 mmHg BP Location : Left upper extremity Blood Pressure Cuff Size : Regular Height : 163 cm(Converted to: 5 ft 4 inch(es), 64 inch(es)) Actual Weight : 95.4 kg(Converted to: 210 lb 5 oz) Dosing Weight Clinic : 95.4 kg Clinic BSA : 2.08 Body Mass Index : 35.91 kg/m2 CAROL VICK LPN - 10/22/2015 8:32 CDT General Info Languages : Israeli Is Patient Female and 13-50 no hysterectomy : No CAROL VICK LPN - 10/22/2015 8:32 CDT Subjective Pain Symptoms : No CAROL VICK LPN - 10/22/2015 8:32 CDT Dependent Habits Exposure to Tobacco Smoke : Other: NEVER SMOKER Smoking Status : Never smoker Tobacco 2A : No Tobacco Use/Currently Using : No Tobacco Use/Last 30 Days : No Tobacco Use/Last 12 months : No CAROL VICK LPN - 10/22/2015 8:32 CDT Caffeine Use Grid Caffeine Use : Current Type : Chocolate, Soft drinks Frequency : Occasionally CAROL VICK LPN - 10/22/2015 8:32 CDT Source: [facility] Document Id: [id number] CDT!33 Miscellaneous - Carol Vick L.PPavanNPavan - 10/22/2015 8:32 AM CDT Health Assessment Health Assessment Entered On: 10/22/2015 8:35 CDT Performed On: 10/22/2015 8:32 CDT by CAROL VICK LPN Health Assessment Complete Health Assessment Complete or Modified : Annual Health Assessment Annual Health Assessment Completed : Yes CAROL VICK LPN - 10/22/2015 8:32 CDT Nutrition Nutrition Risk Factors by History Adult : None CAROL VICK LPN - 10/22/2015 8:32 CDT Functional Current Daily Living Assistance : None CAROL VICK LPN - 10/22/2015 8:32 CDT Dependent Habits Exposure to Tobacco Smoke : Other: NEVER SMOKER Smoking Status : Never smoker Tobacco 2A : No Tobacco Use/Currently Using : No Tobacco Use/Last 30 Days : No Tobacco Use/Last 12 months : No Alcohol Use : No CAROL VICK LPN - 10/22/2015 8:32 CDT Caffeine Use Grid Caffeine Use : Current Type : Chocolate, Soft drinks Frequency : Occasionally CAROL VICK LPN - 10/22/2015 8:32 CDT Psychosocial Domestic Abuse Concerns : None Behavioral Health Screen/Safety Assmt : No Mandaen Preference : Unknown CAROL VICK LPN - 10/22/2015 8:32 CDT Advance Directive Advanced Directives : Yes Advance Directive Type : Other: Advance Directive Location : Other: CAROL VICK LPN - 10/22/2015 8:32 CDT Educ Needs Learning Style Preference Adult Grid Patient : Demonstration, Printed materials, Verbal explanation, Video/Educational TV Family : Demonstration, Printed materials, Verbal explanation, Video/Educational TV CAROL VICK LPN - 10/22/2015 8:32 CDT Source: [facility] [employer] Document Id: [id number] CDT!33 documented in this encounter Plan of Treatment Upcoming Encounters Date Type Specialty Care Team Description 11/20/2021 Nurse Only Family Medicine Giovanna Schreiber APRN, C.NPavanPPavan [address] [facility] [place] [phone] 11/20/2021 Appointment Laboratory Medicine Giovanna Schreiber APRN, C.NPavanPPavan [address] [facility] [place] [phone] 12/18/2021 Comprehensive Visit Physical Medicine and Isidoro Morales M.D. [address] [phone] 12/19/2021 Comprehensive Visit Community Internal Giovanna Schreiber, Medicine Ean MAHAJANNPavanPPavan [address] [place] [phone] documented as of this encounter Visit Diagnoses Not on filedocumented in this encounter
--- OUTSIDE RECORDS SUMMARY | 2021-10-30 02:01 | XMS_ITS | Encounter Summary ---
:1945 Author Organization 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 documented as of this encounter Progress Notes Mitzy Oreilly M.D. - 02/24/2012 1:16 PM CST [id number] CHIEF COMPLAINT/REASON FOR VISIT Need preoperative medical evaluation to have cataract surgery on the right eye. HISTORY OF PRESENT ILLNESS This 66-year-old female patient is in for medical evaluation to have right eye cataract surgery. Left eye was done July 29, 2011. She did have some problems seeing afterwards but now that is better some problem with lights and glare. [facility] and [facility]. She had trouble with cataracts in right eye for last 3 years getting worse having trouble with vision. She has good vision now with her left eye and is glad she had that procedure done and hopefully will also do well with cataract extraction with lens implant in the right eye. EMR record reviewed and updated. CURRENT MEDICATIONS 1. Claritin 10 mg as needed allergy 2. Pepcid 10 mg as needed heart burn not much of a problem now that she quit drinking coffee. ALLERGIES None. SYSTEMS REVIEW 1. Allergic/immunologic: The patient is having no itching, no signs of allergies. No signs of immunedeficiency. 2. Constitutional symptoms: The patient has had no fevers, no weight loss or gain, no night sweats, no tiredness. 3. Psychiatric: No emotional problems, no loss of feeling, no problem thinking. 4. Eyes: As above cataract right eye. 5. ENT: No hearing loss, no cold, no runny nose, no sores in the mouth, no sore throat. 6. Cardiovascular: No palpitation of the heart, no chest pain, no orthopnea, no PND. 7. Respiratory: No cough, no shortness of breath, no difficulty breathing, no pain with inspiration. 8. Hematological/lymphatic: No swollen glands, no paleness, no easy bruising, no petechiae. 9. GI: No nausea, vomiting, diarrhea or constipation. 10. : No dysuria, no hematuria, increased frequency of urination chronic nothing found on previousinvestigation, no nocturia. 11. Musculoskeletal: No problem with moving arms or legs, no weakness, no muscle or skeletal pain. 12. Integumentary: Skin: No change in color, no lesions. Breasts: No masses noted, no change in nipples. 13. Neurological: No loss of feeling, no loss of function. 14. Endocrine: No weakness, no tiredness, no symptoms of thyroid disease or diabetes; no thirst, weight loss or polyuria. All other systems reviewed and negative, except as mentioned above. PAST MEDICAL/SURGICAL HISTORY No ongoing medical problems. Metal removed from left lower leg 2000, cataract extraction left eye 07/29/2011. SOCIAL HISTORY Never smoked, never used alcohol. She does not work lives with no one else in the home will be support person FAMILY HISTORY Mom colon cancer. Dad diabetes mellitus. Sister breast cancer. Sister macular degeneration VITAL SIGNS HEIGHT 164 WEIGHT 86.5 TEMPERATURE 37.2 RESPIRATIONS 18 PULSE 76 BLOOD PRESSURE 152/80 O2 SAT 98 room air BMI 32 PHYSICAL EXAMINATION GENERAL: Appearance, development, nutrition, and body habitus appear normal; no deformities. Normal grooming. SKIN: Inspection of the skin and subcutaneous tissue clear, no rashes, lesions or ulcers. Palpation of the skin and subcutaneous tissue revealed no induration, subcutaneous nodules or tightening of theskin. EYES: Left eye appears clear with lens implant and right eye has cloudy cataract. ENT: Tympanic membranes clear; external auditory canals and ears normal; hearing grossly normal; nasal mucosa, septum and turbinates appear normal; lips, teeth and gums normal; oropharynx, oral mucosa,salivary glands, hard and soft palate, tongue, and posterior pharynx appear normal. LYMPH NODES: No lymphadenopathy, thyroid normal size without masses or tenderness; no masses, symmetrical. Lymphatic: No nodules palpated in the neck, axilla, groin or any other area. HEART: Palpation of the heart normal location and size, no thrills. Auscultation reveals no murmur, gallop or rub. Carotid arteries: Normal pulse amplitude, no bruits. Abdominal aorta normal size, no bruits. Femoral arteries pulse normal, no bruits. Pedal pulses normal amplitude. LUNGS: Respiratory effort normal, no difficulty breathing, retractions or abnormal movements. Percussion: No dullness, flatness or hyperresonance. Palpation of the chest negative, auscultation of the lungs reveals normal breath sounds, no rales, rhonchi or wheezing. ABDOMEN: Abdomen has no masses, no tenderness; liver and spleen are not palpable; no evidence for hernia. EXTREMITIES: No edema, no significant varicosities. Musculoskeletal: Normal gait and station; fingers normal, nails normal, no clubbing or cyanosis. Joints and bones appeared normal to range of motion,palpation and inspection, joints appeared stable. Normal muscle strength and tone. MENTAL: Psychiatric: Patient appears oriented to time, place and person with good recent and remote memory. Mood and affect appear normal without evidence for depression, anxiety or agitation. NEURO: Cranial nerves grossly intact. Deep tendon reflexes symmetrical +2. Normal sensation. IMPRESSION/REPORT/PLAN Patient has cataract in right eye needs surgery. Will get CBC, BMP and proceed with surgery as scheduled if laboratory studies are in acceptable range and she will recheck with me as needed Mitzy Oreilly M.D./dima Electronically Signed By: MITZY OREILLY MD On: 02/25/2012 01:45 PM Source: [facility] [email or web address] Document Id: [id number] H WORKER documented in this encounter Miscellaneous Notes Miscellaneous - Mitzy Oreilly M.D. - 02/24/2012 4:01 PM CST Results Notification From: MITZY OREILLY MD To: MITZY OREILLY MD Sent: 02/24/2012 16:01:21 PITCH WORKER ! Show up: 02/24/2012 22:01:21 [facility] Subject: Results Notification Actions: Notify patient of results Source: [facility] POWERCHART Document Id: [id number] Mitzy Mallory M.D. - 02/24/2012 2:49 PM CST Results Notification From: MITZY OREILLY MD To: MITZY OREILLY MD Sent: 02/24/2012 14:49:00 PITCH WORKER ! Show up: 02/24/2012 20:49:00 [facility] Subject: Results Notification Actions: Notify patient of results Source: [facility] POWERCHART Document Id: [id number] Mitzy Mallory M.D. - 02/24/2012 2:23 PM CST Ambulatory Patient Summary [address] [address] Visit Information Name: QUETA ANTOINE [facility] Number: [id number] Current Date: 02/24/2012 14:23:57 Physicians Attending Provider: MITZY OREILLY MD Primary Care Provider: MITZY OREILLY MD Your Medications Here is a list of your medications. It is important to take your medications as directed. Use a pillbox or chart to help remind you to take your medications. Please let your doctor or nurse know if you have problems taking your medications. Medication/Strength Dose Route Frequency Indications/Special Instructions/Comments Misc Prescription (Misc Prescription) See Instructions Calcium & Vit D3 0- takes one ounce daily Misc Prescription (Misc Prescription) See Instructions Eye Health Supplement - takes one daily Misc Prescription (Misc Prescription) See Instructions I caps - takes one daily selenium (selenium 200 mcg oral tablet) 200 mcg Oral once a day *cholecalciferol (Vitamin D3) Oral once a day *loratadine (Claritin) 10 mg Oral once a day *famotidine (Pepcid) * You have let us know that you are not taking this medication as listed. Please talk with your primary care provider or the health care provider who prescribed the medication as soon as possible. Attention: If you have any medications at [...] 08/14/2011 Vitamin D deficiency, unspecified Active 08/14/2011 Your Upcoming Appointments Date Time Location Reason Provider No Appointments found Your Goals/Additional instructions: Source: [facility] POWERCHART Document Id: [id number] H WORKER Miscellaneous - Mitzy Oreilly M.D. - 02/24/2012 2:23 PM CST Ambulatory Depart Summary [address] [address] Visit Information Name: QUETA ANTOINE [facility] Number: [id number] Visit Date: 02/24/2012 14:23:56 Attending Provider: MITZY OREILLY MD Primary Care Provider: MITZY OREILLY MD ELINA QUETA has been given the following list of medications: Your Medications It is important to take your medications as directed. Use a pill box or chart to help remind you to take your medications. Please let your doctor or nurse know if you have problems taking your medications. Medication/Strength Dose Route Frequency Indications/Special Instructions/Comments Misc Prescription (Misc Prescription) See Instructions Calcium & Vit D3 0- takes one ounce daily Misc Prescription (Misc Prescription) See Instructions Eye Health Supplement - takes one daily Misc Prescription (Misc Prescription) See Instructions I caps - takes one daily selenium (selenium 200 mcg oral tablet) 200 mcg Oral once a day *cholecalciferol (Vitamin D3) Oral once a day *loratadine (Claritin) 10 mg Oral once a day *famotidine (Pepcid) * You have let us know that you are not taking this medication as listed. Please talk with your primary care provider or the health care provider who prescribed the medication as soon as possible. Attention: If you have any medications at home that are not on this list, DO NOT take them until youcontact your provider for clarification. Additional Information: Source: [facility] careersmore Document Id: [id number] H WORKER Miscellaneous - Conversion, Historical Provider Ser - 02/24/2012 1:48 PM PITCH WORKER Obstructive Sleep Apnea Obstructive Sleep Apnea Entered On: 02/24/2012 13:49 PITCH WORKER Performed On: 02/24/2012 13:48 PITCH WORKER by LACY CABRERA RICK Screening Known Obstructive Sleep Apnea : No Risk for Sleep Apnea : No LACY CABRERA - 02/24/2012 13:48 PITCH WORKER RICK Assessment Do you have high blood pressure or have you been told to take medication for high blood pressure? : No Frequency of Snoring : Rarely (1-2 times per year) Frequency of Gasping, Choking, Snorting : Rarely (1-2 times per year) Neck Circumference (cm) : 34/35 Total Sleep Apnea Clinical Score : 1 Total Number of Historical Features : 0 LACY CABRERA - 02/24/2012 13:48 PITCH WORKER Source: [facility] [employer] Document Id: [id number] Miscellaneous - Conversion, Historical Provider Ser - 02/24/2012 1:48 PM PITCH WORKER Ambulatory Vitals Height Weight Ambulatory Vitals Height Weight Entered On: 02/24/2012 13:50 PITCH WORKER Performed On: 02/24/2012 13:48 PITCH WORKER by LACY CABRERA Vitals/Ht/Wt SpO2 : 98% DEBORAH LACY Weston - 02/24/2012 13:48 PITCH WORKER Source: [employer] Document Id: [id number] Miscellaneous - Conversion, Historical Provider Ser - 02/24/2012 1:46 PM PITCH WORKER Ambulatory Vitals Height Weight Ambulatory Vitals Height Weight Entered On: 02/24/2012 13:47 PITCH WORKER Performed On: 02/24/2012 13:46 PITCH WORKER by LACY CABRERA Vitals/Ht/Wt Systolic Blood Pressure : 152mmHg (HI) Diastolic Blood Pressure : 80mmHg NIBP Mean : 104mmHg BP Location : Right upper extremity Blood Pressure Cuff Size : Large LACY CABRERA - 02/24/2012 13:46 PITCH WORKER Source: [employer] Document Id: [id number] Miscellaneous - Conversion, Historical Provider Ser - 02/24/2012 1:42 PM PITCH WORKER 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, cateract right eye, 03/02/12 Temperature Core : 37.2C(Converted to: 99.0DegF) Peripheral Pulse Rate : 76/min Respiratory Rate : 18/min Systolic Blood Pressure : 170mmHg (>HHI) Diastolic Blood Pressure : 90mmHg (HI) NIBP Mean : 117mmHg BP Location : Right upper extremity Blood Pressure Cuff Size : Large Height : 164cm(Converted to: 5ft 5inch(es), 64.57inch(es)) Actual Weight : 86.5kg(Converted to: 190lb 11oz) Dosing Weight Clinic : 86.50kg Clinic BSA : 1.99 Body Mass Index : 32.16kg/m2 LACY CABRERA - 02/24/2012 13:42 PITCH WORKER Subjective Pain Symptoms : No LACY CABRERA 02/24/2012 13:42 PITCH WORKER Dependent Habits Tobacco Use/Currently Using : No Exposure to Tobacco Smoke : Other: NEVER SMOKER Smoking Status : Never smoker LACY CABRERA 02/24/2012 13:42 PITCH WORKER Caffeine Use Grid Caffeine Use : Current Type : Chocolate, Soft drinks Frequency : Occasionally LACY CABRERA - 02/24/2012 13:42 PITCH WORKER Allergy Allergies (Active) NKA Estimated Onset Date: Unspecified ; Created By: BRUCE MORALES; Reaction Status: Active ; Category: Drug ; Substance: NKA ; Type: Allergy ; Updated By: BRUCE MORALES; Reviewed Date: 02/24/201213:35 PITCH WORKER [facility] Document Id: [id number] documented in this encounter Plan of Treatment Upcoming Encounters Date Type Specialty Care Team Description 11/20/2021 Nurse Only Family Medicine Giovanna Schreiber APRN, C.N.P. [address] [place] [address] 11/20/2021 Appointment Laboratory Medicine Giovanna Schreiber APRN, C.N.P. [address] [facility] [place] [address] 12/18/2021 Comprehensive Visit Physical Medicine and Isidoro Morales M.D. [address] [place] [phone] 12/19/2021 Comprehensive Visit Community Internal Giovanna Schreiber, Medicine ZAINA, C.N.P. [address] [facility] [place] [id number] documented as of this encounter Procedures Procedure Name Priority Date/Time Associated Diagnosis Comme nts AUTOMATED Routine 02/24/2012 2:30 PM Results f or this DIFFERENTIAL, B PITCH WORKER procedure ar e in the results section. CBC WITH Routine 02/24/2012 2:30 PM Results f or this DIFFERENTIAL, B PITCH WORKER procedure ar e in the results section. BASIC METABOLIC Routine 02/24/2012 2:30 PM Result s for this PANEL, S/P PITCH WORKER procedure are i n the results section. documented in this encounter Results Automated Differential (02/24/2012 2:30 PM PITCH WORKER) athologist Signature Neutro % 40.1 34.0 - 71.1 POWERCHART Lymphocytes % 46.9 19.3 - 51.7 POWERCHART HX [place] % 10.3 4.7 - 12.5 POWERCHART HX Eos % 1.9 0.7 - 5.8 POWERCHART HX Baso % 0.8 0.1 - 1.2 POWERCHART Specimen Anatomical Collection Method Collection Time Receive d Time (Source) Location / / Volume Laterality Blood 02/24/2012 2:30 PM 2 2:30 PITCH WORKER PM PITCH WORKER Mitzy Oreilly M.D. LAB BLOOD ADD-ON Performing Organization Address City/State/[facility] Code Phon e Number POWERCHART CBC with Differential (02/24/2012 2:30 PM PITCH WORKER) athologist Signature Leukocytes 7.7 3.4 - 10.5 POWERCHART X109L Erythrocytes 4.44 3.90 - POWERCHART 5.03 [id number] Hemoglobin 13.3 12.0 - POWERCHART 15.5 GDL Hematocrit 39.9 34.9 - POWERCHART 44.5 MCV 89.9 82.0 - POWERCHART 98.0 FL Platelet Count 248 150 - 450 POWERCHART X109L HX RDW 13.5 11.9 - POWERCHART 15.5 HXDifferential? Auto POWERCHART Specimen (Source) Anatomical Collection Method Collection Time Re ceived Time Location / / Volume Laterality Blood 02/24/2012 2:30 PM PITCH WORKER Mitzy Oreilly M.D. LAB BLOOD ADD-ON Performing Organization Address City/State/ZIP Code Phon e Number POWERCHART BMP (Basic Metabolic Panel) (02/24/2012 2:30 PM PITCH WORKER) P athologist Signature BUN (Blood Urea 15 6 - 20 MGDL POWERCHART Nitrogen), S Creatinine, S 0.9 0.7 - 1.2 POWERCHART MGDL Potassium, S 4.2 3.5 - 4.8 POWERCHART MMOLL Sodium, S 142 135 - 145 POWERCHART MMOLL Chloride, S 104 100 - 108 POWERCHART MMOLL CO2 Total 29 22 - 29 POWERCHART MMOLL Calcium, Total, 9.8 8.5 - 10.5 POWERCHART S MGDL BUN/Creatinine 16 POWERCHART Ratio Glucose, 85 70 - 99 POWERCHART Fasting, S MGDL HXeGFR (MDRD) >60 MLMIN POWERCHART eGFR >60 MLMIN POWERCHART Black/ Specimen (Source) Anatomical Collection Method Collection Time Re ceived Time Location / / Volume Laterality Blood 02/24/2012 2:30 PM PITCH WORKER Mitzy Oreilly M.D. LAB BLOOD ADD-ON Performing Organization Address City/State/ZIP Code Phon e Number POWERCHART documented in this encounter Visit Diagnoses Not on filedocumented in this encounter
--- OUTSIDE RECORDS SUMMARY | 2021-10-30 02:01 | XMS_ITS | Encounter Summary ---
:1945 Author Organization [facility] Address [address] [place] [id number] Care Team Providers Name Role Phone Unavailable Primary Care Provider Unavailable Encounter Details Date Type Department Care Team Description 04/07/2014 Hospital Encounter HX [facility] FAMILY[facility] Lisa Rosenberg M.D. 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 - 04/07/2014 8:51 AM CST [id number] CHIEF COMPLAINT/REASON FOR VISIT Followup. HISTORY OF PRESENT ILLNESS A 68-year-old female presents to clinic to follow up her echocardiogram. Is planning a trip out of town for the next couple of weeks. Echocardiogram is stable but she does have frequent PVCs. Further discussion reveals she did have an event surrounding her cataract procedure in 2011. She had some increased palpitations and elevated heart rate. They did go ahead with the procedure but when she followed up with her former provider Dr. Bojorquez, she was evaluated with a Holter. She was not clear of the of results but suspect it was similar to the above. She is agreeable to seeing a development analyst and would like to do this after she returns from her holiday. She is in physical therapy for her shoulder and ne ck discomfort which is going well. EMR reviewed. MEDICATIONS 1. Metoprolol succinate 50 mg daily to begin 03/24/2014. 2. Aspirin 81 mg daily to begin 03/24/2014. 3. Calcium with vitamin D3, once per day. 4. Eye supplements each day. 5. Eye caps each day. 6. Selenium each day. 7. Separate vitamin D 3 each day. 8. Claritin 10 mg daily as needed. 9. Owuk-fya-ydfuxkh Pepcid as needed. PREVENTIVE SERVICES: Mammogram 06/13/2009; advised. Pap smear nonapplicable secondary to stated age. Chlamydia: Nonapplicable secondary to stated age. Colon screen: 12/05/2004 at [facility]. Depression: No. Asthma: No. Lipids: 08/04/2011; advised. Tetanus: 12/27/1996; advised. Pneumovax: Advised. Influenza: Declined. VITAL SIGNS Weight 87.4 kilos, temperature 36.9, respiratory rate 16, pulse 68, systolic 136, diastolic 76. PHYSICAL EXAMINATION GENERAL: Neatly dressed, well groomed. HEENT: Head: No evidence trauma, tenderness or masses. Ears: TMs are ngo. Good visualization of landmarks. Nose: Mucosal membranes pink and moist. Oral: No exudates. NECK: Range of motion consistent with patient's stated age, body habitus. Trachea midline. LYMPH NODES: No cervical adenopathy. THYROID: No masses, tenderness, or enlargement. LUNGS: Clear to auscultation. CARDIOVASCULAR: Regular rate and rhythm with frequent ectopy although it is less than her last appointment. IMPRESSION/REPORT/PLAN 1. Frequent premature ventricular contractions. 2. Hypertension. 3. Degenerative joint disease. PLAN: Will continue on her current medication regimen. Will arrange for follow up with development analyst when she returns from her holiday. She will hand carry a copy of her echocardiogram for her trip. Signs and symptoms leading to emergent evaluation are reviewed. She is comfortable with the above and will follow up as noted. Masha Rosenberg M.D./jordan Electronically Signed By: MASHA ROSENBERG MD On: 04/10/2014 06:37 PM Modified by and Electronically Signed by: MASHA ROSENBERG MD On: 04/10/2014 06:37 PM Source: [facility] MHSDOLBEYNONRADSYS Document Id: [id number] ENT CASE MANAGER documented in this encounter Miscellaneous Notes Miscellaneous - Masha Rosenberg M.D. - 04/07/2014 9:36 AM CST Ambulatory Patient Summary [address] [place], [place] [id number] Visit Information Name: QUETA ANTOINE [facility] Number: [id number] Current Date: 04/07/2014 09:36:49 Physicians Attending Provider: MASHA ROSENBERG MD Primary Care Provider: PCP, UNASSIGNED - FB QUETA ANTOINE has been given the following [...] release) 1 Tablet(s), Oral, once a day Routed to [address] [place] [address] Misc Prescription (Misc Prescription) See Instructions I caps - takes one daily Misc Prescription (Misc Prescription) See Instructions Eye Health Supplement - takes one daily Misc Prescription (Misc Prescription) See Instructions Calcium & Vit D3 0- takes one ounce daily selenium (selenium 200 mcg oral tablet) 1 Tablet(s), Oral, once a day Stop Taking the Following Medications: Medication list as of 04-07-14 09:36 Attention: If you have any medications at [...] Electronically Signed By: MASHA ROSENBERG MD Signed On:07-APR-2014 09:36:36 Your Allergies & Intolerances Substance Reaction Symptoms Category Comments No Known Allergies Drug Your Problem List Problem Status Onset Comments Cataract, senile, unspecified Active 07/23/2011 07/23/11 left > right Hypertension Active Hypercholesterolemia* Active Ventricular premature systoles Active 08/04/2011 Hypothyroidism, NOS, unspecified Active 08/14/2011 Vitamin D deficiency, unspecified Active 08/14/2011 Your Upcoming Appointments Date Time Location Provider No Appointments found Attention: Contact your local Clinic if further appointment detail needed. Your Goals/Additional instructions: Source: [facility] POWERCHART Document Id: [id number] ENT CASE MANAGER Miscellaneous - Masha Rosenberg M.D. - 04/07/2014 9:36 AM CST Ambulatory Discharge Medication List [address] [place], [place] [id number] Visit Information Name: QUETA ANTOINE [facility] Number: [id number] Visit Date: 04/07/2014 09:36:48 Attending Provider: MASHA ROSENBERG MD Primary Care Provider: PCP, UNASSIGNED - FB QUETA ANTOINE has been given the following [...] release) 1 Tablet(s), Oral, once a day Routed to [facility] [address] [place] [id number] Misc Prescription (Misc Prescription) See Instructions I caps - takes one daily Misc Prescription (Misc Prescription) See Instructions Eye Health Supplement - takes one daily Misc Prescription (Misc Prescription) See Instructions Calcium & Vit D3 0- takes one ounce daily selenium (selenium 200 mcg oral tablet) 1 Tablet(s), Oral, once a day Stop Taking the Following Medications: Medication list as of 04-07-14 09:36 Attention: If you have any medications at [...] Electronically Signed By: MASHA ROSENBERG MD Signed On:07-APR-2014 09:36:36 Additional Information: Source: [facility] [employer] Document Id: [id number] ENT CASE MANAGER Patriciacellkalina - Jennyfer Vick LPavanP.N. - 04/07/2014 9:02 AM CST Ambulatory Vitals Height Weight Ambulatory Vitals Height Weight Entered On: 04/07/2014 9:03 PATIENT CASE MANAGER Performed On: 04/07/2014 9:02 PATIENT CASE MANAGER by JENNYFER VICK LPN Vitals/Ht/Wt Systolic Blood Pressure : 136 mmHg Diastolic Blood Pressure : 76 mmHg NIBP Mean : 96 mmHg BP Location : Left upper extremity Blood Pressure Cuff Size : Regular JENNYFER VICK LPN - 04/07/2014 9:02 PATIENT CASE MANAGER Source: [facility] [employer] Document Id: [id number] PATIENT CASE MANAGER!7 ENT CASE MANAGER Patriciacellaneous - Jennyfer Vick L.P.N. - 04/07/2014 9:00 AM CST Adult Junior Legal Secretary Intake/History Adult Junior Legal Secretary Intake/History Entered On: 04/07/2014 9:02 PATIENT CASE MANAGER Performed On: 04/07/2014 9:00 PATIENT CASE MANAGER by JENNYFER VICK LPN Intake Chief Complaint : follow up Temperature Core : 36.9 DegC(Converted to: 98.4 DegF) Peripheral Pulse Rate : 68 /min Respiratory Rate : 16 /min Systolic Blood Pressure : 142 mmHg (HI) Diastolic Blood Pressure : 80 mmHg NIBP Mean : 101 mmHg BP Location : Left upper extremity Blood Pressure Cuff Size : Regular Actual Weight : 87.4 kg(Converted to: 192 lb 11 oz) Dosing Weight Clinic : 87.4 kg JENNYFER VICK LPN - 04/07/2014 9:00 PATIENT CASE MANAGER General Info Languages : Sinhala Is Patient Female and 13-50 no hysterectomy : No JENNYFER VICK LPN - 04/07/2014 9:00 PATIENT CASE MANAGER Subjective Pain Symptoms : Yes JENNYFER VICK LPN - 04/07/2014 9:00 PATIENT CASE MANAGER Pain Scale Pain Scale Verbal 0-10 : Open JENNYFER VICK LPN - 04/07/2014 9:00 PATIENT CASE MANAGER Pain Pain Assessment Grid Pain 1 Location : Upper arm JENNYFER VICK LPN - 04/07/2014 9:00 PATIENT CASE MANAGER Dependent Habits Tobacco Use/Currently Using : No Tobacco Use/Last 12 months : No Exposure to Tobacco Smoke : Other: NEVER SMOKER Smoking Status : Never smoker JENNYFER VICK LPN - 04/07/2014 9:00 PATIENT CASE MANAGER Caffeine Use Grid Caffeine Use : Current Type : Chocolate, Soft drinks Frequency : Occasionally JENNYFER VICK LPN - 04/07/2014 9:00 PATIENT CASE MANAGER ID Screen Travel Within Last 21 Days : JENNYFER Herrera LPN - 04/07/2014 9:00 PATIENT CASE MANAGER Source: [facility] POWERCHART Document Id: [id number] PATIENT CASE MANAGER!36 ENT CASE MANAGER documented in this encounter Plan of Treatment Upcoming Encounters Date Type Specialty Care Team Description 11/20/2021 Nurse Only Family Medicine Giovanna Schreiber APRN, C.N.P. [address] [phone] 11/20/2021 Appointment Laboratory Medicine Giovanna Schreiber APRN C.N.P. [address] [phone] 12/18/2021 Comprehensive Visit Physical Medicine and Isidoro Morales M.D. [address] [facility] [place] [address] 12/19/2021 Comprehensive Visit [facility] Internal Giovanna Schreiber, Medicine HYDRAULIC PLUMBER HELPER, C.N.P. [address] [facility] [place] [phone] documented as of this encounter Visit Diagnoses Not on filedocumented in this encounter
--- OUTSIDE RECORDS SUMMARY | 2021-10-30 02:01 | XMS_ITS | Encounter Summary ---
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 Last Filed Vital Signs Vital Sign Reading Time Taken Comments Blood Pressure 146/86 09/16/2011 11:11 AM CDT Pulse 88 09/16/2011 11:06 AM CDT Temperature - - Respiratory Rate 16 09/16/2011 11:06 AM CDT Oxygen Saturation - - Inhaled Oxygen Concentration - - Weight 85 kg (187 lb 6.3 oz) 09/16/2011 11:06 AM CDT Height - - Body Mass Index 31.22 07/23/2011 10:04 AM CDT documented in this encounter Medications at Time of Discharge Medication Sig Dispensed Refills Start Date End Date FAMOTIDINE ORAL Pepcid See Instructions, 10 mg 0 06/12/2011 1 in am 2 in pm as needed LORATADINE ORAL Take 10 mg by mouth as needed. 0 06/12/2011 documented as of this encounter Progress Notes Mitzy Oreilly M.D. - 09/16/2011 12:00 AM CDT [id number] CHIEF COMPLAINT/ REASON FOR VISIT Recheck hypothyroidism, heartburn and a pounding of the heart. HISTORY OF PRESENT ILLNESS This 66-year-old female patient had signs of hypothyroidism on diagnostic testing in July. She has started a 3 inch square 2% iodine patch that she applies on her skin and is to keep doing that until there is a purple ring. So far there has been no carter on her body. That is supposed to tell her that she has enough in her body. She would like to have her thyroid function studies checked again to see if a month of this treatment has helped her function. Will get a TSH and free T4. She also has stopped caffeine and is no longer having heartburn or gastroesophageal reflux and has had no pounding to her heart. She will stay off the caffeine. Patient also needs to have her second cataract done and will schedule that. She also was recommended to stay out of [employer] from August 03 and will stay out until September 28 because of possible cardiac problems unless she has a further spell in the interim. Blood pressure has been monitored and does fairly well; occasionally it is high. She will keep track of when it is high and also add daily weights to her daily blood pressures. Recheck in a month. EMR record reviewed and updated. SYSTEMS REVIEW 1. Respiratory: No cough or shortness of breath. 2. Cardiovascular: No palpitation of the heart, no chest pain. 3. GI: No nausea, vomiting, diarrhea, constipation or recent change in weight. 4. : No dysuria, no hematuria. All other systems reviewed and negative, except as mentioned above. PHYSICAL EXAM SKIN: Clear. EYES: Pupils equal, round, react to light and accommodation; EOMs full; lids normal. ENT: Ears: TMs clear; external auditory canals clear. Throat clear. Tongue normal. Teeth normal. LYMPH NODES: Neck: no lymphadenopathy. THYROID: Normal size, symmetric. HEART: No murmur, gallop or rub; normal size; PMI arteries normal. LUNGS: Clear to percussion and auscultation, normal to inspection, no retractions, no dyspnea. ABDOMEN: No masses, no organomegaly, nontender; normal to inspection, percussion and palpation; no distention. EXTREMITIES: Legs: no edema. IMPRESSION/REPORT/PLAN 1. Hypothyroidism. Needing a recheck after receiving self-medicated iodine treatment. Did TSH, free T4 and patient will be contacted with test results. 2. For pounding of heart, no further problems. Stay off the caffeine. 3. For need of cataract surgery, she will proceed with that. 4. For request for going back to [employer] for exercise, she will do that on September 28. 5. For her heartburn and gastroesophageal reflux symptoms, stay off the caffeine. Recheck in one month. Return sooner p.r.n. KIMBERLY/hans Signed Mitzy Oreilly M.D. Family Medicine Electronically Signed By: MITZY OREILLY MD On: 09/18/2011 08:28 AM Source: [facility] [employer]OLBEYNONRADSYS Document Id: [id number] documented in this encounter Miscellaneous Notes Miscellaneous - Mitzy Oreilly M.D. - 09/17/2011 9:15 AM CDT Results Notification From: MITZY OREILLY MD To: MITZY OREILLY MD Sent: 09/17/2011 09:15:20 CDT ! Show up: 09/17/2011 14:15:20 [facility] Subject: Results Notification Actions: Notify patient of results Source: [facility] POWERCHART Document Id: [id number] Electronically signed by Makenzie [facility] Program Services Planner [id number] at 08/23/2016 7:13 PM CDT Mitzy Mallory M.D. - 09/16/2011 11:46 AM CDT Ambulatory Patient Summary [id number] [facility] [place] [address] Visit Information Name: QUETA ANTOINE Current Date: 09/16/2011 11:46:31 Physicians Attending Provider: MITZY OREILLY MD Primary Care Provider: MITZY OREILLY MD Your Medications Here is a list of your medications. It is important to take your medications as directed. Use a pillbox or chart to help remind you to take your medications. Please let your doctor or nurse know if you have problems taking your medications. Medication/Strength Dose Route Frequency Indications/Special Instructions/Comments cholecalciferol (Vitamin D3) Oral once a day omega-3 polyunsaturated fatty acids (Fish Oil) 1,000 mg Oral once a day loratadine (Claritin) 10 mg Oral once a [...] Appointments found Your Goals/Additional instructions: Source: [facility] POWERCHART Document Id: [id number] Mitzy Mallory M.D. - 09/16/2011 11:46 AM CDT Ambulatory Depart Summary [id number] [facility] [place] [address] Visit Information Name: QUETA ANTOINE Visit Date: 09/16/2011 11:46:30 Attending Provider: MITZY OREILLY MD Primary Care [...] medications. Medication/Strength Dose Route Frequency Indications/Special Instructions/Comments cholecalciferol (Vitamin D3) Oral once a day omega-3 polyunsaturated fatty acids (Fish Oil) 1,000 mg Oral once a day loratadine (Claritin) 10 mg Oral once a day famotidine (Pepcid) Attention: If you have any medications at home that are not on this list, DO NOT take them until youcontact your provider for clarification. Additional Information: Source: [facility] [employer]ch Document Id: [id number] Miscellaneous - Mitzy Oreilly M.D. - 09/16/2011 11:39 AM CDT School or Work Excuse School or Work Excuse Entered On: 09/16/2011 11:43 CDT Performed On: 09/16/2011 11:39 CDT by MITZY OREILLY MD School or Work Excuse Date Patient Seen : 08/04/2011 CDT School or Work Restrictions : No Restrictions Date of Return to School/Work Without Restrictions : 09/29/2011 CDT Comment : Patient has been not able to do [employer] From 08-04-2011 until 09-29-2011 because of a medical problem. She should do well now. MITZY OREILLY MD - 09/16/2011 11:39 CDT Source: [facility] [employer] Document Id: [id number] Miscellaneous - Conversion, Historical Provider Ser - 09/16/2011 11:11 AM CDT Ambulatory Vitals Height Weight Ambulatory Vitals Height Weight Entered On: 09/16/2011 11:12 CDT Performed On: 09/16/2011 11:11 CDT by LACY CABRERA Vitals/Ht/Wt Systolic Blood Pressure : 146mmHg (HI) Diastolic Blood Pressure : 86mmHg NIBP Mean : 106mmHg BP Location : Right upper extremity Blood Pressure Cuff Size : Large LACY CABRERA Trista - 09/16/2011 11:11 CDT [facility] Document Id: [id number] Miscellaneous - Conversion, Historical Provider Ser - 09/16/2011 11:06 AM CDT Adult Quality Director Intake/History Adult Quality Director Intake/History Entered On: 09/16/2011 11:11 CDT Performed On: 09/16/2011 11:06 CDT by LACY CABRERA Intake Chief Complaint : Follow up of heart Temperature Core : 37.4C(Converted to: 99.3DegF) Peripheral Pulse Rate : 88/min Respiratory Rate : 16/min Systolic Blood Pressure : 152mmHg (HI) Diastolic Blood Pressure : 84mmHg NIBP Mean : 107mmHg BP Location : Right upper extremity Blood Pressure Cuff Size : Large Actual Weight : 85kg(Converted to: 187lb 6oz) Dosing Weight Clinic : 85.00kg LACY CBARERA Trista - 09/16/2011 11:06 CDT Subjective Pain Symptoms : No DEBORAH, LACY Trista - 09/16/2011 11:06 CDT Dependent Habits Tobacco Use/Currently Using : No Smoking Status : Never smoker Alcohol Use : No LACY CABRERA - 09/16/2011 11:06 CDT Caffeine Use Grid Caffeine Use : Current Type : Chocolate, Soft drinks Frequency : Occasionally LACY CABRERA - 09/16/2011 11:06 CDT Allergy Allergies (Active) NKA Estimated Onset Date: Unspecified ; Created By: BRUCE MORALES; Reaction Status: Active ; Category: Drug ; Substance: NKA ; Type: Allergy ; Updated By: BRUCE MORALES; Reviewed Date: 09/16/201111:02 CDT Source: [facility] POWERCHART Document Id: [id number] documented in this encounter Plan of Treatment Upcoming Encounters Date Type Specialty Care Team Description 11/20/2021 Nurse Only Family Medicine Giovanna Schreiber APRN, C.N.P. [address] [facility] [place] [phone] 11/20/2021 Appointment Laboratory Medicine Giovanna Schreiber APRN, C.N.P. [address] [facility] [place] [phone] 12/18/2021 Comprehensive Visit Physical Medicine and Isidoro Morales M.D. [address] [phone] 12/19/2021 Comprehensive Visit Community Internal Giovanna Schreiber, Medicine ZAINA, C.N.P. [address] [facility] [place] [phone] documented as of this encounter Procedures Procedure Name Priority Date/Time Associated Diagnosis Comme nts THYROID-STIMULATING Routine 09/16/2011 11:53 AM R esults for this HORMONE-SENSITIVE CDT procedure are in (S-TSH) the results section. T4 (THYROXINE), Routine 09/16/2011 11:53 AM Resul ts for this FREE, S CDT procedure are i n the results section. documented in this encounter Results T4 (Thyroxine), Free (09/16/2011 11:53 AM CDT) P athologist Signature T4 (Thyroxine), 1.0 NGDL POWERCHART Free, S Comment: -- REFERENCE VALUE -- 0.8-1.8 Elevated values are seen in patients on thyroxine therapy. Test Performed by: [address] [address] Electric Tripper Machine Operator: Yosef ortiz III, M.D. Specimen (Source) Anatomical Collection Method Collection Time Re ceived Time Location / / Volume Laterality Blood 09/16/2011 11:53 AM CDT Mitzy Oreilly M.D. LAB BLOOD ADD-ON Performing Organization Address City/State/ZIP Code Phon e Number POWERCHART (ABNORMAL) Thyroid-Stimulating Hormone-Sensitive (s-TSH) (09/16/2011 11:53 AM CDT) athologist Signature TSH, Sensitive 8.2 (H) 0.3 - 5.0 POWERCHART [place] Comment: Test Performed by: [place] [address] Electric Tripper Machine Operator: Yosef ortiz III, M.D. Specimen (Source) Anatomical Collection Method Collection Time Re ceived Time Location / / Volume Laterality Blood 09/16/2011 11:53 AM CDT Mitzy Oreilly M.D. LAB BLOOD ADD-ON Performing Organization Address City/State/ZIP Code Phon e Number POWERCHART documented in this encounter Visit Diagnoses Not on filedocumented in this encounter
--- OUTSIDE RECORDS SUMMARY | 2021-10-30 02:01 | XMS_ITS | Encounter Summary ---
:1945 Author Organization [facility] Address [address] [place] [address] Care Team Providers Name Role Phone Unavailable Primary Care Provider Unavailable Encounter Details Date Type Department Care Team Description 08/07/2011 Hospital Encounter HX [facility] FBHB ECHO Jose Bojorquez M.D. 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 0 06/12/2011 documented as of this encounter Plan of Treatment Upcoming Encounters Date Type Specialty Care Team Description 11/20/2021 Nurse Only Family Medicine Giovanna Schreiber V., TENNIS NET MAKER, C.N.P. [address] [facility] [place] [phone] 11/20/2021 Appointment Laboratory Medicine Giovanna Schreiber V., ZAINA, C.N.P. [address] [phone] 12/18/2021 Comprehensive Visit Physical Medicine and Isidoro Morales M.D. [address] [place] [address] 12/19/2021 Comprehensive Visit Community Internal Giovanna Schreiber, Medicine ZAINA, C.N.P. [address] [phone] documented as of this encounter Visit Diagnoses Not on filedocumented in this encounter
--- OUTSIDE RECORDS SUMMARY | 2021-10-30 02:01 | XMS_ITS | Encounter Summary ---
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 0 06/12/2011 documented as of this encounter Progress Notes Mitzy Oreilly M.D. - 08/14/2011 12:00 AM CDT [id number] CHIEF COMPLAINT/ REASON FOR VISIT Recheck for pounding of the heart. HISTORY OF PRESENT ILLNESS This 65-year-old female patient has been seen for pounding of her heart. She has been tapering off caffeine down to 1 cup of coffee a day. She has had done some research on the internet and her thyroid function TSH was slightly high at 10. She is concerned she might be iodine deficient so will do an iodine level on the serum. Patient also is concerned she might be vitamin D deficient. She did increase her vitamin D a month ago but would like to be checked for that and that will be done to make sure that her level is above 35. Will also repeat her TSH which was elevated since her free T4 and total T3 and thyroperoxidase antibodies were within normal range. However, her free T4 was on the lower end of range which would be compatible with primary hypothyroidism as it is felt that she does have. She had echocardiogram that was felt to be within normal limits and Holter monitor showing frequent PVCs which could be related her caffeine use or hypothyroidism. Recommend she see a human resources benefits assistant. She prefer to wait at this time and see how she does on stopping the caffeine and checking these other tests. She will recheck with me a month return sooner p.r.n. EMR record reviewed and updated. SYSTEMS REVIEW RESPIRATORY: No cough or shortness of breath. CARDIOVASCULAR: No palpitation of the heart, no chest pain. GI: No nausea, vomiting, diarrhea, constipation or [...] no lymphadenopathy. THYROID Normal size, symmetric. HEART No murmur, gallop or rub; normal size; PMI arteries normal. LUNGS Clear to percussion and auscultation, normal to inspection, no retractions, no dyspnea. ABDOMEN No masses, no organomegaly, nontender; normal to inspection, percussion and palpation; no distention. EXTREMITIES Legs: no edema. IMPRESSION/REPORT/PLAN 1. Hypothyroidism. Repeat TSH and do serum iodine level 2. Palpitations pounding of the heart. Get cardiology consultation after completely tapering off the caffeine. Recheck with me in 1 month. Vitamin D deficiency. Get a vitamin D total D2 D3 level. Patient given a copy of her test results and avoid any strenuous activity. She wanted to go back to [employer] and swimming feel that she should do activities that are only safe if patient would have an arrhythmia. Also recommend she take fish oil 1000 milligrams twice a day which might prevent arrhythmia would also help with her cholesterol which is somewhat elevated. Also she plans not to go through with her next cataract surgery since she noted a problem during that surgery with her heart, blood pressure went up could wait until she is seen by human resources benefits assistant possibly will be on a cardiac medication such as a beta sophia it would be safer to do at that time. She thought it was related at the time of her surgery to using an eye drop because she read generically about eye drops that dilate the eyes causing some problem with high pressure. Nature of her problems treatments medication follow up care explained SFO/clf Signed Mitzy Oreilly M.D. Family Medicine Electronically Signed By: MITZY OREILLY MD On: 08/15/2011 10:32 AM Source: [facility] [email or web address] Document Id: [id number] documented in this encounter Miscellaneous Notes Miscellaneous - Mitzy Oreilly M.D. - 08/17/2011 9:58 AM CDT Results Notification From: MITZY OREILLY MD To: MITZY OREILLY MD Sent: 08/17/2011 09:58:04 CDT ! Show up: 08/17/2011 14:58:04 [facility] Subject: Results Notification Actions: Notify patient of results Source: [facility] POWERCHART Document Id: [id number] Electronically signed by [facility] Tender [id number] at 08/24/2016 8:42 AM CDT Miscellaneous - Mitzy Oreilly M.D. - 08/14/2011 12:04 PM CDT Ambulatory Patient Summary [address] [id number] Visit Information Name: MAURA ANTOINE Current Date: 08/14/2011 12:04:16 Physicians Attending Provider: MITZY OREILLY MD Primary [...] No Appointments found Your Goals/Additional instructions: Source: [facility] POWERCHART Document Id: [id number] Miscellaneous - Mitzy Oreilly M.D. - 08/14/2011 12:04 PM CDT Ambulatory Depart Summary [address] [place] [address] Visit Information Name: MAURA ANTOINE Visit Date: 08/14/2011 12:04:16 Attending Provider: MITZY OREILLY MD Primary Care Provider: MITZY OREILLY MD MAURA ANTOINE has been given the [...] your provider for clarification. 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 Entered On: 08/14/2011 11:07 CDT Performed On: 08/14/2011 11:03 CDT by BASSEM FARFAN Intake Chief Complaint : test results Temperature Core : 37.2C(Converted to: 99.0DegF) Peripheral Pulse Rate : 72/min Respiratory Rate : 20/min Systolic Blood Pressure : 140mmHg Diastolic Blood Pressure : 68mmHg NIBP Mean : 92mmHg BASSEM FARFAN - 08/14/2011 11:03 CDT Subjective Pain Symptoms : No BASSEM FARFAN - 08/14/2011 11:03 CDT Dependent Habits Tobacco Use/Currently Using : No Smoking Status : Never smoker BASSEM FARFAN - 08/14/2011 11:03 CDT Caffeine Use Grid Caffeine Use : Current Type : Chocolate, Coffee, Soft drinks, Tea Frequency : Daily BASSEM FARFAN S - 08/14/2011 11:03 CDT Allergy Allergies (Active) NKA Estimated Onset Date: Unspecified ; Created By: BRUCE MORALES; Reaction Status: Active ; Category: Drug ; Substance: NKA ; Type: Allergy ; Updated By: BRUCE MORALES; Reviewed Date: 08/04/201114:49 CDT Source: [facility] Aloqa Document Id: [id number] CDT!19 documented in this encounter Plan of Treatment Upcoming Encounters Date Type Specialty Care Team Description 11/20/2021 Nurse Only Family Medicine Giovanna Schreiber APRN, C.N.P. [address] [place] [phone] 11/20/2021 Appointment Laboratory Medicine Giovanna Schreiber APRN, C.N.P. [address] [place] [phone] 12/18/2021 Comprehensive Visit Physical Medicine and Isidoro Morales M.D. [address] [place] [phone] 12/19/2021 Comprehensive Visit Community Internal Giovanna Schreiber, Medicine ZAINA, C.N.P. [address] [place] [phone] documented as of this encounter Procedures Procedure Name Priority Date/Time Associated Comments Diagnosis MISCELLANEOUS SENT OUT Routine 08/14/2011 12:09 R esults for this LAB TEST PM CDT procedure are i n the results section. 25-HYDROXYVITAMIN D2 Routine 08/14/2011 12:09 Res ults for this AND D3, S PM CDT procedure are i n the results section. THYROID-STIMULATING Routine 08/14/2011 12:09 Resu lts for this HORMONE-SENSITIVE PM CDT procedure are in (S-TSH) the results section. documented in this encounter Results 25-Hydroxyvitamin D2 and D3 (08/14/2011 12:09 PM CDT) athologist Signature HX25 HYDROXY D2 <4.0 NGML POWERCHART 25-Hydroxy D3 62 NGML POWERCHART Vitamin D, S 62 NGML POWERCHART Comment: -- REFERENCE VALUE -- 25-HYDROXY D TOTAL (D2+D3) Optimum levels in the normal population are 25-80 Test Performed by: [facility] Dpt of Lab Med and Pathology [address] [place] [address] Real Estate Development Manager: Yosef ortiz III, M.D. Specimen (Source) Anatomical Collection Method Collection Time Re ceived Time Location / / Volume Laterality Blood 08/14/2011 12:09 PM CDT Mitzy Oreilly M.D. LAB BLOOD ADD-ON Performing Organization Address City/[facility]/ZIP Code Phon e Number POWERCHART Miscellaneous Lab Test, Non-Tissue (08/14/2011 12:09 PM CDT) Patholo gist Method Time Signature HXTest to be iodine POWERCHART Ordered serum level HXMisc Result 66 POWERCHART Comment: Ref Value 40-92 HXMisc Reference Lab Test Code [id number] POWERCHART HXMisc Specimen Source blood POWERCH ART Specimen (Source) Anatomical Collection Method Collection Time Re ceived Time Location / / Volume Laterality Blood 08/14/2011 12:09 PM CDT Mitzy Oreilly M.D. LAB MISC ORDERABLES Performing Organization Address City/[facility] Code Phon e Number POWERCHART (ABNORMAL) Thyroid-Stimulating Hormone-Sensitive (s-TSH) (08/14/2011 12:09 PM CDT) athologist Signature TSH, Sensitive 6.5 (H) 0.3 - 5.0 POWERCHART MIUL Comment: Test Performed by: [facility] Dpt of Lab Med and Pathology [address] [place], [place] [id number] Real Estate Development Manager: Yosef ortiz III, M.D. Specimen (Source) Anatomical Collection Method Collection Time Re ceived Time Location / / Volume Laterality Blood 08/14/2011 12:09 PM CDT Mitzy Oreilly M.D. LAB BLOOD ADD-ON Performing Organization Address City/State/ZIP Code Phon e Number POWERCHART documented in this encounter Visit Diagnoses Not on filedocumented in this encounter
--- OUTSIDE RECORDS SUMMARY | 2021-10-30 02:01 | XMS_ITS | Encounter Summary ---
:1945 [facility] Address [address] [place] [id number] Care Team Providers Name Role Phone Unavailable Primary Care Provider Unavailable Encounter Details Date Type Department Care Team Description 09/07/2014 Hospital Encounter HX [facility] FAMILYPR[facility] Lisa Rosenberg M.D. 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 - 09/07/2014 10:13 AM CDT [id number] CHIEF COMPLAINT/REASON FOR VISIT Right knee/leg pain. HISTORY OF PRESENT ILLNESS A 69-year-old female presents to clinic secondary to right knee/leg pain. Initially was presenting for her physical exam, but last week began having significant pain in her leg. She did do her normal swimming last week. Did have a car ride on the . She slipped off her sandals and shortly thereafter her jammed on the brake and she felt her toe stub into part of the car. Initially, she did not notice anything going on. But by the evening of September 01, she was having such severe pain aroundher knee into her thigh and her calf. She was using ice and her a massager in a quite vigorous manner. 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 She does tryto exercise with a large amount of kicking in the pool. On the same day that her pain escalated earlier in day after her swimming, she was in the garden and she could feel a pulling sensation but she felt she wanted to finish up this work. The pain became so severe she almost felt she was going to need to be seen on an earlier basis. By the the pain eased up to a degree. She was not so concernedabout it, but over the last couple of days, the pain has escalated. She does not believe she would even be able to get up onto the exam table and feel so uncomfortable. Is having no shortness of breath. Does have some chronic PVCs but this has been fairly stable. Has seen Cardiology within the last few months. Has episodic back pain and this is why she does do the swimming and this has really not been aggravated of late, either. No bowel or bladder changes. EMR reviewed. MEDICATIONS 1. Metoprolol succinate 50 mg daily to begin 03/24/2014. 2. Aspirin 81 mg daily to begin 03/24/2014. 3. Calcium with vitamin D3, once per day. 4. Eye supplements each day. 5. Eye caps each day. 6. Selenium each day. 7. Separate vitamin D 3 each day. 8. Claritin 10 mg daily as needed. 9. Bnhl-nic-xcxkqxn Pepcid as needed. ALLERGIES No known drug allergies. SYSTEMS REVIEW CONSTITUTIONAL: Slow weight gain over the years. See the HPI and the past medical/surgical history. PAST MEDICAL/SURGICAL HISTORY PAST SURGICAL HISTORY: 1. Cataract extractions 2011. 2. ORIF of the right leg fracture 2000. Hardware remains. OTHER HEALTH ISSUES: 1. Hypertension, which has not been treated. 2. Overweight. 3. Degenerative joint disease. PREVENTIVE SERVICES Mammogram: 06/13/2009; advised. Pap smear: Nonapplicable secondary to stated age. Chlamydia: Nonapplicable secondary to stated age. Colon screen: 12/05/2004 at [facility]. Depression: No. Asthma: No. Lipids: 08/04/2011; advised. Tetanus: 12/27/1996; advised. Pneumovax: Advised. Influenza: Declined. SOCIAL HISTORY No alcohol. FAMILY HISTORY Mother: Colon cancer. Father: Diabetes mellitus. Sister: Breast cancer. Another sister: Macular degeneration. VITAL SIGNS Height 163 cm, weight 88.7 kg, temperature 36.9, respiratory rate 12, pulse 72, systolic 136, diastolic 90. PHYSICAL EXAMINATION GENERAL: Neatly dressed, well groomed. Slight limping of gait. MUSCULOSKELETAL: Unable to get up onto a regular exam table. Is moved into another provider's room for a lift table for an evaluation. Peripheral pulses: positive, femoral, posterior tib, dorsalis pulses. JOINT: Knee some tenderness in the joint space but range of motion of the hip, knee and ankle is symmetric. NEURO:Reflexes 1+ knees and ankles. Able to stand on toes and heels, squat to about 60% ofthat expected for patient's stated age, body habitus. DIAGNOSTICS X-ray no acute bony abnormalities. Venous Doppler, no evidence of a lower extremity DVT. IMPRESSION/REPORT/PLAN 1. Right leg pain. 2. Degenerative joint disease. 3. Hypertension. 4. Obesity. PLAN: Noé wrap is placed for additional support. She will gently increase her exercise program. If her pain is not significantly improved by the , she will contact medical doctor, who will arrange for physical therapy at [facility], where she has been seen in the past. When she has recovered from this event she will reschedule her physical as at this time she is unable to get up onto an examination table. Signs and symptoms leading to emergent evaluation are reviewed. Spent 30 of the 45-minute visit in discussion and evaluation. Masha Rosenberg M.D./jordan Electronically Signed By: MASHA ROSENBERG MD On: 09/10/2014 09:49 AM Modified by and Electronically Signed by: MASHA ROSENBERG MD On: 09/10/2014 09:49 AM Source: [facility] MHSDOLBEYNONRADSYS Document Id: [id number] documented in this encounter Nursing Notes Samuel Pérez C.M.A. - 11/06/2014 10:22 AM CDT Colonoscopy DATE:11/06/2014 SCHEDULED FOR: Colonoscopy AT [facility] WITH DR. WORKMAN DATE of Procedure:01/01/2015 TIME of Procedure:9:45 PER: Dr. Rosenberg /DR. CARRASQUILLO ORDERS. Prep instructions have been sent to the patient. Patient advised to not take aspirin or ibuprofen for 10 days prior to the scheduled procedure. Insurance referral done _x_Yes __No Copies of referring healthcare provider notes sent to [facility]. Electronically Signed By: SAMUEL PÉREZ SELF PROPELLED MINING MACHINE OPERATOR On: 11/06/2014 10:23 AM Source: [facility] POWERCHART Document Id: [id number] documented in this encounter Miscellaneous Notes Miscellaneous - Samuel Pérez C.M.A. - 11/06/2014 10:24 AM CDT *General Message From: SAMUEL PÉREZ To: MASHA ROSENBERG MD; Sent: 11/06/2014 10:24:49 CDT Subject: *General Message DATE:11/06/2014 SCHEDULED FOR: Colonoscopy AT [facility] WITH DR. WORKMAN DATE of Procedure:01/01/2015 TIME of Procedure:9:45 PER: Dr. Rosenberg /DR. CARRASQUILLO ORDERS. Prep instructions have been sent to the patient. Patient advised to not take aspirin or ibuprofen for 10 days prior to the scheduled procedure. Insurance referral done __Yes __No Copies of referring healthcare provider notes sent to [facility]. Source: [facility] POWERCHART Document Id: [id number] Electronically signed by Makenzie [facility] Desizing Machine Offbearer [id number] at 08/18/2016 10:12 AM CDT Miscellaneous - Samuel Pérez C.M.A. - 11/06/2014 10:22 AM CDT Med Management Document Contains Addenda Addendum by NITA WORKMAN MD on 06 November 2014 11:56:56 CDT From: NITA WORKMAN MD Sent: 11/06/2014 11:56:56 CDT Subject: RE:Med Management Approved Order:bisacodyl (bisacodyl 5 mg oral delayed release tablet) 2 tab(s) PO Once Qty: 2 tab(s) Refills: 0 Substitutions Allowed Route To Pharmacy - [facility] Signed by NITA WORKMAN MD 11/06/2014 11:56:52 Approved Order:polyethylene glycol 3350 (polyethylene glycol 3350 oral powder for reconstitution) 17 gm PO Daily Mix 1 bottle of Miralax with 64 Ounces of Gatorade. Drink 8 Ounces every 15 minutes until gone. Qty: 238 gm Refills: 0 Substitutions Allowed Route To Pharmacy - [facility] Signed by NITA WORKMAN MD 11/06/2014 11:56:50 Approved Order:magnesium citrate (magnesium citrate 1.745 g/30 mL oral liquid) 150 mL PO Once Qty: 300 mL Refills: 0 Substitutions Allowed Route To Pharmacy - [facility] Signed by NITA WORKMAN MD 11/06/2014 11:56:48 From: SAMUEL PÉREZ To: NITA WORKMAN MD; Sent: 11/06/2014 10:22:10 CDT Subject: Med Management On hold pending signature Order:bisacodyl (bisacodyl 5 mg oral delayed release tablet) 2 tab(s) PO Once Qty: 2 tab(s) Refills: 0 Substitutions Allowed Route To Pharmacy - [facility] On hold pending signature Order:polyethylene glycol 3350 (polyethylene glycol 3350 oral powder for reconstitution) 17 gm PO Daily Mix 1 bottle of Miralax with 64 Ounces of Gatorade. Drink 8 Ounces every 15 minutes until gone. Qty: 238 gm Refills: 0 Substitutions Allowed Route To Pharmacy - [facility] On hold pending signature Order:magnesium citrate (magnesium citrate 1.745 g/30 mL oral liquid) 150 mL PO Once Qty: 300 mL Refills: 0 Substitutions Allowed Route To Pharmacy - [facility] Source: [facility] POWERCHART Document Id: [id number] Electronically signed by Makenzie [facility] Russell [id number] at 08/18/2016 10:12 AM CDT Miscellaneous - Samuel Pérez, C.M.A. - 11/06/2014 10:20 AM CDT *General Message Document Contains Addenda Addendum by FARAZ BAXTER on 07 November 2014 09:43:50 CDT From: FARAZ BAXTER ([facility] Pediatric Oncologist/Prior Authorizations) To: SAMUEL PÉREZ [facility]; Sent: 11/07/2014 09:43:50 CDT Subject: RE: *General Message No PA is needed with [facility] From: SAMUEL PÉREZ To: [facility] Pediatric Oncologist/Prior Authorizations; Sent: 11/06/2014 10:20:12 CDT Subject: *General Message [facility] in [address] [address] Referral Authorization: Procedure or visit authorized for:Colonoscopy Referred by: Contact Location: [facility] Contact Referred to: Dr. Workman Contact Location: [facility] Contact No Authorization Needed: yes or no If yes, Referral valid: From: To: Number of visits approved for: Authorized by: Contact Number: Date Authorized: Reference Number: or not applicable per Pediatric Rn. Individual that received the Referral Authorization: Source: [facility] POWERCHART Document Id: [id number] Electronically signed by Makenzie [facility] Desizing Machine Offbearer [id number] at 08/18/2016 10:12 AM CDT Miscellaneous - Masha Rosenberg M.D. - 09/07/2014 12:39 PM CDT Ambulatory Patient Summary [address] [id number] Visit Information Name: [facility] Number: [id number] Current Date: 09/07/2014 12:39:53 Physicians Attending Provider: MASHA ROSENBERG MD Primary [...] the Following Medications: Medication list as of 09-07-14 12:39 Attention: If you have any medications at [...] Electronically Signed By: MASHA ROSENBERG MD Signed On:07-SEP-2014 12:39:41 Your Allergies & Intolerances Substance Reaction Symptoms [...] appointment detail needed. Your Goals/Additional instructions: Source: [facility] POWERCHART Document Id: [id number] Miscellaneous - Masha Rosenberg M.D. - 09/07/2014 12:39 PM CDT Ambulatory Discharge Medication List [address] [id number] Visit Information Name: [facility] Number: [id number] Visit Date: 09/07/2014 12:39:52 Attending Provider: MASHA ROSENBERG MD Primary Care [...] the Following Medications: Medication list as of 09-07-14 12:39 Attention: If you have any medications at [...] Electronically Signed By: MASHA ROSENBERG MD Signed On:07-SEP-2014 12:39:41 Additional Information: Source: [facility] POWERCHART Document Id: [id number] Miscellaneous - Jennyfer Mares L.P.N. - 09/07/2014 10:31 AM CDT Adult Chartered Accountant Intake/History Adult Chartered Accountant Intake/History Entered On: 09/07/2014 10:34 CDT Performed On: 09/07/2014 10:31 CDT by JENNYFER MARES LPN Intake Chief Complaint : physical right leg pain Temperature Core : 36.9 DegC(Converted to: 98.4 DegF) Peripheral Pulse Rate : 72 /min Respiratory Rate : 12 /min (LOW) Systolic Blood Pressure : 152 mmHg (HI) Diastolic Blood Pressure : 90 mmHg (HI) NIBP Mean : 111 mmHg BP Location : Left upper extremity Blood Pressure Cuff Size : Regular Height : 169 cm(Converted to: 5 ft 7 inch(es), 67 inch(es)) Actual Weight : 88.7 kg(Converted to: 195 lb 9 oz) Dosing Weight Clinic : 88.7 kg Clinic BSA : 2.04 Body Mass Index : 31.06 kg/m2 JENNYFER MARES LPN - 09/07/2014 10:31 CDT General Info Languages : Czech Is Patient Female and 13-50 no hysterectomy : No JENNYFER MARES LPN - 09/07/2014 10:31 CDT Subjective Pain Symptoms : Yes JENNYFER MARES LPN - 09/07/2014 10:31 CDT Pain Scale Pain Scale Verbal 0-10 : Open JENNYFER MARES LPN - 09/07/2014 10:31 CDT Pain Pain Assessment Grid Pain 1 Pain 2 Location : Lower leg Lower back Laterality : Right JENNYFER MARES LPN - 09/07/2014 10:31 CDT JACQUELINE MARESFER AIDAN PURVIS - 09/07/2014 10:31 CDT Dependent Habits Tobacco Use/Currently Using : No Tobacco Use/Last 12 months : No Exposure to Tobacco Smoke : Other: NEVER SMOKER Smoking Status : Never smoker JENNYFER MARES LPN - 09/07/2014 10:31 CDT Caffeine Use Grid Caffeine Use : Current Type : Chocolate, Soft drinks Frequency : Occasionally JENNYFER MARES LPN - 09/07/2014 10:31 CDT Source: [employer] Document Id: [id number] CDT!40 Miscellaneous - Jennyfer Mares L.P.N. - 09/07/2014 10:31 AM CDT Health Assessment Health Assessment Entered On: 09/07/2014 10:35 CDT Performed On: 09/07/2014 10:31 CDT by JENNYFER MARES LPN Health Assessment Complete Health Assessment Complete or Modified : Annual Health Assessment Annual Health Assessment Completed : Yes JENNYFER MARES LPN - 09/07/2014 10:31 CDT Nutrition Nutrition Risk Factors by History Adult : None JENYNFER MARES LPN - 09/07/2014 10:31 CDT Functional Current Daily Living Assistance : None JENNYFER MARES LPN - 09/07/2014 10:31 CDT Dependent Habits Tobacco Use/Currently Using : No Tobacco Use/Last 12 months : No Exposure to Tobacco Smoke : Other: NEVER SMOKER Smoking Status : Never smoker JENNYFER MARES LPN - 09/07/2014 10:31 CDT Caffeine Use Grid Caffeine Use : Current Type : Chocolate, Soft drinks Frequency : Occasionally JENNYFER MARES LPN - 09/07/2014 10:31 CDT Psychosocial Domestic Abuse Concerns : None Behavioral Health Screen/Safety Assmt : No Sabianist Preference : Unknown JENNYFER MARES LPN - 09/07/2014 10:31 CDT Advance Directive Advanced Directives : Yes Advance Directive Type : Other Advance Directive Location : Other: SUZANJENNYFER COOPER AIDAN PURVIS - 09/07/2014 10:31 CDT Educ Needs Learning Style Preference Adult Grid Patient : Demonstration, Printed materials, Verbal explanation, Video/Educational TV Family : Demonstration, Printed materials, Verbal explanation, Video/Educational TV JENNYFER MARESJia PURVIS - 09/07/2014 10:31 CDT Source: [facility] POWERCHART Document Id: [id number] CDT!30 documented in this encounter Plan of Treatment Upcoming Encounters Date Type Specialty Care Team Description 11/20/2021 Nurse Only Family Medicine Giovanna Schreiber APRN, C.N.P. [address] [place] [phone] 11/20/2021 Appointment Laboratory Medicine Giovanna Schreiber APRN, C.N.P. [address] [place] [phone] 12/18/2021 Comprehensive Visit Physical Medicine and Isidoro Morales M.D. [address] [phone] 12/19/2021 Comprehensive Visit [facility] Giovanna Schreiber Medicine ZAINA, C.N.P. [address] [place] [phone] documented as of this encounter Procedures Procedure Name Priority Date/Time Associated Diagnosis Comme nts DX KNEE RIGHT 3 Routine 09/07/2014 10:46 AM Resul ts for this VIEWS CDT procedure are i n the results section. documented in this encounter Results DX Knee Right 3 Views (09/07/2014 10:46 AM CDT) Anatomical Region Laterality Modality Lower Extremity, Knee Right Radiographic Imagi ng Specimen (Source) Anatomical Collection Method Collection Time Re ceived Time Location / / Volume Laterality 09/07/2014 10:46 AM CDT Addenda Addendum by Provider, Ester Benedict o n 09/07/2014 10:46 AM CDT RAD^^^OW XR Knee Right 3 views 09/07/2014 10:46:44 Addendum by Provider, Ester Benedict o n 09/07/2014 10:46 AM CDT RAD^^^MA XR KNEE RIGHT 3 VIEWS 09/07/2014 10:46:44 Narrative 09/07/2014 11:14 AM CDT COMPARISON: None. HISTORY: 69 year old female with right k nee pain. Findings: There is no acute right knee o sseous abnormality. Bone mineralization is within normal limits. The visualized joint spaces are preserved. Impression: No acute right knee osseous abnormality. Procedure Note Kirt Donis M.D. / Provider, Prudencio shirley M.D. - 07/30/2016 COMPARISON: None. HISTORY: 69 year old female with right k nee pain. Findings: There is no acute right knee o sseous abnormality. Bone mineralization is within normal limits. The visualized joint spaces are preserved. Impression: No acute right knee osseous abnormality. Daniela Trujillo(R), R.TPavan(R)(M) IMG DIAGNOSTIC IMAG ING PROCEDURES documented in this encounter Visit Diagnoses Not on filedocumented in this encounter
--- OUTSIDE RECORDS SUMMARY | 2021-10-30 02:01 | XMS_ITS | Encounter Summary ---
:1945 Author Organization [facility] Address [address] [place] [address] Care Team Providers Name Role Phone Unavailable Primary Care Provider Unavailable Encounter Details Date Type Department Care Team Description 12/15/2011 Hospital Encounter HX [facility] FB[facility] BONE DENS Fadumo Bojorquez M.D. Social History Tobacco Use Types [...] or relatives? How often do you attend nondenominational or temple More than 4 time s per year 02/07/2019 services? 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 [address] [place] [phone] 11/20/2021 Appointment Laboratory Medicine Giovanna Schreiber V., ZAINA, C.N.P. [address] [facility] [place] [phone] 12/18/2021 Comprehensive Visit Physical Medicine and Isidoro Morales M.D. [address] [place] [phone] 12/19/2021 Comprehensive Visit [facility] Giovanna Schreiber, Medicine ZAINA, C.N.P. [address] [facility] [place] [phone] documented as of this encounter Visit Diagnoses Not on filedocumented in this encounter
--- OUTSIDE RECORDS SUMMARY | 2021-10-30 02:01 | XMS_ITS | Encounter Summary ---
:1945 Author Organization [facility] Address [address] [place] [address] Care Team Providers Name Role Phone Unavailable Primary Care Provider Unavailable Encounter Details Date Type Department Care Team Description 08/05/2011 Hospital Encounter HX [facility] FB NURSE Fadumo Candelaria M.D. Social History [...] or relatives? How often do you attend methodist or taoist More than 4 time s per year 02/07/2019 services? 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 0 06/12/2011 documented as of this encounter Procedure Notes Conversion, Historical Provider Ser - 08/05/2011 9:56 AM CDT Clinic Procedure Documentation Clinic Procedure Documentation Entered On: 08/05/2011 9:57 CDT Performed On: 08/05/2011 9:56 CDT by JERRI ALVARADO Checklist Amb/Home Prep Complete Surgical/Procedure Consent Signed : No JERRI ALVARADO - 08/05/2011 9:56 CDT Allergy Allergies (Active) NKA Estimated Onset Date: Unspecified ; Created By: BRUCE MORALES; Reaction Status: Active ; Category: Drug ; Substance: NKA ; Type: Allergy ; Updated By: BRUCE MORALES; Reviewed Date: 08/04/201114:49 CDT Cardiology Procedure Monitor Type : Holter 24 Hr - [place] Return to Clinic : 08/06/2011 Monitor Comment : Holter Moniter put on for palpitations JERRI ALVARADO - 08/05/2011 9:56 CDT [facility] Document Id: [id number] CDT!8 documented in this encounter Plan of Treatment Upcoming Encounters Date Type Specialty Care Team Description 11/20/2021 Nurse Only Family Medicine Giovanna Schreiber APRN, C.N.P. [address] [place] [phone] 11/20/2021 Appointment Laboratory Medicine Giovanna Schreiber APRN, C.N.P. [address] [facility] [place] [phone] 12/18/2021 Comprehensive Visit Physical Medicine and Isidoro Morales M.D. [address] [phone] 12/19/2021 Comprehensive Visit [facility] Giovanna Schreiber, Medicine ZAINA, C.N.P. [address] [facility] [place] [phone] documented as of this encounter Visit Diagnoses Not on filedocumented in this encounter
--- OUTSIDE RECORDS SUMMARY | 2021-10-30 02:01 | XMS_ITS | Encounter Summary ---
:1945 Author Organization [facility] Address [address] [place] [id number] Care Team Providers Name Role Phone Unavailable Primary Care Provider Unavailable Encounter Details Date Type Department Care Team Description 09/07/2014 Hospital Encounter [facility]X [facility] Lisa Zheng M.D. [address] [place], [place] [address] (Wo rk) Social History [...] or relatives? How often do you attend amish or sikhism More than 4 time s per year 02/07/2019 services? 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 [address] [facility] [place] [phone] 11/20/2021 Appointment Laboratory Medicine Giovanna Schreiber APRN, C.N.P. [address] [place] [place] [phone] 12/18/2021 Comprehensive Visit Physical Medicine and Isidoro Morales M.D. [address], [place] [address] 12/19/2021 Comprehensive Visit Community [facility] Giovanna Schreiber, Medicine ZAINA, C.N.P. [address] [place] [place] [phone] documented as of this encounter Procedures Procedure Name Priority Date/Time Associated Diagnosis Comme nts US LOWER EXTREMITY Routine 09/07/2014 11:31 AM Re sults for this VEINS RIGHT CDT procedure are i n the results section. documented in this encounter Results US Lower Extremity Veins Right (09/07/2014 11:31 AM CDT) Anatomical Region Laterality Modality Lower Extremity Right Ultrasound Specimen (Source) Anatomical Collection Method Collection Time Re ceived Time Location / / Volume Laterality 09/07/2014 11:31 AM CDT Addenda Addendum by Provider, Ester Benedict 09/07/2014 11:31 AM CDT RAD^^^OW US Venous Doppler Lower Ext Right 09/07/2014 11:31:13 Addendum by ProviderJak M.D. o n 09/07/2014 11:30 AM CDT RAD^^^OW US Venous Doppler Lower Ext Right 09/07/2014 11:30:00 Addendum by ProviderJak M.D. o n 09/07/2014 11:31 AM CDT RAD^^^MA US Venous Doppler Lower Ext Right 09/07/2014 11:31:13 Addendum by ProviderJak M.D. o n 09/07/2014 11:30 AM CDT RAD^^^MA US Venous Doppler Lower Ext Right 09/07/2014 11:30:00 Impressions 09/07/2014 11:54 AM CDT Negative right lower extremity venous ultrasound Narrative 09/07/2014 11:54 AM CDT EXAM: US Venous Doppler Lower Ext Right INDICATION: right knee/leg pain COMPARISON: None. FINDINGS: No evidence for right lower ex tremity deep venous thrombosis or obstruction. Superficial system is patent. No popliteal cyst or mass. Procedure Note Marlon Faith D.O. / ProviderKhadijah M.D. - 07/30/2016 EXAM: US Venous Doppler Lower Ext Right INDICATION: right knee/leg pain COMPARISON: None. FINDINGS: No evidence for right lower ex tremity deep venous thrombosis or obstruction. Superficial system is patent. No popliteal cyst or mass. IMPRESSION: Negative right lower extremi ty venous ultrasound Lulú Anderson R.V.T., ToryMPavanSPavan IMG US PROCEDURES documented in this encounter Visit Diagnoses Not on filedocumented in this encounter
--- OUTSIDE RECORDS SUMMARY | 2021-10-30 02:01 | XMS_ITS | Encounter Summary ---
:1945 Author Organization [facility] Address [address] [place] [address] Care Team Providers Name Role Phone Unavailable Primary Care Provider Unavailable Encounter Details Date Type Department Care Team Description 12/15/2011 Hospital Encounter HX [facility] Jose Bojorquez M .D. Social History Tobacco Use Types [...] How often do you attend yazidi or sikhism More than 4 time s [...] at Date Recorded Female 03/01/2017 8:10 PM [employer] documented as of this encounter Medications at [...] Nurse Only Family Medicine Giovanna Schreiber V., PILLOWCASE MAKER, C.N.P. [address] [facility] [place] [phone] 11/20/2021 Appointment Laboratory Medicine Giovanna Schreiber V., ZAINA C.N.P. [address] [place] [phone] 12/18/2021 Comprehensive Visit Physical Medicine and Isidoro Morales M.D. [address] [place] [address] 12/19/2021 Comprehensive Visit [facility] Giovanna Schreiber, Medicine ZAINA, C.N.P. [address] [place] [phone] documented as of this encounter Procedures Procedure Name Priority Date/Time Associated Diagnosis Comme nts THYROID-STIMULATING Routine 12/15/2011 3:16 PM Re sults for this HORMONE-SENSITIVE CDT procedure are in (S-TSH) the results section. T4 (THYROXINE), Routine 12/15/2011 3:16 PM Result s for this FREE, S CDT procedure are i n the results section. documented in this encounter Results T4 (Thyroxine), Free (12/15/2011 3:16 PM CDT) P athologist Signature T4 (Thyroxine), 0.9 NGDL POWERCHART Free, S Comment: -- REFERENCE VALUE -- 0.8-1.8 Elevated values are seen in patients on thyroxine therapy. Test Performed by: [address] [address] Administration Manager: Yosef ortiz III, M.D. Specimen (Source) Anatomical Collection Method Collection Time Re ceived Time Location / / Volume Laterality Blood 12/15/2011 3:16 PM CDT Jose Bojorquez M.D. LAB BLOOD ADD-ON Performing Organization Address City/State/ZIP Code Phon e Number POWERCHART (ABNORMAL) Thyroid-Stimulating Hormone-Sensitive (s-TSH) (12/15/2011 3:16 PM CDT) P athologist Signature TSH, Sensitive 9.8 (H) 0.3 - 5.0 POWERCHART [place] Comment: Test Performed by: [address] [address] Administration Manager: Yosef ortiz III, M.D. Specimen (Source) Anatomical Collection Method Collection Time Re ceived Time Location / / Volume Laterality Blood 12/15/2011 3:16 PM CDT Jose Bojorquez M.D. LAB BLOOD ADD-ON Performing Organization Address City/State/ZIP Code Phon e Number POWERCHART documented in this encounter Visit Diagnoses Not on filedocumented in this encounter
--- OUTSIDE RECORDS SUMMARY | 2021-10-30 02:01 | XMS_ITS | Encounter Summary ---
:1945 Author Organization [facility] Address [address] [place] [id number] Care Team Providers Name Role Phone Unavailable Primary Care Provider Unavailable Encounter Details Date Type Department Care Team Description 03/24/2014 Hospital Encounter HX [facility] Lisa Rosenberg M.D. [address] [place], [place] [address] (Wo rk) Social History [...] or relatives? How often do you attend temple or anabaptist More than 4 time s per year 02/07/2019 services? Do you belong to any clubs or organizations Yes 02/07/2019 such as temple groups, unions, fraternal or athletic groups, or [...] at Date Recorded Female 03/01/2017 8:10 PM HERB GROWER documented as of this encounter Last Filed Vital Signs Vital Sign Reading Time Taken Comments Blood Pressure 156/88 03/24/2014 10:58 AM HERB GROWER Pulse 72 03/24/2014 10:55 AM HERB GROWER Temperature - - Respiratory Rate 16 03/24/2014 10:55 AM HERB GROWER Oxygen Saturation - - Inhaled Oxygen Concentration - - Weight 85.5 kg (188 lb 7.9 oz) 03/24/2014 10:55 AM HERB GROWER Height - - Body Mass Index 31.79 02/24/2012 1:42 PM HERB GROWER documented in this encounter Medications at Time [...] encounter Progress Notes Masha Rosenberg M.D. - 03/24/2014 10:27 AM CST [id number] CHIEF COMPLAINT/REASON FOR VISIT Left arm pain for a week. HISTORY OF PRESENT ILLNESS This 68-year-old female presents to the clinic secondary to left arm pain for the last week or more.She woke up on the after the holidays lying on her side and had pain in her left arm,is into her wrist and her elbow. Thought it might be related to increased tension and stress relatedto her significant other's health issues as well as upcoming holidays. Further discussion reveals she does have hypertension. She has not been on any medication. She does have chronic pain. She has hadintermittent healthcare maintenance and is in need of a well woman exam. She has been in physical the rapy in the past with the Dr. Reaves in regard to a leg fracture which gives her discomfort. She is not sure if she is really short of breath. She may be having some palpitations. She is not taking any prescription medications at this time. EMR reviewed. MEDICATIONS 1. Metoprolol succinate 50 mg daily to begin 03/24/2014. 2. Aspirin 81 mg daily to begin 03/24/2014. 3. Calcium with vitamin D3, once per day. 4. Eye supplements each day. 5. Eye caps each day. 6. Selenium each day. 7. Separate vitamin D 3 each day. 8. Claritin 10 mg daily as needed. 9. [id number] Pepcid as needed. ALLERGIES No known drug allergies. SYSTEMS REVIEW CONSTITUTIONAL: No fevers, chills, night sweats. Slow weight gain over the years. EYES: No difficulties with blurred vision. See the chart. ENT: No hearing loss or oral problems. CARDIOVASCULAR: No chest pain, edema or true claudication. See above. RESPIRATORY: No cough, wheeze, hemoptysis. See above. GASTROINTESTINAL: No abdominal pain, hematemesis, melena, dysphagia or change in bowel habits. GENITOURINARY: No nocturia, hematuria, incontinence or dysuria. MUSCULOSKELETAL: No joint pain, swelling, stiffness or obvious deformities apart from those described above. INTEGUMENTARY: No rashes or pruritus. NEUROLOGIC: No seizures or syncopal events. PSYCHIATRIC: No history of anxiety or depression. No problems with sleep. ENDOCRINE: No history of diabetes or thyroid problems. HEMATOLOGIC/LYMPHATIC: Nohistory of anemia or bleeding. ALLERGIC/IMMUNOLOGIC: Please see the chart. PAST MEDICAL/SURGICAL HISTORY PAST SURGICAL HISTORY: 1. Cataract extractions 2011. 2. ORIF of the right leg fracture 2000. Hardware remains. OTHER HEALTH ISSUES: 1. Hypertension, which has not been treated. 2. Overweight. 3. Degenerative joint disease. PREVENTIVE SERVICES: Tobacco: None. Mammogram 06/13/2009; advised. Pap smear nonapplicable secondary to stated age. Chlamydia: Nonapplicable secondary to stated age. Colon screen: 12/05/2004 at [facility]. Depression: No. Asthma: No. Lipids: 08/04/2011; advised. Tetanus: 12/27/1996; advised. Pneumovax: Advised. Influenza: Declined. SOCIAL HISTORY No alcohol. Spouse with recent stints as noted. FAMILY HISTORY Mother: Colon cancer. Father: Diabetes mellitus. Sister: Breast cancer. Another sister: Macular degeneration. VITAL SIGNS WEIGHT: 85.5 kg. TEMPERATURE: 37.2. RESPIRATORY RATE: 16. PULSE: 72. SYSTOLIC: 154. DIASTOLIC: 84. PHYSICAL EXAMINATION GENERAL: Neatly dressed. Well groomed. SKIN: Warm and dry. HEAD: No evidence of trauma, tenderness or masses. EYES: PERRL. Full EOM. Funduscopic exam grossly normal. ENT: Ears: Tympanic membranes are ngo. Subjectively intact hearing. Nose: Mucosal membranes pink and moist. Septum is midline. Oral: No exudates. Teeth in good repair. No pharyngeal erythema. Neck: Supple. Trachea midline. LYMPH NODES: No cervical or femoral adenopathy. THYROID: No thyroid masses, tenderness or enlargement. HEART: Regular rate and rhythm, with frequent ectopy versus irregularly irregular, suspect the former. No clicks, rubs or murmurs. LUNGS: Clear to auscultation. No palpable chest wall masses. ABDOMEN: Soft, nontender, bowel sounds present, no organomegaly. EXTREMITIES: No ankle edema. JOINTS: Range of motion of the shoulders, elbows, wrists are symmetric but about 90% of expected forpatient's stated age and body habitus. Reflexes 2+ triceps and biceps. Transplanter Orchid is intact, although thisdoes elicit some tenderness with resistance against extension and flexion. MENTAL: Oriented x3. NEUROLOGIC: Reflexes 2+ triceps, biceps, knees and ankles. Gait smooth and easy. PERIPHERAL VESSELS: Positive radial, ulnar, femoral, posterior tib, dorsalis pulses. DIAGNOSTICS EKG: Frequent PVCs. CK 133. CBC: WBC 8.4, hemoglobin 14.4, hematocrit 43.4, platelets 267. Differential: Segs 4.23, lymphs 3.12, monos 0.91, eos 0.08, basos 0.05. Chemistry: Sodium 142, potassium 4.5, chloride 100, iitits25. Random blood sugar 86. BUN 18, creatinine 0.9, AST 23, calcium 10.4. Urinalysis: Specific gravity 1.015, pH 7.0, glucose negative, protein negative, ketones negative, bilirubin negative, urobili 0.2, blood negative, nitrites negative, leukocyte esterase negative. TSH 3.92. Chest x-ray: No acute findings. IMPRESSION/REPORT/PLAN 1. Atypical chest pain. 2. Myofascial pain. 3. Degenerative joint disease. 4. Possible hypothyroidism. 5. Hypertension. 6. Palpitations consistent with premature ventricular contractions. 7. Hyperlipidemia. PLAN: Supportive measures discussed in detail. Would recommend a well-woman exam some time in the near future. Would recommend fasting lipid profile sometime in the near future. Would recommend echocardiogram given the above history. Determine followup based on this study. May indeed need to see Cardiology. Would recommend beginning a blood pressure medication given the above findings. Risks and benefits discussed. All questions answered. Signs and symptoms leading to urgent evaluation are reviewed.Follow up is planned for the next couple of weeks or if any interval change occurs. Spent 30 of the 45 minute visit in discussion. Masha Rosenberg M.D./jordan Electronically Signed By: MASHA ROSENBERG MD On: 03/25/2014 10:22 AM Modified by and Electronically Signed by: MASHA ROSENBERG MD On: 03/25/2014 10:22 AM Source: [facility] MHSDOLBEYNONRADSYS Document Id: [id number] GROWER documented in this encounter Miscellaneous Notes Miscellaneous - Masha Rosenberg M.D. - 03/24/2014 6:00 PM CST Ambulatory Patient Summary [address] [id number] Visit Information Name: QUETA ANTOINE [facility] Number: [id number] Current Date: 03/24/2014 18:00:17 Physicians Attending Provider: MASHA ROSENBERG MD Primary Care Provider: PCP, UNASSIGNED - RIK ANTOINE QUETA has been given the following list of follow-up instructions, medication list, and patient education materials: Follow-up Instructions Your Medications Here [...] release) 1 Tablet(s), Oral, once a day New Routed to [facility] [address] [place] [address] Misc Prescription (Misc Prescription) See Instructions I caps - takes one daily Misc Prescription (Misc Prescription) See Instructions Eye Health Supplement - takes one daily Misc Prescription (Misc Prescription) See Instructions Calcium & Vit D3 0- takes one ounce daily selenium (selenium 200 mcg oral tablet) 1 Tablet(s), Oral, once a day Stop Taking the Following Medications: Medication list as of 03-24-14 18:00 Attention: If you have any medications at home that are not on this list, DO NOT take them until youcontact your provider for clarification. Give a copy of your medication list to your primary care provider. Update your medication list any time medications or doses are changed and carry your medication list at all times in case of emergency. 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 Your Goals/Additional instructions: Source: [facility] POWERCHART Document Id: [id number] GROWER Miscellaneous - Masha Rosenberg M.D. - 03/24/2014 6:00 PM CST Ambulatory Discharge Medication List [place] [address] [place] [id number] Visit Information Name: QUETA ANTOINE [facility] Number: [id number] Visit Date: 03/24/2014 18:00:16 Attending Provider: MASHA ROSENBERG MD Primary Care Provider: PCP, UNASSIGNED - ELISALUIS FERNANDO QUETA has been given the following list [...] release) 1 Tablet(s), Oral, once a day New Routed to [address] [address] Misc Prescription (Misc Prescription) See Instructions I caps - takes one daily Misc Prescription (Misc Prescription) See Instructions Eye Health Supplement - takes one daily Misc Prescription (Misc Prescription) See Instructions Calcium & Vit D3 0- takes one ounce daily selenium (selenium 200 mcg oral tablet) 1 Tablet(s), Oral, once a day Stop Taking the Following Medications: Medication list as of 03-24-14 18:00 Attention: If you have any medications at home that are not on this list, DO NOT take them until youcontact your provider for clarification. Give a copy of your medication list to your primary care provider. Update your medication list any time medications or doses are changed and carry your medication list at all times in case of emergency. Electronically Signed By: Signed On: Additional Information: Source: [facility] POWERCHART Document Id: [id number] GROWER Miscellaneous - Jennyfer Vick, L.P.N. - 03/24/2014 10:58 AM CST Ambulatory Vitals Height Weight Ambulatory Vitals Height Weight Entered On: 03/24/2014 10:59 HERB GROWER Performed On: 03/24/2014 10:58 HERB GROWER by JENNYFER VICK LPN Vitals/Ht/Wt Systolic Blood Pressure : 156 mmHg (HI) Diastolic Blood Pressure : 88 mmHg NIBP Mean : 111 mmHg BP Location : Left upper extremity Blood Pressure Cuff Size : Regular JENNYFER VICK LPN - 03/24/2014 10:58 HERB GROWER Source: [facility] POWERCHART Document Id: [id number] HERB GROWER!7 GROWER Miscellaneous - Jennyfer Vick LPavanP.N. - 03/24/2014 10:55 AM CST Adult Bit Setter Intake/History Adult Bit Setter Intake/History Entered On: 03/24/2014 10:58 HERB GROWER Performed On: 03/24/2014 10:55 HERB GROWER by JENNYFER VICK LPN Intake Chief Complaint : left arm pain Temperature Core : 37.2 DegC(Converted to: 99.0 DegF) Peripheral Pulse Rate : 72 /min Respiratory Rate : 16 /min Systolic Blood Pressure : 124 mmHg Diastolic Blood Pressure : 84 mmHg NIBP Mean : 97 mmHg BP Location : Left upper extremity Blood Pressure Cuff Size : Regular Actual Weight : 85.5 kg(Converted to: 188 lb 8 oz) Dosing Weight Clinic : 85.5 kg JENNYFER VICK LPN - 03/24/2014 10:55 HERB GROWER General Info Languages : Swiss Is Patient Female and 13-50 no hysterectomy : No JENNYFER VICK LPN - 03/24/2014 10:55 HERB GROWER Subjective Pain Symptoms : Yes JENNYFER VICK LPN - 03/24/2014 10:55 HERB GROWER Pain Scale Pain Scale Verbal 0-10 : Open JENNYFER VICK LPN - 03/24/2014 10:55 HERB GROWER Pain Pain Assessment Grid Pain 1 Pain 2 Location : Upper arm Foot Laterality : Right Right JENNYFER VICK LPN - 03/24/2014 10:55 HERB GROWER JENNYFER VICK LPN - 03/24/2014 10:55 HERB GROWER Dependent Habits Tobacco Use/Currently Using : No Tobacco Use/Last 12 months : No Exposure to Tobacco Smoke : Other: NEVER SMOKER Smoking Status : Never smoker JENNYFER VICK LPN - 03/24/2014 10:55 HERB GROWER Caffeine Use Grid Caffeine Use : Current Type : Chocolate, Soft drinks Frequency : Occasionally JENNYFER VICKJia PURVIS - 03/24/2014 10:55 HERB GROWER ID Screen Travel Within Last 21 Days : No JENNYFER VICKJia PURVIS - 03/24/2014 10:55 HERB GROWER [facility] Document Id: [id number] HERB GROWER!40 GROWER documented in this encounter Plan of Treatment Upcoming Encounters Date Type Specialty Care Team Description 11/20/2021 Nurse Only Family Medicine Giovanna Schreiber APRN C.N.P. [address] [place] [phone] 11/20/2021 Appointment Laboratory Medicine Giovanna Schreiber APRN C.N.P. [address] [place] [phone] 12/18/2021 Comprehensive Visit Physical Medicine and Isidoro Morales M.D. [address] [phone] 12/19/2021 Comprehensive Visit Community Internal Giovanna Schreiber, Medicine ZAINA C.N.P. [address] [place] [phone] documented as of this encounter Procedures Procedure Name Priority Date/Time Associated Comments Diagnosis DIPSTICK, U Routine 03/24/2014 11:34 Results for this AM HERB GROWER procedure are i n the results section. AUTOMATED DIFFERENTIAL, Routine 03/24/2014 11:23 Results for this B AM HERB GROWER procedure are i n the results section. CBC WITH DIFFERENTIAL, B Routine 03/24/2014 11:23 Results for this AM HERB GROWER procedure are i n the results section. ASPARTATE Routine 03/24/2014 11:23 Results for this AMINOTRANSFERASE (AST), AM HERB GROWER proc edure are in S/P the results section. THYROID-STIMULATING Routine 03/24/2014 11:23 Resu lts for this HORMONE-SENSITIVE AM HERB GROWER procedure are in (S-TSH) the results section. CREATINE KINASE (CK), S Routine 03/24/2014 11:23 Results for this AM HERB GROWER procedure are i n the results section. BASIC METABOLIC PANEL, Routine 03/24/2014 11:23 R esults for this S/P AM HERB GROWER procedure are i n the results section. DX CHEST AP OR PA AND Routine 03/24/2014 11:10 Re sults for this LATERAL 2 VIEWS AM HERB GROWER procedure ar e in the results section. documented in this encounter Results (ABNORMAL) Dipstick, Urine (03/24/2014 11:34 AM HERB GROWER) [facility] People Pattern Method Time Signature HXUr Color Yellow Colorless POWERCHART Clarity Clear Clear POWERCHART Glucose Negative Negative POWERCHART MGDL HXBILIRUBIN Negative Negative POWERCHART Ketones, QL(U) Negative Negative POWERCHART MGDL Specific 1.015 POWERCHART [place], POCT, U HXBLOOD Negative Negative POWERCHART pH, POCT, Urine 7.0 <5.0 POWERCHART Protein, Ur, Dip Negative Negative POWERCHART MGDL Urobilinogen 0.2 0.2 MGDL POWERCHART HXNITRITE Negative Negative POWERCHART Leukocyte Small (A) Negative POWERCHART Esterase Specimen (Source) Anatomical Collection Method Collection Time Re ceived Time Location / / Volume Laterality Urine, First 03/24/2014 11:34 Voided AM HERB GROWER Masha Rosenberg M.D. LAB URINE ORDERABLES Performing Organization Address City/State/ZIP Code Phon e Number POWERCHART (ABNORMAL) Automated Differential (03/24/2014 11:23 AM HERB GROWER) ANTs Software Method Time Signature Absolute 4.23 1.70 - POWERCHART Neutrophils 7.00 109L Lymphocytes 3.12 (H) 0.90 - POWERCHART 2.90 X109L Monocytes 0.91 (H) 0.30 - POWERCHART 0.90 X109L Eosinophils 0.08 0.05 - POWERCHART 0.50 X109L Absolute 0.05 0.00 - POWERCHART Basophil 0.30 X109L Specimen Anatomical Collection Method Collection Time Receive d Time (Source) Location / / Volume Laterality Blood 03/24/2014 11:23 03/24/2014 AM HERB GROWER 11:23 AM HERB GROWER Masha Rosenberg M.D. LAB BLOOD ADD-ON Performing Organization Address City/State/ZIP Code Phon e Number POWERCHART CBC with Differential (03/24/2014 11:23 AM HERB GROWER) P athologist Signature Leukocytes 8.4 3.4 - 10.5 POWERCHART X109L Erythrocytes 4.74 3.90 - POWERCHART 5.03 [id number] Hemoglobin 14.4 12.0 - POWERCHART 15.5 GDL Hematocrit 43.4 34.9 - POWERCHART 44.5 MCV 91.6 82.0 - POWERCHART 98.0 FL Platelet Count 267 150 - 450 POWERCHART X109L HX RDW 13.4 11.9 - POWERCHART 15.5 HXDifferential? Auto POWERCHART Specimen (Source) Anatomical Collection Method Collection Time Re ceived Time Location / / Volume Laterality Blood 03/24/2014 11:23 AM HERB GROWER Masha Rosenberg M.D. LAB BLOOD ADD-ON Performing Organization Address City/[facility]/ZIP Code Phon e Number POWERCHART Thyroid-Stimulating Hormone-Sensitive (s-TSH) (03/24/2014 11:23 AM HERB GROWER) P athologist Signature TSH 3.92 0.27 - 4.20 POWERCHART (Thyrotropin) MIUL Specimen (Source) Anatomical Collection Method Collection Time Re ceived Time Location / / Volume Laterality Blood 03/24/2014 11:23 AM HERB GROWER Masha Rosenberg M.D. LAB BLOOD ADD-ON Performing Organization Address City/[facility]/ZIP Code Phon e Number POWERCHART CK (Creatine Kinase) (03/24/2014 11:23 AM HERB GROWER) P athologist Signature Creatine Kinase 133 38 - 176 POWERCHART (CK), S IUL Specimen (Source) Anatomical Collection Method Collection Time Re ceived Time Location / / Volume Laterality Blood 03/24/2014 11:23 AM HERB GROWER Masha Rosenberg M.D. LAB BLOOD ADD-ON Performing Organization Address City/State/ZIP Code Phon e Number POWERCHART AST (Aspartate Aminotransferase) (03/24/2014 11:23 AM HERB GROWER) Patholo gist Method Time Signature Aspartate 23 8 - 43 POWERCHART Aminotransferase UNITL (AST), S Specimen (Source) Anatomical Collection Method Collection Time Re ceived Time Location / / Volume Laterality Blood 03/24/2014 11:23 AM HERB GROWER Masha Rosenberg M.D. LAB BLOOD ADD-ON Performing Organization Address City/State/ZIP Code Phon e Number POWERCHART (ABNORMAL) BMP (Basic Metabolic Panel) (03/24/2014 11:23 AM HERB GROWER) P athologist Signature BUN (Blood Urea 18 6 - 20 POWERCHART Nitrogen), S MGDL Creatinine, S 0.9 0.7 - 1.2 POWERCHART MGDL Glucose 86 POWERCHART Potassium, S 4.5 3.5 - 4.8 POWERCHART MMOLL Sodium, S 142 135 - 145 POWERCHART MMOLL Chloride, S 100 100 - 108 POWERCHART MMOLL CO2 Total 31 (H) 22 - 30 POWERCHART MMOLL Calcium, Total, 10.4 8.5 - 10.5 POWERCHART S MGDL HXeGFR (MDRD) >60 MLMIN POWERCHART eGFR >60 >=60 POWERCHART Black/ [id number] Micronesian Specimen (Source) Anatomical Collection Method Collection Time Re ceived Time Location / / Volume Laterality Blood 03/24/2014 11:23 AM HERB GROWER Masha Rosenberg M.D. LAB BLOOD ADD-ON Performing Organization Address City/State/ZIP Code Phon e Number POWERCHART DX Chest Anterior Posterior or Posterior Anterior and Lateral 2 Views (03/24/2014 11:10 AM HERB GROWER) Anatomical Region Laterality Modality Chest N/A Radiographic Imaging Specimen (Source) Anatomical Collection Method Collection Time Re ceived Time Location / / Volume Laterality 03/24/2014 11:10 AM HERB GROWER Addenda Addendum by Jak Saxena M.D. o n 03/24/2014 11:10 AM HERB GROWER RAD^^^OW XR Chest 2 Views 03/24/2014 11:10:07 Addendum by Jak Saxena M.D. o n 03/24/2014 11:10 AM HERB GROWER RAD^^^MA XR CHEST 2 VIEWS 03/24/2014 11:10:07 Impressions 03/24/2014 11:57 AM HERB GROWER No acute x-ray findings. Narrative 03/24/2014 11:57 AM HERB GROWER EXAM: XR Chest 2 Views INDICATION: Hypertension, PVCs (prematur e ventricular contractions), heart palpitations. COMPARISON: 08/04/2011. FINDINGS: ??There has been no significan t interval change. ??Lung li are clear. ??Heart and mediastina l structures are normal for age 68. ??Bony thorax and soft tissues a ppear to be currently intact. There is no vascular congestion. Procedure Note Rohan Schumacher M.D. / Provider, Johan dow M.D. - 07/30/2016 EXAM: XR Chest 2 Views INDICATION: Hypertension, PVCs (prematur e ventricular contractions), heart palpitations. COMPARISON: 08/04/2011. FINDINGS: There has been no significant interval change. Lung li are clear. Heart and mediastinal structures are normal for age 68. Bony thorax and soft tissues cande ear to be currently intact. There is no vascular congestion. IMPRESSION: No acute x-ray findings. Historical Provider IMG DIAGNOSTIC IMAGING PROCE SHABANA documented in this encounter Visit Diagnoses Not on filedocumented in this encounter
--- OUTSIDE RECORDS SUMMARY | 2021-10-30 02:02 | XMS_ITS | Encounter Summary ---
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 Last Filed Vital Signs Vital Sign Reading Time Taken Comments Blood Pressure 140/80 06/12/2011 2:37 PM CDT Pulse 80 06/12/2011 2:37 PM CDT Temperature - - Respiratory Rate 16 06/12/2011 2:37 PM CDT Oxygen Saturation - - Inhaled Oxygen Concentration - - Weight 84 kg (185 lb 3 oz) 06/12/2011 2:37 PM CDT Height 164.5 cm (5' 4.76) 06/12/2011 2:37 PM CDT Body Mass Index 31.04 06/12/2011 2:37 PM CDT documented in this encounter Medications at Time of Discharge Medication Sig Dispensed Refills Start Date End Date FAMOTIDINE ORAL Pepcid See Instructions, 10 mg 0 06/12/2011 1 in am 2 in pm as needed LORATADINE ORAL Take 10 mg by mouth as needed. 0 06/12/2011 documented as of this encounter Progress Notes Mitzy Oreilly M.D. - 06/12/2011 12:00 AM CDT [id number] CHIEF COMPLAINT/ REASON FOR VISIT Coughing starting May 10. HISTORY OF PRESENT ILLNESS This 65-year-old female patient has had a problem with respiratory infection since May 10, 2011. She started off with chills and cough and body aches was in bed for 3 days. She thought she might have the flu. She then was better or worse the next week and half with a loose cough treated with Robitussin. She thought she should not be on antibiotics sot did not come in to be checked. She also has had some plugging in ears. Scheduled have cataract surgery in July and would like to get this cleared up before that. Her previous records were reviewed. She has had no surgery but did have left tibia fibular fractures after falling off a small ladder in 2000. EMR record was started since she has not been here since we initiated electronic medical record June 2009 for any provider encounters. SYSTEMS REVIEW 1. Respiratory: As above with coughing. 2. Cardiovascular: No palpitation of the heart, no chest pain. 3. GI: No nausea, vomiting, diarrhea, constipation or recent change in weight. 4. : No dysuria, no hematuria. 5. All other systems reviewed and negative, except as mentioned above. PHYSICAL EXAM AREA EXAM TEXT SKIN Clear EYES Pupils equal, round, react to light and accommodation; EOMs full; lids normal. ENT Ears: TMs clear; external auditory canals clear. Throat clear. Tongue normal. Teeth normal. LYMPH NODES Neck: no lymphadenopathy. THYROID Normal size, symmetric. HEART No murmur, gallop or rub; normal size; PMI arteries normal. LUNGS Coarse breath sounds. ABDOMEN No masses, no organomegaly, nontender; normal to inspection, percussion and palpation; no distention. EXTREMITIES Legs: no edema. IMPRESSION/REPORT/PLAN Acute sinusitis acute bronchitis. Recommend Zithromax 500 milligrams today 250 milligrams daily for next 4 days and recheck in 2 weeks return sooner p.r.n. SFO/clf Signed Mitzy Oreilly M.D. Family Medicine Electronically Signed By: MITZY OREILLY MD On: 06/13/2011 09:57 AM Source: [facility] [id number] Document Id: [id number] documented in this encounter Miscellaneous Notes Miscellaneous - Mitzy Oreilly M.D. - 06/12/2011 3:04 PM CDT Ambulatory Patient Summary [address] [address] Visit Information Name: QUETA ANTOINE Current Date: 06/12/2011 15:04:03 Physicians Attending Provider: MITZY OREILLY MD Primary Care Provider: MITZY OREILLY MD Your Medications Here is a list of your medications. It is important to take your medications as directed. Use a pillbox or chart to help remind you to take your medications. Please let your doctor or nurse know if you have problems taking your medications. Medication/Strength Dose Route Frequency Indications/Special Instructions/Comments azithromycin (Zithromax 250 mg oral tablet) 2 tablets on day 1, then 1 tablet on days 2-5 Oral as directed for 5 Days loratadine (Claritin) 10 mg Oral once a day famotidine (Pepcid) Attention: If you have any medications at home that are not on this list, DO NOT take them until youcontact your provider for clarification. Your Allergies & Intolerances Substance Reaction Symptoms Category Comments No Known Allergies Drug Your Problem List Problem Status Onset Comments No current problems or disability Active Your Recommendations We want to make sure you get the tests, immunizations, and guidance you need to stay healthy. Here is a customized list of recommendations, based on information we have in your medical record. Your doctor may have additional recommendations for you, based on your personal medical history and risk factors. You can help us by calling us to make an appointment when you are due for your tests. Additional information regarding recommendations: Test/Treatment Last Done Next Due Additional Information Health Assessment every 1 year 06/12/2011 06/11/2012 Screening Bone Density Once Women greater than age 64 06/12/2011 Checks for bone loss and osteoporosis. Screening Colonoscopy or Flex Sig or Occult Blood 12/05/2004 12/03/2014 Checks for signs of cancer of the colon. Screening Mammogram every 1 year Women 40-75 06/13/2009 06/14/2010 X-rays of breast to check for breast cancer. Lipid Panel every 5 years Age 20-75 08/29/2008 08/28/2013 Checks blood for good (HDL) and bad (LDL) cholesterol. Know your numbers, they are one indicator of your risk for heart attack and stroke. Vaccine: Flu every 1 year 06/12/2011 Immunization to help prevent you from getting the flu strain expected to be a problem for that year's flu season. Vaccine: Pneumococcal Once 06/12/2011 Immunization to help prevent you from getting 23 kinds of pneumococcal bacteria that can lead to pneumonia, bacteremia and meningitis. Vaccine: Tetanus every 10 years 06/12/2011 Immunization to help prevent you from getting the seriousdisease Tetanus (Lockjaw). Your Upcoming Appointments Date Time Location Reason Provider 07/23/2011 10:00 [facility] Your Goals/Additional instructions: Source: [facility] POWERCHART Document Id: [id number] Miscellaneous - Mitzy Oreilly M.D. - 06/12/2011 3:04 PM CDT Ambulatory Depart Summary [address] [address] Visit Information Name: QUETA ANTOINE Visit Date: 06/12/2011 15:04:02 Attending Provider: MITZY OREILLY MD Primary Care [...] medications. Medication/Strength Dose Route Frequency Indications/Special Instructions/Comments azithromycin (Zithromax 250 mg oral tablet) 2 tablets on day 1, then 1 tablet on days 2-5 Oral as directed for 5 Days loratadine (Claritin) 10 mg Oral once a day famotidine (Pepcid) Attention: If you have any medications at home that are not on this list, DO NOT take them until youcontact your provider for clarification. Additional Information: Source: [facility] POWERCHART Document Id: [id number] Miscellaneous - Bruce Morales, L.P.N. - 06/12/2011 2:42 PM CDT Health Assessment Health Assessment Entered On: 06/12/2011 14:42 CDT Performed On: 06/12/2011 14:42 CDT by BRUCE MORALES Health Assessment Complete Health Assessment Complete or Modified : Annual Health Assessment Annual Health Assessment Completed : Yes BRUCE MORALES - 06/12/2011 14:42 CDT Nutrition Nutrition Risk Factors by History Adult : None BRUCE MORALES - 06/12/2011 14:42 CDT Functional Current Daily Living Assistance : None BRUCE MORALES - 06/12/2011 14:42 CDT Dependent Habits Tobacco Use/Currently Using : No Smoking Status : Never smoker BRUCE MORALES - 06/12/2011 14:42 CDT Psychosocial Domestic Abuse Concerns : None BRUCE MORALES - 06/12/2011 14:42 CDT Advance Directive Advanced Directives : Yes BRUCE MORALES - 06/12/2011 14:42 CDT Educ Needs Learning Style Preference Adult Grid Patient : None Family : None BRUCE MORALES - 06/12/2011 14:42 CDT Source: [facility] POWERCHART Document Id: [id number] CDT!19 Miscellaneous - Bruce Morales L.P.N. 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 Entered On: 06/12/2011 14:41 CDT Performed On: 06/12/2011 14:37 CDT by BRUCE MORALES Intake Chief Complaint : cough Temperature Core : 36.8C(Converted to: 98.2DegF) Peripheral Pulse Rate : 80/min Respiratory Rate : 16/min Systolic Blood Pressure : 140mmHg Diastolic Blood Pressure : 80mmHg NIBP Mean : 100mmHg BP Location : Right upper extremity Blood Pressure Cuff Size : Large SpO2 : 98% Height : 164.5cm(Converted to: 5ft 5inch(es), 64.76inch(es)) Actual Weight : 84kg(Converted to: 185lb 3oz) Dosing Weight Clinic : 84.00kg Clinic BSA : 1.96 Body Mass Index : 31.04kg/m2 BRUCE MORALES - 06/12/2011 14:37 CDT Subjective Pain Symptoms : No BRUCE MORALES - 06/12/2011 14:37 CDT Dependent Habits Tobacco Use/Currently Using : No Smoking Status : Never smoker BRUCE MORALES - 06/12/2011 14:37 CDT Allergy Allergies (Active) NKA Estimated Onset Date: Unspecified ; Created By: BRUCE MORALES; Reaction Status: Active ; Category: Drug ; Substance: NKA ; Type: Allergy ; Updated By: BRUCE MORALES; Reviewed Date: 06/12/201114:33 CDT Source: [facility] POWERCHART Document Id: [id number] CDT!22 Telephone Encounter - Suzi Pham LPavanPPavanNPavan - 06/05/2011 3:59 PM CDT Phone Message Document Contains Addenda Addendum by MITZY OREILLY MD on 05 June 2011 16:05:10 CDT From: MITZY OREILLY MD To: BASSEM FARFAN; Sent: 06/05/2011 16:05:10 CDT Subject: FW: Phone Message ok From: SUZI PHAM To: MITZY OREILLY MD; BASSEM FARFAN; Sent: 06/05/2011 15:59:19 CDT Subject: Phone Message Caller is: ( x ) Patient ( ) Mother ( ) Father ( ) Spouse ( ) Daughter ( ) Son ( ) Pharmacy ( ) Other: Physician: Patient MRN #: Reason for Call: Message:Had the flu really bad the end of April. Was in bed 3-4 days no appitite, after that still coughing a lot.Took Robitussin for cough. Also into sinuses, left ear gets plugged at times. Takes Claritin everyday. Still having cough worse in morning, occasional during day-feels like in bronchialarea. Wondering if it's a virus going around or if antibiotic would help. She is to have cataract surgery but waiting for cough to clear. She is making appointment for next week- if not better . Advice/Action: Source used: ( ) Verbalizes understanding of instructions ( ) Instructed to call back if symptoms worsen or do not resolve ( ) Refused to see provider ( ) Appointment Scheduled ( ) OK to leave message on voice mail ( ) Patient told to expect return call: ( ) today ( ) tomorrow ( ) next work day ( ) Patient's email ( ) Patient told physician out of office, will call upon return call on ( ) ( ) Patient told physician out of office, routed to other physician ( ) Other ( ) Call back telephone number ( ) Call back cell phone number ( ) Source: [facility] POWERCHART Document Id: [id number] Electronically signed by Makenzie, [facility] Chief Nursing Executive [id number] at 08/24/2016 7:01 AM CDT documented in this encounter Plan of Treatment Upcoming Encounters Date Type Specialty Care Team Description 11/20/2021 Nurse Only Family Medicine Giovanna Schreiber APRN, C.N.P. [address] [facility] [place] [address] 11/20/2021 Appointment Laboratory Medicine Giovanna Schreiber APRN C.N.P. [address] [facility] [place] [address] 12/18/2021 Comprehensive Visit Physical Medicine and Isidoro Morales M.D. [address] [address] 12/19/2021 Comprehensive Visit Community Internal Giovanna Schreiber, Medicine ZAINA, C.N.P. [address] [facility] [place] [address] documented as of this encounter Visit Diagnoses Not on filedocumented in this encounter
--- OUTSIDE RECORDS SUMMARY | 2021-10-30 02:02 | XMS_ITS | Encounter Summary ---
:1945 Author Organization [facility] Address [address] [place] [address] Care Team Providers Name Role Phone Unavailable Primary Care Provider Unavailable Encounter Details Date Type Department Care Team Description 12/18/2008 Hospital Encounter HX NO MAPPING Jose Bojorquez M.D. 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 [address] [address] 11/20/2021 Appointment Laboratory Medicine Giovanna Schreiber APRN, C.N.P. [address] [address] 12/18/2021 Comprehensive Visit Physical Medicine and Isidoro Morales M.D. [address] [facility] [phone] 12/19/2021 Comprehensive Visit [facility] Internal Giovanna Schreiber, Medicine PHARMACIST INTERN, C.N.P. [address] [facility] [place] [phone] documented as of this encounter Procedures Procedure Name Priority Date/Time Associated Comments Diagnosis US PELVIS TRANSVAGINAL Routine 12/18/2008 2:52 PM Results for this AND TRANSABDOMINAL CDT procedure are in the results section. US ABDOMEN LIMITED Routine 12/18/2008 2:01 PM Res ults for this CDT procedure are i n the results section. documented in this encounter Results US Pelvis Transvaginal and Transabdominal (12/18/2008 2:52 PM CDT) Anatomical Region Laterality Modality Pelvis N/A Ultrasound Specimen (Source) Anatomical Collection Method Collection Time Re ceived Time Location / / Volume Laterality 12/18/2008 2:52 PM CDT Addenda Addendum by Jak Saxena M.D. o n 12/18/2008 2:52 PM CDT RAD^^^OW US Pelvic And Endovaginal 12/18/2008 14:52:00 Addendum by Jak Saxena M.D. o n 12/18/2008 12:33 PM CDT RAD^^^OW US Pelvic And Endovaginal 12/18/2008 12:33:00 Addendum by Jak Saxena M.D. o n 12/18/2008 2:52 PM CDT RAD^^^MA US Pelvic And Endovaginal 12/18/2008 14:52:00 Addendum by Jak Saxena M.D. o n 12/18/2008 12:33 PM CDT RAD^^^MA US Pelvic And Endovaginal 12/18/2008 12:33:00 Narrative 12/18/2008 2:56 PM CDT Exam: ?? US PELVIC AND ENDOVAGINAL ? Clinical history: Pelvic pain ?? Comparison: None ?? Findings: Uterus measures 6.7 x 2 x 4.4 cm. The endometrial stripe is thickened measuring 0.7 cm in maximal di ameter. The right ovary measures 3.4 x 1.4 x 2.5 cm and is withi n normal limits. The left ovary is not identified. There are multi ple small nabothian cysts. There is normal blood flow in the right ovary. There is no free fluid in the pelvis. ?? Impression: 1. No pelvic mass or free fluid identifi ed. 2. Borderline abnormal thickness of the endometrial stripe at 7 mm on the transabdominal images. Suggest clini miguel ángel correlation and possible endometrial biopsy. Procedure Note Gregg Obrien M.D. / ProviderRajesh M.D. - 08/26/2016 Exam: US PELVIC AND ENDOVAGINAL Clinical history: Pelvic pain Comparison: None Findings: Uterus measures 6.7 x 2 x 4.4 cm. The endometrial stripe is thickened measuring 0.7 cm in maximal di ameter. The right ovary measures 3.4 x 1.4 x 2.5 cm and is withi n normal limits. The left ovary is not identified. There are multi ple small nabothian cysts. There is normal blood flow in the right ovary. There is no free fluid in the pelvis. Impression: 1. No pelvic mass or free fluid identifi ed. 2. Borderline abnormal thickness of the endometrial stripe at 7 mm on the transabdominal images. Suggest clini miguel ángel correlation and possible endometrial biopsy. Hayder Nino Jr., RPavanD.M.S. IMG US PROCEDURES US Abdomen Limited (12/18/2008 2:01 PM CDT) Anatomical Region Laterality Modality Abdomen N/A Ultrasound Specimen (Source) Anatomical Collection Method Collection Time Re ceived Time Location / / Volume Laterality 12/18/2008 2:01 PM CDT Addenda Addendum by Jak Saxena M.D. o n 12/18/2008 2:01 PM CDT RAD^^^OW US Abdomen Limited 12/18/2008 14:01:00 Addendum by ProviderJak M.D. o n 12/18/2008 11:46 AM CDT RAD^^^OW US Abdomen Limited 12/18/2008 11:46:00 Addendum by ProviderJak M.D. o n 12/18/2008 2:01 PM CDT RAD^^^MA US ABDOMEN LIMITED 12/18/2008 14:01:00 Addendum by ProviderJak M.D. o n 12/18/2008 11:46 AM CDT RAD^^^MA US ABDOMEN LIMITED 12/18/2008 11:46:00 Impressions 12/18/2008 2:23 PM CDT ?? 1. Fatty infiltration of the liver, echo genic liver decreases the sensitivity in evaluation for hepatic ma sses, although no obvious solid hepatic masses are identified on t lauro's exam. 2. Several simple small liver cysts as d escribed above. 3. No sonographic evidence for biliary d isease. Narrative 12/18/2008 2:23 PM CDT Comparison: None. ?? FINDINGS: There is no intra-abdominal fr ee fluid. ?? Liver: There is an increase in the echog enicity throughout the liver parenchyma. There are several anechoic s tructures associated with the left lobe of the liver, the largest of t hese measures 2.2 x 2.0 x 2.9 cm. In addition there is a solitary anec hoic structure within the right lobe of the liver that measures ap proximately 1 cm in diameter. ?? Pancreas: The visualized portions of the pancreas appear within normal limits. ?? Biliary system: No stones or intralumina l filling defects are identified in the gallbladder. There is no pericholecystic fluid. There is no sonographic Salgado's sign. T he common duct measures 3 mm in diameter. ?? Kidneys: The right kidney measures 9.2 c m in length. No right renal masses or stones are identified. The lef t kidney was not studied. The spleen was not imaged. ?? The visualized portions of the IVC and p ortal vein are patent. The proximal aorta within the abdomen is pat ent and demonstrates a normal caliber. ?? Procedure Note Kirt Donis M.D. / ProviderPrudencio M.D. - 08/26/2016 Comparison: None. FINDINGS: There is no intra-abdominal fr ee fluid. Liver: There is an increase in the echog enicity throughout the liver parenchyma. There are several anechoic s tructures associated with the left lobe of the liver, the largest of t hese measures 2.2 x 2.0 x 2.9 cm. In addition there is a solitary anec hoic structure within the right lobe of the liver that measures ap proximately 1 cm in diameter. Pancreas: The visualized portions of the pancreas appear within normal limits. Biliary system: No stones or intralumina l filling defects are identified in the gallbladder. There is no pericholecystic fluid. There is no sonographic Salgado's sign. T he common duct measures 3 mm in diameter. Kidneys: The right kidney measures 9.2 c m in length. No right renal masses or stones are identified. The lef t kidney was not studied. The spleen was not imaged. The visualized portions of the IVC and p ortal vein are patent. The proximal aorta within the abdomen is pat ent and demonstrates a normal caliber. IMPRESSION: 1. Fatty infiltration of the liver, echo genic liver decreases the sensitivity in evaluation for hepatic ma sses, although no obvious solid hepatic masses are identified on t lauro's exam. 2. Several simple small liver cysts as d escribed above. 3. No sonographic evidence for biliary d isease. Hayder Nino Jr., R.D.M.S. IMG US PROCEDURES documented in this encounter Visit Diagnoses Not on filedocumented in this encounter
--- OUTSIDE RECORDS SUMMARY | 2021-10-30 02:02 | XMS_ITS | Encounter Summary ---
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 [address] [phone] 11/20/2021 Appointment Laboratory Medicine Giovanna Schreiber APRN, C.N.P. [address] [phone] 12/18/2021 Comprehensive Visit Physical Medicine and Isidoro Morales M.D. [address] [facility] [place] [address] 12/19/2021 Comprehensive Visit [facility] Giovanna Schreiber, Medicine CORE MOUNTER, C.N.P. [address] [facility] [address] [phone] documented as of this encounter Procedures Procedure Name Priority Date/Time Associated Comments Diagnosis BI ULTRASOUND BREAST Routine 09/07/2008 3:35 PM R esults for this FOCUSED LEFT CDT procedure are i n the results section. BI BREAST DIAGNOSTIC Routine 09/07/2008 7:39 AM R esults for this LEFT ADDITIONAL CDT procedure ar e in VIEWS the results section. documented in this encounter Results BI Ultrasound Breast Focused Left (09/07/2008 3:35 PM CDT) Anatomical Region Laterality Modality Breast Left Ultrasound Specimen (Source) Anatomical Collection Method Collection Time Re ceived Time Location / / Volume Laterality 09/07/2008 3:35 PM CDT Impressions 09/07/2008 3:35 PM CDT Negative left breast ultrasound without sonographic explanation for the mammographic abnorma lity (would have been a BIRADS 1 if not for the mammogram). Based on e mammogram appearance, this is probably benign. BI-RADS 3, probably benign. Recommend six-month followup diagnostic left breast mammogra m to ensure stability and to help establish a new baseline since the patient has no old mammogram comparisons. Narrative 09/07/2008 3:35 PM CDT Originally Signed By UNKNOWN, PERSONNEL Reason for exam: FOLLOWUP TO MAMMO 12:00 POS? HISTORY: A tiny 5 mm oval or reniform sh aped density in the upper left breast near the 12:00 position seen on b aseline screening mammogram at the age of 63. ?? Technique: Grayscale imaging of the uppe r left breast was performed including the 12:00 position and extendi ng actually from 10:30 to the 3:00 positions. ?? FINDINGS: Unfortunately, the tiny 5 mm m ammographic abnormality could not be visualized on ultrasound. No mo d or cystic masses were identified. No shadowing or other concer latoya findings were evident. Only normal breast tissues were identifi ed. ? Procedure Note ProviderJak M.D. - 08/26/2016F ormatting of this note might be different from the original. Originally Signed By UNKNOWN, PERSONNEL Reason for exam: FOLLOWUP TO MAMMO 12:00 POS? HISTORY: A tiny 5 mm oval or reniform sh aped density in the upper left breast near the 12:00 position seen on b aseline screening mammogram at the age of 63. Technique: Grayscale imaging of the uppe r left breast was performed including the 12:00 position and extendi ng actually from 10:30 to the 3:00 positions. FINDINGS: Unfortunately, the tiny 5 mm m ammographic abnormality could not be visualized on ultrasound. No mo d or cystic masses were identified. No shadowing or other concer latoya findings were evident. Only normal breast tissues were identifi ed. IMPRESSION: Negative left breast ultraso und without sonographic explanation for the mammographic abnorma lity (would have been a BIRADS 1 if not for the mammogram). Based on e mammogram appearance, this is probably benign. BI-RADS 3, probably benign. Recommend six-month followup diagnostic left breast mammogra m to ensure stability and to help establish a new baseline since the patient has no old mammogram comparisons. Historical Provider IMG BI PROCEDURES BI Breast Diagnostic Left Additional Views (09/07/2008 7:39 AM CDT) Anatomical Region Laterality Modality Breast Left Mammography Specimen (Source) Anatomical Collection Method Collection Time Re ceived Time Location / / Volume Laterality 09/07/2008 7:39 AM CDT Impressions 09/07/2008 7:39 AM CDT BI-RADS 3, probably benign findings. Recommend six-month followup diagnostic left breast mammogra m to ensure stability and to help establish a new baseline in this 63 -year-old patient with no old comparison films. Please make additional attempts to locate old comparison exams. Narrative 09/07/2008 7:39 AM CDT Originally Signed By UNKNOWN, PERSONNEL Reason for exam: 5MM WELL CIRCUMSCRIBED MASS @ 12:00 LT BREAST HISTORY: Baseline mammogram at age 63 re vealed a 5 mm nodular density in the upper left breast near the 12:00 position. ?? Technique: Spot compression views of the previously observed abnormality were obtained in both projec tions along with a 90 degree lateral view of the entire left breast. ?? COMPARISON: 09/04/2008 only. Please make an attempt to locate older comparisons in this 63-year-old patient. ?? FINDINGS: Unfortunately, the 5 mm oval o r reniform shaped nodule persists on all views but becomes less c onspicuous. This is probably a benign intramammary lymph node. A cyst o r fibroadenoma could have a similar appearance. Other benign etiolog ies are not excluded. No concerning features are confirmed but th is has to be treated as a new problem since there are no old compariso ns, even though it very well might be chronic. ?? Unfortunately, the separately dictated u ltrasound was unable to locate the abnormality. This slightly decreases the level of confidence in addition to lack of old comparison films . Therefore, this will be classified as a probably benign finding with six-month followup diagnostic left breast mammogram request ed. ? Procedure Note Provider, Ester Benedict - 08/26/2016F ormatting of this note might be different from the original. Originally Signed By UNKNOWN, PERSONNEL Reason for exam: 5MM WELL CIRCUMSCRIBED MASS @ 12:00 LT BREAST HISTORY: Baseline mammogram at age 63 re vealed a 5 mm nodular density in the upper left breast near the 12:00 position. Technique: Spot compression views of the previously observed abnormality were obtained in both projec tions along with a 90 degree lateral view of the entire left breast. COMPARISON: 09/04/2008 only. Please make an attempt to locate older comparisons in this 63-year-old patient. FINDINGS: Unfortunately, the 5 mm oval o r reniform shaped nodule persists on all views but becomes less c onspicuous. This is probably a benign intramammary lymph node. A cyst o r fibroadenoma could have a similar appearance. Other benign etiolog ies are not excluded. No concerning features are confirmed but th is has to be treated as a new problem since there are no old compariso ns, even though it very well might be chronic. Unfortunately, the separately dictated u ltrasound was unable to locate the abnormality. This slightly decreases the level of confidence in addition to lack of old comparison films . Therefore, this will be classified as a probably benign finding with six-month followup diagnostic left breast mammogram request ed. IMPRESSION: BI-RADS 3, probably benign f indings. Recommend six-month followup diagnostic left breast mammogra m to ensure stability and to help establish a new baseline in this 63 -year-old patient with no old comparison films. Please make additional attempts to locate old comparison exams. Historical Provider IMG BI PROCEDURES documented in this encounter Visit Diagnoses Not on filedocumented in this encounter
--- OUTSIDE RECORDS SUMMARY | 2021-10-30 02:02 | XMS_ITS | Encounter Summary ---
:1945 Author Organization 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 - 07/23/2011 12:00 AM CDT [id number] CHIEF COMPLAINT/ REASON FOR VISIT Need medical evaluation for cataract surgery. HISTORY OF PRESENT ILLNESS This 65-year-old female patient has had trouble with cataracts for last 3 years. Left eye worse than her right. She notices decreased acuity has trouble reading eye charts when she has eye exam this is especially bad at night. She has seen Dr. Rolando Yang graphics intern who plans to do cataract extraction with lens implant left eye on July 28 and approximately 2 weeks later the right eye. For objective and subjective findings see the [facility] history and physical examination form. Patient is in good health having no other problems. EMR record reviewed and updated. CURRENT MEDICATIONS 1. Claritin 10 milligrams daily for allergies 2. Pepcid 10 milligrams daily for dyspepsia. ALLERGIES None. SYSTEMS REVIEW ALLERGIC/IMMUNOLOGIC: The patient is having no itching, no signs of allergies. No signs of immune deficiency. CONSTITUTIONAL SYMPTOMS: The patient has had no fevers, no weight loss or gain, no night sweats, no tiredness. PSYCHIATRIC: No emotional problems, no loss of feeling, no problem thinking. EYES: As above. ENT: No hearing loss, no cold, no runny nose, no sores in the mouth, no sore throat. CARDIOVASCULAR: No palpitation of the heart, no chest pain, no orthopnea, no PND. RESPIRATORY: No cough, no shortness of breath, no difficulty breathing, no pain with inspiration. HEMATOLOGICAL/LYMPHATIC: No swollen glands, no paleness, no easy bruising, no petechiae. GI: No nausea, vomiting, diarrhea or constipation. : No dysuria, no hematuria, no change in frequency of urination, no nocturia. MUSCULOSKELETAL: No problem with moving arms or legs, no weakness, no muscle or skeletal pain. INTEGUMENTARY: Skin: No change in color, no lesions. Breasts: No masses noted, no change in nipples. NEUROLOGICAL: No loss of feeling, no loss of function. ENDOCRINE: No weakness, no tiredness, no symptoms of thyroid disease or diabetes; no thirst, weight loss or polyuria. All other systems reviewed and negative, except as mentioned above. PAST MEDICAL HISTORY She has no ongoing medical problems treated by doctor. Has allergic rhinitis and dyspepsia as mentioned above. SURGERY: She has had no major abdominal surgeries but did have metal placed in her left leg for fracture in 2000. SOCIAL HISTORY Never smoked, never drank alcohol or any other substance use. 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 Her will be her support person and he is the only one that lives in her home. FAMILY HISTORY Mother colon cancer Dad diabetes mellitus sister breast cancer. Another sister macular degeneration. VITAL SIGNS HEIGHT 165 WEIGHT 84 TEMPERATURE 37 RESPIRATIONS 16 PULSE 84 BLOOD PRESSURE 126/78 O2 SAT 97 BODY MASS INDEX 30.85. PHYSICAL EXAM AREA EXAM TEXT GENERAL Appearance, development, nutrition, and body habitus appear normal; no deformities. Normal grooming. SKIN Inspection of the skin and subcutaneous tissue clear, no rashes, lesions or ulcers. Palpation of the skin and subcutaneous tissue revealed no induration, subcutaneous nodules or tightening of the skin. EYES Bilateral dense cataracts seen with shiny light with otoscope. ENT Tympanic membranes clear; external auditory canals and ears normal; hearing grossly normal; nasal mucosa, septum and turbinates appear normal; lips, teeth and gums normal; oropharynx, oral mucosa, salivary glands, hard and soft palate, tongue, and posterior pharynx appear normal. LYMPH NODES No lymphadenopathy, thyroid normal size without masses or tenderness; no masses, symmetrical. Lymphatic: No nodules palpated in the neck, axilla, groin or any other area. HEART Palpation of the heart normal location and size, no thrills. Auscultation reveals no murmur, gallop or rub. Carotid arteries: Normal pulse amplitude, no bruits. Abdominal aorta normal size, no bruits. Femoral arteries pulse normal, no bruits. Pedal pulses normal amplitude. LUNGS Respiratory effort normal, no difficulty breathing, retractions or abnormal movements. Percussion: No dullness, flatness or hyperresonance. Palpation of the chest negative, auscultation of the lungs reveals normal breath sounds, no rales, rhonchi or wheezing. ABDOMEN Abdomen has no masses, no tenderness; liver and spleen are not palpable; no evidence for hernia. EXTREMITIES No edema, no significant varicosities. Musculoskeletal: Normal gait and station; fingers normal, nails normal, no clubbing or cyanosis. Joints and bones appeared normal to range of motion, palpation and inspection, joints appeared stable. Normal muscle strength and tone. MENTAL Psychiatric: Patient appears oriented to time, place and person with good recent and remote memory. Mood and affect appear normal without evidence for depression, anxiety or agitation. NEURO Cranial nerves grossly intact. Deep tendon reflexes symmetrical +2. Normal sensation. IMPRESSION/REPORT/PLAN Bilateral cataracts. Plan proceeding with surgery as scheduled and recheck here p.r.n. SFO/clf Signed Mitzy Oreilly M.D. Family Medicine Electronically Signed By: MITZY OREILLY MD On: 07/24/2011 09:21 AM Source: [facility] [email or web address] Document Id: [id number] documented in this encounter Miscellaneous Notes Miscellaneous - Mitzy Oreilly M.D. - 07/23/2011 10:58 AM CDT Ambulatory Patient Summary [address] [address] Visit Information Name: QUETA ANTOINE Current Date: 07/23/2011 10:58:44 Physicians Attending Provider: MITZY OREILLY MD Primary [...] unspecified Active 07/23/2011 07/23/11 left > right Your Upcoming Appointments Date Time Location Reason Provider No Appointments found Your Goals/Additional instructions: Source: [facility] [employer] Document Id: [id number] Patriciacellkalina - Mitzy Oreilly M.D. - 07/23/2011 10:58 AM CDT Ambulatory Depart Summary [address] [address] Visit Information Name: GENNAROUS QUETA Visit Date: 07/23/2011 10:58:43 Attending Provider: MITZY OREILLY MD Primary Care Provider: MITZY OREILLY MD ELISA QUETA has been given the following list [...] your provider for clarification. Additional Information: Source: [facility] [employer] Document Id: [id number] Miscellaneous - Makenzie, Historical Provider Ser - 07/23/2011 10:16 AM CDT Obstructive Sleep Apnea Obstructive Sleep Apnea Entered On: 07/23/2011 10:19 CDT Performed On: 07/23/2011 10:16 CDT by LACY CABRERA RICK Screening Known Obstructive Sleep Apnea : No Risk for Sleep Apnea : No LACY CABRERA - 07/23/2011 10:16 CDT RICK Assessment Do you have high blood pressure or have you been told to take medication for high blood pressure? 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 Yang, Cataract left eye, 07/29/11, [facility] Temperature Core : 37C(Converted to: 98.6DegF) Peripheral Pulse Rate : 84/min Respiratory Rate : 16/min Heart Rhythm : Regular Systolic Blood Pressure : 126mmHg Diastolic Blood Pressure : 78mmHg NIBP Mean : 94mmHg BP Location : Right upper extremity Blood Pressure Cuff Size : Large SpO2 : 97% Height : 165cm(Converted to: 5ft 5inch(es), 64.96inch(es)) Actual Weight : 84kg(Converted to: 185lb 3oz) Dosing Weight Clinic : 84.00kg Clinic BSA : 1.96 Body Mass Index : 30.85kg/m2 DEBORAH, LACY Trista 07/23/2011 10:04 CDT Subjective Pain Symptoms : No LACY CABRERA 07/23/2011 10:04 CDT Dependent Habits Tobacco Use/Currently Using : No Smoking Status : Never smoker Alcohol Use : No LACY CABRERA 07/23/2011 10:04 CDT Caffeine Use Grid Type : Chocolate, Coffee, Soft drinks, Tea Frequency : Daily LACY CABRERA 07/23/2011 10:04 CDT Allergy Allergies (Active) NKA Estimated Onset Date: Unspecified ; Created By: BRUCE MORALES; Reaction Status: Active ; Category: Drug ; Substance: NKA ; Type: Allergy ; Updated By: BRUCE MORALES; Reviewed Date: 07/23/201110:04 CDT Source: [facility] P[employer]CHART Document Id: [id number] CDT!28 documented in this encounter Plan of Treatment Upcoming Encounters Date Type Specialty Care Team Description 11/20/2021 Nurse Only Family Medicine Giovanna Schreiber APRN, C.N.P. [address] [facility] [place] [phone] 11/20/2021 Appointment Laboratory Medicine Giovanna Schreiber APRN, C.N.P. 300 [facility] [place] [phone] 12/18/2021 Comprehensive Visit Physical Medicine and Isidoro Morales M.D. [address] [place] [phone] 12/19/2021 Comprehensive Visit [facility] Giovanna Schreiber, Medicine ZAINA, C.N.P. [address] [facility] [place] [phone] documented as of this encounter Visit Diagnoses Not on filedocumented in this encounter
--- OUTSIDE RECORDS SUMMARY | 2021-10-30 02:02 | XMS_ITS | Encounter Summary ---
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 [address] [phone] 11/20/2021 Appointment Laboratory Medicine Giovanna Schreiber APRN, C.N.P. [address] [phone] 12/18/2021 Comprehensive Visit Physical Medicine and Isidoro Morales M.D. [address] [phone] 12/19/2021 Comprehensive Visit [facility] Giovanna Schreiber, Medicine TRANSPORT RN, C.N.P. [address] [facility] [address] [phone] documented as of this encounter Procedures Procedure Name Priority Date/Time Associated Diagnosis Comme nts BI BREAST SCREENING Routine 09/04/2008 2:06 PM Re sults for this BILATERAL CDT procedure are i n the results section. documented in this encounter Results BI Breast Screening Bilateral (09/04/2008 2:06 PM CDT) Anatomical Region Laterality Modality Breast Bilateral Mammography Specimen (Source) Anatomical Collection Method Collection Time Re ceived Time Location / / Volume Laterality 09/04/2008 2:06 PM CDT Narrative 09/04/2008 2:06 PM CDT Originally Signed By UNKNOWN, PERSONNEL Reason for exam: YEARLY Bilateral craniocaudal and oblique views of the breasts were obtained as a baseline study in this patient. Cristy uribe reports previous mammographic studies at [address] [place] [address] a t least 10 years prior. The studies are no longer available for dire ct comparison. ?? The breasts are predominantly fatty and fibroglandular in appearance. There no suspicious groupings of calcifi cations, , areas of skin thickening or nipple retraction to sugge st malignancy. Within the left breast near the 12:00 po sition approximately 4 cm from the nipple there is a well circumscribed 5 mm mass. Prior studies are not available to confirm interval stabil ity. There are bilateral axillary lymph lymph nodes, the largest is seen in the left axillary region which demonstra jairo a normal fatty hilum. ?? Computer Aided Detection was utilized du ring the interpretation of this exam. ? Impression: 1. Normal examination of the right breas t, no mammographic evidence of malignancy. 2. 5 mm well circumscribed mass in the 1 2:00 position of the left breast approximately 4 cm from the nippl e. Spot compression images, lateral view and possible ultrasound are recommended. ?? BREAST MAMMOGRAPHY-GENERAL OBSERVATION: The false negative rate for mammography is 10 to 15%. It cannot be u sed, therefore, to replace regular physical examination. A normal o r noncontributory mammogram report should also not deter the aggress jessica further workup of any suspected palpable masses. ?? BI-RADS: Code 0, incomplete. Needs addit ional imaging evaluation. Procedure Note Provider, Ester Benedict - 08/26/2016F ormatting of this note might be different from the original. Originally Signed By UNKNOWN, PERSONNEL Reason for exam: YEARLY Bilateral craniocaudal and oblique views of the breasts were obtained as a baseline study in this patient. Cristy uribe reports previous mammographic studies at [facility] a t least 10 years prior. The studies are no longer available for dire ct comparison. The breasts are predominantly fatty and fibroglandular in appearance. There no suspicious groupings of calcifi cations, , areas of skin thickening or nipple retraction to sugge st malignancy. Within the left breast near the 12:00 po sition approximately 4 cm from the nipple there is a well circumscribed 5 mm mass. Prior studies are not available to confirm interval stabil ity. There are bilateral axillary lymph lymph nodes, the largest is seen in the left axillary region which demonstra jairo a normal fatty hilum. Computer Aided Detection was utilized du ring the interpretation of this exam. Impression: 1. Normal examination of the right breas t, no mammographic evidence of malignancy. 2. 5 mm well circumscribed mass in the 1 2:00 position of the left breast approximately 4 cm from the nippl e. Spot compression images, lateral view and possible ultrasound are recommended. BREAST MAMMOGRAPHY-GENERAL OBSERVATION: The false negative rate for mammography is 10 to 15%. It cannot be u sed, therefore, to replace regular physical examination. A normal o r noncontributory mammogram report should also not deter the aggress jessica further workup of any suspected palpable masses. BI-RADS: Code 0, incomplete. Needs addit ional imaging evaluation. Historical Provider IMG BI PROCEDURES documented in this encounter Visit Diagnoses Not on filedocumented in this encounter
--- OUTSIDE RECORDS SUMMARY | 2021-10-30 02:02 | XMS_ITS | Encounter Summary ---
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 [address] [phone] 11/20/2021 Appointment Laboratory Medicine Giovanna Schreiber APRN, C.N.P. [address] [phone] 12/18/2021 Comprehensive Visit Physical Medicine and Isidoro Morales M.D. [address] [place] [phone] 12/19/2021 Comprehensive Visit Community Internal Giovanna Schreiber, Medicine PARKING CASHIER, C.N.P. [address] [facility] [address] [place] [phone] documented as of this encounter Procedures Procedure Name Priority Date/Time Associated Comments Diagnosis BI BREAST DIAGNOSTIC Routine 06/13/2009 1:53 PM R esults for this LEFT WITH COMPUTER CDT procedure are in AIDED DETECTION the results section. documented in this encounter Results BI Breast Diagnostic Left with Computer Aided Detection (06/13/2009 1:53 PM CDT) Anatomical Region Laterality Modality Breast Left Mammography Specimen (Source) Anatomical Collection Method Collection Time Re ceived Time Location / / Volume Laterality 06/13/2009 1:53 PM CDT Addenda Addendum by ProviderJak M.D. o n 06/13/2009 1:53 PM CDT RAD^^^OW MA Mammo Diag Unilat Left w ??CADD 06/13/2009 13:53:00 Addendum by Jak Saxena M.D. o n 06/13/2009 1:36 PM CDT RAD^^^OW MA Mammo Diag Unilat Left w ??CADD 06/13/2009 13:36:00 Addendum by Jak Saxena M.D. o n 06/13/2009 1:53 PM CDT RAD^^^MA MA MAMMO DIAG UNILAT LEFT W CADD 06/13/2009 13:53:00 Addendum by Jak Saxena M.D. o n 06/13/2009 1:36 PM CDT RAD^^^MA MA MAMMO DIAG UNILAT LEFT W CADD 06/13/2009 13:36:00 Impressions 07/31/2009 11:13 AM CDT BI-RADS 3. ??PROBABLY BENIGN FINDINGS. ?? RECOMMENDATION: Patient will return in 3 months for annual screening mammography of the right breast, and to have diagnostic MLO, CC, and true ML projections of the left breast. ADDENDUM: Recommendation is for the christine ent to return in 3 months for annual screening mammography of the righ t breast, and to have diagnostic MLO, CC, and true ML projecti ons of the left breast. ADDENDUM: Recommendation is for the christine ent to return in 3 months for annual screening mammography of the righ t breast, and to have diagnostic MLO, CC, and true ML projecti ons of the left breast. Narrative 07/31/2009 11:13 AM CDT Unilateral left breast diagnostic mammography with computer-aided detection, CAD. 06/13/2009. ?? COMPARISON: Unilateral left breast diagn ostic mammography 09/07/2008, screening mammograms 09/04/2008. ?? HISTORY: 63-year-old female followup lef t breast rounded density seen on screening mammogram 09/04/2008 and di agnostic mammogram 09/07/2008. ?? FINDINGS: Tissue density is scattered fi broglandular density. The rounded soft tissue density seen in the anterior one-third of the left breast retroareolar region is again obse rved on the left MLO and CC projections as well as the true ML proje ction measuring 3 x 4 mm in size on the left ML projection. Its size remains stable or perhaps it has slightly decreased compared to the p revious exam. ?? Procedure Note Kirt Donis M.D. / Provider, Prudencio shirley M.D. - 08/14/2016 Unilateral left breast diagnostic mammog paul with computer-aided detection, CAD. 06/13/2009. COMPARISON: Unilateral left breast diagn ostic mammography 09/07/2008, screening mammograms 09/04/2008. HISTORY: 63-year-old female followup lef t breast rounded density seen on screening mammogram 09/04/2008 and di agnostic mammogram 09/07/2008. FINDINGS: Tissue density is scattered fi broglandular density. The rounded soft tissue density seen in the anterior one-third of the left breast retroareolar region is again obse rved on the left MLO and CC projections as well as the true ML proje ction measuring 3 x 4 mm in size on the left ML projection. Its size remains stable or perhaps it has slightly decreased compared to the p revious exam. IMPRESSION: BI-RADS 3. PROBABLY BENIGN F INDINGS. RECOMMENDATION: Patient will return in 3 months for annual screening mammography of the right breast, and to have diagnostic MLO, CC, and true ML projections of the left breast. ADDENDUM: Recommendation is for the christine ent to return in 3 months for annual screening mammography of the righ t breast, and to have diagnostic MLO, CC, and true ML projecti ons of the left breast. ADDENDUM: Recommendation is for the christine ent to return in 3 months for annual screening mammography of the righ t breast, and to have diagnostic MLO, CC, and true ML projecti ons of the left breast. Simona Dillard R.T.(R), R.T.(R)(M) NATANAEL JEAN ES documented in this encounter Visit Diagnoses Not on filedocumented in this encounter
== END 2021-10-23 13:09 | disposition home or self-care (01) ==
PROVIDERS: Visit Provider Physician Assistant
DX: M79.605 Pain in left leg (principal); M48.07 Spinal stenosis, lumbosacral region; M51.26 Other intervertebral disc displacement, lumbar region; K80.20 Calculus of gallbladder without cholecystitis without obstruction; N28.1 Cyst of kidney, acquired
CPT/HCPCS: 72148